=== PATIENT | male | born 1945 | race Caucasian/White ===

== ENCOUNTER → 2018-06-09 12:09 | Outpatient (REF) | payer OTHER, SELFPAY ==
[2018-06-13 11:43] LABS: Hepatitis C Ab w Rflx HCV PCR Negative (NEGAT)
== END ==
LOC: NCHCN 12:09
PROVIDERS: PCP Nurse Practitioner Family; Visit Provider Specialist/Technologist Athletic Trainer
DX: G47.00 Insomnia, unspecified (principal); F41.8 Other specified anxiety disorders; Z11.59 Encounter for screening for other viral diseases
CPT/HCPCS: 86803

== ENCOUNTER 2018-07-15 10:18 | Outpatient (REF) | payer OTHER, SELFPAY ==
[2018-07-15 13:36] LABS: TSH (W/Ref FT4) 1.08 uIU/mL (0.358-3.74)
== END 2018-07-15 10:38 ==
LOC: NCHCN 10:18
PROVIDERS: PCP Nurse Practitioner Family; Visit Provider Nurse Practitioner Family
DX: E03.9 Hypothyroidism, unspecified (principal); F41.8 Other specified anxiety disorders; R41.3 Other amnesia; R55 Syncope and collapse; F17.200 Nicotine dependence, unspecified, uncomplicated; G47.00 Insomnia, unspecified
CPT/HCPCS: 84443

== ENCOUNTER 2019-02-09 12:12 | Outpatient (REF) | payer OTHER, SELFPAY ==
[2019-02-09 21:53] LABS: ALT 28 U/L (12-78); AST 24 U/L (15-37); Albumin 3.9 g/dL (3.4-5.0); Alkaline Phosphatase 80 U/L (46-116); Anion Gap 9.2 mmol/L (3-11); BUN 13 mg/dL (7-18); Bilirubin, Total 0.6 mg/dL (0.2-1.0); CO2 27.8 mmol/L (21.0-32.0); CREATININE 1.16 mg/dL (0.70-1.30); Calcium 9.5 mg/dL (8.5-10.1); Chloride 102 mmol/L (98-107); Glucose 91 mg/dL (70-100); Potassium 4.5 mmol/L (3.5-5.1); Sodium 139 mmol/L (136-145); Vitamin B12 577 pg/mL (193-986)
== END 2019-02-09 12:32 ==
LOC: NCHCN 12:12
PROVIDERS: PCP Nurse Practitioner Family; Visit Provider Nurse Practitioner Family
DX: E78.5 Hyperlipidemia, unspecified (principal); F17.200 Nicotine dependence, unspecified, uncomplicated; F02.80 Dementia in other diseases classified elsewhere, unspecified severity, without behavioral disturbance, psychotic disturbance, mood disturbance, and anxiety; E03.9 Hypothyroidism, unspecified; F41.8 Other specified anxiety disorders; Z65.8 Other specified problems related to psychosocial circumstances; G47.00 Insomnia, unspecified; K27.9 Peptic ulcer, site unspecified, unspecified as acute or chronic, without hemorrhage or perforation
CPT/HCPCS: 80053; 82607; 83735; 84443

== ENCOUNTER → 2019-04-04 12:59 | Outpatient (BNVA) | payer OTHER, SELFPAY | PROVIDERS: PCP Nurse Practitioner Family; Visit Provider Nurse Practitioner Adult Health | DX: G30.1 Alzheimer's disease with late onset (principal); F02.80 Dementia in other diseases classified elsewhere, unspecified severity, without behavioral disturbance, psychotic disturbance, mood disturbance, and anxiety | CPT/HCPCS: 99213 ==

== ENCOUNTER → 2019-09-25 12:20 | Outpatient (BNVA) | payer OTHER, SELFPAY | PROVIDERS: PCP Nurse Practitioner Family; Referring Provider Nurse Practitioner Family; Visit Provider Nurse Practitioner Adult Health | DX: G30.9 Alzheimer's disease, unspecified (principal) | CPT/HCPCS: 99213 ==

== ENCOUNTER 2019-12-18 13:57 | Outpatient (REF) | payer OTHER, SELFPAY ==
[2019-12-18 21:21] LABS: ALT 28 U/L (16-63); AST 25 U/L (15-37); Albumin 3.6 g/dL (3.4-5.0); Alkaline Phosphatase 97 U/L (46-116); Anion Gap 9.7 mmol/L (3-11); BUN 11 mg/dL (7-18); Bilirubin, Total 0.6 mg/dL (0.2-1.0); CO2 28.3 mmol/L (21.0-32.0); CREATININE 1.13 mg/dL (0.70-1.30); Calcium 9.4 mg/dL (8.5-10.1); Chloride 102 mmol/L (98-107); Glucose 96 mg/dL (74-106); Magnesium 2.1 mg/dL (1.8-2.4); Potassium 4.6 mmol/L (3.5-5.1); Sodium 140 mmol/L (136-145); TSH (W/Ref FT4) 2.92 uIU/mL (0.36-3.74); Total Protein 6.8 g/dL (6.4-8.2); Vitamin B12 467 pg/mL (193-986)
== END 2019-12-18 14:17 ==
LOC: NCHCN 13:57
PROVIDERS: PCP Nurse Practitioner Family; Visit Provider Nurse Practitioner Family
DX: E78.5 Hyperlipidemia, unspecified (principal); E03.9 Hypothyroidism, unspecified; F41.8 Other specified anxiety disorders; R03.0 Elevated blood-pressure reading, without diagnosis of hypertension; R06.02 Shortness of breath; F17.200 Nicotine dependence, unspecified, uncomplicated; R05 Cough; K27.9 Peptic ulcer, site unspecified, unspecified as acute or chronic, without hemorrhage or perforation
CPT/HCPCS: 80053; 82607; 83735; 84443

== ENCOUNTER 2021-04-18 12:20 | Outpatient (REF) | payer OTHER, SELFPAY ==
[2021-04-18 19:26] LABS: ALT 38 U/L (16-63); AST 34 U/L (15-37); Albumin 3.5 g/dL (3.4-5.0); Alkaline Phosphatase 99 U/L (46-116); Anion Gap 12.2 mmol/L (3-11); BUN 17 mg/dL (7-18); Bilirubin, Total 0.2 mg/dL (0.2-1.0); CO2 25.8 mmol/L (21.0-32.0); CREATININE 1.1 mg/dL (0.70-1.30); Calcium 8.9 mg/dL (8.5-10.1); Chloride 104 mmol/L (98-107); Glucose 99 mg/dL (74-106); Magnesium 1.9 mg/dL (1.8-2.4); Potassium 4.5 mmol/L (3.5-5.1); Sodium 142 mmol/L (136-145); TSH (W/Ref FT4) 2.28 uIU/mL (0.36-3.74); Total Protein 6.4 g/dL (6.4-8.2); Vitamin B12 511 pg/mL (193-986)
== END 2021-04-18 12:21 | disposition home or self-care (01) ==
LOC: NCHCN 12:20
PROVIDERS: PCP Nurse Practitioner Family; Visit Provider Nurse Practitioner Family
DX: E78.5 Hyperlipidemia, unspecified (principal); E03.9 Hypothyroidism, unspecified; R06.02 Shortness of breath; G30.9 Alzheimer's disease, unspecified; F02.80 Dementia in other diseases classified elsewhere, unspecified severity, without behavioral disturbance, psychotic disturbance, mood disturbance, and anxiety; Z65.8 Other specified problems related to psychosocial circumstances
CPT/HCPCS: 80053; 82607; 83735; 84443

== ENCOUNTER 2022-03-31 11:55 | Inpatient (IN) | payer MEDICARE, SELFPAY ==
[2022-03-31] VITALS (49 sets, daily range): BP systolic 104–148; BP diastolic 71–105; PULSE 67–91; RESP 13–27; TEMP 36.2–36.8; O2SAT 79–98
--- NOTE | 2022-03-31 | DI.CT_ITS ---
Exam(s) CT ABDOMEN PELVIS CTA EXAM: CT ABDOMEN PELVIS CTA CLINICAL HISTORY: elevated liver function, ? ischemic. TECHNIQUE: Imaging Protocol: Axial CT angiography was performed with multi-slice acquisition and m ulti-planar and/or 3D reconstructions. CONTRAST MATERIAL: Intravenous: Omnipaque 350 Contrast volume:100mL Oral: No COMPARISON: CT ABD PELVIS WITH CONTRAST from 09/24/[address] CHEST/ABD/PEL WO from 03/31/2022 FINDINGS: ABDOMEN AND PELVIS: Abdomen: Celiac axis/mesenteric arteries: No evidence of occlusion or significant stenosis. Renal Arteries: No evidence of occlusion or significant stenosis. 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 Aorta: No evidence of occlusion or significant stenosis. No aneurysm or dissection. There is atheros clerosis and mural thrombus present. Pelvis: Iliac Arteries: No evidence of occlusion or significant stenosis. There is atherosclerosis present. There is moderate stenosis at the origin of the left external iliac artery. Common Femoral Arteries: No evidence of occlusion or significant stenosis. Atherosclerosis is presen t. ABDOMEN: Lung bases: Coronary artery calcifications are present. There is a 2 cm cavitary lesion in the left lower lobe. Liver: Normal density. No measurable mass. Portal, Superior Mesenteric, and Splenic Veins: Unremarkable. Gallbladder and Biliary Tract: No radiodense calculus or dilation. Pancreas: Normal density, no abnormal calcifications or inflammatory process. Spleen: Normal. Adrenals: There is a stable right adrenal nodule. This likely reflects an adenoma. Left adrenal gla nd is unremarkable. Kidneys: Normal size, contour and axis. No radiodense stones or obstructive uropathy. Stable renal cy sts. Bowel: There is no evidence of obstruction. There is mild bowel wall thickening seen in the proximal small bowel in the left abdomen. No evidence of appendicitis. There is diverticulosis in the sigmo id colon but no evidence of acute diverticulitis. Peritoneal Cavity: No ascites, collection or mesenteric inflammatory response. No free air. Lymph Nodes: Within normal limits. Bones: Within normal limits for the patient's age. There are old healed left rib fractures. Soft Tissues: Unremarkable. PELVIS: Bladder: There is 5.2 x 3.3 cm soft tissue seen in the dependent portion of the urinary bladder. Thi s may represent hemorrhage. Mass cannot be excluded. Reproductive Organs: Unremarkable as visualized. Lymph Nodes: Within normal limits. Bones: Within normal limits. IMPRESSION: 1. No evidence of mesenteric ischemia. Mesenteric vessels are grossly unremarkable. 2. 5.2 x 3.3 cm soft tissue in the dependent portion of the urinary bladder. This may represent clot versus bladder mass. Urology consult is recommended. 3. 2 cm cavitary lesion in the left lower lobe. Neoplasm cannot be excluded. Other etiologies inclu ding infection, collagen vascular disease/granulomatous disease, trauma should be considered. Correl ate clinically. 4. Question of mild thickening of the wall of the proximal small bowel. Enteritis cannot be excluded . RADIATION DOSE DELIVERED: 1,318.05mGy.cm Total DLP DATA REPOSITORY: All CT scans at this facility are submitted to the National Radiology Data Registry (NRDR) Dose Index Registry (DIR) with the [employer] ([employer]). RADIATION OPTIMIZATION: All CT scans at this facility use at least one of these dose optimization te chniques: automated exposure control; mA and/or kV adjustment per patient size (includes targeted exa ms where dose is matched to clinical indication); or iterative reconstruction.
--- NOTE | 2022-03-31 12:15 | RT.EKG_ITS ---
APPROVED REPORT Exam: Resting ECG Reason for Exam: weakness Patient Location: E HR:77 bpm ECG Measurements Heart Rate 77 AXIS UT 154 P 83 QRSd 143 QRS -62 QT 470 T 93 QTc 534 Conclusion Sinus rhythm...normal P axis, V-rate 60- 99 Ventricular premature complex...V complex w/ short R-R interval Left bundle branch block...QRSd>120, broad/notched R. Sinus. LBBB. PVCs. No STEMI. I have reviewed and interpreted ECG and agree with software generated interpretation.
--- NOTE | 2022-03-31 12:27 | ED.GENADUL_ITS ---
Discharge Plan Disposition Patient Disposition: [facility] INPATIENT Condition: Stable Discharge Details Clinical Impression: Transaminitis, Hyperbilirubinemia, Confusion, Generalized weakness, Bladder mass Primary Care Provider: Lily Soares ED Provider: Sydney De León Home Meds and New Rx's Prescriptions: No Action trazodone 50 mg tablet 100 mg PO HS melatonin 3 mg tablet 3 mg PO HS Label Comments: Per will increase to 6 mg qd next week. mirtazapine 45 mg tablet 45 mg PO QHS aspirin 81 MG tablet,chewable 81 mg PO DAILY acetaminophen [Tylenol] 325 MG tablet 650 mg PO PRN nicotine 1 EACH patch 24 hour 14 mg Transdermal DAILY simvastatin 20 MG tablet 20 mg PO DAILY levothyroxine 125 MCG tablet 100 mcg PO DAILY@0730 Label Comments: 02/08/18 PER SON 100 MCG DAILY. Centrum Silver 1 EACH tablet 1 ea PO DAILY citalopram 40 MG tablet 40 mg PO DAILY pantoprazole 40 MG tablet,delayed release (DR/EC) 40 mg PO DAILY Qty: 30 5RF atenolol 25 mg tablet 12.5 mg PO DAILY Label Comments: Take 1/2 tablet by mouth every day Medical Decision Making 1215 -- 77-year-old male with a history of dementia, anxiety, depression, hyperlipidemia, hypothyroidism, former alcohol abuse presents from home for generalized weakness, confusion, fatigue and decreased appetite for the past week. Vitals within normal limits. EKG notes a rate of 77, sinus, PVCs with left bundle branch block but no STEMI. No evidence of trauma on exam. Patient is oriented x3 but has intermittent confusion per ex- at bedside. He is able to answer most questions. She has significantly dry mucous membranes. No meningeal signs. Lungs clear bilaterally. No focal deficits. Differential diagnosis includes UTI, CVA, dehydration, electrolyte abnormality, probably medication. Will obtain screening labs, ua, CT head, cxr and provide IV fluid hydration. 1430 --labs and imaging reviewed. Normal white blood cell count and hemoglobin. Creatinine 1.8 slightly increased from his baseline. AST 1167, ALT 4777, alk phos 231, T bili 5.9. Troponin negative. Fluvid negative. Discussed with patient and ex- at bedside. She denies any known acute Tylenol overdose but states he can sometimes take days worth of his medication at once. They deny any recent alcohol use. We will add a Tylenol level, lipase, chest x-ray changed to CT chest abdomen pelvis without IV contrast and will obtain a gallbladder ultrasound. Patient is hemodynamically stable. Discussed CODE STATUS at bedside and patient and ex- endorse that he is DNR/DNI. 1600 --ultrasound of the gallbladder notes cholelithiasis but no cholecystitis. Ultrasound of the bladder notes a 5 cm lesion which could be a clot or mass. Lipase within normal limits. Conjugated bilirubin elevated at 4.7. Acetaminophen level negative. Urinalysis notes large blood but negative leukocyte esterase and nitrate. Ammonia level within normal limits. Case discussed with Dr. Dixon --consider ischemia -- no recommendations for repeat CT with IV or oral contrast at this time. Lactate obtained which was within normal limits. Results discussed at bedside with patient and ex- and they are agreeable to admission. Case d/w hospitalist who accepts pt for admission. 174 -- D/w Dr. Gallardo-- if pt has decreased urine output, then can place a moore catheter, but otherwise no acute recommendations at this time. Medical Records Medical records reviewed: Yes I reviewed the patient's medical records. Imaging Data Radiologic Study: Radiologist's impression: CT HEAD WO CLINICAL HISTORY: ? confusion, r/o acute disease. ? TECHNIQUE:? Imaging Protocol: Axial computed tomography images with coronal and sagittal reformatted images were created and reviewed COMPARISON:? CT HEAD WITHOUT STROKE PROTOCOL from 04/07/2013 MR MRI - BRAIN WO CONTRAST from 02/14/2018 FINDINGS: Ventricles and Extra axial spaces: Normal in size and morphology for the patient's age. Hemorrhage: None. Cerebral parenchyma: Mild atrophy.? Old left parietal infarct.? No acute infarct is visible.? No evidence of mass.? No evidence of acute Midline shift: None. Brainstem/Cerebellum: Normal. Calvarium: Normal. Visualized Paranasal sinuses/Mastoids: Clear. Soft Tissues: Unremarkable. IMPRESSION: Old left parietal infarct.? No acute intracranial process. CT CHEST/ABD/PEL WO CLINICAL HISTORY: ? weakness, fatigue, poor appetite. ? TECHNIQUE:? Imaging Protocol: Axial computed tomography images with coronal and sagittal reformatted images were created and reviewed CONTRAST MATERIAL:? Noncontrast COMPARISON:? CT CTA THORAX/ABDOMEN/PELVIS from 09/09/2016 CT CTA THORAX/ABDOMEN/PELVIS from 09/09/2016 CR PORTABLE CHEST ONE VIEW from 09/10/2016 CR PORTABLE CHEST ONE VIEW from 09/12/2016 CT ABD ? PELVIS WITH CONTRAST from 09/17/2016 CT ABD ? PELVIS WITH CONTRAST from 09/24/[address] HEAD WO from 03/31/2022 FINDINGS: CHEST: Heart size is normal.? Coronary artery calcifications at the seen.? There are atherosclerotic changes of the aorta but no evidence of an aneurysm.? There is no adenopathy.? There are mild emphysematous changes.? There is an area of scarring in the posterolateral left lower lobe.? There are cystic areas within the lesion? communicating with bronchi.? A mass at this location is not excluded.? There lungs are otherwise clear.? No pleural or pericardial effusions.? No suspicious bony lesions. ABDOMEN and PELVIS:? Exam is mildly limited by respiratory motion the liver, gallbladder, spleen, pancreas and adrenals are unremarkable.? Multiple cysts are seen on the left kidney.? The right kidney is unremarkable.? There are atherosclerotic changes of the abdominal aorta with mild dilatation and mild mural thrombus.? Maximum dimension 3 cm.? Iliac arteries are heavily calcified, left greater than right.? There is high-density material within the bladder which could represent clot versus mass..? Prostate is mildly enlarged.? The colon shows diverticulosis but no evidence of diverticulitis.? There is no free fluid or localized collection.? Degenerative changes and scoliosis are seen in the spine lumbar spine. IMPRESSION: 1.? Question mass versus scarring left lower lobe. 2.? High-density material in the bladder could represent clot versus mass. ? Results of this exam have been verbally communicated with the emergency department provider. US ABDOMEN LIMITED CLINICAL HISTORY: ? transaminitis, r/o cholecystitis TECHNIQUE:? Ultrasound abdomen performed using standard protocol. COMPARISON:? No exams were available for comparison FINDINGS: LIVER: Visualized portions normal echogenicity.? GALLBLADDER: Several? gallstones, largest measuring 7 millimeters.? No evidence of wall thickening. No pericholecystic fluid identified. JAMISON'S SIGN: Negative. BILIARY SYSTEM: No intrahepatic or extrahepatic biliary ductal dilation. ASCITES: None seen. IMPRESSION: Cholelithiasis.? No evidence of acute cholecystitis or biliary dilatation. US PELVIS LIMITED CLINICAL HISTORY: ? possible blood clot in bladder on ct.? TECHNIQUE:? Armas scale, color and spectral Doppler were used. COMPARISON:? CT CT CHEST/ABD/PEL WO from 03/31/2022 FINDINGS: Bladder: No wall thickening or visible trabeculation.? 3.5 x 2.3 x 5.2 cent imeter mixed echogenicity avascular lesion.? Appearance favors clot however mass not entirely excluded.? Both ureteral jets were visualized. Prevoid vol:316 cc Postvoid vol:Patient unable to void IMPRESSION: 5.2 centimeter mixed echogenicity ladder lesion could represent clot versus mass. Results of this exam have been verbally communicated with the emergency department provider. Lab Data Lab results reviewed: Yes I reviewed the patient's lab results. Labs: 03/31/22 15:58 Urine - Reflex from Ua Urine Culture - Pending Laboratory Tests Range/Units 03/31/22 03/31/22 03/31/22 12:30 12:55 12:55 WBC (4.4-10.8) 10^3/uL 8.52 RBC (4.36-5.78) 10^6/uL 6.16 H Hgb (13.5-17.5) g/dL 15.8 Hct (40.0-50.0) % 49.6 MCV (80-95) fL 81 MCH (27.0-33.0) pg 25.6 L MCHC (32.0-36.0) % 31.9 L RDW (11.8-14.1) % 18.4 H Plt Count (130-400) 10^3/uL 270 MPV (8.0-11.0) fL 10.2 Immature Gran % 0.7 Neutrophils % 74.5 Lymphocytes % 13.3 Monocytes % 9.7 Eosinophils % 1.3 Basophils % 0.5 Nucleated RBC % (0.0-0.3) % 0.0 Absolute Neutrophils (1.2-6.7) 10^3/uL 6.35 Absolute Lymphocytes (1.2-3.4) 10^3/uL 1.13 L Absolute Monocytes (0.1-0.8) 10^3/uL 0.83 H Absolute Eosinophils (0.0-0.7) 10^3/uL 0.11 Absolute Basophils (0.0-0.2) 10^3/uL 0.04 PT INR APTT Sodium (136-145) mmol/L 142 Potassium (3.5-5.1) mmol/L 4.1 Chloride (98-107) mmol/L 106 Carbon Dioxide (21.0-32.0) mmol/L 29.0 Anion Gap (3-11) mmol/L 7.0 BUN (7-18) mg/dL 66 H Creatinine (0.70-1.30) mg/dL 1.8 H Estimated GFR/1.73 m2 (mL/min/1.73m2) 36.77 Glucose (74-106) mg/dL 111 H Calcium (8.5-10.1) mg/dL 9.1 Magnesium (1.8-2.4) mg/dL 2.8 H Iron (65-175) ug/dL Ferritin (26-388) ng/mL Total Bilirubin (0.2-1.0) mg/dL 5.9 H Conjugated Bilirubin (0.0-0.2) mg/dL AST (15-37) U/L 1167 H ALT (16-63) U/L 4777 H Alkaline Phosphatase (46-116) U/L 231 H Ammonia (11-32) umol/L Troponin I (<or=60) ng/L < 50 Total Protein (6.4-8.2) g/dL 6.4 Albumin (3.4-5.0) g/dL 3.1 L Lipase (73-393) U/L Vitamin B12 (193-986) pg/mL Vit D 1,25-Dihydroxy TSH (0.36-3.74) uIU/mL 0.35 L Free T4 (0.76-1.46) ng/dL 1.37 Urine Color (Yellow) Urine Clarity (Clear) Urine pH (5-8) Ur Specific [place] (1.005-1.025) Urine Protein (Negative) mg/dL Urine Ketones (Negative) mg/dL Urine Blood (Negative) Urine Nitrite (Negative) Urine Bilirubin (Negative) Urine Urobilinogen (Up TO 0.2) EU/dL Ur Leukocyte Esterase (Negative) Urine RBC (0-2) HPF Urine WBC (0-5) HPF Ur Epithelial Cells Urine Crystals (Negative) HPF Urine Bacteria Urine Mucus Ur Culture Indicated? Urine Glucose (Negative) mg/dL Acetaminophen (10-30) ug/mL COVID-19 Source Nasopharynx SARS-CoV-2 (PCR) (Negative) Negative Influenza Type A (PCR) (Negative) Negative Influenza Type B (PCR) (Negative) Negative RSV (PCR) (Negative) Negative Range/Units 03/31/22 03/31/22 03/31/22 12:55 12:55 12:55 WBC (4.4-10.8) 10^3/uL RBC (4.36-5.78) 10^6/uL Hgb (13.5-17.5) g/dL Hct (40.0-50.0) % MCV (80-95) fL MCH (27.0-33.0) pg MCHC (32.0-36.0) % RDW (11.8-14.1) % Plt Count (130-400) 10^3/uL MPV (8.0-11.0) fL Immature Gran % Neutrophils % Lymphocytes % Monocytes % Eosinophils % Basophils % Nucleated RBC % (0.0-0.3) % Absolute Neutrophils (1.2-6.7) 10^3/uL Absolute Lymphocytes (1.2-3.4) 10^3/uL Absolute Monocytes (0.1-0.8) 10^3/uL Absolute Eosinophils (0.0-0.7) 10^3/uL Absolute Basophils (0.0-0.2) 10^3/uL PT INR APTT Sodium (136-145) mmol/L Potassium (3.5-5.1) mmol/L Chloride (98-107) mmol/L Carbon Dioxide (21.0-32.0) mmol/L Anion Gap (3-11) mmol/L BUN (7-18) mg/dL Creatinine (0.70-1.30) mg/dL Estimated GFR/1.73 m2 (mL/min/1.73m2) Glucose (74-106) mg/dL Calcium (8.5-10.1) mg/dL Magnesium (1.8-2.4) mg/dL Iron (65-175) ug/dL 55 L Ferritin (26-388) ng/mL > 2000 H Total Bilirubin (0.2-1.0) mg/dL Conjugated Bilirubin (0.0-0.2) mg/dL 4.7 H AST (15-37) U/L ALT (16-63) U/L Alkaline Phosphatase (46-116) U/L Ammonia (11-32) umol/L Troponin I (<or=60) ng/L Total Protein (6.4-8.2) g/dL Albumin (3.4-5.0) g/dL Lipase (73-393) U/L Vitamin B12 (193-986) pg/mL > 2000 H Vit D 1,25-Dihydroxy TSH (0.36-3.74) uIU/mL Free T4 (0.76-1.46) ng/dL Urine Color (Yellow) Urine Clarity (Clear) Urine pH (5-8) Ur Specific [place] (1.005-1.025) Urine Protein (Negative) mg/dL Urine Ketones (Negative) mg/dL Urine Blood (Negative) Urine Nitrite (Negative) Urine Bilirubin (Negative) Urine Urobilinogen (Up TO 0.2) EU/dL Ur Leukocyte Esterase (Negative) Urine RBC (0-2) HPF Urine WBC (0-5) HPF Ur Epithelial Cells Urine Crystals (Negative) HPF Urine Bacteria Urine Mucus Ur Culture Indicated? Urine Glucose (Negative) mg/dL Acetaminophen (10-30) ug/mL COVID-19 Source SARS-CoV-2 (PCR) (Negative) Influenza Type A (PCR) (Negative) Influenza Type B (PCR) (Negative) RSV (PCR) (Negative) Range/Units 03/31/22 03/31/22 03/31/22 12:55 12:55 13:32 WBC (4.4-10.8) 10^3/uL RBC (4.36-5.78) 10^6/uL Hgb (13.5-17.5) g/dL Hct (40.0-50.0) % MCV (80-95) fL MCH (27.0-33.0) pg MCHC (32.0-36.0) % RDW (11.8-14.1) % Plt Count (130-400) 10^3/uL MPV (8.0-11.0) fL Immature Gran % Neutrophils % Lymphocytes % Monocytes % Eosinophils % Basophils % Nucleated RBC % (0.0-0.3) % Absolute Neutrophils (1.2-6.7) 10^3/uL Absolute Lymphocytes (1.2-3.4) 10^3/uL Absolute Monocytes (0.1-0.8) 10^3/uL Absolute Eosinophils (0.0-0.7) 10^3/uL Absolute Basophils (0.0-0.2) 10^3/uL PT INR APTT Sodium (136-145) mmol/L Potassium (3.5-5.1) mmol/L Chloride (98-107) mmol/L Carbon Dioxide (21.0-32.0) mmol/L Anion Gap (3-11) mmol/L BUN (7-18) mg/dL Creatinine (0.70-1.30) mg/dL Estimated GFR/1.73 m2 (mL/min/1.73m2) Glucose (74-106) mg/dL Calcium (8.5-10.1) mg/dL Magnesium (1.8-2.4) mg/dL Iron (65-175) ug/dL Ferritin (26-388) ng/mL Total Bilirubin (0.2-1.0) mg/dL Conjugated Bilirubin (0.0-0.2) mg/dL AST (15-37) U/L ALT (16-63) U/L Alkaline Phosphatase (46-116) U/L Ammonia (11-32) umol/L Troponin I (<or=60) ng/L Total Protein (6.4-8.2) g/dL Albumin (3.4-5.0) g/dL Lipase (73-393) U/L 159 Vitamin B12 (193-986) pg/mL Vit D 1,25-Dihydroxy Cancelled TSH (0.36-3.74) uIU/mL Free T4 (0.76-1.46) ng/dL Urine Color (Yellow) Urine Clarity (Clear) Urine pH (5-8) Ur Specific [place] (1.005-1.025) Urine Protein (Negative) mg/dL Urine Ketones (Negative) mg/dL Urine Blood (Negative) Urine Nitrite (Negative) Urine Bilirubin (Negative) Urine Urobilinogen (Up TO 0.2) EU/dL Ur Leukocyte Esterase (Negative) Urine RBC (0-2) HPF Urine WBC (0-5) HPF Ur Epithelial Cells Urine Crystals (Negative) HPF Urine Bacteria Urine Mucus Ur Culture Indicated? Urine Glucose (Negative) mg/dL Acetaminophen (10-30) ug/mL < 2 COVID-19 Source SARS-CoV-2 (PCR) (Negative) Influenza Type A (PCR) (Negative) Influenza Type B (PCR) (Negative) RSV (PCR) (Negative) Range/Units 03/31/22 03/31/22 03/31/22 14:55 15:25 15:58 WBC (4.4-10.8) 10^3/uL RBC (4.36-5.78) 10^6/uL Hgb (13.5-17.5) g/dL Hct (40.0-50.0) % MCV (80-95) fL MCH (27.0-33.0) pg MCHC (32.0-36.0) % RDW (11.8-14.1) % Plt Count (130-400) 10^3/uL MPV (8.0-11.0) fL Immature Gran % Neutrophils % Lymphocytes % Monocytes % Eosinophils % Basophils % Nucleated RBC % (0.0-0.3) % Absolute Neutrophils (1.2-6.7) 10^3/uL Absolute Lymphocytes (1.2-3.4) 10^3/uL Absolute Monocytes (0.1-0.8) 10^3/uL Absolute Eosinophils (0.0-0.7) 10^3/uL Absolute Basophils (0.0-0.2) 10^3/uL PT Cancelled INR Cancelled APTT Cancelled Sodium (136-145) mmol/L Potassium (3.5-5.1) mmol/L Chloride (98-107) mmol/L Carbon Dioxide (21.0-32.0) mmol/L Anion Gap (3-11) mmol/L BUN (7-18) mg/dL Creatinine (0.70-1.30) mg/dL Estimated GFR/1.73 m2 (mL/min/1.73m2) Glucose (74-106) mg/dL Calcium (8.5-10.1) mg/dL Magnesium (1.8-2.4) mg/dL Iron (65-175) ug/dL Ferritin (26-388) ng/mL Total Bilirubin (0.2-1.0) mg/dL Conjugated Bilirubin (0.0-0.2) mg/dL AST (15-37) U/L ALT (16-63) U/L Alkaline Phosphatase (46-116) U/L Ammonia (11-32) umol/L 22 Troponin I (<or=60) ng/L Total Protein (6.4-8.2) g/dL Albumin (3.4-5.0) g/dL Lipase (73-393) U/L Vitamin B12 (193-986) pg/mL Vit D 1,25-Dihydroxy TSH (0.36-3.74) uIU/mL Free T4 (0.76-1.46) ng/dL Urine Color (Yellow) Brown Urine Clarity (Clear) Cloudy Urine pH (5-8) 6.0 Ur Specific [place] (1.005-1.025) >= 1.030 H Urine Protein (Negative) mg/dL >=300 H Urine Ketones (Negative) mg/dL 15 H Urine Blood (Negative) Large H Urine Nitrite (Negative) Negative Urine Bilirubin (Negative) Moderate H Urine Urobilinogen (Up TO 0.2) EU/dL 1.0 H Ur Leukocyte Esterase (Negative) Negative Urine RBC (0-2) HPF >50 H Urine WBC (0-5) HPF 5-10 Ur Epithelial Cells Not Applicable Urine Crystals (Negative) HPF Moderate Amorphous Urine Bacteria Not Applicable Urine Mucus Not Applicable Ur Culture Indicated? Yes Urine Glucose (Negative) mg/dL Negative Acetaminophen (10-30) ug/mL COVID-19 Source SARS-CoV-2 (PCR) (Negative) Influenza Type A (PCR) (Negative) Influenza Type B (PCR) (Negative) RSV (PCR) (Negative) ECG Data Attestation: I personally reviewed and interpreted this ECG (s) as follows: Interpretation: Rate 77, sinus, left bundle branch block, PVCs, no stemi. HPI General Mode of arrival: wheelchair . Date/Time Provider Initiated Documentation: 03/31/22 12:24 . Limitations to Documentation: altered mental status . Information obtained by: patient and family . HPI Narrative: Patient is a 77-year-old male with a history of Alzheimer's dementia, anxiety, depression, hyperlipidemia, hypothyroidism who presents from home for generalized weakness, poor appetite and confusion for the past week. Ex- who is at bedside states she checks on patient twice weekly and assisting with his regular medication and takes him to his doctor's appointments. She states she brought him to his doctor's appointment for a routine checkup today and sent him here for further evaluation of his confusion, weakness, fatigue and poor appetite. Ex- states that patient has confusion at baseline due to his dementia but has been more confused than usual for the past week and that he is delayed in his answering and would normally know the day at times but does not. She states she does not use a cane or walker at baseline but has been using assistance with ambulating by holding onto things. She states he has not drink or eat much recently. She also is concerned about his multiple sedating medications including mirtazapine and trazodone he feels they may be contr ibuting to his fatigue. She denies any recent change in his medications. She has been told previously that he has confusion due to his previous drinking history but states he has not drank alcohol for several years. Denies any recent falls. Patient denies any known fever, headache, chest pain, shortness of breath, abdominal pain, urinary symptoms, vomiting or diarrhea. Related Data Home Medications Medication Instructions Recorded Confirmed levothyroxine 125 mcg tablet 100 mcg PO DAILY@0730 04/07/13 03/31/22 [id number] acid 0.4 1 ea PO DAILY 04/07/13 03/31/22 mg-lycopene 300 mcg-lutein 250 mcg tablet (Centrum Silver) simvastatin 20 mg tablet 20 mg PO DAILY 04/07/13 03/31/22 citalopram 40 mg tablet 40 mg PO DAILY 11/10/15 03/31/22 aspirin 81 mg chewable tablet 81 mg PO DAILY 01/04/17 09/25/19 pantoprazole 40 mg tablet,delayed 40 mg PO DAILY ##30 05/03/17 03/31/22 release acetaminophen 325 mg tablet 650 mg PO PRN 02/07/18 03/31/22 (Tylenol) nicotine 14 mg/24 hr daily 14 mg transdermal DAILY 02/07/18 09/25/19 transdermal patch melatonin 3 mg tablet 3 mg PO HS 09/25/19 03/31/22 mirtazapine 45 mg tablet 45 mg PO QHS 09/25/19 03/31/22 trazodone 50 mg tablet 100 mg PO HS 09/25/19 03/31/22 atenolol 25 mg tablet 12.5 mg PO DAILY 03/31/22 03/31/22 Previous Rx's Medication Instructions Recorded pantoprazole 40 mg tablet,delayed 40 mg PO DAILY ##30 05/03/17 release Allergies Allergy/AdvReac Type Severity Reaction Status Date / Time ibuprofen Allergy Severe Unverified 03/31/22 12:04 varenicline tartrate AdvReac Severe Psychosis Unverified 03/31/22 12:04 [From Chantix] General Stated Complaint: GenMedical WINSTON: 3 Review of Systems All systems reviewed & are unremarkable except as noted in HPI and below Constitutional Constitutional: Denies chills, Reports daytime sleepiness, Denies excessive sweating, Denies fatigue, Denies fever(s), Reports poor appetite, Reports weakness and Denies weight loss Eyes Eyes: Reports system reviewed and no additional complaints, except as documented and Denies blurry vision ENT Ears, Nose, Mouth, and Throat: Denies vertigo, Denies dizziness, Denies otalgia, Denies nasal congestion, Denies sore throat and Denies throat swelling Cardiovascular Cardiovascular: Denies chest pain, Denies syncope, Denies rapid heart rate and Denies dyspnea Respiratory Respiratory: Denies chest congestion, Denies cough, Denies pain on inspiration and Denies dyspnea Gastrointestinal Gastrointestinal: Denies abdominal pain, Denies diarrhea and Denies vomiting Genitourinary Genitourinary: Denies hematuria, Denies dysuria and Denies flank pain Musculoskeletal Musculoskeletal: Denies back pain and Denies joint swelling Integumentary/Breasts Skin/Breast: Denies lesions and Denies rash Neurologic Neurologic: Denies behavioral changes, Reports confusion, Denies vertigo, Denies dizziness, Denies syncope, Denies localized weakness and Reports weakness Psychiatric Psychiatric: Denies behavioral changes, Reports confusion and Denies depression Endocrine Endocrine: Denies excessive sweating and Denies fatigue Hematologic/Lymphatic Hematologic/Lymphatic: Denies easy bruising and Denies lymphadenopathy Allergic/Immunologic Allergic/Immunologic: Denies throat swelling PFSH All Active Problems (Updated 03/31/22 @ 17:55 by Sydney De León DO) Transaminitis (Acute) Hyperbilirubinemia (Acute) Confusion (Acute) Generalized weakness (Acute) Bladder mass (Acute) Alzheimer's dementia without behavioral disturbance (Chronic) Upper gastrointestinal bleed (Acute 07/31/13) With melena and drop in hemoglobin Anxiety (Acute 07/31/13) Agitation (Acute 07/31/13) Anxiety and depression (Chronic) Hypothyroidism (Chronic) On satins. Hyperlipidemia (Chronic) Periodic limb movement disorder (Chronic) On benzodiazepines. Memory disturbance (Chronic) Pneumoperitoneum (Acute) Anemia (Acute) Hypotension (Acute) Bradycardia (Acute) Perforated duodenal ulcer (Acute) Pneumonia (Acute) Fluid volume excess (Acute) Hypokalemia (Acute) nutrition (Acute) Physical deconditioning (Acute) Short-term memory loss (Acute) Medical History (Updated 03/31/22 @ 17:55 by Sydney De León DO) Anxiety Colon polyp Depression Diverticulitis History of alcohol abuse Hyperlipidemia Hypothyroidism Neurocardiogenic syncope Osteoarthritis Perforated duodenal ulcer Tobacco abuse Surgical History Colonoscopy - MAC (05/03/17) Colonoscopy - MAC (03/11/18) EGD - MAC (05/03/17) Kidney Laparotomy (09/10/16) with duodenal ulcer repair Family History Mother Dementia Father Heart disease Social History Smoking/Tobacco Use Status: Current every day Tobacco Type: cigarettes Smoking risk assessment performed?: Yes Alcohol Intake: former Drug use: Never Do you feel safe at home: Yes Do you feel safe in your relationship?: Yes Exam Const General: cooperative and frail appearing Nutritional Appearance: cachectic Orientation: alert, awake and oriented x3 HENMT Head: normal to inspection Ears: hearing grossly normal bilaterally, external ears normal and TM's normal bilaterally General nose exam: external nose normal Face and sinus: normal facial exam Mouth: mucous membranes dry Throat: posterior oropharynx normal Eyes General: appearance normal, both eyes and all related structures Eyelids: eyelids normal Pupils: PERRL EOM: EOM intact bilaterally Neck Neck: normal visual inspection Lymphatic: no lymphadenopathy noted Chest Chest: normal inspection of the chest Resp Effort & Inspection: normal respiratory effort and able to speak in complete sentences Auscultation: clear to auscultation bilaterally Cardio Rate: regular rate Rhythm: regular rhythm GI Inspection: normal to inspection Palpation: soft, not firm, no guarding, no hepatosplenomegaly, no masses and nontender Auscultation: hypoactive bowel sounds Back/Spine/Pelvis Thoracic/Lumbar Spine: thoracic and lumbar spine normal to inspection Skin General skin exam: no rashes or lesions noted Neuro General: patient alert and patient awake Cognition: normal cognition Speech: speech normal Gait: normal gait Motor: muscle tone normal throughout Sensory Exam: no sensory deficits noted Extrem General: normal to inspection, full ROM and capillary refill normal Other: Normal range of motion of bilateral upper and lower extremities but without pain, evidence of trauma or deformity. Psych Appearance: grossly normal Mental Status: mental status grossly normal Speech and Movement: speech and movement normal Affect: normal affect Thought Process: normal Course Vital Signs Vital signs: Vital Signs Temperature 98.2 F 03/31/22 12:08 Pulse 83 03/31/22 12:08 Respiratory Rate 18 03/31/22 12:08 Blood Pressure 121/81 03/31/22 12:08 Pulse Oximetry 97 03/31/22 12:08 Temperature 98.2 F 03/31/22 12:08 Pulse 83 03/31/22 12:08 Respiratory Rate 18 03/31/22 12:08 Respiratory Effort 03/31/22 12:04 Respiratory Depth Normal 03/31/22 12:04 Respiratory Pattern Normal 03/31/22 12:04 Blood Pressure 121/81 03/31/22 12:08 Pulse Oximetry 97 03/31/22 12:08 Oxygen Delivery Method Room Air 03/31/22 12:08 Oxygen Flow Rate 0 03/31/22 12:08
[2022-03-31 13:05] LABS: Abs Immature Grans 0.06 10^3/uL (0.0-0.06); Absolute Basophil Count 0.04 10^3/uL (0.0-0.2); Absolute Eosinophil Count 0.11 10^3/uL (0.0-0.7); Absolute Lymphocyte Count 1.13 10^3/uL (1.2-3.4); Absolute Monocyte Count 0.83 10^3/uL (0.1-0.8); Absolute Neutrophil Count 6.35 10^3/uL (1.2-6.7); Basophils % 0.5; Eosinophils % 1.3; HCT 49.6 % (40.0-50.0); HGB 15.8 g/dL (13.5-17.5); Immature Grans % 0.7; Lymphocytes % 13.3; MCH 25.6 pg (27.0-33.0); MCHC 31.9 % (32.0-36.0); MCV 81 fL (80-95); MPV 10.2 fL (8.0-11.0); Monocytes % 9.7; Neutrophils % 74.5; Platelet Count 270 10^3/uL (130-400); RBC 6.16 10^6/uL (4.36-5.78); RDW 18.4 % (11.8-14.1); RDW-SD 46.4 fL; WBC 8.52 10^3/uL (4.4-10.8)
[2022-03-31 13:15] LABS: COVID-19 PCR Negative (Negative); Influenza A PCR Negative (Negative); Influenza B PCR Negative (Negative); RSV PCR Negative (Negative)
--- NOTE | 2022-03-31 13:15 | DI.CT_ITS ---
Exam(s) CT HEAD WO EXAM: CT HEAD WO CLINICAL HISTORY: confusion, r/o acute disease. TECHNIQUE: Imaging Protocol: Axial computed tomography images with coronal and sagittal reformatted images were created and reviewed COMPARISON: CT HEAD WITHOUT STROKE PROTOCOL from 04/07/2013 MR MRI - BRAIN WO CONTRAST from 02/14/2018 FINDINGS: Ventricles and Extra axial spaces: Normal in size and morphology for the patient's age. Hemorrhage: None. Cerebral parenchyma: Mild atrophy. Old left parietal infarct. No acute infarct is visible. No evid ence of mass. No evidence of acute Midline shift: None. Brainstem/Cerebellum: Normal. Calvarium: Normal. Visualized Paranasal sinuses/Mastoids: Clear. Soft Tissues: Unremarkable. IMPRESSION: Old left parietal infarct. No acute intracranial process. RADIATION DOSE DELIVERED: 745.91 mGy.cm Total DLP DATA REPOSITORY: All CT scans at this facility are submitted to the National Radiology Data Registry (NRDR) Dose Index Registry (DIR) with the [employer] (A[employer]). RADIATION OPTIMIZATION: All CT scans at this facility use at least one of these dose optimization te chniques: automated exposure control; mA and/or kV adjustment per patient size (includes targeted exa ms where dose is matched to clinical indication); or iterative reconstruction.
[2022-03-31 13:16] LABS: Source Nasopharynx
[2022-03-31 13:31] LABS: Albumin 3.1 g/dL (3.4-5.0); Alkaline Phosphatase 231 U/L (46-116); BUN 66 mg/dL (7-18); Bilirubin, Total 5.9 mg/dL (0.2-1.0); CREATININE 1.8 mg/dL (0.70-1.30); Calcium 9.1 mg/dL (8.5-10.1); Chloride 106 mmol/L (98-107); Estimated GFR 36.77 (mL/min/1.73m2); Glucose 111 mg/dL (74-106); Magnesium 2.8 mg/dL (1.8-2.4); Potassium 4.1 mmol/L (3.5-5.1); Sodium 142 mmol/L (136-145); TSH (W/Ref FT4) 0.35 uIU/mL (0.36-3.74); Total Protein 6.4 g/dL (6.4-8.2); Troponin I < 50 ng/L (<or=60)
[2022-03-31] MEDS: Normal Saline 1,000 ML 1000 ML IV (13:39)
[2022-03-31 13:49] LABS: AST 1167 U/L (15-37)
--- NOTE | 2022-03-31 14:15 | DI.CT_ITS ---
Exam(s) CT CHEST/ABD/PEL WO EXAM: CT CHEST/ABD/PEL WO CLINICAL HISTORY: weakness, fatigue, poor appetite. TECHNIQUE: Imaging Protocol: Axial computed tomography images with coronal and sagittal reformatted images were created and reviewed CONTRAST MATERIAL: Noncontrast COMPARISON: CT CTA THORAX/ABDOMEN/PELVIS from 09/09/2016 CT CTA THORAX/ABDOMEN/PELVIS from 09/09/2016 CR PORTABLE CHEST ONE VIEW from 09/10/2016 CR PORTABLE CHEST ONE VIEW from 09/12/2016 CT ABD PELVIS WITH CONTRAST from 09/17/2016 CT ABD PELVIS WITH CONTRAST from 09/24/[address] HEAD WO from 03/31/2022 FINDINGS: CHEST: Heart size is normal. Coronary artery calcifications at the seen. There are atherosclerotic changes of the aorta but no evidence of an aneurysm. There is no adenopathy. There are mild emphysematous changes. There is an area of scarring in the posterolateral left lower lobe. There are cystic areas within the lesion communicating with bronchi. A mass at this location is not excluded. There lung s are otherwise clear. No pleural or pericardial effusions. No suspicious bony lesions. ABDOMEN and PELVIS: Exam is mildly limited by respiratory motion the liver, gallbladder, spleen, pancreas and adrenals ar e unremarkable. Multiple cysts are seen on the left kidney. The right kidney is unremarkable. Ther e are atherosclerotic changes of the abdominal aorta with mild dilatation and mild mural thrombus. M aximum dimension 3 cm. Iliac arteries are heavily calcified, left greater than right. There is high -density material within the bladder which could represent clot versus mass.. Prostate is mildly enl arged. The colon shows diverticulosis but no evidence of diverticulitis. There is no free fluid or localized collection. Degenerative changes and scoliosis are seen in the spine lumbar spine. IMPRESSION: 1. Question mass versus scarring left lower lobe. 2. High-density material in the bladder could represent clot versus mass. Results of this exam hav e been verbally communicated with the emergency department provider. RADIATION DOSE DELIVERED: 1,124.05mGy.cm Total DLP DATA REPOSITORY: All CT scans at this facility are submitted to the National Radiology Data Registry (NRDR) Dose Index Registry (DIR) with the [employer] (ACR). RADIATION OPTIMIZATION: All CT scans at this facility use at least one of these dose optimization te chniques: automated exposure control; mA and/or kV adjustment per patient size (includes targeted exa ms where dose is matched to clinical indication); or iterative reconstruction.
[2022-03-31 14:16] LABS: Iron 55 ug/dL (65-175)
[2022-03-31 14:27] LABS: ALT 4777 U/L (16-63)
--- NOTE | 2022-03-31 14:30 | DI.US_ITS ---
Exam(s) US ABDOMEN LIMITED EXAM: US ABDOMEN LIMITED CLINICAL HISTORY: transaminitis, r/o cholecystitis TECHNIQUE: Ultrasound abdomen performed using standard protocol. COMPARISON: No exams were available for comparison FINDINGS: LIVER: Visualized portions normal echogenicity. GALLBLADDER: Several gallstones, largest measuring 7 millimeters. No evidence of wall thickening. N o pericholecystic fluid identified. JAMISON'S SIGN: Negative. BILIARY SYSTEM: No intrahepatic or extrahepatic biliary ductal dilation. ASCITES: None seen. IMPRESSION: Cholelithiasis. No evidence of acute cholecystitis or biliary dilatation. DATA REPOSITORY:
[2022-03-31 14:55] LABS: FREE T4 1.37 ng/dL (0.76-1.46)
--- NOTE | 2022-03-31 14:55 | DI.US_ITS ---
Exam(s) US PELVIS LIMITED EXAM: US PELVIS LIMITED CLINICAL HISTORY: possible blood clot in bladder on ct. TECHNIQUE: Armas scale, color and spectral Doppler were used. COMPARISON: CT CT CHEST/ABD/PEL WO from 03/31/2022 FINDINGS: Bladder: No wall thickening or visible trabeculation. 3.5 x 2.3 x 5.2 centimeter mixed echogenicity avascular lesion. Appearance favors clot however mass not entirely excluded. Both ureteral jets wer e visualized. Prevoid vol:316 cc Postvoid vol:Patient unable to void IMPRESSION: 5.2 centimeter mixed echogenicity ladder lesion could represent clot versus mass. Results of this exam have been verbally communicated with the emergency department provider. DATA REPOSITORY:
[2022-03-31 14:58] LABS: Ferritin > 2000 ng/mL (26-388); Vitamin B12 > 2000 pg/mL (193-986)
[2022-03-31 15:29] LABS: Lipase 159 U/L (73-393)
[2022-03-31 15:31] LABS: Bilirubin, Direct 4.7 mg/dL (0.0-0.2)
--- NOTE | 2022-03-31 15:38 | NUR.NOTE ---
attempted to have pt give us urine sample. he denied being able to give any urine, even after liter of fluids. while pt was standing trying to give urine there was dark red blood leaking from penis. OSWALD
[2022-03-31 15:47] LABS: Ammonia 22 umol/L (11-32)
[2022-03-31 15:59] LABS: Acetaminophen < 2 ug/mL (10-30)
[2022-03-31] MEDS: Normal Saline 1,000 ML 150 ML IV (16:03)
[2022-03-31 16:09] LABS: Bilirubin Moderate (Negative); Blood Large (Negative); Clarity Cloudy (Clear); Glucose Negative (Negative); Ketones 15 mg/dL (Negative); Leukocyte Esterase Negative (Negative); Nitrite Negative (Negative); Specific Gravity >= 1.030 (1.005-1.025)
[2022-03-31 16:18] LABS: Crystals Moderate Amorphous HPF (Negative); RBC >50 HPF (0-2)
[2022-03-31 16:19] LABS: C & S Indicated? Yes
[2022-03-31 16:21] LABS: Lactate 1.4 mmol/L (0.6-1.4)
--- NOTE | 2022-03-31 17:49 | W.PM.HP.N ---
Date of service: 03/31/22 Time of Service: 17:49 Assessment and Plan Assessment and plan (1) Elevated liver function tests: Status: Acute Assessment and plan: history of alcohol abuse but no recent use reported. PT/PTT panel still pending so MELD score pending. imaging shows no evidence of acute cholecystitis or biliary dilatation admit to med/surg repeat tylenol level at 4 and 8 hours. (2) Confusion: Status: Acute Assessment and plan: with history of Alzheimer anticipate increased confusion while hospitalized safety precautions (3) Hematuria: Status: Acute Assessment and plan: ultrasound shows: High-density material in the bladder could represent clot versus mass. urology consult placed. (4) Alzheimer disease: Status: Chronic Assessment and plan: see above. (5) DVT prophylaxis: Status: Acute Assessment and plan: teds and scds no pharmacologic in setting of liver failure PT/PTT panel pending (6) Discharge planning issues: Status: Acute Assessment and plan: case management will be following for discharge planning palliative consulted discussed with DR Maya History of Present Illness History of Present Illness Chief Complaint: altered mental status Narrative: This is a 77-year-old male with a history of Alzheimer's dementia, anxiety, depression, hyperlipidemia, hypothyroidism who presents from home for generalized weakness, poor appetite and confusion for the past week.?Information was obtained from his ex- who was at bedside. She stated she checks on patient twice weekly and assists with his regular medication and takes him to his doctor's appointments.? She brought him to his doctor's appointment for a routine checkup today who sent him here for further evaluation of his confusion, weakness, fatigue and poor appetite.??Work up in the emergency department shows liver failure with total bilirubin 5.9, AST 1167, ALT 4777, alk phos 231 alb 3.1 Review of Systems All systems reviewed & are unremarkable except as noted in HPI and below and Unobtainable due to mental condition (baseline dementia with increased confusion) Constitutional Constitutional: Denies fever(s), Reports lethargy and Reports weakness Neurologic Neurologic: Reports confusion and Reports weakness Psychiatric Psychiatric: Reports confusion PFSH All Active Problems (Updated 03/31/22 @ 18:39 by Tequila Flores NP) Discharge planning issues (Acute) DVT prophylaxis (Acute) Hematuria (Acute) Alzheimer disease (Chronic) Elevated liver function tests (Acute) Transaminitis (Acute) Hyperbilirubinemia (Acute) Confusion (Acute) Generalized weakness (Acute) Bladder mass (Acute) Alzheimer's dementia without behavioral disturbance (Chronic) Upper gastrointestinal bleed (Acute 07/31/13) With melena and drop in hemoglobin Anxiety (Acute 07/31/13) Agitation (Acute 07/31/13) Anxiety and depression (Chronic) Hypothyroidism (Chronic) On satins. Hyperlipidemia (Chronic) Periodic limb movement disorder (Chronic) On benzodiazepines. Memory disturbance (Chronic) Pneumoperitoneum (Acute) Anemia (Acute) Hypotension (Acute) Bradycardia (Acute) Perforated duodenal ulcer (Acute) Pneumonia (Acute) Fluid volume excess (Acute) Hypokalemia (Acute) nutrition (Acute) Physical deconditioning (Acute) Short-term memory loss (Acute) Medical History (Updated 03/31/22 @ 18:39 by Tequila Flores NP) Anxiety Colon polyp Depression Diverticulitis History of alcohol abuse Hyperlipidemia Hypothyroidism Neurocardiogenic syncope Osteoarthritis Perforated duodenal ulcer Tobacco abuse Surgical History Colonoscopy - MAC (05/03/17) Colonoscopy - MAC (03/11/18) EGD - MAC (05/03/17) Kidney Laparotomy (09/10/16) with duodenal ulcer repair Family History Mother Dementia Father Heart disease Social History Smoking/Tobacco Use Status: Current every day Tobacco Type: cigarettes Smoking risk assessment performed?: Yes Alcohol Intake: former Drug use: Never Do you feel safe at home: Yes Do you feel safe in your relationship?: Yes Meds Allergies and Home Medications Allergies Allergy/AdvReac Type Severity Reaction Status Date / Time ibuprofen Allergy Severe Unverified 03/31/22 12:04 varenicline tartrate AdvReac Severe Psychosis Unverified 03/31/22 12:04 [From Chantix] Home Medications Medication Instructions Recorded Confirmed Type levothyroxine 125 mcg tablet 100 mcg PO DAILY@0730 04/07/13 03/31/22 History ollxevki-cew-wvepq acid 0.4 1 ea PO DAILY 04/07/13 03/31/22 History mg-lycopene 300 mcg-lutein 250 mcg tablet (Centrum Silver) simvastatin 20 mg tablet 20 mg PO DAILY 04/07/13 03/31/22 History citalopram 40 mg tablet 40 mg PO DAILY 11/10/15 03/31/22 History aspirin 81 mg chewable tablet 81 mg PO DAILY 01/04/17 09/25/19 History pantoprazole 40 mg tablet,delayed 40 mg PO DAILY ##30 05/03/17 03/31/22 Rx release acetaminophen 325 mg tablet 650 mg PO PRN 02/07/18 03/31/22 History (Tylenol) nicotine 14 mg/24 hr daily 14 mg transdermal DAILY 02/07/18 09/25/19 History transdermal patch melatonin 3 mg tablet 3 mg PO HS 09/25/19 03/31/22 History mirtazapine 45 mg tablet 45 mg PO QHS 09/25/19 03/31/22 History trazodone 50 mg tablet 100 mg PO HS 09/25/19 03/31/22 History atenolol 25 mg tablet 12.5 mg PO DAILY 03/31/22 03/31/22 History Exam Const General: cooperative and frail appearing Nutritional Appearance: cachectic Orientation: alert, awake, oriented to person, not oriented to time and confused HENMT Head: normal to inspection Ears: hearing grossly normal bilaterally and external ears normal General nose exam: external nose normal Face and sinus: normal facial exam Eyes General: appearance normal, both eyes and all related structures Eyelids: eyelids normal Neck Neck: normal visual inspection Chest Chest: normal inspection of the chest Resp Effort & Inspection: normal respiratory effort Auscultation: clear to auscultation bilaterally Cardio Rate: regular rate Rhythm: regular rhythm GI Inspection: normal to inspection Palpation: soft, not firm, no guarding, no hepatosplenomegaly, no masses and nontender Auscultation: hypoactive bowel sounds Back/Spine/Pelvis Thoracic/Lumbar Spine: thoracic and lumbar spine normal to inspection Skin General skin exam: no rashes or lesions noted Neuro General: patient alert, patient awake, moves all extremities, no focal motor deficits and patient confused Cognition: abnormal cognition (poor historian, unable to provide ) Speech: speech normal Motor: muscle tone normal throughout Extrem General: normal to inspection, full ROM and capillary refill normal Other: Normal range of motion of bilateral upper and lower extremities but without pain, evidence of trauma or deformity. Psych Appearance: grossly normal Speech and Movement: speech and movement normal Affect: normal affect Results Labs Result diagrams: 03/31/22 12:55 03/31/22 12:55 Labs: Laboratory Results - last 24 hr 03/31/22 03/31/22 03/31/22 12:30 12:55 12:55 WBC 8.52 RBC 6.16 H Hgb 15.8 Hct 49.6 MCV 81 MCH 25.6 L MCHC 31.9 L RDW 18.4 H Plt Count 270 MPV 10.2 Immature Gran % 0.7 Neutrophils % 74.5 Lymphocytes % 13.3 Monocytes % 9.7 Eosinophils % 1.3 Basophils % 0.5 Nucleated RBC % 0.0 Absolute Neutrophils 6.35 Absolute Lymphocytes 1.13 L Absolute Monocytes 0.83 H Absolute Eosinophils 0.11 Absolute Basophils 0.04 PT INR APTT VBG Lactate Sodium 142 Potassium 4.1 Chloride 106 Carbon Dioxide 29.0 Anion Gap 7.0 BUN 66 H Creatinine 1.8 H Estimated GFR/1.73 m2 36.77 Glucose 111 H Calcium 9.1 Magnesium 2.8 H Iron Ferritin Total Bilirubin 5.9 H Conjugated Bilirubin AST 1167 H ALT 4777 H Alkaline Phosphatase 231 H Ammonia Troponin I < 50 Total Protein 6.4 Albumin 3.1 L Lipase Vitamin B12 Vit D 1,25-Dihydroxy TSH 0.35 L Free T4 1.37 Urine Color Urine Clarity Urine pH Ur Specific [place] Urine Protein Urine Ketones Urine Blood Urine Nitrite Urine Bilirubin Urine Urobilinogen Ur Leukocyte Esterase Urine RBC Urine WBC Ur Epithelial Cells Urine Crystals Urine Bacteria Urine Mucus Ur Culture Indicated? Urine Glucose Acetaminophen COVID-19 Source Nasopharynx SARS-CoV-2 (PCR) Negative Influenza Type A (PCR) Negative Influenza Type B (PCR) Negative RSV (PCR) Negative 03/31/22 03/31/22 03/31/22 12:55 12:55 12:55 WBC RBC Hgb Hct MCV MCH MCHC RDW Plt Count MPV Immature Gran % Neutrophils % Lymphocytes % Monocytes % Eosinophils % Basophils % Nucleated RBC % Absolute Neutrophils Absolute Lymphocytes Absolute Monocytes Absolute Eosinophils Absolute Basophils PT INR APTT VBG Lactate Sodium Potassium Chloride Carbon Dioxide Anion Gap BUN Creatinine Estimated GFR/1.73 m2 Glucose Calcium Magnesium Iron 55 L Ferritin > 2000 H Total Bilirubin Conjugated Bilirubin 4.7 H AST ALT Alkaline Phosphatase Ammonia Troponin I Total Protein Albumin Lipase Vitamin B12 > 2000 H Vit D 1,25-Dihydroxy TSH Free T4 Urine Color Urine Clarity Urine pH Ur Specific [place] Urine Protein Urine Ketones Urine Blood Urine Nitrite Urine Bilirubin Urine Urobilinogen Ur Leukocyte Esterase Urine RBC Urine WBC Ur Epithelial Cells Urine Crystals Urine Bacteria Urine Mucus Ur Culture Indicated? Urine Glucose Acetaminophen COVID-19 Source SARS-CoV-2 (PCR) Influenza Type A (PCR) Influenza Type B (PCR) RSV (PCR) 03/31/22 03/31/22 03/31/22 12:55 12:55 13:32 WBC RBC Hgb Hct MCV MCH MCHC RDW Plt Count MPV Immature Gran % Neutrophils % Lymphocytes % Monocytes % Eosinophils % Basophils % Nucleated RBC % Absolute Neutrophils Absolute Lymphocytes Absolute Monocytes Absolute Eosinophils Absolute Basophils PT INR APTT VBG Lactate Sodium Potassium Chloride Carbon Dioxide Anion Gap BUN Creatinine Estimated GFR/1.73 m2 Glucose Calcium Magnesium Iron Ferritin Total Bilirubin Conjugated Bilirubin AST ALT Alkaline Phosphatase Ammonia Troponin I Total Protein Albumin Lipase 159 Vitamin B12 Vit D 1,25-Dihydroxy Cancelled TSH Free T4 Urine Color Urine Clarity Urine pH Ur Specific [place] Urine Protein Urine Ketones Urine Blood Urine Nitrite Urine Bilirubin Urine Urobilinogen Ur Leukocyte Esterase Urine RBC Urine WBC Ur Epithelial Cells Urine Crystals Urine Bacteria Urine Mucus Ur Culture Indicated? Urine Glucose Acetaminophen < 2 COVID-19 Source SARS-CoV-2 (PCR) Influenza Type A (PCR) Influenza Type B (PCR) RSV (PCR) 03/31/22 03/31/22 03/31/22 14:55 15:25 15:58 WBC RBC Hgb Hct MCV MCH MCHC RDW Plt Count MPV Immature Gran % Neutrophils % Lymphocytes % Monocytes % Eosinophils % Basophils % Nucleated RBC % Absolute Neutrophils Absolute Lymphocytes Absolute Monocytes Absolute Eosinophils Absolute Basophils PT Cancelled INR Cancelled APTT Cancelled VBG Lactate Sodium Potassium Chloride Carbon Dioxide Anion Gap BUN Creatinine Estimated GFR/1.73 m2 Glucose Calcium Magnesium Iron Ferritin Total Bilirubin Conjugated Bilirubin AST ALT Alkaline Phosphatase Ammonia 22 Troponin I Total Protein Albumin Lipase Vitamin B12 Vit D 1,25-Dihydroxy TSH Free T4 Urine Color Brown Urine Clarity Cloudy Urine pH 6.0 Ur Specific [place] >= 1.030 H Urine Protein >=300 H Urine Ketones 15 H Urine Blood Large H Urine Nitrite Negative Urine Bilirubin Moderate H Urine Urobilinogen 1.0 H Ur Leukocyte Esterase Negative Urine RBC >50 H Urine WBC 5-10 Ur Epithelial Cells Not Applicable Urine Crystals Moderate Amorphous Urine Bacteria Not Applicable Urine Mucus Not Applicable Ur Culture Indicated? Yes Urine Glucose Negative Acetaminophen COVID-19 Source SARS-CoV-2 (PCR) Influenza Type A (PCR) Influenza Type B (PCR) RSV (PCR) 03/31/22 16:09 WBC RBC Hgb Hct MCV MCH MCHC RDW Plt Count MPV Immature Gran % Neutrophils % Lymphocytes % Monocytes % Eosinophils % Basophils % Nucleated RBC % Absolute Neutrophils Absolute Lymphocytes Absolute Monocytes Absolute Eosinophils Absolute Basophils PT INR APTT VBG Lactate 1.4 Sodium Potassium Chloride Carbon Dioxide Anion Gap BUN Creatinine Estimated GFR/1.73 m2 Glucose Calcium Magnesium Iron Ferritin Total Bilirubin Conjugated Bilirubin AST ALT Alkaline Phosphatase Ammonia Troponin I Total Protein Albumin Lipase Vitamin B12 Vit D 1,25-Dihydroxy TSH Free T4 Urine Color Urine Clarity Urine pH Ur Specific [place] Urine Protein Urine Ketones Urine Blood Urine Nitrite Urine Bilirubin Urine Urobilinogen Ur Leukocyte Esterase Urine RBC Urine WBC Ur Epithelial Cells Urine Crystals Urine Bacteria Urine Mucus Ur Culture Indicated? Urine Glucose Acetaminophen COVID-19 Source SARS-CoV-2 (PCR) Influenza Type A (PCR) Influenza Type B (PCR) RSV (PCR) Last Vital Signs Temp 36.8 C 03/31/22 12:08 Pulse 81 03/31/22 17:27 Resp 20 03/31/22 16:50 BP 105/83 03/31/22 17:27 Pulse Ox 97 03/31/22 17:27
--- NOTE | 2022-03-31 18:00 | W.SURGCON ---
Assessment and Plan Assessment and plan (1) Transaminitis: Status: Acute Assessment and plan: given his asymptomatic state- I would say this was a medication overdose. CT- pd supportive care I do not think this is related to gallstone. full consult to follow in am 2cm cavatary lesion of LLL (2) Alzheimer disease: Status: Chronic (3) Cavitary lesion of lung: Status: Acute (4) Bladder mass: Status: Acute (5) Alzheimer's dementia without behavioral disturbance: Status: Chronic History of Present Illness Narrative: pt cannot give any HX. There is a concern that he is not been taking meds appropriately. Tylenol levels were nl. ? If he has taken too much simvaststion. Pt denies pain or N/V. He is not having any pain. Pt was on his way done to CT and I did not see him. He has no pain and wants to eat. CT w/ IV contrast pd Differential of elevated LFT's: Viral/Toxin/Ischemia -viral studies sent (low prob) -tylenol is nl. ?other med 03/31 CT: CT head: Cerebral parenchyma: Mild atrophy.? Old left parietal infarct.? No acute infarct is visible.? No evidence of mass. 03/31 US: FINDINGS: LIVER: Visualized portions normal echogenicity.? GALLBLADDER: Several? gallstones, largest measuring 7 millimeters.? No evidence of wall thickening. No pericholecystic fluid identified. JAMISON'S SIGN: Negative. BILIARY SYSTEM: No intrahepatic or extrahepatic biliary ductal dilation. ASCITES: None seen. IMPRESSION: Cholelithiasis.? No evidence of acute cholecystitis or biliary dilatation. CT Chest: . 2 cm cavitary lesion in the left lower lobe. Series 4, image 8. The differential of cavitary lung lesion includes: Neoplasm -- squamous cell carcinoma, adenocarcinoma, metastasis. Collagen vascular disease -- lupus, Wegeners granulomatosis Granulomatous disease -- histiocytosis. Vascular disease -- septic emboli, pulmonary embolus with infarction. Infection -- bacterial, tuberculosis/fungal disease, echinococcus. Trauma -- traumatic lung cyst hemorrhage Bronchopulmonary disease -- infected bulla, cystic bronchiectasis PFSH All Active Problems (Updated 03/31/22 @ 22:20 by Yumiko Dixon DO) Cavitary lesion of lung (Acute) Discharge planning issues (Acute) DVT prophylaxis (Acute) Hematuria (Acute) Alzheimer disease (Chronic) Elevated liver function tests (Acute) Transaminitis (Acute) Hyperbilirubinemia (Acute) Confusion (Acute) Generalized weakness (Acute) Bladder mass (Acute) Alzheimer's dementia without behavioral disturbance (Chronic) Upper gastrointestinal bleed (Acute 07/31/13) With melena and drop in hemoglobin Anxiety (Acute 07/31/13) Agitation (Acute 07/31/13) Anxiety and depression (Chronic) Hypothyroidism (Chronic) On satins. Hyperlipidemia (Chronic) Periodic limb movement disorder (Chronic) On benzodiazepines. Memory disturbance (Chronic) Pneumoperitoneum (Acute) Anemia (Acute) Hypotension (Acute) Bradycardia (Acute) Perforated duodenal ulcer (Acute) Pneumonia (Acute) Fluid volume excess (Acute) Hypokalemia (Acute) nutrition (Acute) Physical deconditioning (Acute) Short-term memory loss (Acute) Medical History (Updated 03/31/22 @ 22:20 by Yumiko Dixon DO) Anxiety Colon polyp Depression Diverticulitis History of alcohol abuse Hyperlipidemia Hypothyroidism Neurocardiogenic syncope Osteoarthritis Perforated duodenal ulcer Tobacco abuse Surgical History Colonoscopy - MAC (05/03/17) Colonoscopy - MAC (03/11/18) EGD - MAC (05/03/17) Kidney Laparotomy (09/10/16) with duodenal ulcer repair Family History Mother Dementia Father Heart disease Social History Smoking/Tobacco Use Status: Current every day Tobacco Type: cigarettes Smoking risk assessment performed?: Yes Alcohol Intake: former Drug use: Never Do you feel safe at home: Yes Do you feel safe in your relationship?: Yes Results Last Vital Signs Temp 36.8 C 03/31/22 12:08 Pulse 81 03/31/22 17:27 Resp 20 03/31/22 16:50 BP 105/83 03/31/22 17:27 Pulse Ox 97 03/31/22 17:27 Labs Result diagrams: 03/31/22 12:55 03/31/22 12:55 Labs: Laboratory Results - last 24 hr 03/31/22 03/31/22 03/31/22 12:30 12:55 12:55 WBC 8.52 RBC 6.16 H Hgb 15.8 Hct 49.6 MCV 81 MCH 25.6 L MCHC 31.9 L RDW 18.4 H Plt Count 270 MPV 10.2 Immature Gran % 0.7 Neutrophils % 74.5 Lymphocytes % 13.3 Monocytes % 9.7 Eosinophils % 1.3 Basophils % 0.5 Nucleated RBC % 0.0 Absolute Neutrophils 6.35 Absolute Lymphocytes 1.13 L Absolute Monocytes 0.83 H Absolute Eosinophils 0.11 Absolute Basophils 0.04 PT INR APTT VBG Lactate Sodium 142 Potassium 4.1 Chloride 106 Carbon Dioxide 29.0 Anion Gap 7.0 BUN 66 H Creatinine 1.8 H Estimated GFR/1.73 m2 36.77 Glucose 111 H Calcium 9.1 Magnesium 2.8 H Iron Ferritin Total Bilirubin 5.9 H Conjugated Bilirubin AST 1167 H ALT 4777 H Alkaline Phosphatase 231 H Ammonia Troponin I < 50 Total Protein 6.4 Albumin 3.1 L Lipase Vitamin B12 Vit D 1,25-Dihydroxy TSH 0.35 L Free T4 1.37 Urine Color Urine Clarity Urine pH Ur Specific [place] Urine Protein Urine Ketones Urine Blood Urine Nitrite Urine Bilirubin Urine Urobilinogen Ur Leukocyte Esterase Urine RBC Urine WBC Ur Epithelial Cells Urine Crystals Urine Bacteria Urine Mucus Ur Culture Indicated? Urine Glucose Acetaminophen COVID-19 Source Nasopharynx SARS-CoV-2 (PCR) Negative Influenza Type A (PCR) Negative Influenza Type B (PCR) Negative RSV (PCR) Negative 03/31/22 03/31/22 03/31/22 12:55 12:55 12:55 WBC RBC Hgb Hct MCV MCH MCHC RDW Plt Count MPV Immature Gran % Neutrophils % Lymphocytes % Monocytes % Eosinophils % Basophils % Nucleated RBC % Absolute Neutrophils Absolute Lymphocytes Absolute Monocytes Absolute Eosinophils Absolute Basophils PT INR APTT VBG Lactate Sodium Potassium Chloride Carbon Dioxide Anion Gap BUN Creatinine Estimated GFR/1.73 m2 Glucose Calcium Magnesium Iron 55 L Ferritin > 2000 H Total Bilirubin Conjugated Bilirubin 4.7 H AST ALT Alkaline Phosphatase Ammonia Troponin I Total Protein Albumin Lipase Vitamin B12 > 2000 H Vit D 1,25-Dihydroxy TSH Free T4 Urine Color Urine Clarity Urine pH Ur Specific [place] Urine Protein Urine Ketones Urine Blood Urine Nitrite Urine Bilirubin Urine Urobilinogen Ur Leukocyte Esterase Urine RBC Urine WBC Ur Epithelial Cells Urine Crystals Urine Bacteria Urine Mucus Ur Culture Indicated? Urine Glucose Acetaminophen COVID-19 Source SARS-CoV-2 (PCR) Influenza Type A (PCR) Influenza Type B (PCR) RSV (PCR) 03/31/22 03/31/22 03/31/22 12:55 12:55 13:32 WBC RBC Hgb Hct MCV MCH MCHC RDW Plt Count MPV Immature Gran % Neutrophils % Lymphocytes % Monocytes % Eosinophils % Basophils % Nucleated RBC % Absolute Neutrophils Absolute Lymphocytes Absolute Monocytes Absolute Eosinophils Absolute Basophils PT INR APTT VBG Lactate Sodium Potassium Chloride Carbon Dioxide Anion Gap BUN Creatinine Estimated GFR/1.73 m2 Glucose Calcium Magnesium Iron Ferritin Total Bilirubin Conjugated Bilirubin AST ALT Alkaline Phosphatase Ammonia Troponin I Total Protein Albumin Lipase 159 Vitamin B12 Vit D 1,25-Dihydroxy Cancelled TSH Free T4 Urine Color Urine Clarity Urine pH Ur Specific [place] Urine Protein Urine Ketones Urine Blood Urine Nitrite Urine Bilirubin Urine Urobilinogen Ur Leukocyte Esterase Urine RBC Urine WBC Ur Epithelial Cells Urine Crystals Urine Bacteria Urine Mucus Ur Culture Indicated? Urine Glucose Acetaminophen < 2 COVID-19 Source SARS-CoV-2 (PCR) Influenza Type A (PCR) Influenza Type B (PCR) RSV (PCR) 03/31/22 03/31/22 03/31/22 14:55 15:25 15:58 WBC RBC Hgb Hct MCV MCH MCHC RDW Plt Count MPV Immature Gran % Neutrophils % Lymphocytes % Monocytes % Eosinophils % Basophils % Nucleated RBC % Absolute Neutrophils Absolute Lymphocytes Absolute Monocytes Absolute Eosinophils Absolute Basophils PT Cancelled INR Cancelled APTT Cancelled VBG Lactate Sodium Potassium Chloride Carbon Dioxide Anion Gap BUN Creatinine Estimated GFR/1.73 m2 Glucose Calcium Magnesium Iron Ferritin Total Bilirubin Conjugated Bilirubin AST ALT Alkaline Phosphatase Ammonia 22 Troponin I Total Protein Albumin Lipase Vitamin B12 Vit D 1,25-Dihydroxy TSH Free T4 Urine Color Brown Urine Clarity Cloudy Urine pH 6.0 Ur Specific [place] >= 1.030 H Urine Protein >=300 H Urine Ketones 15 H Urine Blood Large H Urine Nitrite Negative Urine Bilirubin Moderate H Urine Urobilinogen 1.0 H Ur Leukocyte Esterase Negative Urine RBC >50 H Urine WBC 5-10 Ur Epithelial Cells Not Applicable Urine Crystals Moderate Amorphous Urine Bacteria Not Applicable Urine Mucus Not Applicable Ur Culture Indicated? Yes Urine Glucose Negative Acetaminophen COVID-19 Source SARS-CoV-2 (PCR) Influenza Type A (PCR) Influenza Type B (PCR) RSV (PCR) 03/31/22 16:09 WBC RBC Hgb Hct MCV MCH MCHC RDW Plt Count MPV Immature Gran % Neutrophils % Lymphocytes % Monocytes % Eosinophils % Basophils % Nucleated RBC % Absolute Neutrophils Absolute Lymphocytes Absolute Monocytes Absolute Eosinophils Absolute Basophils PT INR APTT VBG Lactate 1.4 Sodium Potassium Chloride Carbon Dioxide Anion Gap BUN Creatinine Estimated GFR/1.73 m2 Glucose Calcium Magnesium Iron Ferritin Total Bilirubin Conjugated Bilirubin AST ALT Alkaline Phosphatase Ammonia Troponin I Total Protein Albumin Lipase Vitamin B12 Vit D 1,25-Dihydroxy TSH Free T4 Urine Color Urine Clarity Urine pH Ur Specific [place] Urine Protein Urine Ketones Urine Blood Urine Nitrite Urine Bilirubin Urine Urobilinogen Ur Leukocyte Esterase Urine RBC Urine WBC Ur Epithelial Cells Urine Crystals Urine Bacteria Urine Mucus Ur Culture Indicated? Urine Glucose Acetaminophen COVID-19 Source SARS-CoV-2 (PCR) Influenza Type A (PCR) Influenza Type B (PCR) RSV (PCR)
[2022-03-31 18:01] LABS: Acetaminophen < 2 ug/mL (10-30)
[2022-03-31 18:51] LABS: Lab Add On Test DONE
[2022-03-31 19:00] LABS: INR 1.4 (0.9-1.1); PTT Activated 27.8 sec (21.0-27.5); Prothrombin Time 13.6 sec (9.3-11.0)
[2022-03-31 19:07] LABS: ETHANOL BLOOD < 3.0 mg/dL (<10)
[2022-03-31] MEDS: Nicotine 21 MG/24 HR PATCH TD (19:55)
[2022-03-31] MEDS: Omnipaque 350 MG/ML 100 ML BTL IJ (20:04)
[2022-03-31] MEDS: Normal Saline Flush 10 ML SYR IVP (20:05)
[2022-03-31] MEDS: THIAMINE 500 MG in Normal Saline 100 ML 200 MG IVPB (20:18)
--- NOTE | 2022-03-31 20:24 | DI.VRAD_ITS ---
PROCEDURE INFORMATION: Exam: CTA Abdomen and Pelvis With Contrast Exam date and time: 03/31/2022 7:19 PM Age: 77 years old Clinical indication: Abnormal findings; Abnormal lab test; Elevated liver functions; Patient HX: Elevated liver function, ? ischemic TECHNIQUE: Imaging protocol: Computed tomographic angiography of the abdomen and pelvis with contrast. 3D rendering (Not supervised by radiologist): MIP and/or 3D reconstructed images were created by the technologist. Radiation optimization: All CT scans at this facility use at least one of these dose optimization techniques: automated exposure control; mA and/or kV adjustment per patient size (includes targeted exams where dose is matched to clinical indication); or iterative reconstruction. Contrast material: OMNIPAQUE 350; Contrast volume: 100 ml; Contrast route: INTRAVENOUS (IV); COMPARISON: CT CHEST/ABD/PEL WO 03/31/2022 2:27 PM FINDINGS: Lungs: 2 cm cavitary lesion in the left lower lobe. Series 4, image 8. Aorta: No aortic aneurysm. No aortic dissection. Celiac trunk and mesenteric arteries: No occlusion or significant stenosis. Renal arteries: No occlusion or significant stenosis. Right iliac arteries: No occlusion or significant stenosis. Left iliac arteries: No occlusion or significant stenosis. Liver: No mass. Gallbladder and bile ducts: Unremarkable. No calcified stones. No ductal dilation. Pancreas: Pancreatic atrophy Spleen: Unremarkable. No splenomegaly. Adrenal glands: Unremarkable. No mass. Kidneys and ureters: Multiple simple cysts in the left kidney . No follow-up imaging recommended . Stomach and bowel: Diverticulosis of the rectosigmoid. No diverticulitis. Appendix: Normal appendix Intraperitoneal space: No evidence of mesenteric ischemia.. Lymph nodes: Unremarkable. No enlarged lymph nodes. Urinary bladder: 5.2 by 3.3 cm hyperdense mass in the posterior bladder may represent clot versus bladder mass. . Reproductive: Unremarkable as visualized. Bones/joints: No acute fracture. Soft tissues: Unremarkable. Other findings: Motion artifact degrades some of the images IMPRESSION: 1. No evidence of mesenteric ischemia.. 2. 5.2 by 3.3 cm hyperdense mass in the posterior bladder may represent clot versus bladder mass. . Recommend urology consult 3. 2 cm cavitary lesion in the left lower lobe. Series 4, image 8. The differential of cavitary lung lesion includes: Neoplasm -- squamous cell carcinoma, adenocarcinoma, metastasis. Collagen vascular disease -- lupus, Wegeners granulomatosis Granulomatous disease -- histiocytosis. Vascular disease -- septic emboli, pulmonary embolus with infarction. Infection -- bacterial, tuberculosis/fungal disease, echinococcus. Trauma -- traumatic lung cyst hemorrhage Bronchopulmonary disease -- infected bulla, cystic bronchiectasis Dictated and Authenticated by: Reji Fitzgerald MD. Ordering:ALIDA Mandel MD
[2022-03-31] MEDS: traZODone 50 MG TAB 100 MG PO (21:36)
[2022-03-31] MEDS: QUEtiapine 25 MG TAB 12.5 MG PO (22:07)
[2022-03-31 22:21] LABS: Acetaminophen < 2 ug/mL (10-30)
--- NOTE | 2022-03-31 22:23 | W.PM.PROGNOT ---
Date of Service Date of service: 03/31/22 Time of Service: 22:23 Assessment and Plan Assessment and plan (1) Cavitary lesion of lung: Status: Acute Assessment and plan: consider pulm consult and bronch (2) Alzheimer disease: Status: Chronic (3) Elevated liver function tests: Status: Acute Assessment and plan: given his asymptomatic state- I would say this was a medication overdose. CT- pd supportive care I do not think this is related to gallstone. full consult to follow in am 2cm cavatary lesion of LLL (4) Transaminitis: Status: Acute (5) Bladder mass: Status: Acute (6) Alzheimer's dementia without behavioral disturbance: Status: Chronic (7) History of alcohol abuse: (8) Tobacco abuse: Subjective Subjective Interval history since last seen: Narrative: pt cannot give any HX.? There is a concern that he is not? been taking meds appropriately.? Tylenol levels were nl. ? If he has taken too much simvaststion. ? Pt denies pain or N/V.? He is not having any pain. Pt was on his way done to CT and I did not see him.? He has no pain and wants to eat. CT w/ IV contrast pd Differential of elevated LFT's: Viral/Toxin/Ischemia -viral studies sent (low prob) -tylenol is nl.? ?other med 03/31? CT: CT head:?Cerebral parenchyma: Mild atrophy.? Old left parietal infarct.? No acute infarct is visible.? No evidence of mass. 03/31? US: FINDINGS: LIVER: Visualized portions normal echogenicity.? GALLBLADDER: Several? gallstones, largest measuring 7 millimeters.? No evidence of wall thickening. No pericholecystic fluid identified. JAMISON'S SIGN: Negative. BILIARY SYSTEM: No intrahepatic or extrahepatic biliary ductal dilation. ASCITES: None seen. IMPRESSION: Cholelithiasis.? No evidence of acute cholecystitis or biliary dilatation. CT Chest: . 2 cm cavitary lesion in the left lower lobe. Series 4, image 8. The differential of cavitary lung lesion includes: Neoplasm -- squamous cell carcinoma, adenocarcinoma, metastasis. Collagen vascular disease -- lupus, Wegeners granulomatosis Granulomatous disease -- histiocytosis. Vascular disease -- septic emboli, pulmonary embolus with infarction. Infection -- bacterial, tuberculosis/fungal disease, echinococcus. Trauma -- traumatic lung cyst hemorrhage Bronchopulmonary disease -- infected bulla, cystic bronchiectasis Objective Last Vital Signs Temp 36.7 C 03/31/22 18:23 Pulse 78 03/31/22 18:23 Resp 20 03/31/22 18:23 BP 139/88 03/31/22 18:23 Pulse Ox 97 03/31/22 18:23 Laboratory Results - last 24 hr 03/31/22 03/31/22 03/31/22 12:30 12:55 12:55 WBC 8.52 RBC 6.16 H Hgb 15.8 Hct 49.6 MCV 81 MCH 25.6 L MCHC 31.9 L RDW 18.4 H Plt Count 270 MPV 10.2 Immature Gran % 0.7 Neutrophils % 74.5 Lymphocytes % 13.3 Monocytes % 9.7 Eosinophils % 1.3 Basophils % 0.5 Nucleated RBC % 0.0 Absolute Neutrophils 6.35 Absolute Lymphocytes 1.13 L Absolute Monocytes 0.83 H Absolute Eosinophils 0.11 Absolute Basophils 0.04 PT INR APTT VBG Lactate Sodium 142 Potassium 4.1 Chloride 106 Carbon Dioxide 29.0 Anion Gap 7.0 BUN 66 H Creatinine 1.8 H Estimated GFR/1.73 m2 36.77 Glucose 111 H Calcium 9.1 Magnesium 2.8 H Iron Ferritin Total Bilirubin 5.9 H Conjugated Bilirubin AST 1167 H ALT 4777 H Alkaline Phosphatase 231 H Ammonia Troponin I < 50 Total Protein 6.4 Albumin 3.1 L Lipase Vitamin B12 Vit D 1,25-Dihydroxy TSH 0.35 L Free T4 1.37 Urine Color Urine Clarity Urine pH Ur Specific [place] Urine Protein Urine Ketones Urine Blood Urine Nitrite Urine Bilirubin Urine Urobilinogen Ur Leukocyte Esterase Urine RBC Urine WBC Ur Epithelial Cells Urine Crystals Urine Bacteria Urine Mucus Ur Culture Indicated? Urine Glucose Acetaminophen Ethyl Alcohol COVID-19 Source Nasopharynx SARS-CoV-2 (PCR) Negative Influenza Type A (PCR) Negative Influenza Type B (PCR) Negative RSV (PCR) Negative Add-On Test Request 03/31/22 03/31/22 03/31/22 12:55 12:55 12:55 WBC RBC Hgb Hct MCV MCH MCHC RDW Plt Count MPV Immature Gran % Neutrophils % Lymphocytes % Monocytes % Eosinophils % Basophils % Nucleated RBC % Absolute Neutrophils Absolute Lymphocytes Absolute Monocytes Absolute Eosinophils Absolute Basophils PT INR APTT VBG Lactate Sodium Potassium Chloride Carbon Dioxide Anion Gap BUN Creatinine Estimated GFR/1.73 m2 Glucose Calcium Magnesium Iron 55 L Ferritin > 2000 H Total Bilirubin Conjugated Bilirubin 4.7 H AST ALT Alkaline Phosphatase Ammonia Troponin I Total Protein Albumin Lipase Vitamin B12 > 2000 H Vit D 1,25-Dihydroxy TSH Free T4 Urine Color Urine Clarity Urine pH Ur Specific [place] Urine Protein Urine Ketones Urine Blood Urine Nitrite Urine Bilirubin Urine Urobilinogen Ur Leukocyte Esterase Urine RBC Urine WBC Ur Epithelial Cells Urine Crystals Urine Bacteria Urine Mucus Ur Culture Indicated? Urine Glucose Acetaminophen Ethyl Alcohol COVID-19 Source SARS-CoV-2 (PCR) Influenza Type A (PCR) Influenza Type B (PCR) RSV (PCR) Add-On Test Request 03/31/22 03/31/22 03/31/22 12:55 12:55 13:32 WBC RBC Hgb Hct MCV MCH MCHC RDW Plt Count MPV Immature Gran % Neutrophils % Lymphocytes % Monocytes % Eosinophils % Basophils % Nucleated RBC % Absolute Neutrophils Absolute Lymphocytes Absolute Monocytes Absolute Eosinophils Absolute Basophils PT INR APTT VBG Lactate Sodium Potassium Chloride Carbon Dioxide Anion Gap BUN Creatinine Estimated GFR/1.73 m2 Glucose Calcium Magnesium Iron Ferritin Total Bilirubin Conjugated Bilirubin AST ALT Alkaline Phosphatase Ammonia Troponin I Total Protein Albumin Lipase 159 Vitamin B12 Vit D 1,25-Dihydroxy Cancelled TSH Free T4 Urine Color Urine Clarity Urine pH Ur Specific [place] Urine Protein Urine Ketones Urine Blood Urine Nitrite Urine Bilirubin Urine Urobilinogen Ur Leukocyte Esterase Urine RBC Urine WBC Ur Epithelial Cells Urine Crystals Urine Bacteria Urine Mucus Ur Culture Indicated? Urine Glucose Acetaminophen < 2 Ethyl Alcohol COVID-19 Source SARS-CoV-2 (PCR) Influenza Type A (PCR) Influenza Type B (PCR) RSV (PCR) Add-On Test Request 03/31/22 03/31/22 03/31/22 14:55 15:06 15:25 WBC RBC Hgb Hct MCV MCH MCHC RDW Plt Count MPV Immature Gran % Neutrophils % Lymphocytes % Monocytes % Eosinophils % Basophils % Nucleated RBC % Absolute Neutrophils Absolute Lymphocytes Absolute Monocytes Absolute Eosinophils Absolute Basophils PT Cancelled Cancelled INR Cancelled Cancelled APTT Cancelled Cancelled VBG Lactate Sodium Potassium Chloride Carbon Dioxide Anion Gap BUN Creatinine Estimated GFR/1.73 m2 Glucose Calcium Magnesium Iron Ferritin Total Bilirubin Conjugated Bilirubin AST ALT Alkaline Phosphatase Ammonia 22 Troponin I Total Protein Albumin Lipase Vitamin B12 Vit D 1,25-Dihydroxy TSH Free T4 Urine Color Urine Clarity Urine pH Ur Specific [place] Urine Protein Urine Ketones Urine Blood Urine Nitrite Urine Bilirubin Urine Urobilinogen Ur Leukocyte Esterase Urine RBC Urine WBC Ur Epithelial Cells Urine Crystals Urine Bacteria Urine Mucus Ur Culture Indicated? Urine Glucose Acetaminophen Ethyl Alcohol COVID-19 Source SARS-CoV-2 (PCR) Influenza Type A (PCR) Influenza Type B (PCR) RSV (PCR) Add-On Test Request 03/31/22 03/31/22 03/31/22 15:58 16:09 16:09 WBC RBC Hgb Hct MCV MCH MCHC RDW Plt Count MPV Immature Gran % Neutrophils % Lymphocytes % Monocytes % Eosinophils % Basophils % Nucleated RBC % Absolute Neutrophils Absolute Lymphocytes Absolute Monocytes Absolute Eosinophils Absolute Basophils PT INR APTT VBG Lactate 1.4 Sodium Potassium Chloride Carbon Dioxide Anion Gap BUN Creatinine Estimated GFR/1.73 m2 Glucose Calcium Magnesium Iron Ferritin Total Bilirubin Conjugated Bilirubin AST ALT Alkaline Phosphatase Ammonia Troponin I Total Protein Albumin Lipase Vitamin B12 Vit D 1,25-Dihydroxy TSH Free T4 Urine Color Brown Urine Clarity Cloudy Urine pH 6.0 Ur Specific [place] >= 1.030 H Urine Protein >=300 H Urine Ketones 15 H Urine Blood Large H Urine Nitrite Negative Urine Bilirubin Moderate H Urine Urobilinogen 1.0 H Ur Leukocyte Esterase Negative Urine RBC >50 H Urine WBC 5-10 Ur Epithelial Cells Not Applicable Urine Crystals Moderate Amorphous Urine Bacteria Not Applicable Urine Mucus Not Applicable Ur Culture Indicated? Yes Urine Glucose Negative Acetaminophen Ethyl Alcohol < 3.0 COVID-19 Source SARS-CoV-2 (PCR) Influenza Type A (PCR) Influenza Type B (PCR) RSV (PCR) Add-On Test Request 03/31/22 03/31/22 03/31/22 17:22 18:34 18:51 WBC RBC Hgb Hct MCV MCH MCHC RDW Plt Count MPV Immature Gran % Neutrophils % Lymphocytes % Monocytes % Eosinophils % Basophils % Nucleated RBC % Absolute Neutrophils Absolute Lymphocytes Absolute Monocytes Absolute Eosinophils Absolute Basophils PT 13.6 H INR 1.4 H APTT 27.8 H VBG Lactate Sodium Potassium Chloride Carbon Dioxide Anion Gap BUN Creatinine Estimated GFR/1.73 m2 Glucose Calcium Magnesium Iron Ferritin Total Bilirubin Conjugated Bilirubin AST ALT Alkaline Phosphatase Ammonia Troponin I Total Protein Albumin Lipase Vitamin B12 Vit D 1,25-Dihydroxy TSH Free T4 Urine Color Urine Clarity Urine pH Ur Specific [place] Urine Protein Urine Ketones Urine Blood Urine Nitrite Urine Bilirubin Urine Urobilinogen Ur Leukocyte Esterase Urine RBC Urine WBC Ur Epithelial Cells Urine Crystals Urine Bacteria Urine Mucus Ur Culture Indicated? Urine Glucose Acetaminophen < 2 Ethyl Alcohol COVID-19 Source SARS-CoV-2 (PCR) Influenza Type A (PCR) Influenza Type B (PCR) RSV (PCR) Add-On Test Request DONE 03/31/22 21:39 WBC RBC Hgb Hct MCV MCH MCHC RDW Plt Count MPV Immature Gran % Neutrophils % Lymphocytes % Monocytes % Eosinophils % Basophils % Nucleated RBC % Absolute Neutrophils Absolute Lymphocytes Absolute Monocytes Absolute Eosinophils Absolute Basophils PT INR APTT VBG Lactate Sodium Potassium Chloride Carbon Dioxide Anion Gap BUN Creatinine Estimated GFR/1.73 m2 Glucose Calcium Magnesium Iron Ferritin Total Bilirubin Conjugated Bilirubin AST ALT Alkaline Phosphatase Ammonia Troponin I Total Protein Albumin Lipase Vitamin B12 Vit D 1,25-Dihydroxy TSH Free T4 Urine Color Urine Clarity Urine pH Ur Specific [place] Urine Protein Urine Ketones Urine Blood Urine Nitrite Urine Bilirubin Urine Urobilinogen Ur Leukocyte Esterase Urine RBC Urine WBC Ur Epithelial Cells Urine Crystals Urine Bacteria Urine Mucus Ur Culture Indicated? Urine Glucose Acetaminophen < 2 Ethyl Alcohol COVID-19 Source SARS-CoV-2 (PCR) Influenza Type A (PCR) Influenza Type B (PCR) RSV (PCR) Add-On Test Request
[2022-04-01] MEDS: Melatonin 3 MG TAB PO ×2 (00:29→20:09)
[2022-04-01] MEDS: Mirtazapine 15 MG TAB 45 MG PO ×2 (00:29→20:09)
[2022-04-01] MEDS: THIAMINE 500 MG in Normal Saline 100 ML 200 MG IVPB ×3 (04:22→20:09)
[2022-04-01 06:20] LABS: Abs Immature Grans 0.07 10^3/uL (0.0-0.06); Absolute Basophil Count 0.03 10^3/uL (0.0-0.2); Absolute Lymphocyte Count 1.71 10^3/uL (1.2-3.4); Absolute Monocyte Count 1.11 10^3/uL (0.1-0.8); Absolute Neutrophil Count 5.78 10^3/uL (1.2-6.7); Basophils % 0.3; Eosinophils % 4.4; HCT 40.6 % (40.0-50.0); HGB 13.3 g/dL (13.5-17.5); Immature Grans % 0.8; Lymphocytes % 18.8; MCHC 32.8 % (32.0-36.0); MCV 79 fL (80-95); Monocytes % 12.2; Neutrophils % 63.5; Platelet Count 206 10^3/uL (130-400); RBC 5.12 10^6/uL (4.36-5.78); RDW 17.7 % (11.8-14.1); RDW-SD 44.1 fL
[2022-04-01 06:42] LABS: AST 464 U/L (15-37); Albumin 2.6 g/dL (3.4-5.0); Alkaline Phosphatase 211 U/L (46-116); Anion Gap 7.2 mmol/L (3-11); BUN 42 mg/dL (7-18); Bilirubin, Total 4.5 mg/dL (0.2-1.0); CO2 26.8 mmol/L (21.0-32.0); CREATININE 1.1 mg/dL (0.70-1.30); Calcium 8.5 mg/dL (8.5-10.1); Chloride 107 mmol/L (98-107); Glucose 104 mg/dL (74-106); Potassium 3.4 mmol/L (3.5-5.1); Sodium 141 mmol/L (136-145); Total Protein 5.3 g/dL (6.4-8.2)
[2022-04-01 08:10] LABS: ALT 2684 U/L (16-63)
[2022-04-01 08:23] VITALS: BP 128/83; PULSE 57; RESP 16; TEMP 36.2; O2SAT 98
[2022-04-01 08:28] VITALS: PULSE 63
[2022-04-01] MEDS: Pantoprazole 40 MG TABCR PO (08:28)
[2022-04-01] MEDS: Atenolol 25 MG TAB 12.5 MG PO (08:28)
[2022-04-01] MEDS: Levothyroxine 100 MCG TAB PO (08:28)
[2022-04-01] MEDS: Nicotine 21 MG/24 HR PATCH TD (08:29)
[2022-04-01] MEDS: Patch Removal 1 EACH TD (08:30)
--- NOTE | 2022-04-01 12:03 | W.PM.PROGNOT ---
Date of Service Date of service: 04/01/22 Time of Service: 12:03 Assessment and Plan Assessment and plan (1) Cavitary lesion of lung: Status: Acute Assessment and plan: seen by pulmonary - see their note (2) Alzheimer disease: Status: Chronic Assessment and plan: maintain home meds and monitor (3) Elevated liver function tests: Status: Acute Assessment and plan: Trend liver enzymes (4) Transaminitis: Status: Acute Assessment and plan: AST improved from 1167 to 464 ALT improved from 4777 to 2684 Will continue to trend (5) Bladder mass: Status: Acute Assessment and plan: Reported mass in bladder; urology consult (6) Alzheimer's dementia without behavioral disturbance: Status: Chronic Assessment and plan: Continue home meds; monitor (7) History of alcohol abuse: Assessment and plan: Chronic - denies intake of alcohol (8) Tobacco abuse: Assessment and plan: Denies current tobacco use (9) Confusion: Status: Acute Assessment and plan: with history of Alzheimer anticipate increased confusion while hospitalized safety precautions (10) Hematuria: Status: Acute Assessment and plan: ultrasound shows: High-density material in the bladder could represent clot versus mass. urology consult placed plan to see 04/02/2022 (11) DVT prophylaxis: Status: Acute Assessment and plan: teds and scds no pharmacologic in setting of liver failure (12) Discharge planning issues: Status: Acute Assessment and plan: case management will be following for discharge planning pulmonary has seen him and ordered diagnositic tests palliative consulted discussed with Dr. Maya (13) Malaise and fatigue: Status: Acute Assessment and plan: weakness and feeling exhausted; states all joints hurt and ache. Ketorelac ordered Exam Narrative Exam Narrative: Gen: NAD, normal respiratory effort, thin HENT: PERRL, poor dentition, jaundice Chest: No respiratory distress, normal appearance of chest, clear to auscultation bilaterally, no crackles or wheezes, normal inspiratory effort Heart: regular rate and rhythym, no murmurs, rubs or gallops Abdomen: Non-distended, soft, non tender Extremities: No clubbing, edema, cyanosis, rashes Neuro: non focal Psych: cooperative, appropriate mental affect Const General: cooperative and frail appearing Nutritional Appearance: cachectic Orientation: alert, awake, oriented to person, not oriented to time and confused HENMT Head: normal to inspection Ears: hearing grossly normal bilaterally and external ears normal General nose exam: external nose normal Face and sinus: normal facial exam Eyes General: appearance normal, both eyes and all related structures Eyelids: eyelids normal Conjunctivae: conjunctivae normal Sclera: scleral abnormality (jaundice) bilaterally Pupils: PERRL Neck Neck: normal visual inspection Chest Chest: normal inspection of the chest Resp Effort & Inspection: normal respiratory effort Auscultation: clear to auscultation bilaterally Cardio Rate: regular rate Rhythm: regular rhythm GI Inspection: normal to inspection Palpation: soft, not firm, no guarding, no hepatosplenomegaly, no masses and nontender Auscultation: hypoactive bowel sounds Back/Spine/Pelvis Thoracic/Lumbar Spine: thoracic and lumbar spine normal to inspection Skin General skin exam: no rashes or lesions noted Neuro General: patient alert, patient awake, moves all extremities, no focal motor deficits and patient confused Cognition: abnormal cognition (poor historian, unable to provide ) Speech: speech normal Motor: muscle tone normal throughout Extrem General: normal to inspection, full ROM and capillary refill normal Other: Normal range of motion of bilateral upper and lower extremities but without pain, evidence of trauma or deformity. Psych Appearance: grossly normal Speech and Movement: speech and movement normal Affect: normal affect Objective Last Vital Signs Temp 36.2 C L 04/01/22 08:23 Pulse 63 04/01/22 08:28 Resp 16 04/01/22 08:23 BP 128/83 04/01/22 08:23 Pulse Ox 98 04/01/22 08:23 Laboratory Results - last 24 hr 03/31/22 03/31/22 03/31/22 12:30 12:55 12:55 WBC 8.52 RBC 6.16 H Hgb 15.8 Hct 49.6 MCV 81 MCH 25.6 L MCHC 31.9 L RDW 18.4 H Plt Count 270 MPV 10.2 Immature Gran % 0.7 Neutrophils % 74.5 Lymphocytes % 13.3 Monocytes % 9.7 Eosinophils % 1.3 Basophils % 0.5 Nucleated RBC % 0.0 Absolute Neutrophils 6.35 Absolute Lymphocytes 1.13 L Absolute Monocytes 0.83 H Absolute Eosinophils 0.11 Absolute Basophils 0.04 PT INR APTT VBG Lactate Sodium 142 Potassium 4.1 Chloride 106 Carbon Dioxide 29.0 Anion Gap 7.0 BUN 66 H Creatinine 1.8 H Estimated GFR/1.73 m2 36.77 Glucose 111 H Calcium 9.1 Magnesium 2.8 H Iron Ferritin Total Bilirubin 5.9 H Conjugated Bilirubin AST 1167 H ALT 4777 H Alkaline Phosphatase 231 H Ammonia Troponin I < 50 Total Protein 6.4 Albumin 3.1 L Lipase Vitamin B12 Vit D 1,25-Dihydroxy TSH 0.35 L Free T4 1.37 Urine Color Urine Clarity Urine pH Ur Specific [place] Urine Protein Urine Ketones Urine Blood Urine Nitrite Urine Bilirubin Urine Urobilinogen Ur Leukocyte Esterase Urine RBC Urine WBC Ur Epithelial Cells Urine Crystals Urine Bacteria Urine Mucus Ur Culture Indicated? Urine Glucose Acetaminophen Ethyl Alcohol COVID-19 Source Nasopharynx SARS-CoV-2 (PCR) Negative Influenza Type A (PCR) Negative Influenza Type B (PCR) Negative RSV (PCR) Negative Add-On Test Request 03/31/22 03/31/22 03/31/22 12:55 12:55 12:55 WBC RBC Hgb Hct MCV MCH MCHC RDW Plt Count MPV Immature Gran % Neutrophils % Lymphocytes % Monocytes % Eosinophils % Basophils % Nucleated RBC % Absolute Neutrophils Absolute Lymphocytes Absolute Monocytes Absolute Eosinophils Absolute Basophils PT INR APTT VBG Lactate Sodium Potassium Chloride Carbon Dioxide Anion Gap BUN Creatinine Estimated GFR/1.73 m2 Glucose Calcium Magnesium Iron 55 L Ferritin > 2000 H Total Bilirubin Conjugated Bilirubin 4.7 H AST ALT Alkaline Phosphatase Ammonia Troponin I Total Protein Albumin Lipase Vitamin B12 > 2000 H Vit D 1,25-Dihydroxy TSH Free T4 Urine Color Urine Clarity Urine pH Ur Specific [place] Urine Protein Urine Ketones Urine Blood Urine Nitrite Urine Bilirubin Urine Urobilinogen Ur Leukocyte Esterase Urine RBC Urine WBC Ur Epithelial Cells Urine Crystals Urine Bacteria Urine Mucus Ur Culture Indicated? Urine Glucose Acetaminophen Ethyl Alcohol COVID-19 Source SARS-CoV-2 (PCR) Influenza Type A (PCR) Influenza Type B (PCR) RSV (PCR) Add-On Test Request 03/31/22 03/31/22 03/31/22 12:55 12:55 13:32 WBC RBC Hgb Hct MCV MCH MCHC RDW Plt Count MPV Immature Gran % Neutrophils % Lymphocytes % Monocytes % Eosinophils % Basophils % Nucleated RBC % Absolute Neutrophils Absolute Lymphocytes Absolute Monocytes Absolute Eosinophils Absolute Basophils PT INR APTT VBG Lactate Sodium Potassium Chloride Carbon Dioxide Anion Gap BUN Creatinine Estimated GFR/1.73 m2 Glucose Calcium Magnesium Iron Ferritin Total Bilirubin Conjugated Bilirubin AST ALT Alkaline Phosphatase Ammonia Troponin I Total Protein Albumin Lipase 159 Vitamin B12 Vit D 1,25-Dihydroxy Cancelled TSH Free T4 Urine Color Urine Clarity Urine pH Ur Specific [place] Urine Protein Urine Ketones Urine Blood Urine Nitrite Urine Bilirubin Urine Urobilinogen Ur Leukocyte Esterase Urine RBC Urine WBC Ur Epithelial Cells Urine Crystals Urine Bacteria Urine Mucus Ur Culture Indicated? Urine Glucose Acetaminophen < 2 Ethyl Alcohol COVID-19 Source SARS-CoV-2 (PCR) Influenza Type A (PCR) Influenza Type B (PCR) RSV (PCR) Add-On Test Request 03/31/22 03/31/22 03/31/22 14:55 15:06 15:25 WBC RBC Hgb Hct MCV MCH MCHC RDW Plt Count MPV Immature Gran % Neutrophils % Lymphocytes % Monocytes % Eosinophils % Basophils % Nucleated RBC % Absolute Neutrophils Absolute Lymphocytes Absolute Monocytes Absolute Eosinophils Absolute Basophils PT Cancelled Cancelled INR Cancelled Cancelled APTT Cancelled Cancelled VBG Lactate Sodium Potassium Chloride Carbon Dioxide Anion Gap BUN Creatinine Estimated GFR/1.73 m2 Glucose Calcium Magnesium Iron Ferritin Total Bilirubin Conjugated Bilirubin AST ALT Alkaline Phosphatase Ammonia 22 Troponin I Total Protein Albumin Lipase Vitamin B12 Vit D 1,25-Dihydroxy TSH Free T4 Urine Color Urine Clarity Urine pH Ur Specific [place] Urine Protein Urine Ketones Urine Blood Urine Nitrite Urine Bilirubin Urine Urobilinogen Ur Leukocyte Esterase Urine RBC Urine WBC Ur Epithelial Cells Urine Crystals Urine Bacteria Urine Mucus Ur Culture Indicated? Urine Glucose Acetaminophen Ethyl Alcohol COVID-19 Source SARS-CoV-2 (PCR) Influenza Type A (PCR) Influenza Type B (PCR) RSV (PCR) Add-On Test Request 03/31/22 03/31/22 03/31/22 15:58 16:09 16:09 WBC RBC Hgb Hct MCV MCH MCHC RDW Plt Count MPV Immature Gran % Neutrophils % Lymphocytes % Monocytes % Eosinophils % Basophils % Nucleated RBC % Absolute Neutrophils Absolute Lymphocytes Absolute Monocytes Absolute Eosinophils Absolute Basophils PT INR APTT VBG Lactate 1.4 Sodium Potassium Chloride Carbon Dioxide Anion Gap BUN Creatinine Estimated GFR/1.73 m2 Glucose Calcium Magnesium Iron Ferritin Total Bilirubin Conjugated Bilirubin AST ALT Alkaline Phosphatase Ammonia Troponin I Total Protein Albumin Lipase Vitamin B12 Vit D 1,25-Dihydroxy TSH Free T4 Urine Color Brown Urine Clarity Cloudy Urine pH 6.0 Ur Specific [place] >= 1.030 H Urine Protein >=300 H Urine Ketones 15 H Urine Blood Large H Urine Nitrite Negative Urine Bilirubin Moderate H Urine Urobilinogen 1.0 H Ur Leukocyte Esterase Negative Urine RBC >50 H Urine WBC 5-10 Ur Epithelial Cells Not Applicable Urine Crystals Moderate Amorphous Urine Bacteria Not Applicable Urine Mucus Not Applicable Ur Culture Indicated? Yes Urine Glucose Negative Acetaminophen Ethyl Alcohol < 3.0 COVID-19 Source SARS-CoV-2 (PCR) Influenza Type A (PCR) Influenza Type B (PCR) RSV (PCR) Add-On Test Request 03/31/22 03/31/22 03/31/22 17:22 18:34 18:51 WBC RBC Hgb Hct MCV MCH MCHC RDW Plt Count MPV Immature Gran % Neutrophils % Lymphocytes % Monocytes % Eosinophils % Basophils % Nucleated RBC % Absolute Neutrophils Absolute Lymphocytes Absolute Monocytes Absolute Eosinophils Absolute Basophils PT 13.6 H INR 1.4 H APTT 27.8 H VBG Lactate Sodium Potassium Chloride Carbon Dioxide Anion Gap BUN Creatinine Estimated GFR/1.73 m2 Glucose Calcium Magnesium Iron Ferritin Total Bilirubin Conjugated Bilirubin AST ALT Alkaline Phosphatase Ammonia Troponin I Total Protein Albumin Lipase Vitamin B12 Vit D 1,25-Dihydroxy TSH Free T4 Urine Color Urine Clarity Urine pH Ur Specific [place] Urine Protein Urine Ketones Urine Blood Urine Nitrite Urine Bilirubin Urine Urobilinogen Ur Leukocyte Esterase Urine RBC Urine WBC Ur Epithelial Cells Urine Crystals Urine Bacteria Urine Mucus Ur Culture Indicated? Urine Glucose Acetaminophen < 2 Ethyl Alcohol COVID-19 Source SARS-CoV-2 (PCR) Influenza Type A (PCR) Influenza Type B (PCR) RSV (PCR) Add-On Test Request DONE 03/31/22 04/01/22 04/01/22 21:39 06:00 06:00 WBC 9.10 RBC 5.12 Hgb 13.3 L D Hct 40.6 MCV 79 L MCH 26.0 L MCHC 32.8 D RDW 17.7 H Plt Count 206 MPV 10.0 Immature Gran % 0.8 Neutrophils % 63.5 Lymphocytes % 18.8 Monocytes % 12.2 Eosinophils % 4.4 Basophils % 0.3 Nucleated RBC % 0.0 Absolute Neutrophils 5.78 Absolute Lymphocytes 1.71 Absolute Monocytes 1.11 H Absolute Eosinophils 0.40 Absolute Basophils 0.03 PT INR APTT VBG Lactate Sodium 141 Potassium 3.4 L Chloride 107 Carbon Dioxide 26.8 Anion Gap 7.2 BUN 42 H Creatinine 1.1 Estimated GFR/1.73 m2 >= 60.00 Glucose 104 Calcium 8.5 Magnesium Iron Ferritin Total Bilirubin 4.5 H Conjugated Bilirubin AST 464 H ALT 2684 H Alkaline Phosphatase 211 H Ammonia Troponin I Total Protein 5.3 L Albumin 2.6 L Lipase Vitamin B12 Vit D 1,25-Dihydroxy TSH Free T4 Urine Color Urine Clarity Urine pH Ur Specific [place] Urine Protein Urine Ketones Urine Blood Urine Nitrite Urine Bilirubin Urine Urobilinogen Ur Leukocyte Esterase Urine RBC Urine WBC Ur Epithelial Cells Urine Crystals Urine Bacteria Urine Mucus Ur Culture Indicated? Urine Glucose Acetaminophen < 2 Ethyl Alcohol COVID-19 Source SARS-CoV-2 (PCR) Influenza Type A (PCR) Influenza Type B (PCR) RSV (PCR) Add-On Test Request Reviewed Pertinent PMH: Yes
[2022-04-01] MEDS: Normal Saline Flush 10 ML SYR IVP ×2 (12:07→20:10)
--- NOTE | 2022-04-01 12:43 | SCONE_ITS ---
Date of service: 04/01/22 Time of Service: 12:44 Assessment and Plan Assessment and plan (1) Cavitary lesion of lung: Status: Acute Assessment and plan: consider pulm consult and bronch (2) Alzheimer disease: Status: Chronic (3) Elevated liver function tests: Status: Acute Assessment and plan: Patient's LFTs are declining. Ammonia was normal. Patient is asymptomatic, Recommend continued supportive care. Unclear etiology of patient's elevated LFTs. This does not appear to be related to the gallstones. Ultrasound from 03/31 did show gallstones however noticed evidence of acute cholecystitis or biliary dilation. (4) Transaminitis: Status: Acute (5) Bladder mass: Status: Acute (6) Alzheimer's dementia without behavioral disturbance: Status: Chronic (7) History of alcohol abuse: (8) Tobacco abuse: History of Present Illness Narrative: 77-year-old male with a history of Alzheimer's presented to the ER yesterday 03/31 patient. Patient was found to have elevated LFTs, alk phos and total bilirubin. Patient is a challenging historian. Upon questioning he is able to identify that he is in [place] and that it is the year 2021. Patient denies any history of abdominal pain or changes in bowel habits. He denies any abdominal pain, nausea or vomiting at this time. PENDING SALE TO [facility] All Active Problems (Updated 03/31/22 @ 22:20 by Yumiko Dixon DO) Cavitary lesion of lung (Acute) Discharge planning issues (Acute) DVT prophylaxis (Acute) Hematuria (Acute) Alzheimer disease (Chronic) Elevated liver function tests (Acute) Transaminitis (Acute) Hyperbilirubinemia (Acute) Confusion (Acute) Generalized weakness (Acute) Bladder mass (Acute) Alzheimer's dementia without behavioral disturbance (Chronic) Upper gastrointestinal bleed (Acute 07/31/13) With melena and drop in hemoglobin Anxiety (Acute 07/31/13) Agitation (Acute 07/31/13) Anxiety and depression (Chronic) Hypothyroidism (Chronic) On satins. Hyperlipidemia (Chronic) Periodic limb movement disorder (Chronic) On benzodiazepines. Memory disturbance (Chronic) Pneumoperitoneum (Acute) Anemia (Acute) Hypotension (Acute) Bradycardia (Acute) Perforated duodenal ulcer (Acute) Pneumonia (Acute) Fluid volume excess (Acute) Hypokalemia (Acute) nutrition (Acute) Physical deconditioning (Acute) Short-term memory loss (Acute) Medical History (Updated 03/31/22 @ 22:20 by Yumiko Dixon DO) Anxiety Colon polyp Depression Diverticulitis History of alcohol abuse Hyperlipidemia Hypothyroidism Neurocardiogenic syncope Osteoarthritis Perforated duodenal ulcer Tobacco abuse Surgical History Colonoscopy - MAC (05/03/17) Colonoscopy - MAC (03/11/18) EGD - MAC (05/03/17) Kidney Laparotomy (09/10/16) with duodenal ulcer repair Family History Mother Dementia Father Heart disease Social History Smoking/Tobacco Use Status: Current every day Tobacco Type: cigarettes Smoking risk assessment performed?: Yes Alcohol Intake: former Drug use: Never Do you feel safe at home: Yes Do you feel safe in your relationship?: Yes Exam Const General: cooperative, healthy appearing and comfortable Orientation: alert and oriented x3 Resp Effort & Inspection: normal respiratory effort, no audible wheezes and no cough GI Inspection: normal to inspection Palpation: soft, no guarding and nontender Results Last Vital Signs Temp 36.2 C L 04/01/22 08:23 Pulse 63 04/01/22 08:28 Resp 16 04/01/22 08:23 BP 128/83 04/01/22 08:23 Pulse Ox 98 04/01/22 08:23 Labs Result diagrams: 04/01/22 06:00 04/01/22 06:00 Labs: Laboratory Results - last 24 hr 03/31/22 03/31/22 03/31/22 12:30 12:55 12:55 WBC 8.52 RBC 6.16 H Hgb 15.8 Hct 49.6 MCV 81 MCH 25.6 L MCHC 31.9 L RDW 18.4 H Plt Count 270 MPV 10.2 Immature Gran % 0.7 Neutrophils % 74.5 Lymphocytes % 13.3 Monocytes % 9.7 Eosinophils % 1.3 Basophils % 0.5 Nucleated RBC % 0.0 Absolute Neutrophils 6.35 Absolute Lymphocytes 1.13 L Absolute Monocytes 0.83 H Absolute Eosinophils 0.11 Absolute Basophils 0.04 PT INR APTT VBG Lactate Sodium 142 Potassium 4.1 Chloride 106 Carbon Dioxide 29.0 Anion Gap 7.0 BUN 66 H Creatinine 1.8 H Estimated GFR/1.73 m2 36.77 Glucose 111 H Calcium 9.1 Magnesium 2.8 H Iron Ferritin Total Bilirubin 5.9 H Conjugated Bilirubin AST 1167 H ALT 4777 H Alkaline Phosphatase 231 H Ammonia Troponin I < 50 Total Protein 6.4 Albumin 3.1 L Lipase Vitamin B12 Vit D 1,25-Dihydroxy TSH 0.35 L Free T4 1.37 Urine Color Urine Clarity Urine pH Ur Specific [place] Urine Protein Urine Ketones Urine Blood Urine Nitrite Urine Bilirubin Urine Urobilinogen Ur Leukocyte Esterase Urine RBC Urine WBC Ur Epithelial Cells Urine Crystals Urine Bacteria Urine Mucus Ur Culture Indicated? Urine Glucose Acetaminophen Ethyl Alcohol COVID-19 Source Nasopharynx SARS-CoV-2 (PCR) Negative Influenza Type A (PCR) Negative Influenza Type B (PCR) Negative RSV (PCR) Negative Add-On Test Request 03/31/22 03/31/22 03/31/22 12:55 12:55 12:55 WBC RBC Hgb Hct MCV MCH MCHC RDW Plt Count MPV Immature Gran % Neutrophils % Lymphocytes % Monocytes % Eosinophils % Basophils % Nucleated RBC % Absolute Neutrophils Absolute Lymphocytes Absolute Monocytes Absolute Eosinophils Absolute Basophils PT INR APTT VBG Lactate Sodium Potassium Chloride Carbon Dioxide Anion Gap BUN Creatinine Estimated GFR/1.73 m2 Glucose Calcium Magnesium Iron 55 L Ferritin > 2000 H Total Bilirubin Conjugated Bilirubin 4.7 H AST ALT Alkaline Phosphatase Ammonia Troponin I Total Protein Albumin Lipase Vitamin B12 > 2000 H Vit D 1,25-Dihydroxy TSH Free T4 Urine Color Urine Clarity Urine pH Ur Specific [place] Urine Protein Urine Ketones Urine Blood Urine Nitrite Urine Bilirubin Urine Urobilinogen Ur Leukocyte Esterase Urine RBC Urine WBC Ur Epithelial Cells Urine Crystals Urine Bacteria Urine Mucus Ur Culture Indicated? Urine Glucose Acetaminophen Ethyl Alcohol COVID-19 Source SARS-CoV-2 (PCR) Influenza Type A (PCR) Influenza Type B (PCR) RSV (PCR) Add-On Test Request 03/31/22 03/31/22 03/31/22 12:55 12:55 13:32 WBC RBC Hgb Hct MCV MCH MCHC RDW Plt Count MPV Immature Gran % Neutrophils % Lymphocytes % Monocytes % Eosinophils % Basophils % Nucleated RBC % Absolute Neutrophils Absolute Lymphocytes Absolute Monocytes Absolute Eosinophils Absolute Basophils PT INR APTT VBG Lactate Sodium Potassium Chloride Carbon Dioxide Anion Gap BUN Creatinine Estimated GFR/1.73 m2 Glucose Calcium Magnesium Iron Ferritin Total Bilirubin Conjugated Bilirubin AST ALT Alkaline Phosphatase Ammonia Troponin I Total Protein Albumin Lipase 159 Vitamin B12 Vit D 1,25-Dihydroxy Cancelled TSH Free T4 Urine Color Urine Clarity Urine pH Ur Specific [place] Urine Protein Urine Ketones Urine Blood Urine Nitrite Urine Bilirubin Urine Urobilinogen Ur Leukocyte Esterase Urine RBC Urine WBC Ur Epithelial Cells Urine Crystals Urine Bacteria Urine Mucus Ur Culture Indicated? Urine Glucose Acetaminophen < 2 Ethyl Alcohol COVID-19 Source SARS-CoV-2 (PCR) Influenza Type A (PCR) Influenza Type B (PCR) RSV (PCR) Add-On Test Request 03/31/22 03/31/22 03/31/22 14:55 15:06 15:25 WBC RBC Hgb Hct MCV MCH MCHC RDW Plt Count MPV Immature Gran % Neutrophils % Lymphocytes % Monocytes % Eosinophils % Basophils % Nucleated RBC % Absolute Neutrophils Absolute Lymphocytes Absolute Monocytes Absolute Eosinophils Absolute Basophils PT Cancelled Cancelled INR Cancelled Cancelled APTT Cancelled Cancelled VBG Lactate Sodium Potassium Chloride Carbon Dioxide Anion Gap BUN Creatinine Estimated GFR/1.73 m2 Glucose Calcium Magnesium Iron Ferritin Total Bilirubin Conjugated Bilirubin AST ALT Alkaline Phosphatase Ammonia 22 Troponin I Total Protein Albumin Lipase Vitamin B12 Vit D 1,25-Dihydroxy TSH Free T4 Urine Color Urine Clarity Urine pH Ur Specific [place] Urine Protein Urine Ketones Urine Blood Urine Nitrite Urine Bilirubin Urine Urobilinogen Ur Leukocyte Esterase Urine RBC Urine WBC Ur Epithelial Cells Urine Crystals Urine Bacteria Urine Mucus Ur Culture Indicated? Urine Glucose Acetaminophen Ethyl Alcohol COVID-19 Source SARS-CoV-2 (PCR) Influenza Type A (PCR) Influenza Type B (PCR) RSV (PCR) Add-On Test Request 03/31/22 03/31/22 03/31/22 15:58 16:09 16:09 WBC RBC Hgb Hct MCV MCH MCHC RDW Plt Count MPV Immature Gran % Neutrophils % Lymphocytes % Monocytes % Eosinophils % Basophils % Nucleated RBC % Absolute Neutrophils Absolute Lymphocytes Absolute Monocytes Absolute Eosinophils Absolute Basophils PT INR APTT VBG Lactate 1.4 Sodium Potassium Chloride Carbon Dioxide Anion Gap BUN Creatinine Estimated GFR/1.73 m2 Glucose Calcium Magnesium Iron Ferritin Total Bilirubin Conjugated Bilirubin AST ALT Alkaline Phosphatase Ammonia Troponin I Total Protein Albumin Lipase Vitamin B12 Vit D 1,25-Dihydroxy TSH Free T4 Urine Color Brown Urine Clarity Cloudy Urine pH 6.0 Ur Specific [place] >= 1.030 H Urine Protein >=300 H Urine Ketones 15 H Urine Blood Large H Urine Nitrite Negative Urine Bilirubin Moderate H Urine Urobilinogen 1.0 H Ur Leukocyte Esterase Negative Urine RBC >50 H Urine WBC 5-10 Ur Epithelial Cells Not Applicable Urine Crystals Moderate Amorphous Urine Bacteria Not Applicable Urine Mucus Not Applicable Ur Culture Indicated? Yes Urine Glucose Negative Acetaminophen Ethyl Alcohol < 3.0 COVID-19 Source SARS-CoV-2 (PCR) Influenza Type A (PCR) Influenza Type B (PCR) RSV (PCR) Add-On Test Request 03/31/22 03/31/22 03/31/22 17:22 18:34 18:51 WBC RBC Hgb Hct MCV MCH MCHC RDW Plt Count MPV Immature Gran % Neutrophils % Lymphocytes % Monocytes % Eosinophils % Basophils % Nucleated RBC % Absolute Neutrophils Absolute Lymphocytes Absolute Monocytes Absolute Eosinophils Absolute Basophils PT 13.6 H INR 1.4 H APTT 27.8 H VBG Lactate Sodium Potassium Chloride Carbon Dioxide Anion Gap BUN Creatinine Estimated GFR/1.73 m2 Glucose Calcium Magnesium Iron Ferritin Total Bilirubin Conjugated Bilirubin AST ALT Alkaline Phosphatase Ammonia Troponin I Total Protein Albumin Lipase Vitamin B12 Vit D 1,25-Dihydroxy TSH Free T4 Urine Color Urine Clarity Urine pH Ur Specific [place] Urine Protein Urine Ketones Urine Blood Urine Nitrite Urine Bilirubin Urine Urobilinogen Ur Leukocyte Esterase Urine RBC Urine WBC Ur Epithelial Cells Urine Crystals Urine Bacteria Urine Mucus Ur Culture Indicated? Urine Glucose Acetaminophen < 2 Ethyl Alcohol COVID-19 Source SARS-CoV-2 (PCR) Influenza Type A (PCR) Influenza Type B (PCR) RSV (PCR) Add-On Test Request DONE 03/31/22 04/01/22 04/01/22 21:39 06:00 06:00 WBC 9.10 RBC 5.12 Hgb 13.3 L D Hct 40.6 MCV 79 L MCH 26.0 L MCHC 32.8 D RDW 17.7 H Plt Count 206 MPV 10.0 Immature Gran % 0.8 Neutrophils % 63.5 Lymphocytes % 18.8 Monocytes % 12.2 Eosinophils % 4.4 Basophils % 0.3 Nucleated RBC % 0.0 Absolute Neutrophils 5.78 Absolute Lymphocytes 1.71 Absolute Monocytes 1.11 H Absolute Eosinophils 0.40 Absolute Basophils 0.03 PT INR APTT VBG Lactate Sodium 141 Potassium 3.4 L Chloride 107 Carbon Dioxide 26.8 Anion Gap 7.2 BUN 42 H Creatinine 1.1 Estimated GFR/1.73 m2 >= 60.00 Glucose 104 Calcium 8.5 Magnesium Iron Ferritin Total Bilirubin 4.5 H Conjugated Bilirubin AST 464 H ALT 2684 H Alkaline Phosphatase 211 H Ammonia Troponin I Total Protein 5.3 L Albumin 2.6 L Lipase Vitamin B12 Vit D 1,25-Dihydroxy TSH Free T4 Urine Color Urine Clarity Urine pH Ur Specific [place] Urine Protein Urine Ketones Urine Blood Urine Nitrite Urine Bilirubin Urine Urobilinogen Ur Leukocyte Esterase Urine RBC Urine WBC Ur Epithelial Cells Urine Crystals Urine Bacteria Urine Mucus Ur Culture Indicated? Urine Glucose Acetaminophen < 2 Ethyl Alcohol COVID-19 Source SARS-CoV-2 (PCR) Influenza Type A (PCR) Influenza Type B (PCR) RSV (PCR) Add-On Test Request
[2022-04-01] MEDS: POTASSIUM CHLORIDE 20 MEQ/100 ML BAG 50 MEQ IVPB (12:55)
--- NOTE | 2022-04-01 14:28 | INITIAL_ITS ---
- If Service Date Differs Date of service: 04/01/22 Time of Service: 16:10 Care Management Initial Assess REASON FOR HOSPITALIZATION:: Hepatitis PAST MEDICAL HISTORY/PAST SURGICAL HISTORY:: All Active Problems. Discharge planning issues (Acute). DVT prophylaxis (Acute). Hematuria (Acute). Alzheimer disease (Chronic). Elevated liver function tests (Acute). Transaminitis (Acute). Hyperbilirubinemia (Acute). Confusion (Acute). Generalized weakness (Acute). Bladder mass (Acute). Alzheimer's dementia without behavioral disturbance (Chronic). Upper gastrointestinal bleed (Acute 07/31/13). With melena and drop in hemoglobin. Anxiety (Acute 07/31/13). Agitation (Acute 07/31/13). Anxiety and depression (Chronic). Hypothyroidism (Chronic). On satins. Hyperlipidemia (Chronic). Periodic limb movement disorder (Chronic). On benzodiazepines. Memory disturbance (Chronic). Pneumoperitoneum (Acute). Anemia (Acute). Hypotension (Acute). Bradycardia (Acute). Perforated duodenal ulcer (Acute). Pneumonia (Acute). Fluid volume excess (Acute). Hypokalemia (Acute). nutrition (Acute). Physical deconditioning (Acute). Short-term memory loss (Acute). Medical History. Anxiety. Colon polyp. Depression. Diverticulitis. History of alcohol abuse. Hyperlipidemia. Hypothyroidism. Neurocardiogenic syncope. Osteoarthritis. Perforated duodenal ulcer. Tobacco abuse. Surgical History. Colonoscopy - MAC (05/03/17). Colonoscopy - MAC (03/11/18). EGD - MAC (05/03/17). Kidney. Laparotomy (09/10/16). with duodenal ulcer repair PREVIOUS FUNCTIONAL STATUS/SOCIAL/FAMILY SUPPORTS:: Domingo lives alone in [facility]. His of 51 years lives in [place] but checks on him daily and provides support with all of his ADLs including transporting him to appointments and buying his groceries, paying bills, cleaning, etc. 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 The couple has a daughter and a son, the son lives locally , their daughter lives in [place]. CURRENT FUNCTIONAL STATUS:: Domingo was sitting up in bed when CM met with him. He stated that he is doing well, and is waiting to hear from the MD what his plan will be going forward. Per report, his LFT's were elevated upon admission, but they are now improving, therefore surgical services is recommending supportive care at this time. Domingo will have a Urology consult as well as a Palliative Care consultation to discuss goals of care. His , Kathryn, would like to participate in the Palliative care meeting. CM will continue to follow. ADVANCE DIRECTIVES:: None on file at [facility]. Has patient been provided with info about the portal/API?: Yes Did the patient sign up for the portal?: No CODE STATUS:: DNR/DNI INSURANCE COVERAGE / FINANCIAL ISSUES:: [facility]/ [facility] CURRENT HOME/COMMUNITY SERVICES/EQUIPMENT:: Pt reports no current services or equipment. PRIMARY CARE PHYSICIAN:: Lily Soares POTENTIAL DISCHARGE NEEDS:: Evaluations for further needs, follow up appointments. PATIENT/FAMILY EDUCATION NEEDS:: Review discharge instructions and limitations, discussion of self care needs including ask me three. ANTICIPATED BARRIERS TO DISCHARGE:: None identifed. TRANSPORTATION:: Via private vehicle bay his . PLAN:: Anticipate Domingo will return home when medically cleared. His will drive him home via private vehicle. He will follow up with his PCP and discharge plan of care. CM will continue to follow.
[2022-04-01] MEDS: Normal Saline 1,000 ML 150 ML IV ×2 (14:48→20:08)
[2022-04-01 15:46] VITALS: BP 106/72; PULSE 52; RESP 16; TEMP 36.3; O2SAT 97
--- NOTE | 2022-04-01 16:13 | W.PULMCON ---
General Date Of Service Date of service: 04/01/22 Time of Service: 15:00 Reason for Consult: Abnormal chest CT Assessment and Plan Assessment and plan (1) Cavitary lesion of lung: Status: Acute (2) Transaminitis: Status: Acute (3) Bladder mass: Status: Acute (4) Alzheimer's dementia without behavioral disturbance: Status: Chronic Assessment and plan: This is a 77 yo man who is a smoker and who was found to have a cavitary lung lesion. The differential for a cavitary lung lesion includes infection (bacterial, fungal), autoimmune (RA), vasculitis or cancer. Given the bladder findings malignancy is a concern, however I do not see significant mediastinal or hilar LAD. He is also high risk due to his smoking. He has never had a cancer in the past. He has arthritic but never diagnosed with rheumatoid. The liver failure is interesting as well as there is no cirrhosis (despite prior alcoholism), although the thought is that maybe this is a medication accidental overdose. He is being tested for hepatitis, but I will add autoimmune hepatitis testing and IgG 4 testing given the lung findings. Cavitary lung lesions - DIANE, anti-ds DNA, RF, anti-CCP, SSA/SSB, Scl-70, anti-Sm, myomarker panel - ANCA panel - Fungitell and aspergillus - urine blasto and urine histo - will see as outpatient to arrange bronchoscopy, likely with Percepta once liver has had time to recover - f/u in 2 weeks made Acute Liver Failure - IgG with subgroups, smooth muscle antibody, anti-LKM and anti-SLA - consider hepatology consultation - acute hepatitis panel already ordered History of Present Illness Narrative: This is a 77 yo man admitted to [facility] for acute liver injury (possibly due to medication error?). I was consulted as a chest CT shows a LLL cavitary lesion. There is also concern for a mass vs clot in his bladder for which urology is being consulted. He is a current smoker and has around a 60 pack year history. He also has a history of heavy drinking. He is not the best historian and so much of the details are gathered from his (). He does endorse cough (no hemoptysis) that they describe as a smokers cough. He has never been formally diagnosed with COPD although I did tell them his CT chest does have some emphysema. The cavitary lesion is somewhat concerning. It does connect with an airway and is relatively large. He does get some dyspnea with exertion but denies current dyspnea. He does endorse some fatigue and weight loss. He does not have recent prior chest CT's., but a scan from 2016 is present and although the is a left pleural effusion I do think I can see this lesion present. There is no LAD in the chest that is new. Review of Systems All systems reviewed & are unremarkable except as noted in HPI and below PFSH All Active Problems (Updated 03/31/22 @ 22:20 by Yumiko Dixon DO) Cavitary lesion of lung (Acute) Discharge planning issues (Acute) DVT prophylaxis (Acute) Hematuria (Acute) Alzheimer disease (Chronic) Elevated liver function tests (Acute) Transaminitis (Acute) Hyperbilirubinemia (Acute) Confusion (Acute) Generalized weakness (Acute) Bladder mass (Acute) Alzheimer's dementia without behavioral disturbance (Chronic) Upper gastrointestinal bleed (Acute 07/31/13) With melena and drop in hemoglobin Anxiety (Acute 07/31/13) Agitation (Acute 07/31/13) Anxiety and depression (Chronic) Hypothyroidism (Chronic) On satins. Hyperlipidemia (Chronic) Periodic limb movement disorder (Chronic) On benzodiazepines. Memory disturbance (Chronic) Pneumoperitoneum (Acute) Anemia (Acute) Hypotension (Acute) Bradycardia (Acute) Perforated duodenal ulcer (Acute) Pneumonia (Acute) Fluid volume excess (Acute) Hypokalemia (Acute) nutrition (Acute) Physical deconditioning (Acute) Short-term memory loss (Acute) Medical History (Updated 03/31/22 @ 22:20 by Yumiko Dixon DO) Anxiety Colon polyp Depression Diverticulitis History of alcohol abuse Hyperlipidemia Hypothyroidism Neurocardiogenic syncope Osteoarthritis Perforated duodenal ulcer Tobacco abuse Surgical History Colonoscopy - MAC (05/03/17) Colonoscopy - MAC (03/11/18) EGD - MAC (05/03/17) Kidney Laparotomy (09/10/16) with duodenal ulcer repair Family History Mother Dementia Father Heart disease Social History Smoking/Tobacco Use Status: Current every day Tobacco Type: cigarettes Smoking risk assessment performed?: Yes Alcohol Intake: former Drug use: Never Do you feel safe at home: Yes Do you feel safe in your relationship?: Yes Visit Medication and Allergies Active Medications Generic Name Dose Route Start Last Admin Trade Name Fariba PRN Reason Stop Dose Admin Atenolol 12.5 mg 04/01/22 08:30 04/01/22 08:28 Atenolol 25 Mg Tab PO 12.5 mg DAILY NITISH Administration Dimethicone/Zinc Oxide 0 gm 03/31/22 17:10 Nissa Protect Cream 142 Gm Tube TP PRN PRN Sodium Chloride 1,000 mls @ 150 mls/hr 03/31/22 14:45 04/01/22 14:48 Saline 1000ml Bag IV 150 mls/hr INFUSION NITISH Administration Thiamine HCl 500 mg/ Sodium 105 mls @ 200 mls/hr 03/31/22 20:00 04/01/22 12:51 Chloride IVPB 04/03/22 12:32 Infused Q8H NITISH Infusion IV Miscellaneous Supplies 1 each 03/31/22 12:30 Iv Access IV DIRECTED NITISH Ketorolac Tromethamine 15 mg 04/01/22 14:31 Ketorolac 15 Mg/Ml Vial IVP 04/06/22 14:30 Q6H PRN PRN Levothyroxine Sodium 100 mcg 04/01/22 06:00 04/01/22 08:28 Levothyroxine 100 Mcg Tab PO 100 mcg DAILY@0600 NITISH Administration Melatonin 3 mg 04/01/22 00:30 04/01/22 00:29 Melatonin 3 Mg Tab PO 3 mg HS NITISH Administration Mirtazapine 45 mg 04/01/22 01:00 04/01/22 00:29 Mirtazapine 15 Mg Tab PO 45 mg HS NITISH Administration Miscellaneous 1 each 04/01/22 08:30 04/01/22 08:30 Patch Removal TD 1 each DAILY NITISH Administration Nicotine 21 mg 03/31/22 18:20 04/01/22 08:29 Nicotine 21 Mg/24 Hr Patch TD 21 mg DAILY NITISH Administration Pantoprazole Sodium 40 mg 04/01/22 08:30 04/01/22 08:28 Pantoprazole 40 Mg Tabcr PO 40 mg DAILY NITISH Administration Quetiapine Fumarate 12.5 mg 04/01/22 07:17 Quetiapine 25 Mg Tab PO BID PRN PRN Agitation Sodium Chloride 0 ml 03/31/22 12:26 04/01/22 12:07 Normal Saline Flush 10 Ml Syr IVP 20 ml PRN PRN Administration Sodium Chloride 250 ml 03/31/22 20:15 03/31/22 20:05 Normal Saline 250 Ml Bag IJ 65 ml DIRECTED NITISH Administration Trazodone HCl 100 mg 03/31/22 22:00 03/31/22 21:36 Trazodone 50 Mg Tab PO 100 mg HS NITISH Administration Allergies ibuprofen Allergy (Severe, Unverified 03/31/22 12:04) varenicline tartrate [From Chantix] Adverse Reaction (Severe, Unverified 03/31/22 12:04) Psychosis Exam Narrative Exam Narrative: Gen: NAD, normal respiratory effort, thin HENT: PERRL, poor dentition, jaundice Chest: No respiratory distress, normal appearance of chest, clear to auscultation bilaterally, no crackles or wheezes, normal inspiratory effort Heart: regular rate and rhythym, no murmurs, rubs or gallops Abdomen: Non-distended, soft, non tender Extremities: No clubbing, edema, cyanosis, rashes Neuro: non focal Psych: cooperative, appropriate mental affect Results Last Vital Signs Temp 36.3 C L 04/01/22 15:46 Pulse 52 L 04/01/22 15:46 Resp 16 04/01/22 15:46 BP 106/72 04/01/22 15:46 Pulse Ox 97 04/01/22 15:46 Labs Result diagrams: 04/01/22 06:00 04/01/22 06:00 Labs: Laboratory Results - last 24 hr 03/31/22 03/31/22 03/31/22 15:06 15:58 16:09 WBC RBC Hgb Hct MCV MCH MCHC RDW Plt Count MPV Immature Gran % Neutrophils % Lymphocytes % Monocytes % Eosinophils % Basophils % Nucleated RBC % Absolute Neutrophils Absolute Lymphocytes Absolute Monocytes Absolute Eosinophils Absolute Basophils PT Cancelled INR Cancelled APTT Cancelled VBG Lactate 1.4 Sodium Potassium Chloride Carbon Dioxide Anion Gap BUN Creatinine Estimated GFR/1.73 m2 Glucose Calcium Total Bilirubin AST ALT Alkaline Phosphatase Total Protein Albumin Urine RBC >50 H Urine WBC 5-10 Ur Epithelial Cells Not Applicable Urine Crystals Moderate Amorphous Urine Bacteria Not Applicable Urine Mucus Not Applicable Ur Culture Indicated? Yes Acetaminophen Ethyl Alcohol Add-On Test Request 03/31/22 03/31/22 03/31/22 16:09 17:22 18:34 WBC RBC Hgb Hct MCV MCH MCHC RDW Plt Count MPV Immature Gran % Neutrophils % Lymphocytes % Monocytes % Eosinophils % Basophils % Nucleated RBC % Absolute Neutrophils Absolute Lymphocytes Absolute Monocytes Absolute Eosinophils Absolute Basophils PT 13.6 H INR 1.4 H APTT 27.8 H VBG Lactate Sodium Potassium Chloride Carbon Dioxide Anion Gap BUN Creatinine Estimated GFR/1.73 m2 Glucose Calcium Total Bilirubin AST ALT Alkaline Phosphatase Total Protein Albumin Urine RBC Urine WBC Ur Epithelial Cells Urine Crystals Urine Bacteria Urine Mucus Ur Culture Indicated? Acetaminophen < 2 Ethyl Alcohol < 3.0 Add-On Test Request 03/31/22 03/31/22 04/01/22 18:51 21:39 06:00 WBC RBC Hgb Hct MCV MCH MCHC RDW Plt Count MPV Immature Gran % Neutrophils % Lymphocytes % Monocytes % Eosinophils % Basophils % Nucleated RBC % Absolute Neutrophils Absolute Lymphocytes Absolute Monocytes Absolute Eosinophils Absolute Basophils PT INR APTT VBG Lactate Sodium 141 Potassium 3.4 L Chloride 107 Carbon Dioxide 26.8 Anion Gap 7.2 BUN 42 H Creatinine 1.1 Estimated GFR/1.73 m2 >= 60.00 Glucose 104 Calcium 8.5 Total Bilirubin 4.5 H AST 464 H ALT 2684 H Alkaline Phosphatase 211 H Total Protein 5.3 L Albumin 2.6 L Urine RBC Urine WBC Ur Epithelial Cells Urine Crystals Urine Bacteria Urine Mucus Ur Culture Indicated? Acetaminophen < 2 Ethyl Alcohol Add-On Test Request DONE 04/01/22 06:00 WBC 9.10 RBC 5.12 Hgb 13.3 L D Hct 40.6 MCV 79 L MCH 26.0 L MCHC 32.8 D RDW 17.7 H Plt Count 206 MPV 10.0 Immature Gran % 0.8 Neutrophils % 63.5 Lymphocytes % 18.8 Monocytes % 12.2 Eosinophils % 4.4 Basophils % 0.3 Nucleated RBC % 0.0 Absolute Neutrophils 5.78 Absolute Lymphocytes 1.71 Absolute Monocytes 1.11 H Absolute Eosinophils 0.40 Absolute Basophils 0.03 PT INR APTT VBG Lactate Sodium Potassium Chloride Carbon Dioxide Anion Gap BUN Creatinine Estimated GFR/1.73 m2 Glucose Calcium Total Bilirubin AST ALT Alkaline Phosphatase Total Protein Albumin Urine RBC Urine WBC Ur Epithelial Cells Urine Crystals Urine Bacteria Urine Mucus Ur Culture Indicated? Acetaminophen Ethyl Alcohol Add-On Test Request
[2022-04-01] MEDS: QUEtiapine 25 MG TAB 12.5 MG PO (20:09)
[2022-04-01] MEDS: traZODone 50 MG TAB 100 MG PO (20:09)
[2022-04-02] MEDS: THIAMINE 500 MG in Normal Saline 100 ML 200 MG IVPB ×3 (03:00→19:39)
[2022-04-02 05:08] LABS: Vitamin D 25 Total 90.2 ng/mL (30-100)
[2022-04-02] MEDS: Levothyroxine 100 MCG TAB PO (05:43)
[2022-04-02 07:35] VITALS: BP 123/74; PULSE 51; RESP 14; TEMP 36.5; O2SAT 96
[2022-04-02 07:39] LABS: Absolute Basophil Count 0.04 10^3/uL (0.0-0.2); Absolute Eosinophil Count 0.61 10^3/uL (0.0-0.7); Absolute Lymphocyte Count 2.06 10^3/uL (1.2-3.4); Absolute Monocyte Count 0.89 10^3/uL (0.1-0.8); Basophils % 0.4; Eosinophils % 6.9; HCT 40.1 % (40.0-50.0); Immature Grans % 1.1; Lymphocytes % 23.1; MCH 25.8 pg (27.0-33.0); MCHC 32.4 % (32.0-36.0); MCV 80 fL (80-95); MPV 10.6 fL (8.0-11.0); Neutrophils % 58.5; Platelet Count 187 10^3/uL (130-400); RBC 5.04 10^6/uL (4.36-5.78); RDW 18.1 % (11.8-14.1); RDW-SD 45.8 fL
--- NOTE | 2022-04-02 07:44 | CHAPLAIN ---
I had a brief visit with Domingo. I explained my role and introduced myself. He was not interested in further conversation.
[2022-04-02 07:56] LABS: INR 1.2 (0.9-1.1); Prothrombin Time 12.3 sec (9.3-11.0)
[2022-04-02 08:01] LABS: AST 229 U/L (15-37); Albumin 2.4 g/dL (3.4-5.0); Alkaline Phosphatase 175 U/L (46-116); Anion Gap 6.3 mmol/L (3-11); BUN 19 mg/dL (7-18); Bilirubin, Total 3.9 mg/dL (0.2-1.0); CO2 25.7 mmol/L (21.0-32.0); Calcium 8.3 mg/dL (8.5-10.1); Chloride 109 mmol/L (98-107); Glucose 79 mg/dL (74-106); Magnesium 1.7 mg/dL (1.8-2.4); Potassium 3.6 mmol/L (3.5-5.1); Sodium 141 mmol/L (136-145)
[2022-04-02 08:47] LABS: ALT 1848 U/L (16-63)
[2022-04-02 09:07] LABS: Lab Add On Test DONE
[2022-04-02] MEDS: Pantoprazole 40 MG TABCR PO (09:16)
--- NOTE | 2022-04-02 09:29 | PGE_ITS ---
Date of Service Date of service: 04/02/22 Time of Service: 09:29 Assessment and Plan Assessment and plan (1) Cavitary lesion of lung: Status: Acute Assessment and plan: Procalcitonin 0.8 yesterday - initiated ceftriaxone 1 gm IV daily and doxycycline 100 mg IV BID 04/02 will recheck procalcitonin in 48 h from first result He does not have any difficulty breathing, vital signs are stable. Evaluated by Dr Lanza, who plans on outpatinet bronchoscopy once LFTs have stabilized. Studies pending. Discussed with Dr Rios (2) Alzheimer disease: Status: Chronic Assessment and plan: Continue home regime CAOx3 - requesting to go home; reviewed reason for antibiotics, states he understood - he was able to repeat that back to me on my next visit with him. (3) Elevated liver function tests: Status: Acute Assessment and plan: Patient's LFTs are declining. Ammonia was normal. Patient is asymptomatic, Recommend continued supportive care. Unclear etiology of patient's elevated LFTs. Surgery does not think it is related to the gallstones. Ultrasound from 03/31 did show gallstones but no cholecystitis or biliary dilation. Recheck 04/04/2022 (4) Transaminitis: Status: Acute Assessment and plan: [place] to be due to unintentional incorrect taking of medications, likely statin. AST 129 ALT 1129 Alk phos 164 Will repeat 04/04/22 will do daily medication drop offs, as discussed with palliative care. (5) Hypomagnesemia: Status: Acute Assessment and plan: Magnesium 1.3 - repleated with 4 gm magnesium IV - will recheck 04/04/2022 (6) Bladder mass: Status: Acute Assessment and plan: Seen by Dr Gallardo; recommends procedure - see note; patient currently declines all procedures. His was here today and she would like to discuss options early next week. (7) History of alcohol abuse: Assessment and plan: Received high dose thiamine. Will continue daily thiamine supplementation and MVI. No evidence of EtOH w/d at this time. (8) Tobacco abuse: Assessment and plan: Provide nicotine replacement. (9) DVT prophylaxis: Status: Acute Assessment and plan: SCDs Chemical DVT ppx is contraindicated due to hepatic dysfunction and coagulopathy associated with it. (10) Discharge planning issues: Status: Acute Assessment and plan: DNR/DNI Palliative care consulted. Patient is planning on going home; will be doing daily medication drop offs. Consider APS. Subjective Subjective Patient reports: no new complaints Exam Narrative Exam Narrative: Pulmonology, urology and surgery saw him 04/02/22, waiting for liver enzymes to improve prior to any procedures Palliative care saw him today - they will follow him out patient. See their note. Const General: cooperative and frail appearing Nutritional Appearance: cachectic Orientation: alert, awake, oriented to person, not oriented to time and confused HENMT Head: normal to inspection Ears: hearing grossly normal bilaterally and external ears normal General nose exam: external nose normal Face and sinus: normal facial exam Eyes General: appearance normal, both eyes and all related structures Eyelids: eyelids normal Conjunctivae: conjunctivae normal Sclera: scleral abnormality (jaundice) bilaterally Pupils: PERRL Neck Neck: normal visual inspection Chest Chest: normal inspection of the chest Resp Effort & Inspection: normal respiratory effort Auscultation: clear to auscultation bilaterally Cardio Rate: regular rate Rhythm: regular rhythm GI Inspection: normal to inspection Palpation: soft, not firm, no guarding, no hepatosplenomegaly, no masses and nontender Auscultation: hypoactive bowel sounds Back/Spine/Pelvis Thoracic/Lumbar Spine: thoracic and lumbar spine normal to inspection Skin General skin exam: no rashes or lesions noted Neuro General: patient alert, patient awake, moves all extremities, no focal motor deficits and patient confused Cognition: abnormal cognition (poor historian, unable to provide ) Speech: speech normal Motor: muscle tone normal throughout Extrem General: normal to inspection, full ROM and capillary refill normal Other: Normal range of motion of bilateral upper and lower extremities but without pain, evidence of trauma or deformity. Psych Appearance: grossly normal Speech and Movement: speech and movement normal Affect: normal affect Objective Last Vital Signs Temp 36.5 C 04/02/22 07:35 Pulse 51 L 04/02/22 07:35 Resp 14 04/02/22 07:35 BP 123/74 04/02/22 07:35 Pulse Ox 96 04/02/22 07:35 Laboratory Results - last 24 hr 03/31/22 04/01/22 04/02/22 12:55 07:10 07:10 WBC RBC Hgb Hct MCV MCH MCHC RDW Plt Count MPV Immature Gran % Neutrophils % Lymphocytes % Monocytes % Eosinophils % Basophils % Nucleated RBC % Absolute Neutrophils Absolute Lymphocytes Absolute Monocytes Absolute Eosinophils Absolute Basophils PT INR Sodium 141 Potassium 3.6 Chloride 109 H Carbon Dioxide 25.7 Anion Gap 6.3 BUN 19 H Creatinine 1.0 Estimated GFR/1.73 m2 >= 60.00 Glucose 79 Calcium 8.3 L Magnesium 1.7 L Total Bilirubin 3.9 H AST 229 H ALT 1848 H Alkaline Phosphatase 175 H Total Protein 5.0 L Albumin 2.4 L 25-OH Vitamin D Total 90.2 Add-On Test Request DONE 04/02/22 04/02/22 07:10 07:10 WBC 8.90 RBC 5.04 Hgb 13.0 L Hct 40.1 MCV 80 MCH 25.8 L MCHC 32.4 RDW 18.1 H Plt Count 187 MPV 10.6 Immature Gran % 1.1 Neutrophils % 58.5 Lymphocytes % 23.1 Monocytes % 10.0 Eosinophils % 6.9 Basophils % 0.4 Nucleated RBC % 0.0 Absolute Neutrophils 5.20 Absolute Lymphocytes 2.06 Absolute Monocytes 0.89 H Absolute Eosinophils 0.61 Absolute Basophils 0.04 PT 12.3 H INR 1.2 H Sodium Potassium Chloride Carbon Dioxide Anion Gap BUN Creatinine Estimated GFR/1.73 m2 Glucose Calcium Magnesium Total Bilirubin AST ALT Alkaline Phosphatase Total Protein Albumin 25-OH Vitamin D Total Add-On Test Request Reviewed Pertinent PMH: Yes
[2022-04-02] MEDS: Normal Saline 1,000 ML 150 ML IV ×3 (09:39→18:03)
[2022-04-02 09:41] LABS: Lab Add On Test DONE
[2022-04-02 09:58] VITALS: O2SAT 95
[2022-04-02 10:34] LABS: Hepatitis A Antibody IgM Negative (Negative); Hepatitis B Core Antibody Negative (Negative); Hepatitis B surface Ag Negative (Negative); Hepatitis C Ab w Rflx HCV PCR Negative (Negative)
--- NOTE | 2022-04-02 10:37 | W.UROLOGYCON ---
Date of service: 04/02/22 Time of Service: 10:38 Assessment and Plan Assessment and plan (1) Hematuria: Status: Acute Assessment and plan: I am not certain as to what type of surgery he may have had on his kidneys previously, but based on his imaging studies so far, there is no evidence that he has an upper urinary tract bleed. In order to evaluate the lower urinary tract, we would generally recommend a cystoscopy. Given the likelihood of there being significant clot material within the bladder, I would doubt that we would be able to visualize too much with a flexible cystoscope. We would likely need a rigid cystoscope so that we could evacuate blood clots and see if there is a tumor associated with the clots. This type of procedure would need to be done in the operating room with some anesthesia on board. The patient has a DNR/DNI status and a history of dementia. After discussing the situation with the patient himself, it is not clear to me exactly how aggressive he might want to be in evaluating his bladder. For now, would offer an emergency cystoscopy and clot evacuation only if the patient into clot retention and becomes uncomfortable. Doing the cystoscopy and clot evacuation would fit well within our goal of providing comfort measures. If we wanted to pursue a cystoscopy and possible transurethral resection of any underlying tumor, we would first need to make sure his coagulation studies have normalized. We would need to make sure we could get informed consent for the procedure. Plus, we would need to make sure our anesthesia team is comfortable providing anesthesia services to this gentleman here at our facility. I will plan on speaking both with our anesthesia colleagues and the patient's family to help guide our recommendations. History of Present Illness History of Present Illness Chief Complaint: Gross hematuria Narrative: This is a 77-year-old gentleman who is currently hospitalized with weakness and worsening mental status. As part of his initial evaluation, he was found to have elevated liver function tests and an elevated PT and PTT. The etiology of these abnormalities has not been identified, but the liver functions and coag studies are trending back toward normal. He was evaluated with a CT of the chest, abdomen and pelvis. A mass was identified in the bladder. Radiographically, it is unclear whether the mass is a clot or tumor. I have been asked to see him for this issue. Patient has Alzheimer's as a baseline, so obtaining a history is quite challenging. He has not gone into urinary retention. Even though his caregivers document gross hematuria when he voids, the patient tells me he has never seen blood in the urine. He does recall having 2 previous surgeries on his left kidney. He tells me the procedures were done when he was living in [place] many years ago. The surgeries were done through open incisions, but he is unsure of the exact type of surgery that might have been done. He is a smoker. He does not recall any type of bladder or prostate surgery in the past. Review of Systems Narrative: No fevers or chills No vision change or dysphasia No diabetes or thyroid dysfunction No hemoptysis No chest pain or palpitations No nausea, vomiting No seizures, strokes No gout PFSH All Active Problems (Updated 04/01/22 @ 16:51 by Elizabeth Fermin NP) Malaise and fatigue (Acute) Cavitary lesion of lung (Acute) Discharge planning issues (Acute) DVT prophylaxis (Acute) Hematuria (Acute) Alzheimer disease (Chronic) Elevated liver function tests (Acute) Transaminitis (Acute) Hyperbilirubinemia (Acute) Confusion (Acute) Generalized weakness (Acute) Bladder mass (Acute) Alzheimer's dementia without behavioral disturbance (Chronic) Upper gastrointestinal bleed (Acute 07/31/13) With melena and drop in hemoglobin Anxiety (Acute 07/31/13) Agitation (Acute 07/31/13) Anxiety and depression (Chronic) Hypothyroidism (Chronic) On satins. Hyperlipidemia (Chronic) Periodic limb movement disorder (Chronic) On benzodiazepines. Memory disturbance (Chronic) Pneumoperitoneum (Acute) Anemia (Acute) Hypotension (Acute) Bradycardia (Acute) Perforated duodenal ulcer (Acute) Pneumonia (Acute) Fluid volume excess (Acute) Hypokalemia (Acute) nutrition (Acute) Physical deconditioning (Acute) Short-term memory loss (Acute) Medical History (Updated 04/01/22 @ 16:51 by Elizabeth Fermin NP) Anxiety Colon polyp Depression Diverticulitis History of alcohol abuse Hyperlipidemia Hypothyroidism Neurocardiogenic syncope Osteoarthritis Perforated duodenal ulcer Tobacco abuse Surgical History Colonoscopy - MAC (05/03/17) Colonoscopy - MAC (03/11/18) EGD - MAC (05/03/17) Kidney Laparotomy (09/10/16) with duodenal ulcer repair Family History Mother Dementia Father Heart disease Social History Smoking/Tobacco Use Status: Current every day Tobacco Type: cigarettes Smoking risk assessment performed?: Yes Alcohol Intake: former Drug use: Never Do you feel safe at home: Yes Do you feel safe in your relationship?: Yes Exam Narrative Exam Narrative: Appears comfortable. He does not appear septic or toxic His vital signs are documented elsewhere His abdomen is soft. His bladder is not distended. He is awake and alert I reviewed the CT scan on the PACS system. There certainly is a mass within the dependant portion of the bladder but it is impossible to tell whether the mass is mural based, floating within the lumen of the bladder, or combination of both I reviewed his lab work. His coagulation studies are still a bit high but are trending downward as are his liver studies Results Last Vital Signs Temp 36.5 C 04/02/22 07:35 Pulse 51 L 04/02/22 07:35 Resp 14 04/02/22 07:35 BP 123/74 04/02/22 07:35 Pulse Ox 95 04/02/22 09:58 Labs Result diagrams: 04/02/22 07:10 04/02/22 07:10 Labs: Laboratory Results - last 24 hr 03/31/22 04/01/22 04/02/22 12:55 07:10 07:10 WBC RBC Hgb Hct MCV MCH MCHC RDW Plt Count MPV Immature Gran % Neutrophils % Lymphocytes % Monocytes % Eosinophils % Basophils % Nucleated RBC % Absolute Neutrophils Absolute Lymphocytes Absolute Monocytes Absolute Eosinophils Absolute Basophils PT INR Sodium 141 Potassium 3.6 Chloride 109 H Carbon Dioxide 25.7 Anion Gap 6.3 BUN 19 H Creatinine 1.0 Estimated GFR/1.73 m2 >= 60.00 Glucose 79 Calcium 8.3 L Magnesium 1.7 L Total Bilirubin 3.9 H AST 229 H ALT 1848 H Alkaline Phosphatase 175 H Total Protein 5.0 L Albumin 2.4 L 25-OH Vitamin D Total 90.2 Add-On Test Request DONE 04/02/22 04/02/22 04/02/22 07:10 07:10 07:10 WBC 8.90 RBC 5.04 Hgb 13.0 L Hct 40.1 MCV 80 MCH 25.8 L MCHC 32.4 RDW 18.1 H Plt Count 187 MPV 10.6 Immature Gran % 1.1 Neutrophils % 58.5 Lymphocytes % 23.1 Monocytes % 10.0 Eosinophils % 6.9 Basophils % 0.4 Nucleated RBC % 0.0 Absolute Neutrophils 5.20 Absolute Lymphocytes 2.06 Absolute Monocytes 0.89 H Absolute Eosinophils 0.61 Absolute Basophils 0.04 PT 12.3 H INR 1.2 H Sodium Potassium Chloride Carbon Dioxide Anion Gap BUN Creatinine Estimated GFR/1.73 m2 Glucose Calcium Magnesium Total Bilirubin AST ALT Alkaline Phosphatase Total Protein Albumin 25-OH Vitamin D Total Add-On Test Request DONE
--- NOTE | 2022-04-02 12:18 | PDOC.CMPRO ---
- If Service Date Differs Date of service: 04/02/22 Time of Service: 12:18 Care Management Progress Note S/O: Domingo was sitting up in bed when CM met with him. His , Kathryn was in the room visiting. Domingo stated that he is feeling well. He stated that he met with Urology today, and is expecting to meet with Pulmonology tomorrow. Palliative Care is also consulted, and his visit is scheduled for tomorrow. Domingo stated that he has explained that he does not want aggressive measures, and is not agreeable to going to SNF, even if it is recommended. He stated that he would consider HH services, if necessary. He had a PT evaluation today, who did not recommend any services upon discharge. Kathryn stated that she does not live with him, and is not able to be with him all of the time, so she would support additional resources in the home. She would like to be present for the palliative care meeting, if possible. CM will continue to follow. A: Domingo is a 77 year old male admitted to [facility] on 03/31/22 for hepatitis. P: Anticipate Domingo will return home when medically cleared. His will drive him home via private vehicle. He will follow up with his PCP and discharge plan of care. CM will continue to follow.
--- NOTE | 2022-04-02 13:47 | NUR.NOTE ---
Nursing Note: Bladder scan at 1325. 330 mL noted in bladder.
[2022-04-02 14:00] VITALS: O2SAT 96
--- NOTE | 2022-04-02 14:21 | PT.INTREAT ---
Date of service: 04/02/22 Time of Service: 14:08 PT Notes Visit Reasons: Hepatitis Inpatient Physical Therapy Treatment Note [facility] Date: 04/02/2022 PRECAUTIONS: Fall, dementia, activity as tolerated SUBJECTIVE: Reji states I am up for whatever. I hope to go home soon, all I do is just sit around here. I am very active when I am home. During session patient states I just want to go back to my room. No I don't want to try the stairs. No I don't want to do exercises, I just want to take it easy. OBJECTIVE: PAIN: No c/o pain BED MOBILITY/TRANSFERS Sit-supine: I Sit-stand: I Stand-sit: I GAIT Assistive Device: No AD Weight bearing: Full Assist: CGA-SBA Distance: 250' + 50' Deviation: Cueing for posture due to slight anteroflexed posture t/o, LOB x1 with CGA for recovery, SOB, seated rest x1 THEREX: Refused STAIRS: Refused ASSESSMENT: Patient was able to tolerate a progression in gait training with CGA-SBA without assistive device support. He demonstrates instability with gait demonstrating LOB x1. PLAN: Continue with gait training and global strengthening for improved mobility, as tolerated. TREATMENT CODE/TIME: 12 minutes; 59616 (14:08)
--- NOTE | 2022-04-02 14:36 | PT.INIE ---
PT Notes Visit Reasons: Hepatitis Inpatient Physical Therapy Evaluation Date: 04/02/2022 Referring: Bertha Rios MD PT Orders: PT CONSULT: Limited ability Precautions: Fall precaution Patient Profile/Admitting Diagnosis: 77-year-old male recently admitted with hepatitis and confusion PMHX: All Active Problems?(Updated 03/31/22 @ 18:39 by Tequila Flores NP) Discharge planning issues (Acute) DVT prophylaxis (Acute) Hematuria (Acute) Alzheimer disease (Chronic) Elevated liver function tests (Acute) Transaminitis (Acute) Hyperbilirubinemia (Acute) Confusion (Acute) Generalized weakness (Acute) Bladder mass (Acute) Alzheimer's dementia without behavioral disturbance (Chronic) Upper gastrointestinal bleed (Acute 07/31/13) With melena and drop in hemoglobinAnxiety (Acute 07/31/13) Agitation (Acute 07/31/13) Anxiety and depression (Chronic) Hypothyroidism (Chronic) On satins.Hyperlipidemia (Chronic) Periodic limb movement disorder (Chronic) On benzodiazepines.Memory disturbance (Chronic) Pneumoperitoneum (Acute) Anemia (Acute) Hypotension (Acute) Bradycardia (Acute) Perforated duodenal ulcer (Acute) Pneumonia (Acute) Fluid volume excess (Acute) Hypokalemia (Acute) nutrition (Acute) Physical deconditioning (Acute) Short-term memory loss (Acute) Medical History?(Updated 03/31/22 @ 18:39 by Tequila Flores NP) Anxiety Colon polyp Depression Diverticulitis History of alcohol abuse Hyperlipidemia Hypothyroidism Neurocardiogenic syncope Osteoarthritis Perforated duodenal ulcer Tobacco abuse Surgical History? Colonoscopy - MAC (05/03/17) Colonoscopy - MAC (03/11/18) EGD - MAC (05/03/17) Kidney Laparotomy (09/10/16) with duodenal ulcer repair Social History/Home Situation: for 55 years and periodically lives alone, but is checked regularly by his and daughter. He has a few steps leading into the house, and 12 steps to the second floor where his bathroom and bedroom are located. He notes he has a walk-in shower with grab bars etc. Current Functional Limitations: He notes that he is independent with all ADLs, and walks outdoors around his yard periodically. He has not driven recently but owns vehicles. His does the shopping, but notes that he prepares meals Equipment Owned/DME: None noted Subjective: Cooperative and follows simple commands appropriately. No complaints of pain offered Objective: General Observation: He is resting in bed when I entered the room. He appears comfortable Mental Status: Alert and oriented x3 Pain: No complaints of pain offered Vital Signs: His resting pulse is 76 bpm and regular and O2 sat is 94%. Following activity his O2 sat is 91% after dropping to 85%. 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 His left EHL, EDC and anterior tib are 2/5 Neuro: It is AJ's are +2 and symmetrical, sensations intact light touch as well as proprioception Bed Mobility/Transfers: He requires standby supervision with assuming the supine to sitting to standing positions. Gait: He initially ambulated with an FW W, but once stability was established, he was able walk with minimal contact guarding for greater than 100 feet. He was able walk on his toes, but unable to walk on the left heel. He did clear his left foot though during swing phase and does not notice any problem in the past with catching his toes or tripping. He states he has not fallen recently. Balance: Bowen balance test was performed and he scored 47/56. Score 45 or less indicates fall risk and requires assistive device Static Sitting: Stable Dynamic Sitting: Stable Static Standing: Stable Dynamic Standing: Contact guarding with unilateral standing Special Tests: Mobility Limitations Standardized Measure [facility] AM-PAC 6 clicks Basic Mobility Inpatient Short Form: Raw Score: 18 standardized Score: 3.20 CMS Score: 46.58% Informed Consent/Education: Patient instructed in purpose of PT consult and plan of care. Assessment: Patient is a 77year old male referred to physical therapy services with the diagnosis of hepatitis and dementia. Patient presents with clinical signs and symptoms consistent with the symptoms, as demonstrated by the following impairment level findings: Generalized weakness with mild left foot drop.. Impairments are contributing to the following functional limitations: Supervision with his bed mobility activities and ambulation Patient is assessed as a Low 55821 complexity based on the following: History: See comorbidities and social history Examination: See above for functional imitations and impairments Presentation: Stable Decision Making: Low complexity based on clinical findings Goals: Goals X1 week 1. Supine-Sit independent without supervision 2. Sit-Supine independent without supervision 3. Sit-Stand independent without supervision 4. Stand-Sit independent without supervision 5. Bed-Chair independent without supervision 6. Chair-Bed independent without supervision 7. Gait ambulating greater than 150 feet without assistive device and stable gait 8. Stairs a send and descend 3 steps Plan of Care/Treatment Plan: 1-2x/day, 7 days/week x 1 week. Plan of care has been reviewed with the [employer] [facility] [employer] providing the service under Physical Therapy direction. Initiate Physical Therapy intervention for strengthening, bed mobility, transfers, gait, stairs, balance training, use of assistive device. DISCHARGE RECOMMENDATIONS: Home with no services TREATMENT CODE/TIME: 9716 2/35 minutes Disclaimer: This note was created using [employer] voice recognition software. It was reviewed for major content. However, there may be multiple small discrepancies and errors due to the voice recognition aspects of the software.
[2022-04-02 15:16] VITALS: BP 114/72; PULSE 65; RESP 16; TEMP 36.9; O2SAT 97
[2022-04-02 15:53] LABS: Lab Add On Test DONE
[2022-04-02 17:06] LABS: Procalcitonin 0.8 ng/mL
[2022-04-02 17:35] LABS: Creatine Kinase 108 U/L (39-308)
[2022-04-02 20:00] VITALS: BP 119/74; PULSE 90; RESP 16; TEMP 36.6; O2SAT 95
[2022-04-02] MEDS: Mirtazapine 15 MG TAB 45 MG PO (20:15)
[2022-04-02] MEDS: Melatonin 3 MG TAB PO (20:15)
[2022-04-02] MEDS: traZODone 50 MG TAB 100 MG PO (20:15)
[2022-04-02] MEDS: QUEtiapine 25 MG TAB 12.5 MG PO (20:16)
[2022-04-02] MEDS: DOXYCYCLINE 100 MG in Normal Saline 100 ML IVPB (21:03)
[2022-04-02] MEDS: Normal Saline 100 ML (22:00)
[2022-04-02] MEDS: QUEtiapine 25 MG TAB PO (23:25)
[2022-04-03] MEDS: Normal Saline 1,000 ML 150 ML IV ×2 (00:42→08:09)
[2022-04-03] MEDS: THIAMINE 500 MG in Normal Saline 100 ML 200 MG IVPB (03:07)
[2022-04-03] MEDS: Levothyroxine 100 MCG TAB PO (06:24)
[2022-04-03 06:49] LABS: Abs Immature Grans 0.09 10^3/uL (0.0-0.06); Absolute Basophil Count 0.02 10^3/uL (0.0-0.2); Absolute Eosinophil Count 0.54 10^3/uL (0.0-0.7); Absolute Monocyte Count 0.87 10^3/uL (0.1-0.8); Basophils % 0.2; Eosinophils % 5.6; HCT 35.2 % (40.0-50.0); HGB 11.8 g/dL (13.5-17.5); Immature Grans % 0.9; Lymphocytes % 18.7; MCH 26.6 pg (27.0-33.0); MCHC 33.5 % (32.0-36.0); MCV 79 fL (80-95); Neutrophils % 65.6; Platelet Count 161 10^3/uL (130-400); RBC 4.44 10^6/uL (4.36-5.78); RDW 17.6 % (11.8-14.1); RDW-SD 44.6 fL; WBC 9.62 10^3/uL (4.4-10.8)
[2022-04-03 07:02] LABS: AST 129 U/L (15-37); Alkaline Phosphatase 164 U/L (46-116); Anion Gap 5.6 mmol/L (3-11); BUN 12 mg/dL (7-18); Bilirubin, Direct 2.1 mg/dL (0.0-0.2); Bilirubin, Total 2.9 mg/dL (0.2-1.0); CO2 24.4 mmol/L (21.0-32.0); CREATININE 0.9 mg/dL (0.70-1.30); Chloride 111 mmol/L (98-107); Glucose 74 mg/dL (74-106); Magnesium 1.3 mg/dL (1.8-2.4); Potassium 3.4 mmol/L (3.5-5.1); Sodium 141 mmol/L (136-145); Total Protein 4.5 g/dL (6.4-8.2)
[2022-04-03 07:31] LABS: ALT 1129 U/L (16-63)
--- NOTE | 2022-04-03 07:48 | W.PULMPROG ---
Assessment and Plan Assessment and plan (1) Cavitary lesion of lung: Status: Acute (2) Transaminitis: Status: Acute (3) Bladder mass: Status: Acute (4) Alzheimer's dementia without behavioral disturbance: Status: Chronic Assessment and plan: This is a 77 yo man who is a smoker and who was found to have a cavitary lung lesion. The differential for a cavitary lung lesion includes infection (bacterial, fungal), autoimmune (RA), vasculitis or cancer. Given the bladder findings malignancy is a concern, however I do not see significant mediastinal or hilar LAD. He is also high risk due to his smoking. He has never had a cancer in the past. He has arthritic but never diagnosed with rheumatoid. The liver failure is interesting as well as there is no cirrhosis (despite prior alcoholism), although the thought is that maybe this is a medication accidental overdose. Hi hepatitis testing returned negative but his procalcitonin resturned positive and so was started on ceftriaxone and doxycycline. Cavitary lung lesions - f/u DIANE, anti-ds DNA, RF, anti-CCP, SSA/SSB, Scl-70, anti-Sm, myomarker panel - f/u ANCA panel - f/u Fungitell and aspergillus - f/u urine blasto and urine histo - will see as outpatient to arrange bronchoscopy, likely with Percepta once liver has had time to recover - f/u in 2 weeks made Acute Liver Failure - f/u IgG with subgroups, smooth muscle antibody, anti-LKM and anti-SLA - consider hepatology consultation - acute hepatitis panel negative General Date Of Service Date of service: 04/03/22 Time of Service: 07:49 Reason for Consult: Abnormal chest CT Subjective Note Note: He is feeling today and tells me he wants to go home. He does not remember me from 2 days ago and is generally confused. Exam Narrative Exam Narrative: Gen:?NAD, normal respiratory effort, thin HENT:?PERRL, poor dentition, jaundice Chest:?No respiratory distress, normal appearance of chest, clear to auscultation bilaterally, no crackles or wheezes, normal inspiratory effort Heart:?regular rate and rhythym, no murmurs, rubs or gallops Abdomen:?Non-distended, soft, non tender Extremities:?No clubbing, edema, cyanosis, rashes Neuro:?non focal Psych:?cooperative, appropriate mental affect Objective Last Vital Signs Temp 36.6 C 04/02/22 20:00 Pulse 90 04/02/22 20:00 Resp 16 04/02/22 20:00 BP 119/74 04/02/22 20:00 Pulse Ox 95 04/02/22 20:00 Laboratory Results - last 24 hr 03/31/22 04/01/22 04/02/22 17:22 07:10 07:10 WBC RBC Hgb Hct MCV MCH MCHC RDW Plt Count MPV Immature Gran % Neutrophils % Lymphocytes % Monocytes % Eosinophils % Basophils % Nucleated RBC % Absolute Neutrophils Absolute Lymphocytes Absolute Monocytes Absolute Eosinophils Absolute Basophils PT INR Sodium Potassium Chloride Carbon Dioxide Anion Gap BUN Creatinine Estimated GFR/1.73 m2 Glucose Calcium Magnesium Total Bilirubin Conjugated Bilirubin AST ALT Alkaline Phosphatase Creatine Kinase Total Protein Albumin Procalcitonin Blastomyces Ag Result Cancelled Blastomyces Ag Comment Cancelled Hepatitis A IgM Ab Negative Hep Bs Antigen Negative Hep B Core Total Ab Negative Hepatitis C Antibody Negative Add-On Test Request DONE 04/02/22 04/02/22 04/02/22 07:10 07:10 07:10 WBC RBC Hgb Hct MCV MCH MCHC RDW Plt Count MPV Immature Gran % Neutrophils % Lymphocytes % Monocytes % Eosinophils % Basophils % Nucleated RBC % Absolute Neutrophils Absolute Lymphocytes Absolute Monocytes Absolute Eosinophils Absolute Basophils PT 12.3 H INR 1.2 H Sodium 141 Potassium 3.6 Chloride 109 H Carbon Dioxide 25.7 Anion Gap 6.3 BUN 19 H Creatinine 1.0 Estimated GFR/1.73 m2 >= 60.00 Glucose 79 Calcium 8.3 L Magnesium 1.7 L Total Bilirubin 3.9 H Conjugated Bilirubin AST 229 H ALT 1848 H Alkaline Phosphatase 175 H Creatine Kinase Total Protein 5.0 L Albumin 2.4 L Procalcitonin Blastomyces Ag Result Blastomyces Ag Comment Hepatitis A IgM Ab Hep Bs Antigen Hep B Core Total Ab Hepatitis C Antibody Add-On Test Request DONE 04/02/22 04/02/22 04/02/22 07:10 07:10 Unknown WBC RBC Hgb Hct MCV MCH MCHC RDW Plt Count MPV Immature Gran % Neutrophils % Lymphocytes % Monocytes % Eosinophils % Basophils % Nucleated RBC % Absolute Neutrophils Absolute Lymphocytes Absolute Monocytes Absolute Eosinophils Absolute Basophils PT INR Sodium Potassium Chloride Carbon Dioxide Anion Gap BUN Creatinine Estimated GFR/1.73 m2 Glucose Calcium Magnesium Total Bilirubin Conjugated Bilirubin AST ALT Alkaline Phosphatase Creatine Kinase 108 Total Protein Albumin Procalcitonin 0.8 Blastomyces Ag Result Blastomyces Ag Comment Hepatitis A IgM Ab Hep Bs Antigen Hep B Core Total Ab Hepatitis C Antibody Add-On Test Request Cancelled 04/02/22 04/03/22 04/03/22 Unknown 06:22 06:22 WBC 9.62 RBC 4.44 Hgb 11.8 L Hct 35.2 L MCV 79 L MCH 26.6 L MCHC 33.5 D RDW 17.6 H Plt Count 161 MPV 11.0 Immature Gran % 0.9 Neutrophils % 65.6 Lymphocytes % 18.7 Monocytes % 9.0 Eosinophils % 5.6 Basophils % 0.2 Nucleated RBC % 0.0 Absolute Neutrophils 6.30 Absolute Lymphocytes 1.80 Absolute Monocytes 0.87 H Absolute Eosinophils 0.54 Absolute Basophils 0.02 PT INR Sodium 141 Potassium 3.4 L Chloride 111 H Carbon Dioxide 24.4 Anion Gap 5.6 BUN 12 Creatinine 0.9 Estimated GFR/1.73 m2 >= 60.00 Glucose 74 Calcium 8.0 L Magnesium 1.3 L Total Bilirubin 2.9 H Conjugated Bilirubin 2.1 H AST 129 H ALT 1129 H Alkaline Phosphatase 164 H Creatine Kinase Total Protein 4.5 L Albumin 2.0 L Procalcitonin Blastomyces Ag Result Blastomyces Ag Comment Hepatitis A IgM Ab Hep Bs Antigen Hep B Core Total Ab Hepatitis C Antibody Add-On Test Request DONE Results Medications Medications: Active Medications Generic Name Dose Route Start Last Admin Trade Name Freq PRN Reason Stop Dose Admin Atenolol 12.5 mg 04/01/22 08:30 04/02/22 09:31 Atenolol 25 Mg Tab PO Not Given DAILY NITISH Dimethicone/Zinc Oxide 0 gm 03/31/22 17:10 Nissa Protect Cream 142 Gm Tube TP PRN PRN Sodium Chloride 1,000 mls @ 150 mls/hr 03/31/22 14:45 04/03/22 00:42 Saline 1000ml Bag IV 150 mls/hr INFUSION NITISH Administration Thiamine HCl 500 mg/ Sodium 105 mls @ 200 mls/hr 03/31/22 20:00 04/03/22 03:50 Chloride IVPB 04/03/22 12:32 Infused Q8H NITISH Infusion Doxycycline Hyclate 100 mg/ 100 mls @ 100 mls/hr 04/02/22 20:00 04/02/22 22:10 Sodium Chloride IVPB Infused Q12H NITISH Infusion Ceftriaxone Sodium/Dextrose 1 gm in 50 mls @ 100 mls/hr 04/03/22 20:00 Rocephin IV Q24H NITISH IV Miscellaneous Supplies 1 each 03/31/22 12:30 Iv Access IV DIRECTED NITISH Ketorolac Tromethamine 15 mg 04/01/22 14:31 Ketorolac 15 Mg/Ml Vial IVP 04/06/22 14:30 Q6H PRN PRN Levothyroxine Sodium 100 mcg 04/01/22 06:00 04/03/22 06:24 Levothyroxine 100 Mcg Tab PO 100 mcg DAILY@0600 NITISH Administration Melatonin 3 mg 04/01/22 00:30 04/02/22 20:15 Melatonin 3 Mg Tab PO 3 mg HS NITISH Administration Mirtazapine 45 mg 04/01/22 01:00 04/02/22 20:15 Mirtazapine 15 Mg Tab PO 45 mg HS NITISH Administration Miscellaneous 1 each 04/01/22 08:30 04/02/22 08:18 Patch Removal TD Not Given DAILY NITISH Nicotine 21 mg 03/31/22 18:20 04/02/22 09:19 Nicotine 21 Mg/24 Hr Patch TD Not Given DAILY NITISH Pantoprazole Sodium 40 mg 04/01/22 08:30 04/02/22 09:16 Pantoprazole 40 Mg Tabcr PO 40 mg DAILY NITISH Administration Quetiapine Fumarate 25 mg 04/02/22 23:16 Quetiapine 25 Mg Tab PO BID PRN PRN Sodium Chloride 0 ml 03/31/22 12:26 04/01/22 20:10 Normal Saline Flush 10 Ml Syr IVP 10 ml PRN PRN Administration Sodium Chloride 250 ml 03/31/22 20:15 03/31/22 20:05 Normal Saline 250 Ml Bag IJ 65 ml DIRECTED NITISH Administration Trazodone HCl 100 mg 03/31/22 22:00 04/02/22 20:15 Trazodone 50 Mg Tab PO 100 mg HS NITISH Administration Allergies ibuprofen Allergy (Severe, Unverified 03/31/22 12:04) varenicline tartrate [From Chantix] Adverse Reaction (Severe, Unverified 03/31/22 12:04) Psychosis Labs Result Diagrams: 04/03/22 06:22 04/03/22 06:22 Labs: 03/31/22 15:58 Urine - Reflex from Ua Urine Culture - Final Laboratory Tests Range/Units 03/31/22 03/31/22 03/31/22 12:30 12:55 12:55 WBC (4.4-10.8) 10^3/uL 8.52 RBC (4.36-5.78) 10^6/uL 6.16 H Hgb (13.5-17.5) g/dL 15.8 Hct (40.0-50.0) % 49.6 MCV (80-95) fL 81 MCH (27.0-33.0) pg 25.6 L MCHC (32.0-36.0) % 31.9 L RDW (11.8-14.1) % 18.4 H Plt Count (130-400) 10^3/uL 270 MPV (8.0-11.0) fL 10.2 Immature Gran % 0.7 Neutrophils % 74.5 Lymphocytes % 13.3 Monocytes % 9.7 Eosinophils % 1.3 Basophils % 0.5 Nucleated RBC % (0.0-0.3) % 0.0 Absolute Neutrophils (1.2-6.7) 10^3/uL 6.35 Absolute Lymphocytes (1.2-3.4) 10^3/uL 1.13 L Absolute Monocytes (0.1-0.8) 10^3/uL 0.83 H Absolute Eosinophils (0.0-0.7) 10^3/uL 0.11 Absolute Basophils (0.0-0.2) 10^3/uL 0.04 PT INR APTT VBG Lactate (0.6-1.4) mmol/L Sodium (136-145) mmol/L 142 Potassium (3.5-5.1) mmol/L 4.1 Chloride (98-107) mmol/L 106 Carbon Dioxide (21.0-32.0) mmol/L 29.0 Anion Gap (3-11) mmol/L 7.0 BUN (7-18) mg/dL 66 H Creatinine (0.70-1.30) mg/dL 1.8 H Estimated GFR/1.73 m2 (mL/min/1.73m2) 36.77 Glucose (74-106) mg/dL 111 H Calcium (8.5-10.1) mg/dL 9.1 Magnesium (1.8-2.4) mg/dL 2.8 H Iron (65-175) ug/dL Ferritin (26-388) ng/mL Total Bilirubin (0.2-1.0) mg/dL 5.9 H Conjugated Bilirubin (0.0-0.2) mg/dL AST (15-37) U/L 1167 H ALT (16-63) U/L 4777 H Alkaline Phosphatase (46-116) U/L 231 H Ammonia (11-32) umol/L Creatine Kinase (39-308) U/L Troponin I (<or=60) ng/L < 50 Total Protein (6.4-8.2) g/dL 6.4 Albumin (3.4-5.0) g/dL 3.1 L Lipase (73-393) U/L Vitamin B12 (193-986) pg/mL 25-OH Vitamin D Total (30-100) ng/mL Vit D 1,25-Dihydroxy Procalcitonin ng/mL TSH (0.36-3.74) uIU/mL 0.35 L Free T4 (0.76-1.46) ng/dL 1.37 Urine Color (Yellow) Urine Clarity (Clear) Urine pH (5-8) Ur Specific [place] (1.005-1.025) Urine Protein (Negative) mg/dL Urine Ketones (Negative) mg/dL Urine Blood (Negative) Urine Nitrite (Negative) Urine Bilirubin (Negative) Urine Urobilinogen (Up TO 0.2) EU/dL Ur Leukocyte Esterase (Negative) Urine RBC (0-2) HPF Urine WBC (0-5) HPF Ur Epithelial Cells Urine Crystals (Negative) HPF Urine Bacteria Urine Mucus Ur Culture Indicated? Urine Glucose (Negative) mg/dL Acetaminophen (10-30) ug/mL Ethyl Alcohol (<10) mg/dL Blastomyces Ag Result Blastomyces Ag Comment COVID-19 Source Nasopharynx SARS-CoV-2 (PCR) (Negative) Negative Hepatitis A IgM Ab (Negative) Hep Bs Antigen (Negative) Hep B Core Total Ab (Negative) Hepatitis C Antibody (Negative) Influenza Type A (PCR) (Negative) Negative Influenza Type B (PCR) (Negative) Negative RSV (PCR) (Negative) Negative Add-On Test Request Range/Units 03/31/22 03/31/22 03/31/22 12:55 12:55 12:55 WBC (4.4-10.8) 10^3/uL RBC (4.36-5.78) 10^6/uL Hgb (13.5-17.5) g/dL Hct (40.0-50.0) % MCV (80-95) fL MCH (27.0-33.0) pg MCHC (32.0-36.0) % RDW (11.8-14.1) % Plt Count (130-400) 10^3/uL MPV (8.0-11.0) fL Immature Gran % Neutrophils % Lymphocytes % Monocytes % Eosinophils % Basophils % Nucleated RBC % (0.0-0.3) % Absolute Neutrophils (1.2-6.7) 10^3/uL Absolute Lymphocytes (1.2-3.4) 10^3/uL Absolute Monocytes (0.1-0.8) 10^3/uL Absolute Eosinophils (0.0-0.7) 10^3/uL Absolute Basophils (0.0-0.2) 10^3/uL PT INR APTT VBG Lactate (0.6-1.4) mmol/L Sodium (136-145) mmol/L Potassium (3.5-5.1) mmol/L Chloride (98-107) mmol/L Carbon Dioxide (21.0-32.0) mmol/L Anion Gap (3-11) mmol/L BUN (7-18) mg/dL Creatinine (0.70-1.30) mg/dL Estimated GFR/1.73 m2 (mL/min/1.73m2) Glucose (74-106) mg/dL Calcium (8.5-10.1) mg/dL Magnesium (1.8-2.4) mg/dL Iron (65-175) ug/dL 55 L Ferritin (26-388) ng/mL > 2000 H Total Bilirubin (0.2-1.0) mg/dL Conjugated Bilirubin (0.0-0.2) mg/dL AST (15-37) U/L ALT (16-63) U/L Alkaline Phosphatase (46-116) U/L Ammonia (11-32) umol/L Creatine Kinase (39-308) U/L Troponin I (<or=60) ng/L Total Protein (6.4-8.2) g/dL Albumin (3.4-5.0) g/dL Lipase (73-393) U/L Vitamin B12 (193-986) pg/mL > 2000 H 25-OH Vitamin D Total (30-100) ng/mL 90.2 Vit D 1,25-Dihydroxy Procalcitonin ng/mL TSH (0.36-3.74) uIU/mL Free T4 (0.76-1.46) ng/dL Urine Color (Yellow) Urine Clarity (Clear) Urine pH (5-8) Ur Specific [place] (1.005-1.025) Urine Protein (Negative) mg/dL Urine Ketones (Negative) mg/dL Urine Blood (Negative) Urine Nitrite (Negative) Urine Bilirubin (Negative) Urine Urobilinogen (Up TO 0.2) EU/dL Ur Leukocyte Esterase (Negative) Urine RBC (0-2) HPF Urine WBC (0-5) HPF Ur Epithelial Cells Urine Crystals (Negative) HPF Urine Bacteria Urine Mucus Ur Culture Indicated? Urine Glucose (Negative) mg/dL Acetaminophen (10-30) ug/mL Ethyl Alcohol (<10) mg/dL Blastomyces Ag Result Blastomyces Ag Comment COVID-19 Source SARS-CoV-2 (PCR) (Negative) Hepatitis A IgM Ab (Negative) Hep Bs Antigen (Negative) Hep B Core Total Ab (Negative) Hepatitis C Antibody (Negative) Influenza Type A (PCR) (Negative) Influenza Type B (PCR) (Negative) RSV (PCR) (Negative) Add-On Test Request Range/Units 03/31/22 03/31/22 03/31/22 12:55 12:55 12:55 WBC (4.4-10.8) 10^3/uL RBC (4.36-5.78) 10^6/uL Hgb (13.5-17.5) g/dL Hct (40.0-50.0) % MCV (80-95) fL MCH (27.0-33.0) pg MCHC (32.0-36.0) % RDW (11.8-14.1) % Plt Count (130-400) 10^3/uL MPV (8.0-11.0) fL Immature Gran % Neutrophils % Lymphocytes % Monocytes % Eosinophils % Basophils % Nucleated RBC % (0.0-0.3) % Absolute Neutrophils (1.2-6.7) 10^3/uL Absolute Lymphocytes (1.2-3.4) 10^3/uL Absolute Monocytes (0.1-0.8) 10^3/uL Absolute Eosinophils (0.0-0.7) 10^3/uL Absolute Basophils (0.0-0.2) 10^3/uL PT INR APTT VBG Lactate (0.6-1.4) mmol/L Sodium (136-145) mmol/L Potassium (3.5-5.1) mmol/L Chloride (98-107) mmol/L Carbon Dioxide (21.0-32.0) mmol/L Anion Gap (3-11) mmol/L BUN (7-18) mg/dL Creatinine (0.70-1.30) mg/dL Estimated GFR/1.73 m2 (mL/min/1.73m2) Glucose (74-106) mg/dL Calcium (8.5-10.1) mg/dL Magnesium (1.8-2.4) mg/dL Iron (65-175) ug/dL Ferritin (26-388) ng/mL Total Bilirubin (0.2-1.0) mg/dL Conjugated Bilirubin (0.0-0.2) mg/dL 4.7 H AST (15-37) U/L ALT (16-63) U/L Alkaline Phosphatase (46-116) U/L Ammonia (11-32) umol/L Creatine Kinase (39-308) U/L Troponin I (<or=60) ng/L Total Protein (6.4-8.2) g/dL Albumin (3.4-5.0) g/dL Lipase (73-393) U/L 159 Vitamin B12 (193-986) pg/mL 25-OH Vitamin D Total (30-100) ng/mL Vit D 1,25-Dihydroxy Procalcitonin ng/mL TSH (0.36-3.74) uIU/mL Free T4 (0.76-1.46) ng/dL Urine Color (Yellow) Urine Clarity (Clear) Urine pH (5-8) Ur Specific [place] (1.005-1.025) Urine Protein (Negative) mg/dL Urine Ketones (Negative) mg/dL Urine Blood (Negative) Urine Nitrite (Negative) Urine Bilirubin (Negative) Urine Urobilinogen (Up TO 0.2) EU/dL Ur Leukocyte Esterase (Negative) Urine RBC (0-2) HPF Urine WBC (0-5) HPF Ur Epithelial Cells Urine Crystals (Negative) HPF Urine Bacteria Urine Mucus Ur Culture Indicated? Urine Glucose (Negative) mg/dL Acetaminophen (10-30) ug/mL < 2 Ethyl Alcohol (<10) mg/dL Blastomyces Ag Result Blastomyces Ag Comment COVID-19 Source SARS-CoV-2 (PCR) (Negative) Hepatitis A IgM Ab (Negative) Hep Bs Antigen (Negative) Hep B Core Total Ab (Negative) Hepatitis C Antibody (Negative) Influenza Type A (PCR) (Negative) Influenza Type B (PCR) (Negative) RSV (PCR) (Negative) Add-On Test Request Range/Units 03/31/22 03/31/22 03/31/22 13:32 14:55 15:06 WBC (4.4-10.8) 10^3/uL RBC (4.36-5.78) 10^6/uL Hgb (13.5-17.5) g/dL Hct (40.0-50.0) % MCV (80-95) fL MCH (27.0-33.0) pg MCHC (32.0-36.0) % RDW (11.8-14.1) % Plt Count (130-400) 10^3/uL MPV (8.0-11.0) fL Immature Gran % Neutrophils % Lymphocytes % Monocytes % Eosinophils % Basophils % Nucleated RBC % (0.0-0.3) % Absolute Neutrophils (1.2-6.7) 10^3/uL Absolute Lymphocytes (1.2-3.4) 10^3/uL Absolute Monocytes (0.1-0.8) 10^3/uL Absolute Eosinophils (0.0-0.7) 10^3/uL Absolute Basophils (0.0-0.2) 10^3/uL PT Cancelled Cancelled INR Cancelled Cancelled APTT Cancelled Cancelled VBG Lactate (0.6-1.4) mmol/L Sodium (136-145) mmol/L Potassium (3.5-5.1) mmol/L Chloride (98-107) mmol/L Carbon Dioxide (21.0-32.0) mmol/L Anion Gap (3-11) mmol/L BUN (7-18) mg/dL Creatinine (0.70-1.30) mg/dL Estimated GFR/1.73 m2 (mL/min/1.73m2) Glucose (74-106) mg/dL Calcium (8.5-10.1) mg/dL Magnesium (1.8-2.4) mg/dL Iron (65-175) ug/dL Ferritin (26-388) ng/mL Total Bilirubin (0.2-1.0) mg/dL Conjugated Bilirubin (0.0-0.2) mg/dL AST (15-37) U/L ALT (16-63) U/L Alkaline Phosphatase (46-116) U/L Ammonia (11-32) umol/L Creatine Kinase (39-308) U/L Troponin I (<or=60) ng/L Total Protein (6.4-8.2) g/dL Albumin (3.4-5.0) g/dL Lipase (73-393) U/L Vitamin B12 (193-986) pg/mL 25-OH Vitamin D Total (30-100) ng/mL Vit D 1,25-Dihydroxy Cancelled Procalcitonin ng/mL TSH (0.36-3.74) uIU/mL Free T4 (0.76-1.46) ng/dL Urine Color (Yellow) Urine Clarity (Clear) Urine pH (5-8) Ur Specific [place] (1.005-1.025) Urine Protein (Negative) mg/dL Urine Ketones (Negative) mg/dL Urine Blood (Negative) Urine Nitrite (Negative) Urine Bilirubin (Negative) Urine Urobilinogen (Up TO 0.2) EU/dL Ur Leukocyte Esterase (Negative) Urine RBC (0-2) HPF Urine WBC (0-5) HPF Ur Epithelial Cells Urine Crystals (Negative) HPF Urine Bacteria Urine Mucus Ur Culture Indicated? Urine Glucose (Negative) mg/dL Acetaminophen (10-30) ug/mL Ethyl Alcohol (<10) mg/dL Blastomyces Ag Result Blastomyces Ag Comment COVID-19 Source SARS-CoV-2 (PCR) (Negative) Hepatitis A IgM Ab (Negative) Hep Bs Antigen (Negative) Hep B Core Total Ab (Negative) Hepatitis C Antibody (Negative) Influenza Type A (PCR) (Negative) Influenza Type B (PCR) (Negative) RSV (PCR) (Negative) Add-On Test Request Range/Units 03/31/22 03/31/22 03/31/22 15:25 15:58 16:09 WBC (4.4-10.8) 10^3/uL RBC (4.36-5.78) 10^6/uL Hgb (13.5-17.5) g/dL Hct (40.0-50.0) % MCV (80-95) fL MCH (27.0-33.0) pg MCHC (32.0-36.0) % RDW (11.8-14.1) % Plt Count (130-400) 10^3/uL MPV (8.0-11.0) fL Immature Gran % Neutrophils % Lymphocytes % Monocytes % Eosinophils % Basophils % Nucleated RBC % (0.0-0.3) % Absolute Neutrophils (1.2-6.7) 10^3/uL Absolute Lymphocytes (1.2-3.4) 10^3/uL Absolute Monocytes (0.1-0.8) 10^3/uL Absolute Eosinophils (0.0-0.7) 10^3/uL Absolute Basophils (0.0-0.2) 10^3/uL PT INR APTT VBG Lactate (0.6-1.4) mmol/L 1.4 Sodium (136-145) mmol/L Potassium (3.5-5.1) mmol/L Chloride (98-107) mmol/L Carbon Dioxide (21.0-32.0) mmol/L Anion Gap (3-11) mmol/L BUN (7-18) mg/dL Creatinine (0.70-1.30) mg/dL Estimated GFR/1.73 m2 (mL/min/1.73m2) Glucose (74-106) mg/dL Calcium (8.5-10.1) mg/dL Magnesium (1.8-2.4) mg/dL Iron (65-175) ug/dL Ferritin (26-388) ng/mL Total Bilirubin (0.2-1.0) mg/dL Conjugated Bilirubin (0.0-0.2) mg/dL AST (15-37) U/L ALT (16-63) U/L Alkaline Phosphatase (46-116) U/L Ammonia (11-32) umol/L 22 Creatine Kinase (39-308) U/L Troponin I (<or=60) ng/L Total Protein (6.4-8.2) g/dL Albumin (3.4-5.0) g/dL Lipase (73-393) U/L Vitamin B12 (193-986) pg/mL 25-OH Vitamin D Total (30-100) ng/mL Vit D 1,25-Dihydroxy Procalcitonin ng/mL TSH (0.36-3.74) uIU/mL Free T4 (0.76-1.46) ng/dL Urine Color (Yellow) Brown Urine Clarity (Clear) Cloudy Urine pH (5-8) 6.0 Ur Specific [place] (1.005-1.025) >= 1.030 H Urine Protein (Negative) mg/dL >=300 H Urine Ketones (Negative) mg/dL 15 H Urine Blood (Negative) Large H Urine Nitrite (Negative) Negative Urine Bilirubin (Negative) Moderate H Urine Urobilinogen (Up TO 0.2) EU/dL 1.0 H Ur Leukocyte Esterase (Negative) Negative Urine RBC (0-2) HPF >50 H Urine WBC (0-5) HPF 5-10 Ur Epithelial Cells Not Applicable Urine Crystals (Negative) HPF Moderate Amorphous Urine Bacteria Not Applicable Urine Mucus Not Applicable Ur Culture Indicated? Yes Urine Glucose (Negative) mg/dL Negative Acetaminophen (10-30) ug/mL Ethyl Alcohol (<10) mg/dL Blastomyces Ag Result Blastomyces Ag Comment COVID-19 Source SARS-CoV-2 (PCR) (Negative) Hepatitis A IgM Ab (Negative) Hep Bs Antigen (Negative) Hep B Core Total Ab (Negative) Hepatitis C Antibody (Negative) Influenza Type A (PCR) (Negative) Influenza Type B (PCR) (Negative) RSV (PCR) (Negative) Add-On Test Request Range/Units 03/31/22 03/31/22 03/31/22 16:09 17:22 17:22 WBC (4.4-10.8) 10^3/uL RBC (4.36-5.78) 10^6/uL Hgb (13.5-17.5) g/dL Hct (40.0-50.0) % MCV (80-95) fL MCH (27.0-33.0) pg MCHC (32.0-36.0) % RDW (11.8-14.1) % Plt Count (130-400) 10^3/uL MPV (8.0-11.0) fL Immature Gran % Neutrophils % Lymphocytes % Monocytes % Eosinophils % Basophils % Nucleated RBC % (0.0-0.3) % Absolute Neutrophils (1.2-6.7) 10^3/uL Absolute Lymphocytes (1.2-3.4) 10^3/uL Absolute Monocytes (0.1-0.8) 10^3/uL Absolute Eosinophils (0.0-0.7) 10^3/uL Absolute Basophils (0.0-0.2) 10^3/uL PT INR APTT VBG Lactate (0.6-1.4) mmol/L Sodium (136-145) mmol/L Potassium (3.5-5.1) mmol/L Chloride (98-107) mmol/L Carbon Dioxide (21.0-32.0) mmol/L Anion Gap (3-11) mmol/L BUN (7-18) mg/dL Creatinine (0.70-1.30) mg/dL Estimated GFR/1.73 m2 (mL/min/1.73m2) Glucose (74-106) mg/dL Calcium (8.5-10.1) mg/dL Magnesium (1.8-2.4) mg/dL Iron (65-175) ug/dL Ferritin (26-388) ng/mL Total Bilirubin (0.2-1.0) mg/dL Conjugated Bilirubin (0.0-0.2) mg/dL AST (15-37) U/L ALT (16-63) U/L Alkaline Phosphatase (46-116) U/L Ammonia (11-32) umol/L Creatine Kinase (39-308) U/L Troponin I (<or=60) ng/L Total Protein (6.4-8.2) g/dL Albumin (3.4-5.0) g/dL Lipase (73-393) U/L Vitamin B12 (193-986) pg/mL 25-OH Vitamin D Total (30-100) ng/mL Vit D 1,25-Dihydroxy Procalcitonin ng/mL TSH (0.36-3.74) uIU/mL Free T4 (0.76-1.46) ng/dL Urine Color (Yellow) Urine Clarity (Clear) Urine pH (5-8) Ur Specific [place] (1.005-1.025) Urine Protein (Negative) mg/dL Urine Ketones (Negative) mg/dL Urine Blood (Negative) Urine Nitrite (Negative) Urine Bilirubin (Negative) Urine Urobilinogen (Up TO 0.2) EU/dL Ur Leukocyte Esterase (Negative) Urine RBC (0-2) HPF Urine WBC (0-5) HPF Ur Epithelial Cells Urine Crystals (Negative) HPF Urine Bacteria Urine Mucus Ur Culture Indicated? Urine Glucose (Negative) mg/dL Acetaminophen (10-30) ug/mL < 2 Ethyl Alcohol (<10) mg/dL < 3.0 Blastomyces Ag Result Blastomyces Ag Comment COVID-19 Source SARS-CoV-2 (PCR) (Negative) Hepatitis A IgM Ab (Negative) Negative Hep Bs Antigen (Negative) Negative Hep B Core Total Ab (Negative) Negative Hepatitis C Antibody (Negative) Negative Influenza Type A (PCR) (Negative) Influenza Type B (PCR) (Negative) RSV (PCR) (Negative) Add-On Test Request Range/Units 03/31/22 03/31/22 03/31/22 18:34 18:51 21:39 WBC (4.4-10.8) 10^3/uL RBC (4.36-5.78) 10^6/uL Hgb (13.5-17.5) g/dL Hct (40.0-50.0) % MCV (80-95) fL MCH (27.0-33.0) pg MCHC (32.0-36.0) % RDW (11.8-14.1) % Plt Count (130-400) 10^3/uL MPV (8.0-11.0) fL Immature Gran % Neutrophils % Lymphocytes % Monocytes % Eosinophils % Basophils % Nucleated RBC % (0.0-0.3) % Absolute Neutrophils (1.2-6.7) 10^3/uL Absolute Lymphocytes (1.2-3.4) 10^3/uL Absolute Monocytes (0.1-0.8) 10^3/uL Absolute Eosinophils (0.0-0.7) 10^3/uL Absolute Basophils (0.0-0.2) 10^3/uL PT 13.6 H INR 1.4 H APTT 27.8 H VBG Lactate (0.6-1.4) mmol/L Sodium (136-145) mmol/L Potassium (3.5-5.1) mmol/L Chloride (98-107) mmol/L Carbon Dioxide (21.0-32.0) mmol/L Anion Gap (3-11) mmol/L BUN (7-18) mg/dL Creatinine (0.70-1.30) mg/dL Estimated GFR/1.73 m2 (mL/min/1.73m2) Glucose (74-106) mg/dL Calcium (8.5-10.1) mg/dL Magnesium (1.8-2.4) mg/dL Iron (65-175) ug/dL Ferritin (26-388) ng/mL Total Bilirubin (0.2-1.0) mg/dL Conjugated Bilirubin (0.0-0.2) mg/dL AST (15-37) U/L ALT (16-63) U/L Alkaline Phosphatase (46-116) U/L Ammonia (11-32) umol/L Creatine Kinase (39-308) U/L Troponin I (<or=60) ng/L Total Protein (6.4-8.2) g/dL Albumin (3.4-5.0) g/dL Lipase (73-393) U/L Vitamin B12 (193-986) pg/mL 25-OH Vitamin D Total (30-100) ng/mL Vit D 1,25-Dihydroxy Procalcitonin ng/mL TSH (0.36-3.74) uIU/mL Free T4 (0.76-1.46) ng/dL Urine Color (Yellow) Urine Clarity (Clear) Urine pH (5-8) Ur Specific [place] (1.005-1.025) Urine Protein (Negative) mg/dL Urine Ketones (Negative) mg/dL Urine Blood (Negative) Urine Nitrite (Negative) Urine Bilirubin (Negative) Urine Urobilinogen (Up TO 0.2) EU/dL Ur Leukocyte Esterase (Negative) Urine RBC (0-2) HPF Urine WBC (0-5) HPF Ur Epithelial Cells Urine Crystals (Negative) HPF Urine Bacteria Urine Mucus Ur Culture Indicated? Urine Glucose (Negative) mg/dL Acetaminophen (10-30) ug/mL < 2 Ethyl Alcohol (<10) mg/dL Blastomyces Ag Result Blastomyces Ag Comment COVID-19 Source SARS-CoV-2 (PCR) (Negative) Hepatitis A IgM Ab (Negative) Hep Bs Antigen (Negative) Hep B Core Total Ab (Negative) Hepatitis C Antibody (Negative) Influenza Type A (PCR) (Negative) Influenza Type B (PCR) (Negative) RSV (PCR) (Negative) Add-On Test Request DONE Range/Units 04/01/22 04/01/22 04/01/22 06:00 06:00 07:10 WBC (4.4-10.8) 10^3/uL 9.10 RBC (4.36-5.78) 10^6/uL 5.12 Hgb (13.5-17.5) g/dL 13.3 L D Hct (40.0-50.0) % 40.6 MCV (80-95) fL 79 L MCH (27.0-33.0) pg 26.0 L MCHC (32.0-36.0) % 32.8 D RDW (11.8-14.1) % 17.7 H Plt Count (130-400) 10^3/uL 206 MPV (8.0-11.0) fL 10.0 Immature Gran % 0.8 Neutrophils % 63.5 Lymphocytes % 18.8 Monocytes % 12.2 Eosinophils % 4.4 Basophils % 0.3 Nucleated RBC % (0.0-0.3) % 0.0 Absolute Neutrophils (1.2-6.7) 10^3/uL 5.78 Absolute Lymphocytes (1.2-3.4) 10^3/uL 1.71 Absolute Monocytes (0.1-0.8) 10^3/uL 1.11 H Absolute Eosinophils (0.0-0.7) 10^3/uL 0.40 Absolute Basophils (0.0-0.2) 10^3/uL 0.03 PT INR APTT VBG Lactate (0.6-1.4) mmol/L Sodium (136-145) mmol/L 141 Potassium (3.5-5.1) mmol/L 3.4 L Chloride (98-107) mmol/L 107 Carbon Dioxide (21.0-32.0) mmol/L 26.8 Anion Gap (3-11) mmol/L 7.2 BUN (7-18) mg/dL 42 H Creatinine (0.70-1.30) mg/dL 1.1 Estimated GFR/1.73 m2 (mL/min/1.73m2) >= 60.00 Glucose (74-106) mg/dL 104 Calcium (8.5-10.1) mg/dL 8.5 Magnesium (1.8-2.4) mg/dL Iron (65-175) ug/dL Ferritin (26-388) ng/mL Total Bilirubin (0.2-1.0) mg/dL 4.5 H Conjugated Bilirubin (0.0-0.2) mg/dL AST (15-37) U/L 464 H ALT (16-63) U/L 2684 H Alkaline Phosphatase (46-116) U/L 211 H Ammonia (11-32) umol/L Creatine Kinase (39-308) U/L Troponin I (<or=60) ng/L Total Protein (6.4-8.2) g/dL 5.3 L Albumin (3.4-5.0) g/dL 2.6 L Lipase (73-393) U/L Vitamin B12 (193-986) pg/mL 25-OH Vitamin D Total (30-100) ng/mL Vit D 1,25-Dihydroxy Procalcitonin ng/mL TSH (0.36-3.74) uIU/mL Free T4 (0.76-1.46) ng/dL Urine Color (Yellow) Urine Clarity (Clear) Urine pH (5-8) Ur Specific [place] (1.005-1.025) Urine Protein (Negative) mg/dL Urine Ketones (Negative) mg/dL Urine Blood (Negative) Urine Nitrite (Negative) Urine Bilirubin (Negative) Urine Urobilinogen (Up TO 0.2) EU/dL Ur Leukocyte Esterase (Negative) Urine RBC (0-2) HPF Urine WBC (0-5) HPF Ur Epithelial Cells Urine Crystals (Negative) HPF Urine Bacteria Urine Mucus Ur Culture Indicated? Urine Glucose (Negative) mg/dL Acetaminophen (10-30) ug/mL Ethyl Alcohol (<10) mg/dL Blastomyces Ag Result Blastomyces Ag Comment COVID-19 Source SARS-CoV-2 (PCR) (Negative) Hepatitis A IgM Ab (Negative) Hep Bs Antigen (Negative) Hep B Core Total Ab (Negative) Hepatitis C Antibody (Negative) Influenza Type A (PCR) (Negative) Influenza Type B (PCR) (Negative) RSV (PCR) (Negative) Add-On Test Request DONE Range/Units 04/02/22 04/02/22 04/02/22 07:10 07:10 07:10 WBC (4.4-10.8) 10^3/uL 8.90 RBC (4.36-5.78) 10^6/uL 5.04 Hgb (13.5-17.5) g/dL 13.0 L Hct (40.0-50.0) % 40.1 MCV (80-95) fL 80 MCH (27.0-33.0) pg 25.8 L MCHC (32.0-36.0) % 32.4 RDW (11.8-14.1) % 18.1 H Plt Count (130-400) 10^3/uL 187 MPV (8.0-11.0) fL 10.6 Immature Gran % 1.1 Neutrophils % 58.5 Lymphocytes % 23.1 Monocytes % 10.0 Eosinophils % 6.9 Basophils % 0.4 Nucleated RBC % (0.0-0.3) % 0.0 Absolute Neutrophils (1.2-6.7) 10^3/uL 5.20 Absolute Lymphocytes (1.2-3.4) 10^3/uL 2.06 Absolute Monocytes (0.1-0.8) 10^3/uL 0.89 H Absolute Eosinophils (0.0-0.7) 10^3/uL 0.61 Absolute Basophils (0.0-0.2) 10^3/uL 0.04 PT INR APTT VBG Lactate (0.6-1.4) mmol/L Sodium (136-145) mmol/L 141 Potassium (3.5-5.1) mmol/L 3.6 Chloride (98-107) mmol/L 109 H Carbon Dioxide (21.0-32.0) mmol/L 25.7 Anion Gap (3-11) mmol/L 6.3 BUN (7-18) mg/dL 19 H Creatinine (0.70-1.30) mg/dL 1.0 Estimated GFR/1.73 m2 (mL/min/1.73m2) >= 60.00 Glucose (74-106) mg/dL 79 Calcium (8.5-10.1) mg/dL 8.3 L Magnesium (1.8-2.4) mg/dL 1.7 L Iron (65-175) ug/dL Ferritin (26-388) ng/mL Total Bilirubin (0.2-1.0) mg/dL 3.9 H Conjugated Bilirubin (0.0-0.2) mg/dL AST (15-37) U/L 229 H ALT (16-63) U/L 1848 H Alkaline Phosphatase (46-116) U/L 175 H Ammonia (11-32) umol/L Creatine Kinase (39-308) U/L Troponin I (<or=60) ng/L Total Protein (6.4-8.2) g/dL 5.0 L Albumin (3.4-5.0) g/dL 2.4 L Lipase (73-393) U/L Vitamin B12 (193-986) pg/mL 25-OH Vitamin D Total (30-100) ng/mL Vit D 1,25-Dihydroxy Procalcitonin ng/mL TSH (0.36-3.74) uIU/mL Free T4 (0.76-1.46) ng/dL Urine Color (Yellow) Urine Clarity (Clear) Urine pH (5-8) Ur Specific [place] (1.005-1.025) Urine Protein (Negative) mg/dL Urine Ketones (Negative) mg/dL Urine Blood (Negative) Urine Nitrite (Negative) Urine Bilirubin (Negative) Urine Urobilinogen (Up TO 0.2) EU/dL Ur Leukocyte Esterase (Negative) Urine RBC (0-2) HPF Urine WBC (0-5) HPF Ur Epithelial Cells Urine Crystals (Negative) HPF Urine Bacteria Urine Mucus Ur Culture Indicated? Urine Glucose (Negative) mg/dL Acetaminophen (10-30) ug/mL Ethyl Alcohol (<10) mg/dL Blastomyces Ag Result Cancelled Blastomyces Ag Comment Cancelled COVID-19 Source SARS-CoV-2 (PCR) (Negative) Hepatitis A IgM Ab (Negative) Hep Bs Antigen (Negative) Hep B Core Total Ab (Negative) Hepatitis C Antibody (Negative) Influenza Type A (PCR) (Negative) Influenza Type B (PCR) (Negative) RSV (PCR) (Negative) Add-On Test Request Range/Units 04/02/22 04/02/22 04/02/22 07:10 07:10 07:10 WBC (4.4-10.8) 10^3/uL RBC (4.36-5.78) 10^6/uL Hgb (13.5-17.5) g/dL Hct (40.0-50.0) % MCV (80-95) fL MCH (27.0-33.0) pg MCHC (32.0-36.0) % RDW (11.8-14.1) % Plt Count (130-400) 10^3/uL MPV (8.0-11.0) fL Immature Gran % Neutrophils % Lymphocytes % Monocytes % Eosinophils % Basophils % Nucleated RBC % (0.0-0.3) % Absolute Neutrophils (1.2-6.7) 10^3/uL Absolute Lymphocytes (1.2-3.4) 10^3/uL Absolute Monocytes (0.1-0.8) 10^3/uL Absolute Eosinophils (0.0-0.7) 10^3/uL Absolute Basophils (0.0-0.2) 10^3/uL PT 12.3 H INR 1.2 H APTT VBG Lactate (0.6-1.4) mmol/L Sodium (136-145) mmol/L Potassium (3.5-5.1) mmol/L Chloride (98-107) mmol/L Carbon Dioxide (21.0-32.0) mmol/L Anion Gap (3-11) mmol/L BUN (7-18) mg/dL Creatinine (0.70-1.30) mg/dL Estimated GFR/1.73 m2 (mL/min/1.73m2) Glucose (74-106) mg/dL Calcium (8.5-10.1) mg/dL Magnesium (1.8-2.4) mg/dL Iron (65-175) ug/dL Ferritin (26-388) ng/mL Total Bilirubin (0.2-1.0) mg/dL Conjugated Bilirubin (0.0-0.2) mg/dL AST (15-37) U/L ALT (16-63) U/L Alkaline Phosphatase (46-116) U/L Ammonia (11-32) umol/L Creatine Kinase (39-308) U/L Troponin I (<or=60) ng/L Total Protein (6.4-8.2) g/dL Albumin (3.4-5.0) g/dL Lipase (73-393) U/L Vitamin B12 (193-986) pg/mL 25-OH Vitamin D Total (30-100) ng/mL Vit D 1,25-Dihydroxy Procalcitonin ng/mL 0.8 TSH (0.36-3.74) uIU/mL Free T4 (0.76-1.46) ng/dL Urine Color (Yellow) Urine Clarity (Clear) Urine pH (5-8) Ur Specific [place] (1.005-1.025) Urine Protein (Negative) mg/dL Urine Ketones (Negative) mg/dL Urine Blood (Negative) Urine Nitrite (Negative) Urine Bilirubin (Negative) Urine Urobilinogen (Up TO 0.2) EU/dL Ur Leukocyte Esterase (Negative) Urine RBC (0-2) HPF Urine WBC (0-5) HPF Ur Epithelial Cells Urine Crystals (Negative) HPF Urine Bacteria Urine Mucus Ur Culture Indicated? Urine Glucose (Negative) mg/dL Acetaminophen (10-30) ug/mL Ethyl Alcohol (<10) mg/dL Blastomyces Ag Result Blastomyces Ag Comment COVID-19 Source SARS-CoV-2 (PCR) (Negative) Hepatitis A IgM Ab (Negative) Hep Bs Antigen (Negative) Hep B Core Total Ab (Negative) Hepatitis C Antibody (Negative) Influenza Type A (PCR) (Negative) Influenza Type B (PCR) (Negative) RSV (PCR) (Negative) Add-On Test Request DONE Range/Units 04/02/22 04/02/22 04/02/22 07:10 Unknown Unknown WBC (4.4-10.8) 10^3/uL RBC (4.36-5.78) 10^6/uL Hgb (13.5-17.5) g/dL Hct (40.0-50.0) % MCV (80-95) fL MCH (27.0-33.0) pg MCHC (32.0-36.0) % RDW (11.8-14.1) % Plt Count (130-400) 10^3/uL MPV (8.0-11.0) fL Immature Gran % Neutrophils % Lymphocytes % Monocytes % Eosinophils % Basophils % Nucleated RBC % (0.0-0.3) % Absolute Neutrophils (1.2-6.7) 10^3/uL Absolute Lymphocytes (1.2-3.4) 10^3/uL Absolute Monocytes (0.1-0.8) 10^3/uL Absolute Eosinophils (0.0-0.7) 10^3/uL Absolute Basophils (0.0-0.2) 10^3/uL PT INR APTT VBG Lactate (0.6-1.4) mmol/L Sodium (136-145) mmol/L Potassium (3.5-5.1) mmol/L Chloride (98-107) mmol/L Carbon Dioxide (21.0-32.0) mmol/L Anion Gap (3-11) mmol/L BUN (7-18) mg/dL Creatinine (0.70-1.30) mg/dL Estimated GFR/1.73 m2 (mL/min/1.73m2) Glucose (74-106) mg/dL Calcium (8.5-10.1) mg/dL Magnesium (1.8-2.4) mg/dL Iron (65-175) ug/dL Ferritin (26-388) ng/mL Total Bilirubin (0.2-1.0) mg/dL Conjugated Bilirubin (0.0-0.2) mg/dL AST (15-37) U/L ALT (16-63) U/L Alkaline Phosphatase (46-116) U/L Ammonia (11-32) umol/L Creatine Kinase (39-308) U/L 108 Troponin I (<or=60) ng/L Total Protein (6.4-8.2) g/dL Albumin (3.4-5.0) g/dL Lipase (73-393) U/L Vitamin B12 (193-986) pg/mL 25-OH Vitamin D Total (30-100) ng/mL Vit D 1,25-Dihydroxy Procalcitonin ng/mL TSH (0.36-3.74) uIU/mL Free T4 (0.76-1.46) ng/dL Urine Color (Yellow) Urine Clarity (Clear) Urine pH (5-8) Ur Specific [place] (1.005-1.025) Urine Protein (Negative) mg/dL Urine Ketones (Negative) mg/dL Urine Blood (Negative) Urine Nitrite (Negative) Urine Bilirubin (Negative) Urine Urobilinogen (Up TO 0.2) EU/dL Ur Leukocyte Esterase (Negative) Urine RBC (0-2) HPF Urine WBC (0-5) HPF Ur Epithelial Cells Urine Crystals (Negative) HPF Urine Bacteria Urine Mucus Ur Culture Indicated? Urine Glucose (Negative) mg/dL Acetaminophen (10-30) ug/mL Ethyl Alcohol (<10) mg/dL Blastomyces Ag Result Blastomyces Ag Comment COVID-19 Source SARS-CoV-2 (PCR) (Negative) Hepatitis A IgM Ab (Negative) Hep Bs Antigen (Negative) Hep B Core Total Ab (Negative) Hepatitis C Antibody (Negative) Influenza Type A (PCR) (Negative) Influenza Type B (PCR) (Negative) RSV (PCR) (Negative) Add-On Test Request Cancelled DONE Range/Units 04/03/22 04/03/22 06:22 06:22 WBC (4.4-10.8) 10^3/uL 9.62 RBC (4.36-5.78) 10^6/uL 4.44 Hgb (13.5-17.5) g/dL 11.8 L Hct (40.0-50.0) % 35.2 L MCV (80-95) fL 79 L MCH (27.0-33.0) pg 26.6 L MCHC (32.0-36.0) % 33.5 D RDW (11.8-14.1) % 17.6 H Plt Count (130-400) 10^3/uL 161 MPV (8.0-11.0) fL 11.0 Immature Gran % 0.9 Neutrophils % 65.6 Lymphocytes % 18.7 Monocytes % 9.0 Eosinophils % 5.6 Basophils % 0.2 Nucleated RBC % (0.0-0.3) % 0.0 Absolute Neutrophils (1.2-6.7) 10^3/uL 6.30 Absolute Lymphocytes (1.2-3.4) 10^3/uL 1.80 Absolute Monocytes (0.1-0.8) 10^3/uL 0.87 H Absolute Eosinophils (0.0-0.7) 10^3/uL 0.54 Absolute Basophils (0.0-0.2) 10^3/uL 0.02 PT INR APTT VBG Lactate (0.6-1.4) mmol/L Sodium (136-145) mmol/L 141 Potassium (3.5-5.1) mmol/L 3.4 L Chloride (98-107) mmol/L 111 H Carbon Dioxide (21.0-32.0) mmol/L 24.4 Anion Gap (3-11) mmol/L 5.6 BUN (7-18) mg/dL 12 Creatinine (0.70-1.30) mg/dL 0.9 Estimated GFR/1.73 m2 (mL/min/1.73m2) >= 60.00 Glucose (74-106) mg/dL 74 Calcium (8.5-10.1) mg/dL 8.0 L Magnesium (1.8-2.4) mg/dL 1.3 L Iron (65-175) ug/dL Ferritin (26-388) ng/mL Total Bilirubin (0.2-1.0) mg/dL 2.9 H Conjugated Bilirubin (0.0-0.2) mg/dL 2.1 H AST (15-37) U/L 129 H ALT (16-63) U/L 1129 H Alkaline Phosphatase (46-116) U/L 164 H Ammonia (11-32) umol/L Creatine Kinase (39-308) U/L Troponin I (<or=60) ng/L Total Protein (6.4-8.2) g/dL 4.5 L Albumin (3.4-5.0) g/dL 2.0 L Lipase (73-393) U/L Vitamin B12 (193-986) pg/mL 25-OH Vitamin D Total (30-100) ng/mL Vit D 1,25-Dihydroxy Procalcitonin ng/mL TSH (0.36-3.74) uIU/mL Free T4 (0.76-1.46) ng/dL Urine Color (Yellow) Urine Clarity (Clear) Urine pH (5-8) Ur Specific [place] (1.005-1.025) Urine Protein (Negative) mg/dL Urine Ketones (Negative) mg/dL Urine Blood (Negative) Urine Nitrite (Negative) Urine Bilirubin (Negative) Urine Urobilinogen (Up TO 0.2) EU/dL Ur Leukocyte Esterase (Negative) Urine RBC (0-2) HPF Urine WBC (0-5) HPF Ur Epithelial Cells Urine Crystals (Negative) HPF Urine Bacteria Urine Mucus Ur Culture Indicated? Urine Glucose (Negative) mg/dL Acetaminophen (10-30) ug/mL Ethyl Alcohol (<10) mg/dL Blastomyces Ag Result Blastomyces Ag Comment COVID-19 Source SARS-CoV-2 (PCR) (Negative) Hepatitis A IgM Ab (Negative) Hep Bs Antigen (Negative) Hep B Core Total Ab (Negative) Hepatitis C Antibody (Negative) Influenza Type A (PCR) (Negative) Influenza Type B (PCR) (Negative) RSV (PCR) (Negative) Add-On Test Request
[2022-04-03 07:53] VITALS: BP 107/65; PULSE 60; RESP 18; TEMP 36.8; O2SAT 94
[2022-04-03] MEDS: Pantoprazole 40 MG TABCR PO (08:22)
[2022-04-03] MEDS: Atenolol 25 MG TAB 12.5 MG PO (08:23)
[2022-04-03] MEDS: DOXYCYCLINE 100 MG in Normal Saline 100 ML IVPB ×2 (08:25→20:57)
--- NOTE | 2022-04-03 08:46 | OTIE_ITS ---
Occupational Therapy Notes Inpatient Occupational Therapy Evaluation Date: 04/03/22 Referring Doctor:Dr. Rios OT Orders: Non urgent Precautions: Fall, standard, DNR/DNI PATIENT PROFILE/ADMITTING DIAGNOSIS: Pt is a 77 lesvia old male who was admitted via med surg with a dx of with hepatitis and confusion, hematuria, alzheimers disease, elevated liver function, transaminitis, hyperbilirubinemia, generalized weakness, bladder mass. Past Medical History: All Active Problems?(Updated 03/31/22 @ 18:39 by Tequila Flores NP) Discharge planning issues (Acute) DVT prophylaxis (Acute) Hematuria (Acute) Alzheimer disease (Chronic) Elevated liver function tests (Acute) Transaminitis (Acute) Hyperbilirubinemia (Acute) Confusion (Acute) Generalized weakness (Acute) Bladder mass (Acute) Alzheimer's dementia without behavioral disturbance (Chronic) Upper gastrointestinal bleed (Acute 07/31/13) With melena and drop in hemoglobinAnxiety (Acute 07/31/13) Agitation (Acute 07/31/13) Anxiety and depression (Chronic) Hypothyroidism (Chronic) On satins.Hyperlipidemia (Chronic) Periodic limb movement disorder (Chronic) On benzodiazepines.Memory disturbance (Chronic) Pneumoperitoneum (Acute) Anemia (Acute) Hypotension (Acute) Bradycardia (Acute) Perforated duodenal ulcer (Acute) Pneumonia (Acute) Fluid volume excess (Acute) Hypokalemia (Acute) nutrition (Acute) Physical deconditioning (Acute) Short-term memory loss (Acute) Medical History?(Updated 03/31/22 @ 18:39 by Tequila Flores NP) Anxiety Colon polyp Depression Diverticulitis History of alcohol abuse Hyperlipidemia Hypothyroidism Neurocardiogenic syncope Osteoarthritis Perforated duodenal ulcer Tobacco abuse Surgical History? Colonoscopy - MAC (05/03/17) Colonoscopy - MAC (03/11/18) EGD - MAC (05/03/17) Kidney Laparotomy (09/10/16) with duodenal ulcer repair Social History/Home Situation: Unable to assess from pt. Pt reports that he has been 55 year and lives with his . CM reports indicate Domingo lives alone in [facility]. His of 51 years lives in [place] but checks on him daily and provides support with all of his ADLs including transporting him to appointments and buying his groceries, paying bills, cleaning, etc. Equipment owned/DME: Unable to assess SUBJECTIVE: Pt was lying in bed when OT arrived. He had just come out of the bathroom with nursing. OBJECTIVE: General Observation: Pt was pleasant, he did have a slight change of behavior duringhis bathing routine where he became angry about his deodorant, IV in (L) UE Mental Status: alert to name. Pain: no c/o pain during OT evaluation. ROM: RUE AROM WFL L UE AROM WFL FUNCTIONAL MOBILITY/ADLS: Transfers Supine-sit (I) Sit-supine (I) BATHING max (A) set up/clean up Bathing UE (I) face, (B) UE and abdomen with step by step vc throughout, max (A) hair and back Bathing LE NT DRESSING sitting in bed Dressing UE mod (A) [facility] gown GROOMING max (A) with putting on deodorant and brushing his hair. TOILETING NT EATING NT BALANCE: Static sitting Good Dynamic Sitting Good SPECIAL TESTS: Daily Activity Limitations Standardized Measure [facility] AM -PAC ?6 clicks? Daily Activity Inpatient Short Form: Raw score: 18 Standardized score: 38.66 CMS score: 46.65% INFORMED CONSENT/EDUCATION: Pt instructed in purpose of OT Consult and plan of care. ASSESSMENT: Patient is a 77-year-old male referred to occupational therapy services with diagnosis of hepatitis and confusion, hematuria, alzheimers disease, elevated liver function, transaminitis, hyperbilirubinemia, generalized weakness, bladder mass. Patient presents with clinical signs and symptoms consistent with dx, as demonstrated by the following impairment level findings/functional limitations: Impairments in ADL/IADL and leisure impairments, decreased functional activity tolerance, decrease strength, decreased (I) in dressing and bathing without vc, decreased cognitive status, decreased safety awareness. AMPAC score 18 Patient is assessed as a high [id number] complexity based on the following: History: see above Examination: see functional limitations as noted above Presentation: evolving Decision Making: AMPAC score 18 GOALS 1. Grooming- (I) with brushing hair 2. Bathing- standing at sink (I) UE with step by step vc 3. Dressing- sitting in chair (I) with UE/LE with min vc 4. Toileting- on toilet (I) 5. Eating- (I) PLAN OF CARE/TREATMENT PLAN: 1x/day, 5 days/ week x 1week Initiate Occupational Therapy Services for bathing, dressing, grooming, toileting, eating, transfer training. DISCHARGE RECOMMENDATIONS SNF vs. Home with services TREATMENT TIME/MINUTES/CODES [id number], [id number] Leona Zamora OTR/L [facility] [place]
[2022-04-03 09:23] LABS: IgG 696 mg/dL (610-1,616)
[2022-04-03 09:28] VITALS: O2SAT 94
[2022-04-03] MEDS: MAGNESIUM SULFATE 4 GM/100 ML BAG IVPB (09:58)
[2022-04-03] MEDS: Potassium Chloride 20 MEQ TABCR 40 MEQ PO (09:59)
[2022-04-03 11:23] LABS: Lyme Ab w Rflx to Lyme Confirm Negative (Negative)
--- NOTE | 2022-04-03 12:28 | PDOC.CMPRO ---
- If Service Date Differs Date of service: 04/03/22 Time of Service: 12:28 Care Management Progress Note S/O: Domingo continues to be closely monitored, and was seen by Pulmonology and Palliative care today. He was evaluated by Occupational therapy, who recommended SNF vs Home with HH services. He reported that he is not agreeable to SNF, and would consider HH services. His encouraged him to accept the support from HH, as she is the only person checking on him at home. Domingo has stated to several providers that he does not want heroic measures, and that he prefers quality of life vs quantity. He has stated several times that he is planning on returning home, and is looking forward to being discharged soon. CM will continue to follow. A: Domingo is a 77 year old male admitted to [facility] on 03/31/22 for hepatitis. P: Anticipate Domingo will return home when medically cleared. His will drive him home via private vehicle. He will follow up with his PCP and discharge plan of care. CM will continue to follow.
[2022-04-03] MEDS: THIAMINE 500 MG in Normal Saline 100 ML 100 MG IVPB (14:04)
--- NOTE | 2022-04-03 14:05 | W.PALLCONSUL ---
Date of service: 04/03/22 Time of Service: 14:50 History of Present Illness Narrative: Reji was seen in his hospital room with his , Kathryn present. He lives alone, checks on him 2x/week, she has been out of the house for 8 years, finding that he is not taking his medications appropriately she will have to go his home and give him his medications daily, which she has agreed to do. She reports that they do not have anyone else to help at home. She reports that he gets agitated and irritable frequently. He is a poor historian. He used to be a very busy man, he reports that he is still very active but his states he is not. GOAL: He is clear that he wants to go home and live his life. He prefers to focus on quality over quantity. States he feels normal/good, which means he is doing fine. Discussed liver failure, his liver enzymes are improving. He has a cavitary lesion of lung. Per pulmonology: The differential for a cavitary lung lesion includes infection (bacterial, fungal), autoimmune (RA), vasculitis or cancer.?An outpatient broncoscopy is recommended. He is not sure he wants to have the broncoscopy. His reports that his son is pushing for him to have the work-up. Note is also made of a bladder mass, it is unclear if it is a blood clot vs tumor. He refused cystoscopy- I don't think i need to do it. Open to going to SNF if needed in the future but does not see that ever happening. Office to call Kathryn to set up f/u visit. Assessment and Plan Assessment and plan (1) Cavitary lesion of lung: Status: Acute (2) Hematuria: Status: Acute (3) Alzheimer disease: Status: Chronic (4) Elevated liver function tests: Status: Acute (5) Transaminitis: Status: Acute (6) Hyperbilirubinemia: Status: Acute (7) Confusion: Status: Acute (8) Generalized weakness: Status: Acute (9) Bladder mass: Status: Acute (10) Palliative care patient: Status: Acute (11) Goals of care, counseling/discussion: Status: Acute Assessment and plan: is a 77-year-old male with a history of Alzheimer's dementia, anxiety, depression, hyperlipidemia, hypothyroidism who presents from home for generalized weakness, poor appetite and confusion?for a week prior to his presentation. He was found to be in liver failure, likely r/t taking his medications inappropriately to to dementia. He has been found to have a cavitary lung lesion and a bladder mass. Further work up is recommended for both. At this point, he is declining further evaluation for the bladder mass and questioning if he needs f/u for the lung lesion. He prefers quality of life over quantity. He is a poor historian. His agrees with a more comfort focused approach to his care. His son wants him to pursue work-up. He was agitated and clear that he wants to go home today. He wants to, continue living life as he has been. He has previously established that he is a DNR/DNI. He is agreeable to follow up with Palliative as an outpatient. His needs to be called to set up the appointment. Review of Systems Narrative: Unable to provide accurate history. Feels he is doing fine. PFSH All Active Problems (Updated 04/03/22 @ 16:10 by Socorro Vance NP) Goals of care, counseling/discussion (Acute) Palliative care patient (Acute) Malaise and fatigue (Acute) Cavitary lesion of lung (Acute) Discharge planning issues (Acute) DVT prophylaxis (Acute) Hematuria (Acute) Alzheimer disease (Chronic) Elevated liver function tests (Acute) Transaminitis (Acute) Hyperbilirubinemia (Acute) Confusion (Acute) Generalized weakness (Acute) Bladder mass (Acute) Alzheimer's dementia without behavioral disturbance (Chronic) Upper gastrointestinal bleed (Acute 07/31/13) With melena and drop in hemoglobin Anxiety (Acute 07/31/13) Agitation (Acute 07/31/13) Anxiety and depression (Chronic) Hypothyroidism (Chronic) On satins. Hyperlipidemia (Chronic) Periodic limb movement disorder (Chronic) On benzodiazepines. Memory disturbance (Chronic) Pneumoperitoneum (Acute) Anemia (Acute) Hypotension (Acute) Bradycardia (Acute) Perforated duodenal ulcer (Acute) Pneumonia (Acute) Fluid volume excess (Acute) Hypokalemia (Acute) nutrition (Acute) Physical deconditioning (Acute) Short-term memory loss (Acute) Medical History (Updated 04/03/22 @ 16:10 by Socorro Vance NP) Anxiety Colon polyp Depression Diverticulitis History of alcohol abuse Hyperlipidemia Hypothyroidism Neurocardiogenic syncope Osteoarthritis Perforated duodenal ulcer Tobacco abuse Surgical History Colonoscopy - MAC (05/03/17) Colonoscopy - MAC (03/11/18) EGD - MAC (05/03/17) Kidney Laparotomy (09/10/16) with duodenal ulcer repair Family History Mother Dementia Father Heart disease Social History Smoking/Tobacco Use Status: Current every day Tobacco Type: cigarettes Smoking risk assessment performed?: Yes Alcohol Intake: former Drug use: Never Do you feel safe at home: Yes Do you feel safe in your relationship?: Yes Exam Narrative Exam Narrative: General: elderly man, laying in the hospital bed, appears agitated. Poor historian. HEENT: normocephalic, atraumatic, EOMI, mucous membranes moist. Neck: supple. Respiratory: respiration appear even and unlabored. Extremities: moves all 4 extremities freely. Results Last Vital Signs Temp 36.8 C 04/03/22 07:53 Pulse 60 04/03/22 07:53 Resp 18 04/03/22 07:53 BP 107/65 04/03/22 07:53 Pulse Ox 94 04/03/22 09:28 Labs Result diagrams: 04/03/22 06:22 04/03/22 06:22 Labs: Laboratory Results - last 24 hr 04/02/22 04/02/22 04/02/22 07:10 07:10 07:10 WBC RBC Hgb Hct MCV MCH MCHC RDW Plt Count MPV Immature Gran % Neutrophils % Lymphocytes % Monocytes % Eosinophils % Basophils % Nucleated RBC % Absolute Neutrophils Absolute Lymphocytes Absolute Monocytes Absolute Eosinophils Absolute Basophils Sodium Potassium Chloride Carbon Dioxide Anion Gap BUN Creatinine Estimated GFR/1.73 m2 Glucose Calcium Magnesium Total Bilirubin Conjugated Bilirubin AST ALT Alkaline Phosphatase Creatine Kinase Total Protein Albumin Procalcitonin 0.8 IgG 696 Lyme Disease Antibody Negative Add-On Test Request 04/02/22 04/02/22 04/02/22 07:10 Unknown Unknown WBC RBC Hgb Hct MCV MCH MCHC RDW Plt Count MPV Immature Gran % Neutrophils % Lymphocytes % Monocytes % Eosinophils % Basophils % Nucleated RBC % Absolute Neutrophils Absolute Lymphocytes Absolute Monocytes Absolute Eosinophils Absolute Basophils Sodium Potassium Chloride Carbon Dioxide Anion Gap BUN Creatinine Estimated GFR/1.73 m2 Glucose Calcium Magnesium Total Bilirubin Conjugated Bilirubin AST ALT Alkaline Phosphatase Creatine Kinase 108 Total Protein Albumin Procalcitonin IgG Lyme Disease Antibody Add-On Test Request Cancelled DONE 04/03/22 04/03/22 06:22 06:22 WBC 9.62 RBC 4.44 Hgb 11.8 L Hct 35.2 L MCV 79 L MCH 26.6 L MCHC 33.5 D RDW 17.6 H Plt Count 161 MPV 11.0 Immature Gran % 0.9 Neutrophils % 65.6 Lymphocytes % 18.7 Monocytes % 9.0 Eosinophils % 5.6 Basophils % 0.2 Nucleated RBC % 0.0 Absolute Neutrophils 6.30 Absolute Lymphocytes 1.80 Absolute Monocytes 0.87 H Absolute Eosinophils 0.54 Absolute Basophils 0.02 Sodium 141 Potassium 3.4 L Chloride 111 H Carbon Dioxide 24.4 Anion Gap 5.6 BUN 12 Creatinine 0.9 Estimated GFR/1.73 m2 >= 60.00 Glucose 74 Calcium 8.0 L Magnesium 1.3 L Total Bilirubin 2.9 H Conjugated Bilirubin 2.1 H AST 129 H ALT 1129 H Alkaline Phosphatase 164 H Creatine Kinase Total Protein 4.5 L Albumin 2.0 L Procalcitonin IgG Lyme Disease Antibody Add-On Test Request
[2022-04-03 15:07] LABS: ANCA Interpretation Negative (Negative)
--- NOTE | 2022-04-03 15:11 | PT.INNT ---
Date of service: 04/03/22 Time of Service: 15:11 PT Notes Visit Reasons: Hepatitis 04/03/2022 Patient refused PT services x4 throughout the day. He reports that he would like to conserve his energy for when he goes home later today. Will attempt to resume PT services tomorrow morning if patient does not discharge to home today.
[2022-04-03 15:12] LABS: ANA Interpretation Negative (Negative)
[2022-04-03 17:02] LABS: Scl 70 Antibodies, IgG <0.2 U
[2022-04-03 19:41] VITALS: BP 122/74; PULSE 66; RESP 20; TEMP 36.5; O2SAT 97
[2022-04-03] MEDS: cefTRIAXone 1 GM/50 ML BAG IV (20:16)
[2022-04-03] MEDS: Normal Saline Flush 10 ML SYR IVP (20:16)
[2022-04-03 20:48] VITALS: O2SAT 97
[2022-04-03] MEDS: traZODone 50 MG TAB 100 MG PO (21:03)
[2022-04-03] MEDS: Melatonin 3 MG TAB PO (21:04)
[2022-04-03] MEDS: Mirtazapine 15 MG TAB 45 MG PO (21:04)
[2022-04-03 22:35] VITALS: BP 106/67; PULSE 62; RESP 16; TEMP 37; O2SAT 93
[2022-04-04] MEDS: QUEtiapine 25 MG TAB PO (00:11)
[2022-04-04 00:42] LABS: Fungitell Qualitative Negative (Negative); Fungitell Quantitative Value <31 pg/mL (<60 pg/mL)
[2022-04-04] MEDS: Levothyroxine 100 MCG TAB PO (06:37)
[2022-04-04 06:52] LABS: Abs Immature Grans 0.09 10^3/uL (0.0-0.06); Absolute Basophil Count 0.03 10^3/uL (0.0-0.2); Absolute Eosinophil Count 0.59 10^3/uL (0.0-0.7); Absolute Lymphocyte Count 2.18 10^3/uL (1.2-3.4); Basophils % 0.3; HCT 37.8 % (40.0-50.0); HGB 12.1 g/dL (13.5-17.5); Immature Grans % 0.9; MCH 25.7 pg (27.0-33.0); MCV 80 fL (80-95); MPV 11.2 fL (8.0-11.0); Monocytes % 11.1; Neutrophils % 59.7; Platelet Count 176 10^3/uL (130-400); RDW 18.3 % (11.8-14.1); RDW-SD 46.3 fL; WBC 9.89 10^3/uL (4.4-10.8)
[2022-04-04 07:12] LABS: C-Reactive Protein 2.36 mg/dL (0.0-0.3); Magnesium 1.6 mg/dL (1.8-2.4)
[2022-04-04 07:18] LABS: Anion Gap 5.7 mmol/L (3-11); BUN 16 mg/dL (7-18); CO2 26.3 mmol/L (21.0-32.0); CREATININE 1.2 mg/dL (0.70-1.30); Calcium 8.4 mg/dL (8.5-10.1); Chloride 109 mmol/L (98-107); Estimated GFR 58.71 (mL/min/1.73m2); Glucose 122 mg/dL (74-106); Sodium 141 mmol/L (136-145)
[2022-04-04 07:19] LABS: Potassium 4.6 mmol/L (3.5-5.1)
[2022-04-04 08:00] VITALS: BP 122/74; PULSE 68; RESP 18; TEMP 37; O2SAT 93
[2022-04-04] MEDS: Nicotine 21 MG/24 HR PATCH TD (08:13)
[2022-04-04] MEDS: Atenolol 25 MG TAB 12.5 MG PO (08:14)
[2022-04-04] MEDS: Pantoprazole 40 MG TABCR PO (08:14)
[2022-04-04] MEDS: DOXYCYCLINE 100 MG in Normal Saline 100 ML IVPB (08:15)
[2022-04-04 08:21] LABS: Anaplasma phagocytophilum Negative (Negative); B. miyamotoi PCR Negative (Negative); Babesia divergens/MO-1 Negative (Negative); Babesia duncani Negative (Negative); Babesia microti Negative (Negative); Ehrlichia chaffeensis Negative (Negative); Ehrlichia ewingii/canis Negative (Negative); Ehrlichia muris eauclairensis Negative (Negative)
[2022-04-04] MEDS: Normal Saline Flush 10 ML SYR IVP (08:29)
[2022-04-04] MEDS: MAGNESIUM SULFATE 2 GM/50 ML BAG IVPB (10:01)
[2022-04-04 11:08] LABS: Lab Add On Test DONE
--- NOTE | 2022-04-04 11:27 | PT.INNT ---
PT Notes Visit Reasons: Hepatitis Refused PT x 2.
[2022-04-04 11:51] LABS: Procalcitonin 0.3 ng/mL
[2022-04-04 11:53] LABS: Smooth Muscle Ab Screen Negative (Negative)
[2022-04-04] MEDS: Thiamine 100 MG TAB PO (12:30)
--- NOTE | 2022-04-04 12:55 | W.PM.DS.N ---
Date of service: 04/04/22 Time of Service: 12:55 DS: Diagnosis Discharge Diagnosis (1) Cavitary lesion of lung: Status: Acute (2) Alzheimer disease: Status: Chronic (3) Elevated liver function tests: Status: Acute (4) Transaminitis: Status: Acute (5) Hypomagnesemia: Status: Resolved (6) Bladder mass: Status: Acute (7) History of alcohol abuse: (8) Tobacco abuse: Discharge Plan Disposition Patient Disposition: HOME Condition: Stable Discharge Details Reason For Visit: Hepatitis Admit Date/Time: 03/31/22 17:10 Admit Provider: Montrell Maya Attending Provider: Montrell Maya Primary Care Provider[facility] Course Hospital Course: 77 year old male with a past medical history of dementia, anxiety, depression, hyperlipidemia, hypothyroidism, former alcohol abuse presented to the ED @ [facility]? 03/31/2022 with complaint of generalized weakness, confusion, fatigue and decreased appetite for one week.?? He had no evidence of trauma. Tylenol level was negative.? Consideration of taking too much of his home medication. ??He was hemodynamically stable.? His labs showed a significant increase in AST, ALT and alk phos.? He had a gallbladder ultrasound showing cholelithiasis. Ultrasound of the bladder notes a 5 cm lesion, unknown if it is a mass or a clot.? CT reveals a cavitary lung lesion. ??He was admitted to the medical surgical unit to follow his liver functions, new bladder lesion and cavitary lung lesion.? His procalcitonin was increased and he was started on ceftriaxone and doxycycline IV. ?Home meds were continued.? He did have a drop in his magnesium and it was repleated. His liver function tests improved significantly. On discharge LFT?s are decreased but still high; an order to check labs 04/09/2022 was done. A repeat procalcitonin was decreased and antibiotics were discontinued. His vital signs are stable, no fevers. ?He has no difficulty breathing and denies chest or abdominal pain, no jaundice.? He will go home with his ex-.? She will bring him his medication by dose.? She states she will check on him frequently and make sure he eats and is safe at home. He will follow up with urology for possible cystoscopy, pulmonology for outpatient bronchoscopy once his LFT?s have stabilized and palliative care. Simvastatin was discontinued.? He was started on thiamine 100 mg daily. He and his ex- endorse he has not had alcohol in a very long time. Discussed smoking cessation. Discussed POC going forward out patient with referrals to his ex- Kathryn and she states she understands, also his son and daughter are available to assist with his home care. Declines home health services. Care for patient as well as completion of his discharge summary took 90 minutes. ? Discussed with Dr Rios Home Meds and New Rx's Prescriptions: New thiamine mononitrate (vit B1) [Vitamin B-1 (mononitrate)] 100 mg Tablet 100 mg PO DAILY Qty: 14 0RF quetiapine 25 mg Tablet 25 mg PO BID PRN PRNQty: 28 0RF Continued trazodone 50 mg tablet 100 mg PO HS melatonin 3 mg tablet 3 mg PO HS Label Comments: Per will increase to 6 mg qd next week. mirtazapine 45 mg tablet 45 mg PO QHS aspirin 81 MG tablet,chewable 81 mg PO DAILY nicotine 1 EACH patch 24 hour 14 mg Transdermal DAILY levothyroxine 125 MCG tablet 100 mcg PO DAILY@0730 Label Comments: 02/08/18 PER SON 100 MCG DAILY. Centrum Silver 1 EACH tablet 1 ea PO DAILY citalopram 40 MG tablet 40 mg PO DAILY pantoprazole 40 MG tablet,delayed release (DR/EC) 40 mg PO DAILY Qty: 30 5RF atenolol 25 mg tablet 12.5 mg PO DAILY Label Comments: Take 1/2 tablet by mouth every day Discontinued acetaminophen [Tylenol] 325 MG tablet 650 mg PO PRN simvastatin 20 MG tablet 20 mg PO DAILY Discharge Instructions Instructions: Palliative Care (GEN), Medication Safety for Older Adults (GEN) Stand Alone Forms: Nursing Discharge Form Referrals: [facility] [Provider Group] (Follow up from in - patient visit ) Lily Soares [Primary Care Provider] - (Call Wednesday to follow up post in-patient hospitalization) Fidel Gallardo MD [ [facility] STAFF PHYSICIAN] - (Please call Wednesday to make a follow up appointment from in-patient consultation- bladder mass) Blaire Lanza MD [ [facility] STAFF PHYSICIAN] - (Please call Wednesday to make a Follow - up from in-patient stay; cavitary lesion of lung) Activity:: Activity as Tolerated Equipment/Supplies:: No Equipment Needed Diet:: Low Sodium Discharge Orders Discharge Orders: Discharge Order (Routine); Ordered 04/04/22 Ordered By: Elizabeth Fermin Other Ambulatory Orders: Liver Panel (Routine) Timeframe: [id number] Facility: [facility] - Location: Laboratory Outpatient - [facility] Ordered By: Elizabeth Fermin Discharge Data Discharge Date/Time-TO BE ENTERED AT DEPARTURE: 04/04/22 18:17 DS: Summary Time Spent with Patient providing and/or coordinating discharge services: Greater than 30 minutes Status at Discharge Functional status at discharge: uses cane/walker Overall status at discharge: patient is progressing back to baseline Mental Status: mental status grossly normal Speech and Movement: speech and movement normal and speech clear Mood: congruent mood Affect: normal affect Exam Narrative Exam Narrative: Pulmonology, urology, surgery and palliative care saw him here while in-patient; urology and pulmonology are waiting for liver enzymes to improve prior to any procedures, will order LFT's 04/09/2022. Palliative will follow out patient. Const General: cooperative and frail appearing Nutritional Appearance: cachectic Orientation: alert, awake, oriented to person, not oriented to time and confused HENMT Head: normal to inspection Ears: hearing grossly normal bilaterally and external ears normal General nose exam: external nose normal Face and sinus: normal facial exam Eyes General: appearance normal, both eyes and all related structures Eyelids: eyelids normal Conjunctivae: conjunctivae normal Sclera: scleral abnormality (jaundice) bilaterally Pupils: PERRL Neck Neck: normal visual inspection Chest Chest: normal inspection of the chest Resp Effort & Inspection: normal respiratory effort Auscultation: clear to auscultation bilaterally Cardio Rate: regular rate Rhythm: regular rhythm GI Inspection: normal to inspection Palpation: soft, not firm, no guarding, no hepatosplenomegaly, no masses and nontender Auscultation: hypoactive bowel sounds Other: no complaints of dysuria Back/Spine/Pelvis Thoracic/Lumbar Spine: thoracic and lumbar spine normal to inspection Skin General skin exam: no rashes or lesions noted Neuro General: patient alert, patient awake, moves all extremities, no focal motor deficits and patient confused Cognition: abnormal cognition (poor historian, unable to provide ) Speech: speech normal Motor: muscle tone normal throughout Extrem General: normal to inspection, full ROM and capillary refill normal Other: Normal range of motion of bilateral upper and lower extremities but without pain, evidence of trauma or deformity. Psych Appearance: grossly normal Mental Status: mental status grossly normal Speech and Movement: speech and movement normal and speech clear Mood: congruent mood Affect: normal affect DS: Data Vitals/I&O Vitals and I&O: Vital Signs Temperature 37 C 04/04/22 08:00 Temperature Source Tympanic 04/04/22 08:00 Pulse 68 04/04/22 08:00 Pulse Rhythm Regular 04/04/22 08:00 Pulse 76 03/31/22 16:50 Respiratory Rate 18 04/04/22 08:00 Respiratory Effort Non-Labored 04/04/22 08:00 Respiratory Depth Normal 04/04/22 08:00 Respiratory Pattern Normal 04/04/22 08:00 Blood Pressure 122/74 04/04/22 08:00 Blood Pressure Mean 88 03/31/22 17:27 Pulse Oximetry 93 04/04/22 08:00 Oxygen Delivery Method Room Air 04/04/22 08:00 Oxygen Flow Rate 0 04/04/22 08:00 Pain Level 0 04/04/22 08:00 Intake & Output 04/03/22 04/04/22 04/04/22 23:59 11:59 23:59 Intake Total 1105 / 4040.0 607.5 / 607.5 Output Total 400 / 1700 1400 / 1800 400 / 1800 Balance 705 / 2340.0 -792.5 / -1192.5 -400 / -1192.5 Intake: IV 375 / 3070.0 607.5 / 607.5 Oral 730 / 970 Output: Urine 400 / 1700 1400 / 1800 400 / 1800 Other: Urine Color Light Reba Light Reba Dark Reba Urine Appearance Clear Clear Clear Urine Odor Normal Normal Normal Comment pt voided in toilet amount is unknown Voiding Methods Toilet Toilet Toilet Data Completed and Pending Labs on day of discharge: Labs from last 24 hours 04/04/22 04/04/22 04/04/22 06:34 06:34 06:34 WBC 9.89 RBC 4.70 Hgb 12.1 L Hct 37.8 L MCV 80 MCH 25.7 L MCHC 32.0 D RDW 18.3 H Plt Count 176 MPV 11.2 H Immature Gran % 0.9 Neutrophils % 59.7 Lymphocytes % 22.0 Monocytes % 11.1 Eosinophils % 6.0 Basophils % 0.3 Nucleated RBC % 0.0 Absolute Neutrophils 5.90 Absolute Lymphocytes 2.18 Absolute Monocytes 1.10 H Absolute Eosinophils 0.59 Absolute Basophils 0.03 Sodium Potassium Chloride Carbon Dioxide Anion Gap BUN Creatinine Estimated GFR/1.73 m2 Glucose Calcium Magnesium C-Reactive Protein Procalcitonin 0.3 IgG Total IgG1 IgG2 IgG3 IgG4 DIANE Titer DIANE Titer 2 DIANE Titer 3 DIANE Interpretation ANCA Immunofluorescen ANCA Titer ANCA Pattern Scl-70 IgG Ab Aspergillus Ag (EIA) B-(1,3)-D-Glucan Quant B-(1,3)-D-Glucan Qual Add-On Test Request DONE 04/04/22 04/04/22 04/02/22 06:34 06:34 07:10 WBC RBC Hgb Hct MCV MCH MCHC RDW Plt Count MPV Immature Gran % Neutrophils % Lymphocytes % Monocytes % Eosinophils % Basophils % Nucleated RBC % Absolute Neutrophils Absolute Lymphocytes Absolute Monocytes Absolute Eosinophils Absolute Basophils Sodium 141 Potassium 4.6 D Chloride 109 H Carbon Dioxide 26.3 Anion Gap 5.7 BUN 16 Creatinine 1.2 Estimated GFR/1.73 m2 58.71 Glucose 122 H Calcium 8.4 L Magnesium 1.6 L C-Reactive Protein 2.36 H Procalcitonin IgG Total IgG1 IgG2 IgG3 IgG4 DIANE Titer DIANE Titer 2 DIANE Titer 3 DIANE Interpretation ANCA Immunofluorescen ANCA Titer ANCA Pattern Scl-70 IgG Ab Aspergillus Ag (EIA) <0.500 B-(1,3)-D-Glucan Quant B-(1,3)-D-Glucan Qual Add-On Test Request 04/02/22 04/02/22 04/02/22 07:10 07:10 07:10 WBC RBC Hgb Hct MCV MCH MCHC RDW Plt Count MPV Immature Gran % Neutrophils % Lymphocytes % Monocytes % Eosinophils % Basophils % Nucleated RBC % Absolute Neutrophils Absolute Lymphocytes Absolute Monocytes Absolute Eosinophils Absolute Basophils Sodium Potassium Chloride Carbon Dioxide Anion Gap BUN Creatinine Estimated GFR/1.73 m2 Glucose Calcium Magnesium C-Reactive Protein Procalcitonin IgG Total 783 IgG1 398 IgG2 149 L IgG3 55.0 IgG4 59.1 DIANE Titer Not Applicable DIANE Titer 2 Not Applicable DIANE Titer 3 Not Applicable DIANE Interpretation Negative ANCA Immunofluorescen Negative ANCA Titer Not Applicable ANCA Pattern Not Applicable Scl-70 IgG Ab Aspergillus Ag (EIA) B-(1,3)-D-Glucan Quant <31 B-(1,3)-D-Glucan Qual Negative Add-On Test Request 04/02/22 07:10 WBC RBC Hgb Hct MCV MCH MCHC RDW Plt Count MPV Immature Gran % Neutrophils % Lymphocytes % Monocytes % Eosinophils % Basophils % Nucleated RBC % Absolute Neutrophils Absolute Lymphocytes Absolute Monocytes Absolute Eosinophils Absolute Basophils Sodium Potassium Chloride Carbon Dioxide Anion Gap BUN Creatinine Estimated GFR/1.73 m2 Glucose Calcium Magnesium C-Reactive Protein Procalcitonin IgG Total IgG1 IgG2 IgG3 IgG4 DIANE Titer DIANE Titer 2 DIANE Titer 3 DIANE Interpretation ANCA Immunofluorescen ANCA Titer ANCA Pattern Scl-70 IgG Ab <0.2 Aspergillus Ag (EIA) B-(1,3)-D-Glucan Quant B-(1,3)-D-Glucan Qual Add-On Test Request PFSH All Active Problems (Updated 04/05/22 @ 00:03 by [facility] ARM[facility]) Malaise and fatigue (Acute) Cavitary lesion of lung (Acute) Hematuria (Acute) Alzheimer disease (Chronic) Elevated liver function tests (Acute) Transaminitis (Acute) Hyperbilirubinemia (Acute) Confusion (Acute) Generalized weakness (Acute) Bladder mass (Acute) Upper gastrointestinal bleed (Acute 07/31/13) With melena and drop in hemoglobin Anxiety (Acute 07/31/13) Agitation (Acute 07/31/13) Anxiety and depression (Chronic) Hypothyroidism (Chronic) On satins. Hyperlipidemia (Chronic) Periodic limb movement disorder (Chronic) On benzodiazepines. Memory disturbance (Chronic) Pneumoperitoneum (Acute) Anemia (Acute) Hypotension (Acute) Bradycardia (Acute) Perforated duodenal ulcer (Acute) Pneumonia (Acute) Fluid volume excess (Acute) Hypokalemia (Acute) nutrition (Acute) Physical deconditioning (Acute) Short-term memory loss (Acute) Medical History (Updated 04/05/22 @ 00:03 by [facility]) Anxiety Colon polyp Depression Diverticulitis History of alcohol abuse Hyperlipidemia Hypothyroidism Neurocardiogenic syncope Osteoarthritis Perforated duodenal ulcer Tobacco abuse Surgical History Colonoscopy - MAC (05/03/17) Colonoscopy - MAC (03/11/18) EGD - MAC (05/03/17) Kidney Laparotomy (09/10/16) with duodenal ulcer repair Family History Mother Dementia Father Heart disease Social History Smoking/Tobacco Use Status: Current every day Tobacco Type: cigarettes Smoking risk assessment performed?: Yes Alcohol Intake: former Drug use: Never Do you feel safe at home: Yes Do you feel safe in your relationship?: Yes
--- NOTE | 2022-04-04 14:09 | PDOC.CMDIS ---
- If Service Date Differs Date of service: 04/04/22 Time of Service: 14:09 LACE Index Scoring Tool - Questions: Length of Stay (in days): 4 - 6 Acuity (Admit via E.D.?): Yes Comorbidities: Any Tumor, Dementia E.D. Visits: 1 - Answers: Total Score: 13 Risk of Readmission: High Risk Care Management Discharge Reason for Hospitalization: Hepatitis Discharge Plan: Domingo is discharged home with no new services. He will follow up with his PCP, urology, pulmonology, palliative care, and plan of care as directed. His ex- has agreed to bring him his medication by dose to ensure he is taking the correct meds. He is being transported home via private vehicle by his ex-. Patient/Family Education Needs: Review discharge instructions and discuss Ask Me Three.
--- NOTE | 2022-04-06 11:46 | INDS_ITS ---
PT Notes Visit Reasons: Hepatitis Treatment Date: 04/02/2022 Referring: Bertha Rios MD PT Orders: PT CONSULT: Limited ability Precautions: Fall precaution This document serves as a summary of care. No PT services were provided on this date. Patient Profile/Admitting Diagnosis: 77-year-old male admitted for medical management of hepatitis and confusion. He participated in 2 PT sessions on 04/02/22, then refused further PT intervention during his acute care stay. He was able to demonstrate improvements in mobility to allow for return to community living. Social History/Home Situation: for 55 years and periodically lives alone, but is checked regularly by his and daughter. He has a few steps leading into the house, and 12 steps to the second floor where his bathroom and bedroom are located. He notes he has a walk-in shower with grab bars etc. Current Functional Limitations: He notes that he is independent with all ADLs, and walks outdoors around his yard periodically. He has not driven recently but owns vehicles. His does the shopping, but notes that he prepares meals Equipment Owned/DME: None noted Subjective: none obtained Objective: ROM: full functional pain-free motion throughout Strength: Strength is generally rated -5/5, although he has a weaker healthcare representative on left greater than right. His left EHL, EDC and anterior tib are 2/5 Neuro: It is AJ's are +2 and symmetrical, sensations intact light touch as well as proprioception BED MOBILITY/TRANSFERS? Sit-supine: I? Sit-stand: I? Stand-sit: I ? GAIT? Assistive Device: No AD ? Weight bearing: Full Assist: CGA-SBA? Distance:? 250' + 50' ? Deviation: Cueing for posture due to slight anteroflexed posture t/o, LOB x1 with CGA for recovery, SOB, seated rest x1 ? ? ? Balance: Bowen balance test was performed and he scored 47/56. Score 45 or less indicates fall risk and requires assistive device Static Sitting: Stable Dynamic Sitting: Stable Static Standing: Stable Dynamic Standing: Contact guarding with unilateral standing Special Tests: Mobility Limitations Standardized Measure [facility] 6 clicks Basic Mobility Inpatient Short Form: Raw Score: [address] [facility] Score: 11% Assessment: Patient is a 77year old male referred to physical therapy services with the diagnosis of hepatitis and dementia. Patient presented with mobility impairments, and demonstrated improvements in mobility sufficient to allow for safe return home in the community, as supported by AM-PAC scores. Goals: Goals X1 week 1. Supine-Sit independent without supervision (MET) 2. Sit-Supine independent without supervision(MET) 3. Sit-Stand independent without supervision(MET) 4. Stand-Sit independent without supervision(MET) 5. Bed-Chair independent without supervision(MET) 6. Chair-Bed independent without supervision(MET) 7. Gait ambulating greater than 150 feet without assistive device and stable gait (progressing toward, with episodic imbalance) 8. Stairs a send and descend 3 steps (not assessed) Plan of Care/Treatment Plan: D/C HOME 04/04/22. DISCHARGE RECOMMENDATIONS: Home with no services TREATMENT CODE/TIME: none Chely Jeffrey, PT, DPT [facility]
[2022-04-06 12:08] LABS: Liver/Kidney Microsome Type 1 <5.0 U
[2022-04-06 13:15] LABS: Aspergillus Fumigatus IgE <0.35 kU/L
[2022-04-06 19:49] LABS: Blastomyces Ag Result Not Detected; Blastomyces Ag Value Not Detected
[2022-04-07 10:18] LABS: SS-B (La) Ab, IgG 1.4 Units (<20.0)
[2022-04-07 10:37] LABS: SS-A Antibody 1.7 Units (<20.0)
[2022-04-07 10:56] LABS: dsDNA Ab, IgG <12.3 IU/mL (<30.0)
[2022-04-07 12:47] LABS: Sm (Smith) Ab, IgG 8.8 Units (<20.0)
[2022-04-08 17:29] LABS: SLA Autoantibody <20.1 U
[2022-04-20 11:37] LABS: Anti-EJ Ab Negative (Negative); Anti-Jo-1 Ab <20 Units (<20); Anti-Mi-2-Ab Negative (Negative); Anti-OJ Ab Negative (Negative); Anti-PL-12 Ab Negative (Negative); Anti-PL-7 Ab Negative (Negative); Anti-SRP Ab Negative (Negative); Anti-TIF-1gamma Ab <20 Units (<20)
[2022-04-20 11:38] LABS: Anti-Ku Ab Negative (Negative); Anti-MDA-5 Ab (CADM-140) <20 Units (<20); Anti-NXP-2 (P140) Ab <20 Units (<20); Anti-PM/Scl-100 Ab <20 Units (<20); Anti-SS-A 52kD Ab, IgG <20 Units (<20); Anti-U1 RNP Ab <20 Units (<20); Anti-U2 RNP Ab Negative (Negative)
[2022-04-20 11:42] LABS: Anti-SAE1 Ab, IgG <20 Units (<20)
[2022-04-20 11:48] LABS: Anti-U3 RNP (Fibrillarin) Negative (Negative)
== END 2022-04-04 18:17 | disposition home or self-care (01) | DRG 442 ==
LOC: ER 17:50 → MS 18:04
PROVIDERS: Internal Medicine; Nurse Practitioner Acute Care; Nurse Practitioner Family; Student in an Organized Health Care Education/Training Program; Admitting Provider Internal Medicine; Emergency Provider Physician Assistant; PCP Nurse Practitioner Family; Visit Provider Internal Medicine
DX: K72.00 Acute and subacute hepatic failure without coma (principal); Z68.1 Body mass index [BMI] 19.9 or less, adult; R64 Cachexia; R74.01 Elevation of levels of liver transaminase levels; R53.1 Weakness; E80.6 Other disorders of bilirubin metabolism; F41.9 Anxiety disorder, unspecified; F32.A Depression, unspecified; E78.5 Hyperlipidemia, unspecified; E03.9 Hypothyroidism, unspecified; F10.11 Alcohol abuse, in remission; Z66 Do not resuscitate; K80.20 Calculus of gallbladder without cholecystitis without obstruction; G30.9 Alzheimer's disease, unspecified; F02.80 Dementia in other diseases classified elsewhere, unspecified severity, without behavioral disturbance, psychotic disturbance, mood disturbance, and anxiety; G47.61 Periodic limb movement disorder; D64.9 Anemia, unspecified; E87.6 Hypokalemia; R53.81 Other malaise; Z87.11 Personal history of peptic ulcer disease; Z87.891 Personal history of nicotine dependence; R31.0 Gross hematuria; N32.89 Other specified disorders of bladder; E83.42 Hypomagnesemia
CPT/HCPCS: 36415; 71250; 76857; 80048; 80053; 80076; 82306; 82550; 82784; 83516; 83520; 83690; 84145; 86235; 86255; 86704; 86709; 86803; 87305; 87340; 87449; 87637; 87798; 93005; 96360; 96361; 97162; 97167; 97530; 97535; 99222; 99223; 99285; 70450; 74174; 74176; 76705; 80320; 80329; 81003; 81015; 82140; 82248; 82607; 82652; 82728; 82787; 83540; 83605; 83735; 84439; 84443; 84484; 85025; 85610; 85730; 86003; 86038; 86140; 86225; 86618; 87086; 87385; 93010; 99232; 99239; J0696; J3475; J3480; J3490

== ENCOUNTER 2022-04-23 08:41 | Outpatient (REF) | payer MEDICARE, SELFPAY ==
[2022-04-23 16:58] LABS: ALT 50 U/L (16-63); AST 40 U/L (15-37); Albumin 3.1 g/dL (3.4-5.0); Alkaline Phosphatase 126 U/L (46-116); Anion Gap 9.2 mmol/L (3-11); BUN 22 mg/dL (7-18); Bilirubin, Total 0.8 mg/dL (0.2-1.0); CO2 26.8 mmol/L (21.0-32.0); Calcium 8.9 mg/dL (8.5-10.1); Chloride 107 mmol/L (98-107); Glucose 101 mg/dL (74-106); Sodium 143 mmol/L (136-145); Total Protein 6.7 g/dL (6.4-8.2)
== END 2022-04-23 08:42 | disposition home or self-care (01) ==
LOC: NCHCN 08:41
PROVIDERS: PCP Nurse Practitioner Family; Visit Provider Nurse Practitioner Family
DX: E83.42 Hypomagnesemia (principal); R79.89 Other specified abnormal findings of blood chemistry; R53.83 Other fatigue; J98.4 Other disorders of lung; N32.89 Other specified disorders of bladder
CPT/HCPCS: 80053; 83735

== ENCOUNTER 2022-10-22 13:05 | Outpatient (REF) | payer MEDICARE, SELFPAY ==
[2022-10-22 15:13] LABS: Abs Immature Grans 0.02 10^3/uL (0.0-0.06); Absolute Basophil Count 0.04 10^3/uL (0.0-0.2); Absolute Eosinophil Count 0.47 10^3/uL (0.0-0.7); Absolute Lymphocyte Count 2.19 10^3/uL (1.2-3.4); Absolute Neutrophil Count 4.99 10^3/uL (1.2-6.7); Basophils % 0.5; Eosinophils % 5.4; HCT 46.4 % (40.0-50.0); HGB 14.8 g/dL (13.5-17.5); Immature Grans % 0.2; Lymphocytes % 25.1; MCH 26.8 pg (27.0-33.0); MCHC 31.9 % (32.0-36.0); MCV 84 fL (80-95); MPV 10.8 fL (8.0-11.0); Monocytes % 11.5; Neutrophils % 57.3; Platelet Count 299 10^3/uL (130-400); RBC 5.52 10^6/uL (4.36-5.78); RDW 15.3 % (11.8-14.1); RDW-SD 46.4 fL; WBC 8.71 10^3/uL (4.4-10.8)
[2022-10-22 15:33] LABS: ALT 20 U/L (16-63); AST 25 U/L (15-37); Albumin 3.4 g/dL (3.4-5.0); Alkaline Phosphatase 104 U/L (46-116); Anion Gap 6.5 mmol/L (3-11); BUN 19 mg/dL (7-18); Bilirubin, Total 0.4 mg/dL (0.2-1.0); CO2 30.5 mmol/L (21.0-32.0); CREATININE 1.1 mg/dL (0.70-1.30); Calcium 9.2 mg/dL (8.5-10.1); Chloride 105 mmol/L (98-107); Estimated GFR 69.14 (mL/min/1.73m2); Glucose 95 mg/dL (74-106); Potassium 4.1 mmol/L (3.5-5.1); Sodium 142 mmol/L (136-145); TSH 0.21 uIU/mL (0.36-3.74); Total Protein 6.8 g/dL (6.4-8.2)
== END 2022-10-22 13:06 | disposition home or self-care (01) ==
LOC: NCHCN 13:05
PROVIDERS: PCP Nurse Practitioner Family; Visit Provider Family Medicine
DX: E03.9 Hypothyroidism, unspecified (principal); R26.89 Other abnormalities of gait and mobility; D64.9 Anemia, unspecified
CPT/HCPCS: 80053; 84443; 85025

== ENCOUNTER 2022-12-14 20:04 | Outpatient (REF) | payer MEDICARE, SELFPAY ==
[2022-12-14 15:18] LABS: TSH (W/Ref FT4) 1.18 uIU/mL (0.36-3.74)
== END 2022-12-14 20:05 | disposition home or self-care (01) ==
LOC: NCHCN 20:04
PROVIDERS: PCP Nurse Practitioner Family; Visit Provider Nurse Practitioner Family
DX: E03.9 Hypothyroidism, unspecified (principal)
CPT/HCPCS: 84443

== ENCOUNTER 2023-02-04 11:52 | Emergency (ER) | payer MEDICARE, SELFPAY ==
--- NOTE | 2023-02-04 | DI.CT_ITS ---
Exam(s) CT CHEST/ABD/PEL W CT THORACIC LUMBAR SPINE REC EXAM: CT CHEST/ABD/PEL W and CT thoracic and lumbar spine recons CLINICAL HISTORY: Right-sided back pain? Fall TECHNIQUE: Imaging Protocol: Axial computed tomography images with coronal and sagittal reformatted images were created and reviewed CONTRAST MATERIAL: Intravenous: Omnipaque 350 contrast volume:100 mL Oral: No COMPARISON: CT CT ABDOMEN PELVIS CTA from 03/31/[address] CHEST/ABD/PEL WO from 03/31/[address] THORACIC LUMBAR SPINE REC from 02/04/2023 FINDINGS: CHEST: Tracheobronchial tree: Patent where visualized. Pulmonary parenchyma: There are emphysematous changes in the lungs. Calcified granuloma are present. There is again seen scarring in the lateral aspect of the left lower lobe which has significantly i mproved. No focal consolidating infiltrates are seen. Visualized thyroid gland: Unremarkable. Mediastinum and Olga: No dominant adenopathy or fluid collection. The esophagus is unremarkable. Pleura: No effusion or pneumothorax. Heart: The heart is not dilated. Moderate coronary artery calcification is present. No pericardial e ffusion. Pulmonary arteries: The segmental and subsegmental pulmonary arteries are not well opacified. No lar ge central pulmonary embolus is seen. Aorta: Thoracic aorta non-dilated. Atherosclerosis is present. There is no evidence of dissection. Lymph nodes: Within normal limits. Soft tissues: Mild gynecomastia. There is a small fat containing midline anterior abdominal wall her namita in the epigastric region. Bones:Within normal limits for the patient's age. There are mildly displaced fractures involving the posterior aspects of the 10th, 11th and 12th right ribs. There also fractures of the lateral aspect of the 9th and 10th right ribs. There are old healed left rib fractures. CT thoracic spine recons: Degenerative changes are seen in the thoracic spine. No acute fractures or subluxations are present. ABDOMEN: Liver: Normal density. No measurable mass. Portal, Superior Mesenteric, and Splenic Veins: Unremarkable. Gallbladder and Biliary Tract: No radiodense calculus or dilation. Pancreas: Normal density, no abnormal calcifications or inflammatory process. Spleen: Normal. Adrenals: There are stable bilateral adrenal nodules. No follow-up is recommended. Kidneys: Normal size, contour and axis. No radiodense stones or obstructive uropathy. Stable simple l eft renal cysts. No follow-up is recommended. Abdominal Aorta: There is a stable 3.2 cm infrarenal abdominal aortic aneurysm. Atherosclerosis. Bowel: There is diverticulosis of the colon, but no evidence of acute diverticulitis. There is diffus e thickening of the wall of the stomach. This has a similar appearance compared to the prior examinat ion. There is a lack of distention of the stomach noted. There is a normal appendix. No evidence of b owel obstruction. Peritoneal Cavity: No ascites, collection or mesenteric inflammatory response. No free air. Lymph Nodes: Within normal limits. Bones: Within normal limits for the patient's age. Soft Tissues: Unremarkable. CT lumbar spine recons: Degenerative changes are seen in the lumbar spine. No acute fractures or subl uxations are present. PELVIS: Bladder: There is asymmetric thickening of the wall of the urinary bladder on the left. Reproductive Organs: Unremarkable as visualized. Lymph Nodes: Within normal limits. Bones: Within normal limits. IMPRESSION: 1. Fractures involving the right 9th through 12th ribs as described. No pneumothorax. 2. No acute fracture or subluxation in the thoracic or lumbar spine. 3. No acute pulmonary process. 4. No acute abdominal or pelvic organ injury. 5. Findings were discussed with Dr. Arredondo at 2:43 p.m. on 02/04/2023. RADIATION DOSE DELIVERED: 998.84 mGy.cm Total DLP DATA REPOSITORY: All CT scans at this facility are submitted to the National Radiology Data Registry (NRDR) Dose Index Registry (DIR) with the [employer] (ACR). RADIATION OPTIMIZATION: All CT scans at this facility use at least one of these dose optimization te chniques: automated exposure control; mA and/or kV adjustment per patient size (includes targeted exa ms where dose is matched to clinical indication); or iterative reconstruction.
[2023-02-04 11:59] VITALS: BP 143/77; PULSE 75; RESP 30; TEMP 36.5; O2SAT 100
--- NOTE | 2023-02-04 12:19 | W.ED.GENAD ---
Discharge Plan Disposition Patient Disposition: Home Discharge Details Clinical Impression: Multiple closed fractures of ribs of right side Primary Care Provider: Lily Soares ED Provider: Chris Arredondo Home Meds and New Rx's Prescriptions: New lidocaine [Lidoderm] 5 % adhesive patch,medicated 1 patch topical DAILY Qty: 15 0RF Rx Instructions: leave on most painful area for up to 12 hrs Continued trazodone 50 mg tablet 100 mg PO HS melatonin 3 mg tablet 3 mg PO HS Patient Comments: Per will increase to 6 mg qd next week. mirtazapine 45 mg tablet 45 mg PO QHS aspirin 81 MG tablet,chewable 81 mg PO DAILY nicotine 1 EACH patch 24 hour 14 mg Transdermal DAILY Slow-Mag 71.5 mg tablet,delayed release (DR/EC) 71.5 mg PO QHS acetaminophen [Tylenol 8 Hour] 650 mg tablet extended release 650 mg PO Q12H levothyroxine 125 MCG tablet 100 mcg PO DAILY@0730 Patient Comments: 02/08/18 PER SON 100 MCG DAILY. Centrum Silver 1 EACH tablet 1 ea PO DAILY citalopram 40 MG tablet 40 mg PO DAILY pantoprazole 40 MG tablet,delayed release (DR/EC) 40 mg PO DAILY Qty: 30 5RF atenolol 25 mg tablet 12.5 mg PO DAILY Patient Comments: Take 1/2 tablet by mouth every day thiamine mononitrate (vit B1) [Vitamin B-1 (mononitrate)] 100 mg Tablet 100 mg PO DAILY Qty: 14 0RF quetiapine 25 mg Tablet 25 mg PO BID PRN PRNQty: 28 0RF cefpodoxime 200 mg tablet 200 mg PO BID Qty: 10 0RF Rx Instructions: must administer with a meal/food doxycycline hyclate 100 mg tablet 100 mg PO BID Qty: 10 0RF Discharge Instructions Instructions: Rib Fracture (ED) Additional Instructions: please read all of the information that accompanies these instructions. You were seen in the emergency department for your pain. You are found to have 4 rib fractures. It was recommended that you be hospitalized. You declined hospitalization. Please schedule an appointment with your primary care provider later this week. Please return to the emergency department if develop worsening shortness of breath fevers chills worsening pain. For your pain please take medications as follows: 1. Take acetaminophen (Tylenol), 1,000 mg (two 500 mg tabs) every 6 hours. You are also receiving a prescription for patches of numbing medication which you should take as directed. Discharge Data Discharge Date/Time-TO BE ENTERED AT DEPARTURE: 02/04/23 15:21 Medical Decision Making This is an uncomfortable appearing normothermic and not tachycardic 77-year-old male with right-sided low back pain following a fall and history of bladder mass concerning for pathological fracture versus rib fractures. His primary survey is intact. He has a reassuring shock index. Patient is not hypoxic on room air. Given age and history of fall will proceed with CT chest abdomen pelvis and complete thoracic and lumbar spinal reconstruction. No reported head strike nor neck pain. No indication for CT head and CT cervical spine respectively. No chest pain to suggest ACS. No pain out of proportion to suggest necrotizing soft tissue infection. No rash to suggest zoster. No abdominal pain to suggest ruptured AAA. Per Nexus criteria, cervical CT not obtained. The patient had no c-spine midline tenderness, no evidence of intoxication, was AAOx3, had no focal neurological deficits, and no painful distracting injuries. 2:10 PM No ANGELO. Normal renal function. No acute electrolyte abnormalities. Mildly elevated glucose but no anion gap. CBC with no anemia but leukocytosis. No thrombocytopenia. 2:22 PM Patient still with significant pain despite IV acetaminophen. We will redose with morphine and provide Lidoderm patch. Patient had difficulty performing incentive spirometry and was only able to pull 750 cc. On my preliminary read it does appear the patient has at least 1 right-sided rib fracture. No pneumothorax. Patient has an allergy to ibuprofen. I talked the patient about this allergy and he reports that he has had an ulcer in the past. He now takes pantoprazole. We will defer ketorolac at this point time. 3 PM I asked health community health navigator Janene to have the patient seen by his PCP within the next week. I also advised that the patient be hospitalized given his multiple rib fractures. Radiology noted that the patient had 4 closed right-sided rib fractures. He declined hospitalization. He was able to pull 1000 cc on I-S. I offered to prescribe opiates but he declined as he reported that he felt dizzy with opiates. I advised outpatient Lidoderm patches and I prescribed these for him. 1. I explained the current situation and condition to the patient. 2. I explained the recommended treatment for this condition -hospitalization for pain control and respiratory monitoring with incentive spirometry 3. I explained the risk of not having the recommended treatment -uncontrolled pain with resultant shallow expirations and increased risk for pneumonia. 4. The patient understands this information has no questions, and repeated back this information. 5. The patient states that they need to leave and will return if his symptoms do not improve. 6. Mental status is lucid and the patient has decision-making capacity. 7. Patient is withdrawing his consent for care HPI General Date/Time Provider Initiated Documentation: 02/04/23 12:19. HPI Narrative: This is a 77-year-old male with a history of bladder mass arriving via EMS in the setting of right-sided back pain. Patient reports that he fell several days ago in the kitchen at home where he lives alone. He has had pain with movement ever since. He is a smoker but not a drinker. He has been in bed primarily since his injury. He denies any preceding syncope chest pain dysuria and frequency. His checked on him he reported this pain. His lives separately from him. He cannot recall exactly what led to him falling. He has not been nauseous vomiting or had any fevers or chills. He denies chest pain and shortness of breath. Related Data Home Medications Medication Instructions Recorded Confirmed levothyroxine 125 mcg tablet 100 mcg PO DAILY@0730 04/07/13 03/31/22 [id number]-[id number] acid 0.4 1 ea PO DAILY 04/07/13 03/31/22 mg-lycopene 300 mcg-lutein 250 mcg tablet (Centrum Silver) citalopram 40 mg tablet 40 mg PO DAILY 11/10/15 03/31/22 aspirin 81 mg chewable tablet 81 mg PO DAILY 01/04/17 09/25/19 pantoprazole 40 mg tablet,delayed 40 mg PO DAILY ##30 05/03/17 03/31/22 release nicotine 14 mg/24 hr daily 14 mg transdermal DAILY 02/07/18 09/25/19 transdermal patch melatonin 3 mg tablet 3 mg PO HS 09/25/19 03/31/22 mirtazapine 45 mg tablet 45 mg PO QHS 09/25/19 03/31/22 trazodone 50 mg tablet 100 mg PO HS 09/25/19 03/31/22 atenolol 25 mg tablet 12.5 mg PO DAILY 03/31/22 03/31/22 quetiapine 25 mg tablet 25 mg PO BID PRN PRN #28 tabs 04/04/22 thiamine mononitrate (vit B1) 100 100 mg PO DAILY #14 tabs 04/04/22 mg tablet (Vitamin B-1 (mononitrate)) cefpodoxime 200 mg tablet 200 mg PO BID #10 tabs 04/08/22 doxycycline hyclate 100 mg tablet 100 mg PO BID #10 tabs 04/08/22 acetaminophen 650 mg 650 mg PO Q12H 10/29/22 tablet,extended release (Tylenol 8 Hour) magnesium chloride 71.5 mg 71.5 mg PO QHS 10/29/22 (magnesium chloride) tablet,delayed release (Slow-Mag) lidocaine 5 % topical patch 1 patch topical DAILY #15 ea 02/04/23 (Lidoderm) Previous Rx's Medication Instructions Recorded pantoprazole 40 mg tablet,delayed 40 mg PO DAILY ##30 05/03/17 release quetiapine 25 mg tablet 25 mg PO BID PRN PRN #28 tabs 04/04/22 thiamine mononitrate (vit B1) 100 100 mg PO DAILY #14 tabs 04/04/22 mg tablet (Vitamin B-1 (mononitrate)) cefpodoxime 200 mg tablet 200 mg PO BID #10 tabs 04/08/22 doxycycline hyclate 100 mg tablet 100 mg PO BID #10 tabs 04/08/22 lidocaine 5 % topical patch 1 patch topical DAILY #15 ea 02/04/23 (Lidoderm) Allergies Allergy/AdvReac Type Severity Reaction Status Date / Time ibuprofen Allergy Severe Unverified 03/31/22 12:04 varenicline tartrate AdvReac Severe Psychosis Unverified 03/31/22 12:04 [From Chantix] General Stated Complaint: Nk/Back Pain WINSTON: 3 PFSH All Active Problems (Updated 02/04/23 @ 14:58 by Chris Arredondo MD) Multiple closed fractures of ribs of right side (Acute) Malaise and fatigue (Acute) Cavitary lesion of lung (Acute) Hematuria (Acute) Alzheimer disease (Chronic) Elevated liver function tests (Acute) Transaminitis (Acute) Hyperbilirubinemia (Acute) Confusion (Acute) Generalized weakness (Acute) Bladder mass (Acute) Upper gastrointestinal bleed (Acute 07/31/13) With melena and drop in hemoglobin Anxiety (Acute 07/31/13) Agitation (Acute 07/31/13) Anxiety and depression (Chronic) Hypothyroidism (Chronic) On satins. Hyperlipidemia (Chronic) Periodic limb movement disorder (Chronic) On benzodiazepines. 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 Colon polyp Cough Depression Diverticulitis Duodenal perforation History of alcohol abuse Hyperlipidemia Hypothyroidism Insomnia Neurocardiogenic syncope Osteoarthritis Palliative care patient Peptic ulcer Perforated duodenal ulcer Right shoulder pain Shortness of breath Tobacco abuse Surgical History Colonoscopy - MAC (05/03/17) Colonoscopy - MAC (03/11/18) EGD - MAC (05/03/17) Kidney Laparotomy (09/10/16) with duodenal ulcer repair Family History Mother Dementia Father Heart disease Social History Smoking/Tobacco Use Status: Current every day Tobacco Type: cigarettes Smoking risk assessment performed?: Yes Alcohol Intake: former Drug use: Never Do you feel safe at home: Yes Do you feel safe in your relationship?: Yes Exam Narrative Exam Narrative: General: Uncomfortable-appearing in no acute distress speaking in complete sentences. Head: Normocephalic, atraumatic. Eye: Pupils equal, round reactive to light. Extraocular eye movements intact. No conjunctival injection. No scleral icterus. Ear, nose, mouth, throat: Grossly normal inspection. Normal voice, handling secretions normally. Neck: Trachea midline. No neck tenderness. Cardiovascular: Well-perfused distal extremities. regular rate and rhythm Respiratory: Nonlabored respiration. Clear lungs bilaterally. Gastrointestinal: Nondistended abdomen. Soft nontender abdomen. Back: Right-sided CVA tenderness and right-sided posterior rib tenderness. Right paraspinal and midline lumbar spinal tenderness. Musculoskeletal: No edema. Moving all 4 extremities spontaneously. Pelvis stable to anterior posterior compression and lateral compression. Skin: Normal for age and race, grossly normal temperature and turgor. No acute rash. Neurologic: Alert and appropriate, no apparent acute deficits. Psychiatric: Mood and manner are appropriate. Grooming and personal hygiene are appropriate. Course Vital Signs Vital signs: Vital Signs Temperature 36.5 C 02/04/23 11:59 Pulse 75 02/04/23 11:59 Respiratory Rate 30 H 02/04/23 11:59 Blood Pressure 143/77 H 02/04/23 11:59 Pulse Oximetry 100 02/04/23 11:59 Temperature 36.5 C 02/04/23 11:59 Temperature Source Oral 02/04/23 11:59 Pulse 75 02/04/23 11:59 Respiratory Rate 30 H 02/04/23 11:59 Blood Pressure 143/77 H 02/04/23 11:59 Blood Pressure Position Sitting 02/04/23 11:59 Pulse Oximetry 100 02/04/23 11:59 Oxygen Delivery Method Room Air 02/04/23 11:59 Oxygen Flow Rate 0 02/04/23 11:59 Pain Level 4 02/04/23 12:06
[2023-02-04] MEDS: fentaNYL 100 MCG/2 ML VIAL 50 MCG IVP (12:57)
[2023-02-04 13:15] LABS: Abs Immature Grans 0.07 10^3/uL (0.0-0.06); Absolute Eosinophil Count 0.07 10^3/uL (0.0-0.7); Basophils % 0.2; Eosinophils % 0.6; HCT 45.1 % (40.0-50.0); HGB 14.3 g/dL (13.5-17.5); Immature Grans % 0.6; Lymphocytes % 13.1; MCH 25.8 pg (27.0-33.0); MCHC 31.7 % (32.0-36.0); MCV 81 fL (80-95); MPV 9.6 fL (8.0-11.0); Monocytes % 10.6; Neutrophils % 74.9; Platelet Count 311 10^3/uL (130-400); RBC 5.54 10^6/uL (4.36-5.78); RDW 15.5 % (11.8-14.1); WBC 12.25 10^3/uL (4.4-10.8)
[2023-02-04 13:16] LABS: Absolute Basophil Count 0.02 10^3/uL (0.0-0.2); Absolute Neutrophil Count 9.18 10^3/uL (1.2-6.7)
[2023-02-04 13:22] LABS: Anion Gap 0.7 mmol/L (3-11); BUN 13 mg/dL (7-18); CO2 34.3 mmol/L (21.0-32.0); Calcium 9.1 mg/dL (8.5-10.1); Chloride 103 mmol/L (98-107); Estimated GFR 77.52 (mL/min/1.73m2); Glucose 110 mg/dL (74-106); Potassium 4.5 mmol/L (3.5-5.1); Sodium 138 mmol/L (136-145)
[2023-02-04] MEDS: ACETAMINOPHEN 1,000 MG/100 ML BTL 400 MG IVPB (13:29)
[2023-02-04] MEDS: Omnipaque 350 MG/ML 500 ML BTL-Imaging package 100 ML IJ (13:46)
[2023-02-04] MEDS: Normal Saline - Diluent 50 ML VIAL IJ (13:47)
[2023-02-04] MEDS: MORPHine 4 MG/ML SYR IVP (14:33)
[2023-02-04] MEDS: Lidocaine 5% Patch 2 PATCH TP (14:33)
[2023-02-04 15:14] VITALS: BP 151/90; PULSE 75; TEMP 36.7; O2SAT 96
--- NOTE | 2023-02-04 15:25 | NUR.NOTE ---
Nursing Note: Referral faxed to PCP for mulitple fractures, within 1 week
== END 2023-02-04 15:21 | disposition home or self-care (01) ==
PROVIDERS: Emergency Provider Emergency Medicine; PCP Nurse Practitioner Family
DX: S22.41XA Multiple fractures of ribs, right side, initial encounter for closed fracture (principal); W19.XXXA Unspecified fall, initial encounter; R73.9 Hyperglycemia, unspecified; D72.829 Elevated white blood cell count, unspecified; E03.9 Hypothyroidism, unspecified; Z79.82 Long term (current) use of aspirin
CPT/HCPCS: 74177; 80048; 96374; 96375; 99285; 71260; 85025; 99284; J0131; J2270; J3010

== ENCOUNTER 2023-04-07 15:29 | Emergency (ER) | payer MEDICARE, SELFPAY ==
[2023-04-07 15:33] VITALS: BP 161/83; PULSE 74; RESP 18; TEMP 36.1; O2SAT 96
--- NOTE | 2023-04-07 15:45 | W.ED.GENAD ---
Discharge Plan Disposition Patient Disposition: Home Condition: Stable Discharge Details Clinical Impression: Acute bacterial conjunctivitis of left eye Primary Care Provider: Lily Soares ED Provider: Chrissy Webster Home Meds and New Rx's Prescriptions: Continued trazodone 50 mg tablet 100 mg PO HS melatonin 3 mg tablet 3 mg PO HS Patient Comments: Per will increase to 6 mg qd next week. mirtazapine 45 mg tablet 45 mg PO QHS aspirin 81 MG tablet,chewable 81 mg PO DAILY nicotine 1 EACH patch 24 hour 14 mg Transdermal DAILY Slow-Mag 71.5 mg tablet,delayed release (DR/EC) 71.5 mg PO QHS acetaminophen [Tylenol 8 Hour] 650 mg tablet extended release 650 mg PO Q12H levothyroxine 125 MCG tablet 100 mcg PO DAILY@0730 Patient Comments: 02/08/18 PER SON 100 MCG DAILY. Centrum Silver 1 EACH tablet 1 ea PO DAILY citalopram 40 MG tablet 40 mg PO DAILY pantoprazole 40 MG tablet,delayed release (DR/EC) 40 mg PO DAILY Qty: 30 5RF lidocaine [Lidoderm] 5 % adhesive patch,medicated 1 patch topical DAILY Qty: 15 0RF Rx Instructions: leave on most painful area for up to 12 hrs atenolol 25 mg tablet 12.5 mg PO DAILY Patient Comments: Take 1/2 tablet by mouth every day thiamine mononitrate (vit B1) [Vitamin B-1 (mononitrate)] 100 mg Tablet 100 mg PO DAILY Qty: 14 0RF quetiapine 25 mg Tablet 25 mg PO BID PRN PRNQty: 28 0RF cefpodoxime 200 mg tablet 200 mg PO BID Qty: 10 0RF Rx Instructions: must administer with a meal/food doxycycline hyclate 100 mg tablet 100 mg PO BID Qty: 10 0RF Discharge Instructions Instructions: Erythromycin (Into the eye), Conjunctivitis (ED) Additional Instructions: Apply the eye ointment 3 times a day for the next 5 to 7 days as directed. Follow-up with ophthalmology should be family eye care in 1 to 2 weeks. Return to the ER for any headache, weakness or any concerns. Follow up with primary care provider in 3-5 days. Return to ED sooner if any worsening or concerns. Increase oral fluids. Referrals: [facility] [Outside] - 1 week Lily Soares [Primary Care Provider] - 3 days Discharge Data Discharge Date/Time-TO BE ENTERED AT DEPARTURE: 04/07/23 16:53 Medical Decision Making 78-year-old male presents to the ER accompanied by his family with chief complaint of left eye drainage and blurry vision for the last few days. He does have injected conjunctive a, slight purulent drainage. Denies any headache falls or weakness. Does have a history of Alzheimer's disease, hyper bili Ronaldo anemia generalized weakness, anxiety depression hypothyroidism hyperlipidemia. Will perform Ruby lamp exam, I am concerned due to loss of red reflex and blurry vision. We will check intraocular pressure. Differential diagnosis includes but not limited to conjunctivitis, acute angle glaucoma, retinopathy, macular degeneration visual acuity per staff counselor is 2100 he does normally wear eyeglasses which he is not wearing. Ruby lamp exam performed no uptake in dye, intraocular pressure tested 14.0. Suspect conjunctivitis there is purulent drainage. This text was generated using [employer] dictation system, please disregard any oddities of phrase or misspellings. HPI General Mode of arrival: ambulatory. Date/Time Provider Initiated Documentation: 04/07/23 15:38. Limitations to Documentation: no limitations. Information obtained by: patient, family, RN notes reviewed and old records reviewed. HPI Narrative: 78-year-old male presents to the ER accompanied by his family with chief complaint of left eye drainage and blurry vision for the last few days. He does have injected conjunctive a, slight purulent drainage. Denies any headache falls or weakness. Does have a history of Alzheimer's disease, hyper bili Ronaldo anemia generalized weakness, anxiety depression hypothyroidism hyperlipidemia. Related Data Home Medications Medication Instructions Recorded Confirmed levothyroxine 125 mcg tablet 100 mcg PO DAILY@0730 04/07/13 04/07/23 [id number] acid 0.4 1 ea PO DAILY 04/07/13 04/07/23 mg-lycopene 300 mcg-lutein 250 mcg tablet (Centrum Silver) citalopram 40 mg tablet 40 mg PO DAILY 11/10/15 04/07/23 aspirin 81 mg chewable tablet 81 mg PO DAILY 01/04/17 04/07/23 pantoprazole 40 mg tablet,delayed 40 mg PO DAILY ##30 05/03/17 03/31/22 release nicotine 14 mg/24 hr daily 14 mg transdermal DAILY 02/07/18 04/07/23 transdermal patch melatonin 3 mg tablet 3 mg PO HS 09/25/19 04/07/23 mirtazapine 45 mg tablet 45 mg PO QHS 09/25/19 04/07/23 trazodone 50 mg tablet 100 mg PO HS 09/25/19 04/07/23 atenolol 25 mg tablet 12.5 mg PO DAILY 03/31/22 04/07/23 quetiapine 25 mg tablet 25 mg PO BID PRN PRN #28 tabs 04/04/22 04/07/23 thiamine mononitrate (vit B1) 100 100 mg PO DAILY #14 tabs 04/04/22 04/07/23 mg tablet (Vitamin B-1 (mononitrate)) cefpodoxime 200 mg tablet 200 mg PO BID #10 tabs 04/08/22 doxycycline hyclate 100 mg tablet 100 mg PO BID #10 tabs 04/08/22 04/07/23 acetaminophen 650 mg 650 mg PO Q12H 10/29/22 04/07/23 tablet,extended release (Tylenol 8 Hour) magnesium chloride 71.5 mg 71.5 mg PO QHS 10/29/22 04/07/23 (magnesium chloride) tablet,delayed release (Slow-Mag) lidocaine 5 % topical patch 1 patch topical DAILY #15 ea 02/04/23 04/07/23 (Lidoderm) Previous Rx's Medication Instructions Recorded pantoprazole 40 mg tablet,delayed 40 mg PO DAILY ##30 05/03/17 release quetiapine 25 mg tablet 25 mg PO BID PRN PRN #28 tabs 04/04/22 thiamine mononitrate (vit B1) 100 100 mg PO DAILY #14 tabs 04/04/22 mg tablet (Vitamin B-1 (mononitrate)) cefpodoxime 200 mg tablet 200 mg PO BID #10 tabs 04/08/22 doxycycline hyclate 100 mg tablet 100 mg PO BID #10 tabs 04/08/22 lidocaine 5 % topical patch 1 patch topical DAILY #15 ea 02/04/23 (Lidoderm) Allergies Allergy/AdvReac Type Severity Reaction Status Date / Time ibuprofen Allergy Severe Other (See Unverified 04/07/23 15:38 Comment) varenicline tartrate AdvReac Severe Psychosis Unverified 06/28/23 15:38 [From Chantix] General Stated Complaint: EyeProblem [place]: 3 Review of Systems All systems reviewed & are unremarkable except as noted in HPI and below Eyes Eyes: Reports blurry vision, Reports eye discharge and Reports loss of vision Neurologic Neurologic: Reports loss of vision PFSH All Active Problems (Updated 04/07/23 @ 16:41 by Chrissy Webster NP) Multiple closed fractures of ribs of right side (Acute) Acute bacterial conjunctivitis of left eye (Acute) Malaise and fatigue (Acute) Cavitary lesion of lung (Acute) Hematuria (Acute) Alzheimer disease (Chronic) Elevated liver function tests (Acute) Transaminitis (Acute) Hyperbilirubinemia (Acute) Confusion (Acute) Generalized weakness (Acute) Bladder mass (Acute) Upper gastrointestinal bleed (Acute 07/31/13) With melena and drop in hemoglobin Anxiety (Acute 07/31/13) Agitation (Acute 07/31/13) Anxiety and depression (Chronic) Hypothyroidism (Chronic) On satins. Hyperlipidemia (Chronic) Periodic limb movement disorder (Chronic) On benzodiazepines. 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 Colon polyp Cough Depression Diverticulitis Duodenal perforation History of alcohol abuse Hyperlipidemia Hypothyroidism Insomnia Neurocardiogenic syncope Osteoarthritis Palliative care patient Peptic ulcer Perforated duodenal ulcer Right shoulder pain Shortness of breath Tobacco abuse Surgical History Colonoscopy - MAC (05/03/17) Colonoscopy - MAC (03/11/18) EGD - MAC (05/03/17) Kidney Laparotomy (09/10/16) with duodenal ulcer repair Family History Mother Dementia Father Heart disease Social History Smoking/Tobacco Use Status: Current every day Tobacco Type: cigarettes Smoking risk assessment performed?: Yes Alcohol Intake: former Drug use: Never Substance use type: does not use Do you feel safe at home: Yes Do you feel safe in your relationship?: Yes Exam Eyes Alignment and Position: alignment normal Periorbital: periorbital findings normal Eyelids: eyelids normal Conjunctivae: conjunctival abnormality left conjunctival injection diffuse Cornea: corneas normal and fluorescein used EOM: EOM intact bilaterally Course Vital Signs Vital signs: Vital Signs Temperature 36.1 C L 04/07/23 15:33 Pulse 74 04/07/23 15:33 Respiratory Rate 18 04/07/23 15:33 Blood Pressure 161/83 H 04/07/23 15:33 Pulse Oximetry 96 04/07/23 15:33 Temperature 36.1 C L 04/07/23 15:33 Temperature Source Skin 04/07/23 15:33 Pulse 74 04/07/23 15:33 Respiratory Rate 18 04/07/23 15:33 Respiratory Effort Normal 04/07/23 15:41 Blood Pressure 161/83 H 04/07/23 15:33 Blood Pressure Position Supine 04/07/23 15:33 Pulse Oximetry 96 04/07/23 15:33 Oxygen Delivery Method Room Air 04/07/23 15:33 Oxygen Flow Rate 0 04/07/23 15:33 Pain Level 0 04/07/23 15:33
[2023-04-07] MEDS: Erythromycin Ophth Oint 3.5 GM TUBE OP (16:50)
[2023-04-07] MEDS: Tetracaine 0.5% 4 ML BTL OP (16:50)
[2023-04-07] MEDS: Balanced Salt Solution 15 ML BTL OP (16:50)
[2023-04-07] MEDS: Fluorescein STRIPS 100/BOX 1 MG OP (16:51)
[2023-04-07 16:52] VITALS: BP 138/64; PULSE 86; RESP 18; O2SAT 95
== END 2023-04-07 16:53 | disposition home or self-care (01) ==
PROVIDERS: Emergency Provider Registered Nurse Emergency; PCP Nurse Practitioner Family
DX: H10.32 Unspecified acute conjunctivitis, left eye (principal)
CPT/HCPCS: 99283

== ENCOUNTER 2023-05-27 19:15 | Outpatient (REF) | payer MEDICARE, SELFPAY ==
[2023-05-27 21:28] LABS: ALT 24 U/L (16-63); AST 23 U/L (15-37); Albumin 3.4 g/dL (3.4-5.0); Alkaline Phosphatase 120 U/L (46-116); Anion Gap 6.2 mmol/L (3-11); BUN 12 mg/dL (7-18); Bilirubin, Total 0.3 mg/dL (0.2-1.0); CO2 32.8 mmol/L (21.0-32.0); Chloride 106 mmol/L (98-107); Estimated GFR 77.04 (mL/min/1.73m2); Glucose 94 mg/dL (74-106); Potassium 5.1 mmol/L (3.5-5.1); Sodium 145 mmol/L (136-145); TSH (W/Ref FT4) 2.34 uIU/mL (0.36-3.74); Total Protein 6.6 g/dL (6.4-8.2); Vitamin B12 598 pg/mL (193-986)
== END 2023-05-27 19:16 | disposition home or self-care (01) ==
LOC: NCHCN 19:15
PROVIDERS: PCP Nurse Practitioner Family; Visit Provider Nurse Practitioner Family
DX: F02.80 Dementia in other diseases classified elsewhere, unspecified severity, without behavioral disturbance, psychotic disturbance, mood disturbance, and anxiety (principal); R55 Syncope and collapse; F41.8 Other specified anxiety disorders; R79.89 Other specified abnormal findings of blood chemistry; E83.42 Hypomagnesemia; R05.8 Other specified cough; R74.8 Abnormal levels of other serum enzymes; E03.9 Hypothyroidism, unspecified; R26.89 Other abnormalities of gait and mobility
CPT/HCPCS: 80053; 82607; 83735; 84443

== ENCOUNTER 2024-03-09 16:30 | Outpatient (REF) | payer MEDICARE, SELFPAY ==
[2024-03-09 21:27] LABS: TSH (W/Ref FT4) 2.89 uIU/mL (0.36-3.74)
== END 2024-03-09 16:31 | disposition home or self-care (01) ==
LOC: NCHCN 16:30
PROVIDERS: PCP Nurse Practitioner Family; Visit Provider Nurse Practitioner Family
DX: E03.9 Hypothyroidism, unspecified (principal)
CPT/HCPCS: 84443

== ENCOUNTER 2024-08-21 17:30 | Inpatient (IN) | payer MEDICARE, SELFPAY ==
[2024-08-21] VITALS (50 sets, daily range): BP systolic 117–154; BP diastolic 56–107; PULSE 49–107; RESP 12–35; TEMP 36.6; O2SAT 81–99
--- NOTE | 2024-08-21 17:30 | RT.EKG_ITS ---
APPROVED REPORT Exam: Resting ECG Reason for Exam: dizzy Patient Location: E HR:78 bpm ECG Measurements Heart Rate 78 AXIS MI 161 P 71 QRSd 144 QRS 1 QT 468 T 59 QTc 523 Conclusion Sinus rhythm...normal P axis, V-rate 60- 99 Atrial premature complexes...SV complexes w/ short R-R intvls Left bundle branch block...QRSd>120, broad/notched R ST elevation secondary to IVCD...Multiple VCG criteria limited interp 2/t baseline artificant, repeat requested
--- NOTE | 2024-08-21 17:30 | RT.EKG_ITS ---
APPROVED REPORT Exam: Resting ECG Reason for Exam: Syncope Patient Location: E HR:76 bpm ECG Measurements Heart Rate 76 AXIS WA 169 P 77 QRSd 144 QRS 45 QT 462 T 100 QTc 513 Conclusion Sinus rhythm...normal P axis, V-rate 60- 99 Left bundle branch block...QRSd>120, broad/notched R ST elevation secondary to IVCD...Multiple VCG criteria limited interp 2/t baseline artificant, repeat requested
--- NOTE | 2024-08-21 17:45 | DI.RAD_ITS ---
Exam(s) XR PORTABLE CHEST AP EXAM: XR PORTABLE CHEST AP CLINICAL HISTORY: hypoxia TECHNIQUE: 2D digital imaging was performed of the chest. One image was obtained. An AP view was ob tained. COMPARISON: CR PORTABLE CHEST ONE VIEW from 09/12/2016 CR ABD FLAT UPRIGHT PA CHEST from 09/28/[address] THORACIC LUMBAR SPINE REC from 02/04/2023 FINDINGS: MEDIASTINUM: Normal. HEART: Normal. PULMONARY VASCULATURE: Normal. LUNGS: No focal consolidating infiltrates are present. PLEURAL SPACE: No pleural effusion or pneumothorax. BONE:Within normal limits for the patient's age. Old healed left rib fractures. OTHER FINDINGS:Normal. IMPRESSION: No acute pulmonary findings. DATA REPOSITORY: RADIATION DOSE DELIVERED:
--- NOTE | 2024-08-21 17:45 | RT.EKG_ITS ---
APPROVED REPORT Exam: Resting ECG Reason for Exam: dizzy Patient Location: E HR:77 bpm ECG Measurements Heart Rate 77 AXIS CA 150 P 65 QRSd 146 QRS 23 QT 507 T 83 QTc 568 Conclusion Sinus rhythm...normal P axis, V-rate 60- 99 Left bundle branch block...QRSd>120, broad/notched R ST elevation secondary to IVCD...Multiple VCG criteria Prolonged QT interval...QTc >500mS no ST segment or T wave abnormalities to suggest occlusive NM
--- NOTE | 2024-08-21 18:21 | ED.GENADUL_ITS ---
Discharge Plan Disposition Patient Disposition: Admit to [facility] Condition: Serious Discharge Details Chief Complaint: GenMedical Clinical Impression: Hypoxic respiratory failure, Hematuria, Dementia Primary Care Provider: Lily Soares ED Provider: Megan Franklin Home Meds and New Rx's Prescriptions: No Action trazodone 50 mg tablet 100 mg PO HS melatonin 3 mg tablet 3 mg PO HS Patient Comments: Per will increase to 6 mg qd next week. mirtazapine 45 mg tablet 45 mg PO QHS aspirin 81 MG tablet,chewable 81 mg PO DAILY nicotine 1 EACH patch 24 hour 14 mg Transdermal DAILY Slow-Mag 71.5 mg tablet,delayed release (DR/EC) 71.5 mg PO QHS acetaminophen [Tylenol 8 Hour] 650 mg tablet extended release 650 mg PO Q12H levothyroxine 125 MCG tablet 100 mcg PO DAILY@0730 Patient Comments: 02/08/18 PER SON 100 MCG DAILY. Centrum Silver 1 EACH tablet 1 ea PO DAILY citalopram 40 MG tablet 40 mg PO DAILY pantoprazole 40 MG tablet,delayed release (DR/EC) 40 mg PO DAILY Qty: 30 5RF lidocaine [Lidoderm] 5 % adhesive patch,medicated 1 patch topical DAILY Qty: 15 0RF Rx Instructions: leave on most painful area for up to 12 hrs atenolol 25 mg tablet 12.5 mg PO DAILY Patient Comments: Take 1/2 tablet by mouth every day thiamine mononitrate (vit B1) [Vitamin B-1 (mononitrate)] 100 mg Tablet 100 mg PO DAILY Qty: 14 0RF quetiapine 25 mg Tablet 25 mg PO BID PRN PRNQty: 28 0RF HPI General Mode of arrival: ambulatory . Date/Time Provider Initiated Documentation: 08/21/24 17:31 . Limitations to Documentation: no limitations . Information obtained by: patient and family . HPI Narrative: 79yo M with hx Alzheimers, hypothyroid, lung mass, presenting for hematuria. History primarily from ex- at bedside; she does not live with him but checks on him frequently. She reports that she noted blood in his urine today in the toilet. He has also been complaining of lightheadedness when he stands up; this is not new and has been going on for months. He is not on oxygen at home; ex- reports that they have been told he cannot be on oxygen because he smokes, but that when he goes to the doctor his O2 is usually so low that they can't detect it. Patient reports that he feels short of breath currently. Denies chest pain or lightheadedness. Denies fevers, chills, rash, abdominal pain, dysuria, nausea, vomiting, diarrhea, cough, rhinnorhea, or other concerns. Related Data Home Medications ?Medication ?Instructions ?Recorded ?Confirmed levothyroxine 125 mcg tablet 100 mcg PO DAILY@0730 04/07/13 08/21/24 xtrqwbxf-jfz-bujnu acid 0.4 1 ea PO DAILY 04/07/13 08/21/24 mg-lycopene 300 mcg-lutein 250 mcg tablet (Centrum Silver) citalopram 40 mg tablet 40 mg PO DAILY 11/10/15 08/21/24 aspirin 81 mg chewable tablet 81 mg PO DAILY 01/04/17 08/21/24 pantoprazole 40 mg tablet,delayed 40 mg PO DAILY ##30 05/03/17 08/21/24 release nicotine 14 mg/24 hr daily 14 mg transdermal DAILY 02/07/18 08/21/24 transdermal patch melatonin 3 mg tablet 3 mg PO HS 09/25/19 08/21/24 mirtazapine 45 mg tablet 45 mg PO QHS 09/25/19 08/21/24 trazodone 50 mg tablet 100 mg PO HS 09/25/19 08/21/24 atenolol 25 mg tablet 12.5 mg PO DAILY 03/31/22 08/21/24 quetiapine 25 mg tablet 25 mg PO BID PRN PRN #28 tabs 04/04/22 08/21/24 thiamine mononitrate (vit B1) 100 100 mg PO DAILY #14 tabs 04/04/22 08/21/24 mg tablet (Vitamin B-1 (mononitrate)) acetaminophen 650 mg 650 mg PO Q12H 10/29/22 08/21/24 tablet,extended release (Tylenol 8 Hour) magnesium chloride 71.5 mg 71.5 mg PO QHS 10/29/22 08/21/24 (magnesium chloride) tablet,delayed release (Slow-Mag) lidocaine 5 % topical patch 1 patch topical DAILY #15 ea 02/04/23 08/21/24 (Lidoderm) Previous Rx's ?Medication ?Instructions ?Recorded pantoprazole 40 mg tablet,delayed 40 mg PO DAILY ##30 05/03/17 release quetiapine 25 mg tablet 25 mg PO BID PRN PRN #28 tabs 04/04/22 thiamine mononitrate (vit B1) 100 100 mg PO DAILY #14 tabs 04/04/22 mg tablet (Vitamin B-1 (mononitrate)) lidocaine 5 % topical patch 1 patch topical DAILY #15 ea 02/04/23 (Lidoderm) Allergies Allergy/AdvReac Type Severity Reaction Status Date / Time ibuprofen Allergy Severe Other (See Unverified 08/21/24 17:45 Comment) varenicline tartrate (From AdvReac Severe Psychosis Unverified 08/21/24 17:45 Chantix) General Stated Complaint: GenMedical WINSTON: 2 Review of Systems Narrative: see HPI Exam Narrative Exam Narrative: General: Alert, chronically ill appearing, in no acute distress. Head: Normocephalic, atraumatic Neck: Trachea midline, ?Neck supple. ENT: ?MMM.? Cardiac: ?RRR, no murmurs appreciated Resp: Tachypneic. CTAB. Abd: ?Soft, non-distended, nontender : ?No suprapubic tenderness. Extremities: ?No deformities.? No peripheral edema. Neurologic: GCS 14. ? Moves all extremities freely against gravity Course Vital Signs Vital signs: Vital Signs Temperature 36.6 C 08/21/24 17:34 Pulse 80 08/21/24 17:34 Respiratory Rate 35 H 08/21/24 17:34 Blood Pressure 138/84 08/21/24 17:34 Pulse Oximetry 82 L 08/21/24 17:34 Temperature 36.6 C 08/21/24 17:34 Temperature Source Oral 08/21/24 17:34 Pulse 80 08/21/24 17:34 Respiratory Rate 35 H 08/21/24 17:34 Respiratory Effort Short of Breath, Labored, Accessory Muscle Use 08/21/24 17:46 Blood Pressure 138/84 08/21/24 17:34 Pulse Oximetry 82 L 08/21/24 17:34 Oxygen Delivery Method Room Air 08/21/24 17:34 Oxygen Flow Rate 0 08/21/24 17:34 Pain Level 6 08/21/24 17:34 Comment 2 liters applied 08/21/24 17:34 Medical Decision Making 79yo M with hx Alzheimers, hypothyroid, lung mass, presenting for hematuria. History primarily from ex- at bedside; she does not live with him but checks on him frequently, states she brought him here for worsening confusion, hematuria (unsue how long, first noted today), and dizziness upon standing (present for several months). Patient tachypneic and hypoxic to 82% on room air on arrival, vital signs otherwise reassuring; placed on 5L NC with improvement to 94%. He does report shortness of breath but otherwise denies complaints. Not on oxygen at home; ex- reports this is because he smokes but states that his O2 is usually so low that they can't detect it when he goes to the doctor. No known COPD or CHF. Lungs CTAB with no increased work of breathing. -EKG on arrival SR, LBBB, no ST segment or T wave abnormalities to suggest occlusive MN. -Labs reviewed as below, CBC with leukocytosis to 15, mild anemia Hg 12.4. CMP with no actionable abnormalities. Troponin normal x 2. BNP elevated at ~5300, no prior available and pt with no hx CHF. TSH elevated with normal T4. VBG with mild hypercapnea at 60. Lactate reassuring. Ammonia normal. Urine equivicoal for UTI; 10-20 WBC with marked hematuria, negative nitrate and leuk esterace. -CXR independently reviewed; no focal pneumonia or pneumothorax on my view, agree with radiology read below. Unclear etiology of hypoxia; not overtly volume overloaded on exam and not wheezing. Smoking hx suggestive of COPD, BNP elevations concerning for CHF. Will treat with stacked duonebs, solumedrol, ceftriaxone (would cover possible UTI as well) while awaiting CT to evaluate for pulmonary embolism. -CTA for PE independently reviewed; no large saddle embolus on my view, radiology read below, found to have centrilobular emphysema, with chronic obstructive pulmonary physiologic changes. On reassessment his respiratory status remains unchanged, requiring 4-5L NC to maintain sat >94%, desats to 84% on room air. This is likely chronic based on his history and CT findings however he has no oxygen at home and currently bears no formal diagnosis of COPD/emphysema, and his BNP is also concerning for possible CHF. Findings discussed with patient; he is hesitant to remain in the hospital but after discussion with his ex- he does agree to stay for further treatment. Discussed with [facility] hospitalist Dr. Alamo and patient accepted to medicine service for further workup and management. Awaiting admission orders and transfer to the floor. Imaging Data Radiologic Study: Imaging: CT Scan Radiologist's impression: IMPRESSION: 1. No acute pulmonary emboli. 2. Bilateral upper and lower lobe bronchial wall thickening, compatible with reactive airway disease or bronchitis. 3. Small bilateral pleural effusions. 4. Irregular, patchy ground- glass opacities within the anterior left upper lobe, lingula, right middle lobe, and left lower lobe, likely areas of atelectasis and/or pneumonitis. Recommend follow-up. 5. Partially visualized left hydronephrosis or left parapelvic cysts. Lab Data Lab results reviewed: Yes I reviewed the patient's lab results. Labs: 08/21/24 18:20 Urine - Reflex from Ua Urine Culture - Pending Laboratory Tests Range/Units 08/21/24 08/21/24 08/21/24 18:00 18:05 18:20 WBC (4.4-10.8) 10^3/uL 15.74 H RBC (4.36-5.78) 10^6/uL 4.95 Hgb (13.5-17.5) g/dL 12.4 L Hct (40.0-50.0) % 39.8 L MCV (80-95) fL 80 MCH (27.0-33.0) pg 25.1 L MCHC (32.0-36.0) % 31.2 L RDW (11.8-14.1) % 16.2 H Plt Count (130-400) 10^3/uL 426 H MPV (8.0-11.0) fL 10.0 Immature Gran % % 0.8 Neutrophils % % 87.4 Lymphocytes % % 6.7 Monocytes % % 4.4 Eosinophils % % 0.4 Basophils % % 0.3 Nucleated RBC % (0.0-0.3) % 0.0 Absolute Neutrophils (1.2-6.7) 10^3/uL 13.76 H Absolute Lymphocytes (1.2-3.4) 10^3/uL 1.05 L Absolute Monocytes (0.1-0.8) 10^3/uL 0.69 Absolute Eosinophils (0.0-0.7) 10^3/uL 0.06 Absolute Basophils (0.0-0.2) 10^3/uL 0.05 VBG pH (7.31-7.41) 7.36 VBG pCO2 (41-51) mmHg 60 H VBG pO2 mmHg 39 VBG HCO3 (23-28) mmol/L 34 H VBG Total CO2 (24-29) mmol/L 31 H VBG O2 Saturation % 70 VBG Base Excess (-2-3) mmol/L 9 H VBG Lactate (0.6-1.4) mmol/L 1.5 H Sodium (136-145) mmol/L 148 H Potassium (3.5-5.1) mmol/L 3.8 Chloride (98-107) mmol/L 108 H Carbon Dioxide (21.0-32.0) mmol/L 33.3 H Anion Gap (3-11) mmol/L 6.7 BUN (7-18) mg/dL 25 H Creatinine (0.70-1.30) mg/dL 1.5 H Est GFR (CKD-EPI 2020) (mL/min/1.73m2) 47.06 Glucose (74-106) mg/dL 95 Calcium (8.5-10.1) mg/dL 9.5 Magnesium (1.8-2.4) mg/dL 2.0 Total Bilirubin (0.2-1.0) mg/dL 0.39 AST (15-37) U/L 61 H ALT (16-63) U/L 55 Alkaline Phosphatase (46-116) U/L 133 H Ammonia (11-32) umol/L < 10 L Troponin I (<or=76) ng/L 43 NT-Pro-B Natriuret Pep (<300) pg/mL 5391 H Total Protein (6.4-8.2) g/dL 6.8 Albumin (3.4-5.0) g/dL 2.4 L Lipase (16-77) U/L 48 TSH (0.36-3.74) uIU/mL 18.54 H Free T4 (0.76-1.46) ng/dL 0.95 Urine Color (Yellow) Yellow Urine Clarity (Clear) Cloudy Urine pH (5-8) 5.5 Ur Specific Dumont (1.005-1.025) >= 1.030 H Urine Protein (Neg-Trace) mg/dL >=300 H Urine Ketones (Negative) mg/dL 15 H Urine Blood (Negative) Large H Urine Nitrite (Negative) Negative Urine Bilirubin (Negative) Small H Urine Urobilinogen (Up to 0.2) mg/dL 0.2 Ur Leukocyte Esterase (Negative) Negative Urine RBC (0-2) HPF >50 H Urine WBC (0-5) HPF 10-20 H Ur Epithelial Cells (Negative) HPF Few Urine Crystals Not Applicable Urine Bacteria (Negative) HPF Moderate Urine Mucus Not Applicable Urine Other (Negative) Few Transitional Ur Culture Indicated? Yes Urine Glucose (Negative) mg/dL Negative COVID-19 Source Nasopharynx SARS-CoV-2 (PCR) (Negative) Negative Influenza Type A (PCR) (Negative) Negative Influenza Type B (PCR) (Negative) Negative RSV (PCR) (Negative) Negative Range/Units 08/21/24 08/21/24 19:25 20:57 WBC (4.4-10.8) 10^3/uL RBC (4.36-5.78) 10^6/uL Hgb (13.5-17.5) g/dL Hct (40.0-50.0) % MCV (80-95) fL MCH (27.0-33.0) pg MCHC (32.0-36.0) % RDW (11.8-14.1) % Plt Count (130-400) 10^3/uL MPV (8.0-11.0) fL Immature Gran % % Neutrophils % % Lymphocytes % % Monocytes % % Eosinophils % % Basophils % % Nucleated RBC % (0.0-0.3) % Absolute Neutrophils (1.2-6.7) 10^3/uL Absolute Lymphocytes (1.2-3.4) 10^3/uL Absolute Monocytes (0.1-0.8) 10^3/uL Absolute Eosinophils (0.0-0.7) 10^3/uL Absolute Basophils (0.0-0.2) 10^3/uL VBG pH (7.31-7.41) VBG pCO2 (41-51) mmHg VBG pO2 mmHg VBG HCO3 (23-28) mmol/L VBG Total CO2 (24-29) mmol/L VBG O2 Saturation % VBG Base Excess (-2-3) mmol/L VBG Lactate (0.6-1.4) mmol/L Sodium (136-145) mmol/L Potassium (3.5-5.1) mmol/L Chloride (98-107) mmol/L Carbon Dioxide (21.0-32.0) mmol/L Anion Gap (3-11) mmol/L BUN (7-18) mg/dL Creatinine (0.70-1.30) mg/dL Est GFR (CKD-EPI 2020) (mL/min/1.73m2) Glucose (74-106) mg/dL Calcium (8.5-10.1) mg/dL Magnesium (1.8-2.4) mg/dL Total Bilirubin (0.2-1.0) mg/dL AST (15-37) U/L ALT (16-63) U/L Alkaline Phosphatase (46-116) U/L Ammonia (11-32) umol/L Troponin I (<or=76) ng/L 36 30 NT-Pro-B Natriuret Pep (<300) pg/mL Total Protein (6.4-8.2) g/dL Albumin (3.4-5.0) g/dL Lipase (16-77) U/L TSH (0.36-3.74) uIU/mL Free T4 (0.76-1.46) ng/dL Urine Color (Yellow) Urine Clarity (Clear) Urine pH (5-8) Ur Specific Dumont (1.005-1.025) Urine Protein (Neg-Trace) mg/dL Urine Ketones (Negative) mg/dL Urine Blood (Negative) Urine Nitrite (Negative) Urine Bilirubin (Negative) Urine Urobilinogen (Up to 0.2) mg/dL Ur Leukocyte Esterase (Negative) Urine RBC (0-2) HPF Urine WBC (0-5) HPF Ur Epithelial Cells (Negative) HPF Urine Crystals Urine Bacteria (Negative) HPF Urine Mucus Urine Other (Negative) Ur Culture Indicated? Urine Glucose (Negative) mg/dL COVID-19 Source SARS-CoV-2 (PCR) (Negative) Influenza Type A (PCR) (Negative) Influenza Type B (PCR) (Negative) RSV (PCR) (Negative) Quality:SDOH Health Related Social Needs: No Data to Display PFSH All Active Problems (Updated 08/21/24 @ 23:16 by Megan Franklin MD) Dementia (Chronic) Hematuria (Acute) Hypoxic respiratory failure (Acute) Multiple closed fractures of ribs of right side (Acute) Malaise and fatigue (Acute) Cavitary lesion of lung (Acute) Hematuria (Acute) Alzheimer disease (Chronic) Elevated liver function tests (Acute) Transaminitis (Acute) Hyperbilirubinemia (Acute) Confusion (Acute) Generalized weakness (Acute) Bladder mass (Acute) Upper gastrointestinal bleed (Acute 07/31/13) With melena and drop in hemoglobin Anxiety (Acute 07/31/13) Agitation (Acute 07/31/13) Anxiety and depression (Chronic) Hypothyroidism (Chronic) On satins. Hyperlipidemia (Chronic) Periodic limb movement disorder (Chronic) On benzodiazepines. 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 Colon polyp Cough Depression Diverticulitis Duodenal perforation History of alcohol abuse Hyperlipidemia Hypothyroidism Insomnia Neurocardiogenic syncope Osteoarthritis Palliative care patient Peptic ulcer Perforated duodenal ulcer Right shoulder pain Shortness of breath Tobacco abuse Surgical History Colonoscopy - MAC (05/03/17) Colonoscopy - MAC (03/11/18) EGD - MAC (05/03/17) Kidney Laparotomy (09/10/16) with duodenal ulcer repair Family History Mother Dementia Father Heart disease Social History Smoking/Tobacco Use Status: Current every day Tobacco Type: cigarettes Smoking risk assessment performed?: Yes Alcohol Intake: former Drug use: Never Substance use type: does not use Do you feel safe at home: Yes Do you feel safe in your relationship?: Yes
[2024-08-21 18:34] LABS: Abs Immature Grans 0.12 10^3/uL (0.0-0.06); Absolute Eosinophil Count 0.06 10^3/uL (0.0-0.7); Absolute Lymphocyte Count 1.05 10^3/uL (1.2-3.4); Basophils % 0.3 %; Eosinophils % 0.4 %; HCT 39.8 % (40.0-50.0); HGB 12.4 g/dL (13.5-17.5); Immature Grans % 0.8 %; Lymphocytes % 6.7 %; MCH 25.1 pg (27.0-33.0); MCHC 31.2 % (32.0-36.0); MCV 80 fL (80-95); Monocytes % 4.4 %; Neutrophils % 87.4 %; Platelet Count 426 10^3/uL (130-400); RBC 4.95 10^6/uL (4.36-5.78); RDW 16.2 % (11.8-14.1); RDW-SD 46.8 fL; WBC 15.74 10^3/uL (4.4-10.8)
[2024-08-21 18:36] LABS: BE (Venous) 9 mmol/L (-2-3); HCO3 (Venous) 34 mmol/L (23-28); Lactate 1.5 mmol/L (0.6-1.4); O2 Sat (Venous) 70 %; TCO2 (Venous) 31 mmol/L (24-29); pCO2 (Venous) 60 mmHg (41-51); pH (Venous) 7.36 (7.31-7.41); pO2 (Venous) 39 mmHg
[2024-08-21 18:37] LABS: Absolute Basophil Count 0.05 10^3/uL (0.0-0.2); Absolute Monocyte Count 0.69 10^3/uL (0.1-0.8); Absolute Neutrophil Count 13.76 10^3/uL (1.2-6.7)
--- OUTSIDE RECORDS SUMMARY | 2024-08-21 18:51 | XMS_ITS | Clinical Summary ---
Author Organization [facility] Address [address] [place] [address] Care Team Providers Care Drawing In Machine Tender Helper Name Role Phone Lily Soares APRN Primary Care Provider [phone] Social History Tobacco Use Types Packs/Day Years Used Date Smoking Tobacco: Never Assessed Sex and Gender Information Value Date Recorded Sex Assigned at Not on file Legal Sex Male 18:18 EST Gender Identity Not on file Sexual Orientation Not on file Plan of Treatment Health Maintenance Due Date Last Done Comments Hepatitis C Screen 1945 RSV Immunization ( o r 60+ Years) (1 - 1-dose 60+ series) 2005 Fall Risk Screening 2010 COVID-19 Vaccine (2022- season) 2023 Care Teams Drawing In Machine Tender Helper Relationship Specialty Start Date End Date Lily Soares APRN [address] [place] [address] PCP - General 05/07/17
--- OUTSIDE RECORDS SUMMARY | 2024-08-21 18:51 | XMS_ITS | Encounter Summary ---
Author Organization [facility] Address [address] [place] [address] Care Team Providers Care Lease Administrator Name Role Phone Cathie Verdin NP Primary Care Provider Encounter Details Date Type Department Care Team (Latest Contact Info) Description 11/03/2013 10:26 EST - 11/03/2013 23:59 EST Hospital Encounter [address] [address] Unknown, Provider, MD Discharge Disposition: Home or Self Care Social History Tobacco Use Types Packs/Day Years Used Date Smoking Tobacco: Never Assessed Sex and Gender Information Value Date Recorded Sex Assigned at Not on file Legal Sex Male 18:18 EST Gender Identity Not on file Sexual Orientation Not on file documented as of this encounter Discharge Disposition Disposition Code Departure Means Destination Home or Self Group Home documented in this encounter Plan of Treatment Not on file documented as of this encounter Visit Diagnoses Not on filedocumented in this encounter Care Teams Lease Administrator Relationship Specialty Start Date End Date Cathie Verdin NP [address] [place] [address] [address] [place] [address] PCP - General 06/26/09 05/06/17 documented as of this encounter
--- OUTSIDE RECORDS SUMMARY | 2024-08-21 18:51 | XMS_ITS | Encounter Summary ---
Author Organization [facility] Address [address] [place] [address] Care Team Providers Care Electro Mechanical Solar Technician Name Role Phone Cathie Verdin NP Primary Care Provider [phone] Encounter Details Date Type Department Care Team (Late st Contact Info) Description 05/18/2007 Results Only [facility] [address] [place] [address] Kamilah España MD [address] [place] [phone] Social History Tobacco Use Types Packs/Day Years Used Date Smoking Tobacco: Never Assessed Sex and Gender Information Value Date Recorded Sex Assigned at Not on file Legal Sex Male 18:18 EST Gender Identity Not on file Sexual Orientation Not on file documented as of this encounter Plan of Treatment Not on file documented as of this encounter Procedures Procedure Name Priority Date/Time Associated Diagnosis Comments SURGICAL PATHOLOGY Routine 05/18/2007 0:00 EDT documented in this encounter Results * SURGICAL PATHOLOGY (05/18/2007 0:00 EDT) Pathology Report: SURGICAL PATHOLOGY REPORT Reports generated via electronic interface contain original data; however they are lacking the format of the original report. Caution should be taken when reading/interpreti ng unformatted reports. Name: ? MACIEL WILSON ? Accession #: ? [id number] ? : ? 1945 (Age: 62) ??M ? Collect Date: ? 05/18/2007 ? Location: ? [facility] ? Receive Date: ? 05/18/2007 ? Provider: HOLDEN ESPAÑA MD Copy to: KAMILAH RIVERO MD ? Final Pathologic Diagnosis: ? Colon, 12 cm, polyps, biopsies: - ??Cauterized hyperplastic polyps. Document reviewed and electronically signed by: ANDRY SIMMS MD Report ??Date: 05/19/2007 15:18 By the signature above, the attending physician certifies that he/she has personally conducted a gross and/or microscopic examination of the described specimens and rendered or confirmed the above diagnosis. Specimen(s) Received: ? Polyps @ 12 cm Clinical History: ? Screening Gross Description: ? Received in Hollande' s fixative labelled Torres and polyps at 12 cm are three velazquez-pink tissues ranging from 0.4 x 0.3 x 0.3 cm to 1.3 x 0.3 x 0.3 cm. ??The specimen is entirely submitted in one cassette. ??(Yair Good/[facility] End of Report [facility] 05/18/2007 05/18/2007 15: 40 EDT us Kamilah España MD PATHOLOGY ORDERABLES Final Res ult [facility] [address] [place] [address] documented in this encounter Visit Diagnoses Not on filedocumented in this encounter Care Teams Electro Mechanical Solar Technician Relationship Specialty Start Date End Date Cathie Verdin NP [address] [place] [id number] PCP - General 06/26/09 05/06/17 documented as of this encounter
--- OUTSIDE RECORDS SUMMARY | 2024-08-21 18:51 | XMS_ITS | Encounter Summary ---
Author Organization [facility] Address [address] [place] [address] Care Team Providers Care E Commerce Marketing Analyst Name Role Phone RodgerIselaLily Jay MEJIA Primary Care Provider [phone] Encounter Details Date Type Department Care Team (Late st Contact Info) Description 04/02/2022 Lab Requisition [facility] Pathology & Laboratory Medicine - [address] [address] Outr Resulting Lab, Provider Social History Tobacco Use Types Packs/Day Years [...] Procedure Name Priority Date/Time Associated Diagnosis Comments IGG Routine 04/02/2022 7:10 EDT documented in this encounter Results * IGG (04/02/2022 7:10 EDT) IgG 696 610-1,616 mg/dL 04/03/2022 9:19 EDT [facility] Blood VENOUS BLOOD / Unknown 04/02/2022 7:10 EDT 04/02/2022 18:00 EDT us Provider Outr Resulting Lab CHEMISTRY & BLOOD GA S ORDERABLES Final Result [facility] [address] [place] [address] documented in this encounter Visit Diagnoses Not on filedocumented in this encounter Care Teams E Commerce Marketing Analyst Relationship Specialty Start Date End Date Lily Soares APRN [address] [place] [address] PCP - General 05/07/17 documented as of this encounter
--- OUTSIDE RECORDS SUMMARY | 2024-08-21 18:51 | XMS_ITS | Encounter Summary ---
Author Organization [facility] Address [address] [place] [address] Care Team Providers Care Residential Living Assistant Name Role Phone RodgerIselaLily Jay MEJIA Primary Care Provider [phone] Encounter Details Date Type Department Care Team (Late st Contact Info) Description 03/31/2022 Lab Requisition [facility] Pathology & Laboratory Medicine - [address] [address] Outr Resulting Lab, Provider Social History Tobacco [...] Procedure Name Priority Date/Time Associated Diagnosis Comments ACUTE HEPATITIS PROFILE Routine 03/31/2022 17:22 EDT documented in this encounter Results * ACUTE HEPATITIS PROFILE (03/31/2022 17:22 EDT) Hep B Surface Ag Negative Negative 04/02/2022 10:30 EDT [facility] Hep C Antibody Negative Negative 04/02/2022 10:30 EDT [facility] Hepatitis A Antibody, IgM Negative Negative 04/02/2022 10:30 EDT [facility] Comment:The results of this assay can be falsely lowered due to the consumption of Biotin. Hepatitis B Core Ab, Total Negative Negative 04/02/2022 10:30 EDT [facility] Blood VENOUS BLOOD / Unknown 03/31/2022 17:22 EDT 04/01/2022 16:54 EDT us Provider Outr Resulting Lab CHEMISTRY & BLOOD GA S ORDERABLES Final Result [facility] [address] [place] [address] documented in this encounter Visit Diagnoses Not on filedocumented in this encounter Care Teams Residential Living Assistant Relationship Specialty Start Date End Date Lily Soares APRN [address] [place] [address] PCP - General 05/07/17 documented as of this encounter
--- OUTSIDE RECORDS SUMMARY | 2024-08-21 18:51 | XMS_ITS | Encounter Summary ---
Author Organization [facility] Address [address] [place] [address] Care Team Providers Care Stable Hand Name Role Phone Alana Soaresyn Jay MEJIA Primary Care Provider [phone] Encounter Details Date Type Department Care Team (Late st Contact Info) Description 04/02/2022 Lab Requisition [facility] Pathology & Laboratory Medicine - [address] [address] Outr Resulting Lab, Provider Social History Tobacco [...] Procedure Name Priority Date/Time Associated Diagnosis Comments ANCA, IFA Routine 04/02/2022 7:10 EDT ANTI NUCLEAR AB (DIANE), IFA Routine 04/02/2022 7:10 EDT documented in this encounter Results * ANCA, IFA (04/02/2022 7:10 EDT) Lab ANCA Interpretation Negative Negative 04/03/2022 15:03 EDT [facility] Comment: No titer performed, ANCA Screen is negative. Results were obtained with the INOVA NOVA Lite ANCA kit by indirect immunofluorescence. Blood VENOUS BLOOD / Unknown 04/02/2022 7:10 EDT 04/02/2022 18:00 EDT us Provider Outr Resulting Lab IMMUNOLOGY AND SEROL OGY ORDERABLES Final Result Performing Organization Address [facility] Co de Phone Number [facility] [address] [place] [address] * ANTI NUCLEAR AB (DIANE), IFA (04/02/2022 7:10 EDT) DIANE Interpretation Negative Negative 2021 15:08 EDT [facility] Comment:No titer performed, DIANE Screen is negative. Blood VENOUS BLOOD / Unknown 04/02/2022 7:10 EDT 04/02/2022 18:00 EDT Narrative [facility] - 04/03/2022 15:08 EDT Results were obtained with the INOVA NOVA Lite HEp-2 DIANE Kit by indirect immunofluorescence. us Provider Outr Resulting Lab IMMUNOLOGY AND SEROL OGY ORDERABLES Final Result Performing Organization Address [facility] Co de Phone Number [facility] [address] [place] [address] documented in this encounter Visit Diagnoses Not on filedocumented in this encounter Care Teams Stable Hand Relationship Specialty Start Date End Date Lily Soares APRN [address] [place] [address] PCP - General 05/07/17 documented as of this encounter
--- OUTSIDE RECORDS SUMMARY | 2024-08-21 18:51 | XMS_ITS | Encounter Summary ---
Author Organization [facility] Address [address] [place] [address] Care Team Providers Care Centrifugal Spinner Name Role Phone RodgerLily JACKIE Primary Care Provider [phone] Encounter Details Date Type Department Care Team (Late st Contact Info) Description 04/02/2022 Lab Requisition [facility] Pathology & Laboratory Medicine - [address] [address] Outr Resulting Lab, Provider Social History Tobacco [...] Procedure Name Priority Date/Time Associated Diagnosis Comments LYME AB Routine 04/02/2022 7:10 EDT documented in this encounter Results * LYME AB (04/02/2022 7:10 EDT) Lyme Ab Negative Negative 04/03/2022 11:18 EDT [facility] Blood VENOUS BLOOD / Unknown 04/02/2022 7:10 EDT 04/02/2022 18:00 EDT us Provider Outr Resulting Lab IMMUNOLOGY AND SEROL OGY ORDERABLES Final Result [facility] [address] [place] [address] documented in this encounter Visit Diagnoses Not on filedocumented in this encounter Care Teams Centrifugal Spinner Relationship Specialty Start Date End Date Lily Soares APRN [address] [place] [address] PCP - General 05/07/17 documented as of this encounter
--- OUTSIDE RECORDS SUMMARY | 2024-08-21 18:51 | XMS_ITS | Referral Summary ---
Author Organization [facility] Address [address] [place] [address] Care Team Providers Care Air Control/Anti Air Warfare Officer Name Role Phone Lily Soares APRN Primary Care Provider [phone] Social History Tobacco Use Types Packs/Day Years Used Date Smoking Tobacco: Never Assessed Sex and Gender Information Value Date Recorded Sex Assigned at Not on file Legal Sex Male 18:18 EST Gender Identity Not on file Sexual Orientation Not on file Plan of Treatment Not on file Care Teams Air Control/Anti Air Warfare Officer Relationship Specialty Start Date End Date Lily Soares APRN [address] [place] [address] PCP - General 05/07/17
--- OUTSIDE RECORDS SUMMARY | 2024-08-21 18:51 | XMS_ITS | Encounter Summary ---
Author Organization [facility] Address [address] [place] [address] Care Team Providers Care Electronic Page Makeup System Operator Name Role Phone Cathie Verdin NP Primary Care Provider Encounter Details Date Type Department Care Team (Late st Contact Info) Description 05/03/2017 Results Only [facility]- [facility] [phone] Rachel Allison MD [address] [place] [address] [place] [address] Social History Tobacco Use Types Packs/Day Years [...] Date/Time Associated Diagnosis Comments SURGICAL PATHOLOGY Routine 05/03/2017 9:19 EDT documented in this encounter Results * SURGICAL PATHOLOGY (05/03/2017 9:19 EDT) Pathology Report: SURGICAL PATHOLOGY REPORT Reports generated via electronic interface contain original data; however they are lacking the format of the original report. Caution should be taken when reading/interpretin g unformatted reports. Name: ? MACIEL WILSON ? Accession #: ? [id number] ? : ? 1945 (Age: 72) ??M ? Collect Date: ? 05/03/2017 ? Location: ? [facility] ? Receive Date: ? 05/04/2017 ? Provider: RACHEL ALLISON MD Copy to: STARR JENSEN DYE ROOM HELPER ? Final Pathologic Diagnosis: A. STOMACH, ANTRUM, BIOPSY: - ??Oxyntic mucosa with mild proton pump inhibitor effect. B. GASTROESOPHAGEAL JUNCTION, BIOPSY: - ??Squamocolumnar junctional mucosa with features consistent with reflux esophagitis. - ??Negative for intestinal metaplasia or dysplasia. C. COLON, DESCENDING, POLYP, BIOPSY: - ??Sessile serrated adenoma. Document reviewed and electronically signed by: TREMAINE PARRA MD Report ??Date: 05/06/2017 11:16 By the signature above, the attending physician certifies that he/she has personally conducted a gross and/or microscopic examination of the described specimens and rendered or confirmed the above diagnosis. Specimen(s) Received: A. ?Gastric antrum biopsy B. ? Bx GE junction C. ? Descending colon polyp Clinical History: H/O perforated duodenal ulcer Gross Description: A. ?Received in formalin labelled with proper patient identification (initials R, J) and bx gastric antrum is a single pink-velazquez tissue fragment (0.5 x 0.2 x 0.2 cm). Submitted intact in A1. B. ?Received in formalin labelled with proper patient identification (initials R, J) and bx GE junction are three pink-velazquez tissues (0.2 x 0.2 x 0.2 cm, 0.3 x 0.3 x 0.2 cm and 0.5 x 0.2 x 0.2 cm). Entirely submitted in B1. C. ?Received in formalin labelled with proper patient identification (initials R, J) and descending colon polyp is a single pink-velazquez polypoid tissue (0.6 x 0.5 x 0.4 cm). The margin is inked blue, the specimen is bisected and entirely submitted in C1. SHANE Velasquez (ASCP) 05/04/2017 10:54 AM End of Report [facility] 05/03/2017 9:19 EDT 05/04/2017 9:19 EDT us Rachel Allison MD PATHOLOGY ORDERABLES Fin al Result [facility] [address] [place] [address] documented in this encounter Visit Diagnoses Not on filedocumented in this encounter Care Teams Electronic Page Makeup System Operator Relationship Specialty Start Date End Date Cathie Verdin NP [address] [place] [address] [address] [place] [address] PCP - General 06/26/09 05/06/17 documented as of this encounter
--- OUTSIDE RECORDS SUMMARY | 2024-08-21 18:51 | XMS_ITS | Encounter Summary ---
Author Organization [facility] Address [address] [place] [address] Care Team Providers Care Hogshead Liner Name Role Phone Cathie Verdin NP Primary Care Provider Encounter Details Date Type Department Care Team (Late st Contact Info) Description 11/03/2013 Results Only [facility] - [facility] ([facility] [address] [place], [place] [id number] Maninder Amos, DO [address] [facility] ,[place] [address] [place] [id number] Social History Tobacco Use Types Packs/Day Years [...] Date/Time Associated Diagnosis Comments SURGICAL PATHOLOGY Routine 11/03/2013 21 :45 EST documented in this encounter Results * SURGICAL PATHOLOGY (11/03/2013 21:45 EST) Pathology Report: SURGICAL PATHOLOGY REPORT Reports generated via electronic interface contain original data; however they are lacking the format of the original report. Caution should be taken when reading/interpreti ng unformatted reports. Name: ? MACIEL WILSON ? Accession #: ? [id number] ? : ? 1945 (Age: 68) ??M ? Collect Date: ? 11/03/2013 ? Location: ? [facility] ? Receive Date: ? 11/03/2013 ? Provider: MANINDER AMOS DO Copy to: KAMILAH RIVERO MD ? Final Pathologic Diagnosis: A. STOMACH, ANTRUM, BIOPSY: - ??Gastric antral mucosa with no specific pathologic features. B. STOMACH, DISTAL, BIOPSY: - ??Squamous mucosa with mild reactive features. Document reviewed and electronically signed by: ALMA AYERS MD Report ??Date: 11/07/2013 11:02 By the signature above, the attending physician certifies that he/she has personally conducted a gross and/or microscopic examination of the described specimens and rendered or confirmed the above diagnosis. Specimen(s) Received: A. ?Bx antrum B. ? Bx distal esophagus Clinical History: H/O duodenal ulcers in July; on PPI; grossly nl on scope Gross Description: A. ?Received in formalin labelled with proper patient identification (initials R, J) and 1. bx antrum are two pink-velazquez tissues (0.4 x 0.3 x 0.2 cm and 0.1 x less than 0.1 x less than 0.1 cm). Entirely submitted in A1. B. ?Received in formalin labelled with proper patient identification (initials R,J) and 2. bx distal esophagus are two pink-velazquez tissues (0.4 x 0.3 x 0.2 cm and 0.1 x 0.1 x 0.1 cm). Entirely submitted in B1. Dr. Santana 11/04/2013 10:20 AM End of Report [facility] 11/03/2013 21:4 5 EST 11/03/2013 21:45 EST us Maninder Amos DO PATHOLOGY ORDERABLES Fi nal Result [facility] [address] [place] [address] documented in this encounter Visit Diagnoses Not on filedocumented in this encounter Care Teams Hogshead Liner Relationship Specialty Start Date End Date Cathie Verdin NP [address] [place] [address] [address] [place] [id number] PCP - General 06/26/09 05/06/17 documented as of this encounter
--- OUTSIDE RECORDS SUMMARY | 2024-08-21 18:51 | XMS_ITS | Encounter Summary ---
Author Organization [facility] Address [address] [place] [address] Care Team Providers Care Auditing Coder Name Role Phone Cathie Verdin EXPANDING MACHINE OPERATOR Primary Care Provider Encounter Details Date Type Department Care Team (Latest Contact Info) Description 05/03/2017 10:30 EDT - 05/03/2017 23:59 EDT Hospital Encounter [address] [address] Unknown, Provider, MD Discharge Disposition: Home or [...] Code Departure Means Destination Home or Self Retirement documented in this encounter Plan of Treatment Not on file documented as of this encounter Visit Diagnoses Not on filedocumented in this encounter Care Teams Auditing Coder Relationship Specialty Start Date End Date Cathie Verdin NP [address] [place] [address] [address] [place] [address] PCP - General 06/26/09 05/06/17 documented as of this encounter
--- OUTSIDE RECORDS SUMMARY | 2024-08-21 18:51 | XMS_ITS | Encounter Summary ---
Author Organization [facility] Address [address] [place] [address] Care Team Providers Care Senior Market Research Analyst Name Role Phone Lily Soares APRN Primary Care Provider [phone] [phone] Encounter Details Date Type Department Care Team (Late st Contact Info) Description 04/02/2022 Lab Requisition [facility] Pathology & Laboratory Medicine - [facility] [address] [place] [address] Outr Resulting Lab, Provider Social History Tobacco [...] Procedure Name Priority Date/Time Associated Diagnosis Comments SS-B (LA) ANTIBODY, IGG Routine 04/02/2022 7:10 EDT [facility] SSA ANTIBODIES BY FELICIA Routine 04/02/2022 7:10 EDT SM (LIN) ANTIBODY, IGG Routine 04/02/2022 7:10 EDT DOUBLE STRANDED DNA ANTIBODY, IGG Routine 04/02/2022 7:10 EDT documented in this encounter Results * ANTI DNA (DOUBLE STRANDED) (04/02/2022 7:10 EDT) Anti-DNA (Double Stranded) <12.3 <30.0 IU/mL 04/07/2022 10:52 EDT [facility] Comment: ? Negative: ??<30.0 IU/mL ? Borderline Positive: ??30.0 - 75.0 IU/mL ? Positive: ??>75.0 IU/mL Results were obtained with the [employer] QUANTA Lite dsDNA SC FELICIA assay on the [employer] DSX. Blood VENOUS BLOOD / Unknown 04/02/2022 7:10 EDT 04/02/2022 18:00 EDT Provider Outr Resulting Lab IMMUNOLOGY AND SEROL OGY ORDERABLES Final Result Performing Organization Address [facility] de Phone Number [facility] [address] [place] [address] * SM (LIN) ANTIBODY (04/02/2022 7:10 EDT) [facility] SM (Iln) Antibody 8.8 <20.0 Units 04/07/2022 12:42 EDT [facility] Comment: ? Negative: <20.0 Units ? Weak Positive: 20.0 - 39.9 Units ? Moderate Positive: 40.0 - 80.0 Units ? Strong Positive: >80.0 Units Results were obtained with the [employer] QUANTA Lite Sm FELICIA. ??Sm values obtained with different manufacturers' assay methods may not be used interchangeably. ??The magnitude of the reported IgG levels cannot be correlated to an endpoint titer. Blood VENOUS BLOOD / Unknown 04/02/2022 7:10 EDT 04/02/2022 18:00 EDT us Provider Outr Resulting Lab IMMUNOLOGY AND SEROL OGY ORDERABLES Final Result Performing Organization Address [facility] de Phone Number [facility] [address] [place] [address] * SSB ANTIBODIES BY FELICIA (04/02/2022 7:10 EDT) SSB Antibody 1.4 <20.0 Units 04/07/2022 10:12 EDT [facility] Comment: ? Negative: <20.0 Units ? Weak Positive: 20.0 - 39.9 Units ? Moderate Positive: 40.0 - 80.0 Units ? Strong Positive: >80.0 Units Results were obtained with the [employer] QUANTA Lite SS-B FELICIA. ??SS-B values obtained with different manufacturers' assay methods may not be used interchangeably. ??The magnitude of the reported IgG levels cannot be correlated to an endpoint titer. Blood VENOUS BLOOD / Unknown 04/02/2022 7:10 EDT 04/02/2022 18:00 EDT us Provider Outr Resulting Lab IMMUNOLOGY AND SEROL OGY ORDERABLES Final Result Performing Organization Address City/State/[facility] Co de Phone Number [facility] [address] [place] [address] * SSA ANTIBODIES BY FELICIA (04/02/2022 7:10 EDT) SSA Antibody 1.7 <20.0 Units 04/07/2022 10:31 EDT [facility] Comment: ? Negative: <20.0 Units ? Weak Positive: 20.0 - 39.9 Units ? Moderate Positive: 40.0 - 80.0 Units ? Strong Positive: >80.0 Units Results were obtained with the [employer] QUANTA Lite SS-A FELICIA. ??SS-A values obtained with different manufacturers' assay methods may not be used interchangeably. ??The magnitude of the reported IgG levels cannot be correlated to an endpoint titer. Blood VENOUS BLOOD / Unknown 04/02/2022 7:10 EDT 04/02/2022 18:00 EDT us Provider Outr Resulting Lab IMMUNOLOGY AND SEROL OGY ORDERABLES Final Result Performing Organization Address City/State/[facility] Co de Phone Number [facility] [address] [place] [address] documented in this encounter Visit Diagnoses Not on filedocumented in this encounter Care Teams Senior Market Research Analyst Relationship Specialty Start Date End Date Lily Soares APRN [address] [place] [address] PCP - General 05/07/17 documented as of this encounter
[2024-08-21 19:01] LABS: Ammonia < 10 umol/L (11-32)
[2024-08-21 19:11] LABS: ALT 55 U/L (16-63); AST 61 U/L (15-37); Albumin 2.4 g/dL (3.4-5.0); Alkaline Phosphatase 133 U/L (46-116); Anion Gap 6.7 mmol/L (3-11); BUN 25 mg/dL (7-18); Bilirubin, Total 0.39 mg/dL (0.2-1.0); CO2 33.3 mmol/L (21.0-32.0); CREATININE 1.5 mg/dL (0.70-1.30); Chloride 108 mmol/L (98-107); Estimated GFR 47.06 (mL/min/1.73m2); Glucose 95 mg/dL (74-106); Lipase 48 U/L (16-77); NT-proBNP 5391 pg/mL (<300); Potassium 3.8 mmol/L (3.5-5.1); Sodium 148 mmol/L (136-145); TSH (W/Ref FT4) 18.54 uIU/mL (0.36-3.74); Total Protein 6.8 g/dL (6.4-8.2); Troponin I 43 ng/L (<or=76)
[2024-08-21 19:17] LABS: Bilirubin Small (Negative); Blood Large (Negative); Clarity Cloudy (Clear); Glucose Negative (Negative); Ketones 15 mg/dL (Negative); Leukocyte Esterase Negative (Negative); Nitrite Negative (Negative); Specific Gravity >= 1.030 (1.005-1.025); Urobilinogen 0.2 mg/dL (Up to 0.2); pH 5.5 (5-8)
[2024-08-21 19:19] LABS: Calcium 9.5 mg/dL (8.5-10.1)
[2024-08-21 19:36] LABS: Epithelial Cells Few HPF (Negative); RBC >50 HPF (0-2)
[2024-08-21 19:37] LABS: Bacteria Moderate HPF (Negative); Other Cells Few Transitional (Negative)
[2024-08-21 19:37] LABS: FREE T4 0.95 ng/dL (0.76-1.46)
[2024-08-21 19:38] LABS: C & S Indicated? Yes
[2024-08-21 19:49] LABS: Troponin I 36 ng/L (<or=76)
[2024-08-21 19:49] LABS: COVID-19 PCR Negative (Negative); Influenza A PCR Negative (Negative); Influenza B PCR Negative (Negative); RSV PCR Negative (Negative)
[2024-08-21 19:50] LABS: Source Nasopharynx
[2024-08-21] MEDS: cefTRIAXone 1 GM/50 ML BAG IVPB (20:26)
[2024-08-21] MEDS: methylPREDNISolone SUCC 125 MG VIAL IVP (20:27)
[2024-08-21] MEDS: Albuterol/Ipratropium 3 ML UPD VIAL UPD ×3 (20:28)
[2024-08-21] MEDS: Omnipaque 350 MG/ML 100 ML BTL 60 ML IJ (20:46)
[2024-08-21] MEDS: Normal Saline - Diluent 50 ML VIAL IJ (20:50)
--- NOTE | 2024-08-21 20:52 | DI.CT_ITS ---
Exam(s) CT CHEST PE CTA EXAM: CT CHEST PE CTA CLINICAL HISTORY: hypoxia. TECHNIQUE: Imaging Protocol: Axial CT angiography was performed with multi-slice acquisition and mu lti-planar reconstructions as well as axial, coronal and sagittal MIP reconstructions. Computer aided detection (CAD) was utilized. CONTRAST MATERIAL: Intravenous: Omnipaque 350 Contrast volume:60 ml COMPARISON: CT CT CHEST/ABD/PEL W from 02/04/2023 CR XR PORTABLE CHEST AP from 08/21/2024 FINDINGS: Pulmonary Arteries: No evidence of filling defect to suggest pulmonary emboli. Mediastinum and Olga: No dominant adenopathy or fluid collection. Pulmonary parenchyma: No consolidation or dominant measurable mass. Patchy infiltrates in the infer ior lingula and both lung bases. Mild ground-glass opacities in the upper lobes. Mild diffuse bronc hial wall thickening. Mild lower lobe bronchiectasis. Pleura: No effusion or pneumothorax. Heart: The heart is moderately, mainly the left ventricle. Dilated. Severe coronary artery calcifica tions are seen. Aorta: Ascending aorta measures 3.5 cm in diameter.. No dissection. Atherosclerotic changes. Upper abdomen: Question left hydronephrosis versus large parapelvic cyst. Appears more prominent co mpared with the previous exam. Bones: Unremarkable for age. Tubes, Catheters, and Lines: None Soft tissues: Unremarkable. IMPRESSION: No evidence of pulmonary embolism. Bilateral patchy basilar densities could suspicious for multifocal pneumonia. Mild ground-glass opac ities and bronchial wall thickening also present consistent with bronchitis. Question of left hydronephrosis. Ultrasound could be performed for further evaluation. RADIATION DOSE DELIVERED: 141.96mGy.cm Total DLP DATA REPOSITORY: All CT scans at this facility are submitted to the National Radiology Data Registry (NRDR) Dose Index Registry (DIR) with the [employer] (ACR). RADIATION OPTIMIZATION: All CT scans at this facility use at least one of these dose optimization te chniques: automated exposure control; mA and/or kV adjustment per patient size (includes targeted exa ms where dose is matched to clinical indication); or iterative reconstruction.
[2024-08-21 21:18] LABS: Troponin I 30 ng/L (<or=76)
--- NOTE | 2024-08-21 21:48 | DI.VRAD_ITS ---
PROCEDURE INFORMATION: Exam: CTA Chest With Contrast Exam date and time: 08/21/2024 8:26 PM Age: 79 years old Clinical indication: Other: Hypoxia TECHNIQUE: Imaging protocol: Computed tomographic angiography of the chest with contrast. Exam focused on the arteries. 3D rendering (Not supervised by radiologist): MIP and/or 3D reconstructed images were created by the technologist. Radiation optimization: All CT scans at this facility use at least one of these dose optimization techniques: automated exposure control; mA and/or kV adjustment per patient size (includes targeted exams where dose is matched to clinical indication); or iterative reconstruction. Contrast material: [id number]; Contrast volume: 60 ml; Contrast route: INTRAVENOUS (IV); COMPARISON: CT CHEST/ABD/PEL W 02/04/2023 1:56 PM FINDINGS: Pulmonary arteries: No acute pulmonary emboli. Aorta: Atherosclerotic disease of the thoracic aorta, without aneurysm. Lungs: Moderate bilateral upper and lower lobes centrilobular emphysema, with chronic obstructive pulmonary physiologic changes. Bilateral upper and lower lobe bronchial wall thickening, compatible with reactive airway disease or bronchitis. Irregular, patchy ground-glass opacities within the anterior left upper lobe, lingula, right middle lobe, and left lower lobe, likely areas of atelectasis and/or pneumonitis. Pleural spaces: Small bilateral pleural effusions. Heart: Unremarkable. No cardiomegaly. No pericardial effusion. Coronary arteries: Extensive three-vessel coronary artery atherosclerotic disease. Lymph nodes: Unremarkable. No enlarged lymph nodes. Kidneys: Simple left renal cysts, for which no further evaluation necessary. Partially visualized left hydronephrosis or left parapelvic cysts. Bones/joints: Multilevel thoracic spine degenerative disc space narrowing and osteophyte formation. Soft tissues: Unremarkable. IMPRESSION: 1. No acute pulmonary emboli. 2. Bilateral upper and lower lobe bronchial wall thickening, compatible with reactive airway disease or bronchitis. 3. Small bilateral pleural effusions. 4. Irregular, patchy ground-glass opacities within the anterior left upper lobe, lingula, right middle lobe, and left lower lobe, likely areas of atelectasis and/or pneumonitis. Recommend follow-up. 5. Partially visualized left hydronephrosis or left parapelvic cysts. Dictated and Authenticated by: Elder Morillo MD. Ordering:CRISTI Guzman MD
[2024-08-21] MEDS: Acetaminophen 500 MG TAB 1000 MG PO (22:58)
[2024-08-21] MEDS: QUEtiapine 25 MG TAB PO (22:58)
--- NOTE | 2024-08-21 23:05 | HPE_ITS ---
Date of service: 08/21/24 Time of Service: 23:39 Assessment and Plan Assessment and plan (1) Acute on chronic respiratory failure with hypoxia and hypercapnia: Start date: 08/21/24 Status: Acute Assessment and plan: This is a 79-year-old gentleman presenting with gross hematuria per but having more respiratory complaints and hypoxemia with acute on chronic respiratory failure with hypoxemia and hypercapnia upon presentation. Is responded to aggressive nebulizer treatments and will be treated with IV Rocephin and doxycycline. Follow-up imaging as appropriate. Patient is a DNR/DNI. (2) Pneumonia: Start date: 08/21/24 Status: Acute Assessment and plan: Irregular, patchy groundglass opacities over left upper and lower lobe as well as lingula and right middle lobe suspicious for pneumonia. Patient will be treated for community-acquired pneumonia. Patient was advised to stop smoking though he denies daily smoking. He defers nicotine patch. Qualifiers: Laterality: bilateral Lung location: unspecified part of lung P neumonia type: due to unspecified organism Qualified Code(s): J18.9 - Pneumonia, unspecified organism (3) Hematuria: Start date: 08/21/24 Status: Acute Assessment and plan: Patient does have history of gross hematuria in the past and left renal cyst with question of hydronephrosis on CT scan which was partially visualized in the renal system. Ultrasound of the renal cyst in the morning with monitoring for continued hematuria. Consider urology consultation. Qualifiers: Hematuria type: gross Qualified Code(s): R31.0 - Gross hematuria (4) Renal cyst, left: Status: Chronic Assessment and plan: Ultrasound of the renal system and urology consultation if indicated. (5) Dementia: Status: Chronic Assessment and plan: Patient has chronic short-term memory loss and may need his home living situation and supervision of his medical therapy reevaluated during his hospital stay with care management. Patient's ex- does seem to check on him frequently and is obligated to take care of him but does not seem comfortable this as a long-term solution. Qualifiers: Alzheimer's disease onset: other onset Dementia behavioral or psychological symptom: with anxiety Dementia severity: moderate Dementia type: Alzheimer's Qualified Code(s): G30.8 - Other Alzheimer's disease; F02.B4 - Dementia in other diseases classified elsewhere, moderate, with anxiety (6) Tobacco abuse: Assessment and plan: Advised cessation with patient deferring nicotine patch. (7) HTN (hypertension): Status: Chronic Assessment and plan: Continue outpatient medical therapy adjusting as needed. Qualifiers: Hypertension type: primary hypertension Qualified Code(s): I10 - Essential (primary) hypertension (8) Peptic ulcer: Assessment and plan: Continue PPI. (9) Hypothyroidism: Status: Chronic Assessment and plan: TSH is elevated with free T4 within normal range possibly indicating noncompliance long-term. Qualifiers: Hypothyroidism type: acquired Qualified Code(s): E03.9 - Hypothyroidism, unspecified (10) Anxiety and depression: Status: Chronic Assessment and plan: Continue outpatient medical therapy. (11) Tongue lesion: Start date: 08/22/24 Status: Acute Assessment and plan: Patient has a 1.5 lesion over his left lateral tongue with circular appearance and raised borders and indented white almost purulent appearance of lesion centrally. This could be condyloma dio though the patient does seem to have some discomfort but is not exquisitely tender. The differential diagnoses includes oral cancer with the patient being a smoker. RPR will be sent and patient will be treated with topical lidocaine gel for discomfort. He does have poor dentition and could be biting his tongue with a traumatic chancre. He has no history of syphilis infection. He is confused chronically with dementia and has diagnosis of Alzheimer's but is positive for syphilis infection, doxycycline will treat this and he should have further evaluation for central nervous system involvement.. (12) Acute hypernatremia: Start date: 08/21/24 Status: Acute Assessment and plan: Patient may be dehydrated with decreased intake not being supervised. His creatinine was also elevated as well as his BUN. Gentle IV hydration and consider updating echocardiogram with elevated BNP most likely secondary to right-sided heart strain with his COPD. (13) Microcytic anemia: Start date: 08/21/24 Status: Acute Assessment and plan: Check for deficiency patient having gross hematuria most likely this being acute with chronic blood loss. Renal ultrasound as planned with urology consultation if indicated. Supplement as needed. Patient is hemodynamically stable. History of Present Illness History of Present Illness Chief Complaint: Ex- reports blood in the toilet with patient urinating gross blood. Narrative: This is a 79-year-old male patient who lives alone but has advanced dementia and is checked on by his ex- almost daily with his ex- bring him to the ED for evaluation having seen appropriate blood in the patient's toilet and patient having gross hematuria. He does have a history of left renal cyst with 2 previous renal surgeries with patient unclear as to what the surgery performed was or accomplished. He stated that the first surgery did not complete the job and they went back a second time. He personally does not admit to close hematuria, he also does admit to alcohol use. Cellulitis following this with some elevation of his liver function tests and does admit to smoking occasionally though he tends to smoke daily and is not on home oxygen because of his noncompliance with cessation of smoking while on oxygen reapplied. He does have supervision of his medications though this appears to be unclear and his lab upon admission does reveal probable noncompliance with his thyroid supplement and the patient does not know his medical problems or medications well. In the ED he was found to have hypoxemia with acute decompensation of his respiratory status with COPD. He was admitted for aggressive respiratory care and also was found to have probable bilateral pneumonia which we treated as an outpatient when he acquired pneumonia. Urinalysis did show blood and urine cultures blood cultures were performed prior to initiation of antibiotics. He is not requiring pressure support with his hypercapnia. He appears to be very talkative though not a good historian. Severe short-term memory loss. 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 He is very flirtatious with the nurses and verbalized an appropriate comments with the nurses deflecting and redirecting well. The patient offers no other complaints and was admitted for the above treatment with ultrasound of the renal system to be performed in the morning with urology consultation if necessary. Case management is reviewed the patient's home care and compliance with medical therapy. He is a DNR/DNI. Review of Systems Narrative: 13 point review of systems positive for a canker sore over his left tongue which is painful, otherwise unrevealing or stable with patient unable to give accurate review but agrees the ED provider. PFSH All Active Problems (Updated 08/22/24 @ 17:59 by Luis Manuel Kelly) Microcytic anemia (Acute) Acute hypernatremia (Acute) DNR (do not resuscitate) (Acute) 2023 COLST: Completed with PCP Manuela Soares, [employer]: /DNI, +Comfort Focused treatment, No IV fluids, No hydration, no artificial nutrition. Advanced care planning/counseling discussion (Acute) Palliative care encounter (Acute) Community acquired pneumonia (Acute) Acute kidney injury (Acute) Tongue lesion (Acute) Acute on chronic respiratory failure with hypoxia and hypercapnia (Acute) Renal cyst, left (Chronic) HTN (hypertension) (Chronic) Dementia (Chronic) Hematuria (Acute) Hypoxic respiratory failure (Acute) Multiple closed fractures of ribs of right side (Acute) Malaise and fatigue (Acute) Cavitary lesion of lung (Acute) Hematuria (Acute) Alzheimer disease (Chronic) Elevated liver function tests (Acute) Transaminitis (Acute) Hyperbilirubinemia (Acute) Confusion (Acute) Generalized weakness (Acute) Bladder mass (Acute) Upper gastrointestinal bleed (Acute 07/31/13) With melena and drop in hemoglobin Anxiety (Acute 07/31/13) Agitation (Acute 07/31/13) Anxiety and depression (Chronic) Hypothyroidism (Chronic) On satins. Hyperlipidemia (Chronic) Periodic limb movement disorder (Chronic) On benzodiazepines. 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 Right shoulder pain Palliative care patient Colon polyp Perforated duodenal ulcer History of alcohol abuse Tobacco abuse Osteoarthritis Hypothyroidism Hyperlipidemia Diverticulitis Depression Anxiety Neurocardiogenic syncope Surgical History Laparotomy (09/10/16) with duodenal ulcer repair Kidney EGD - MAC (05/03/17) Colonoscopy - MAC (03/11/18) Colonoscopy - MAC (05/03/17) Family History Mother Dementia Father Heart disease Social History Smoking/Tobacco Use Status: Current every day Tobacco Type: cigarettes Smoking risk assessment performed?: Yes Alcohol Intake: former Drug use: Never Substance use type: does not use Housing: house Do you feel safe at home: Yes Do you feel safe in your relationship?: Yes Meds Allergies and Home Medications Allergies Allergy/AdvReac Type Severity Reaction Status Date / Time ibuprofen Allergy Severe Other (See Unverified 08/21/24 17:45 Comment) varenicline tartrate (From AdvReac Severe Psychosis Unverified 08/21/24 17:45 Chantix) Home Medications ?Medication ?Instructions ?Recorded ?Confirmed ?Type levothyroxine 125 mcg tablet 100 mcg PO DAILY@0730 04/07/13 08/21/24 History [id number] acid 0.4 1 ea PO DAILY 04/07/13 08/21/24 History mg-lycopene 300 mcg-lutein 250 mcg tablet (Centrum Silver) citalopram 40 mg tablet 40 mg PO DAILY 11/10/15 08/21/24 History aspirin 81 mg chewable tablet 81 mg PO DAILY 01/04/17 08/21/24 History pantoprazole 40 mg tablet,delayed 40 mg PO DAILY ##30 05/03/17 08/21/24 Rx release nicotine 14 mg/24 hr daily 14 mg transdermal DAILY 02/07/18 08/21/24 History transdermal patch melatonin 3 mg tablet 3 mg PO HS 09/25/19 08/21/24 History mirtazapine 45 mg tablet 45 mg PO QHS 09/25/19 08/21/24 History trazodone 50 mg tablet 100 mg PO HS 09/25/19 08/21/24 History atenolol 25 mg tablet 12.5 mg PO DAILY 03/31/22 08/21/24 History quetiapine 25 mg tablet 25 mg PO BID PRN PRN #28 tabs 04/04/22 08/21/24 Rx thiamine mononitrate (vit B1) 100 100 mg PO DAILY #14 tabs 04/04/22 08/21/24 Rx mg tablet (Vitamin B-1 (mononitrate)) acetaminophen 650 mg 650 mg PO Q12H 10/29/22 08/21/24 History tablet,extended release (Tylenol 8 Hour) magnesium chloride 71.5 mg 71.5 mg PO QHS 10/29/22 08/21/24 History (magnesium chloride) tablet,delayed release (Slow-Mag) lidocaine 5 % topical patch 1 patch topical DAILY #15 ea 02/04/23 08/21/24 Rx (Lidoderm) Exam Narrative Exam Narrative: General: Patient is very talkative, appears alert and oriented at least to person and place and in no acute distress. HEENT: Normocephalic, long unkempt morin hair with course and facial features. Eyes with pupils equal and reactive to light symmetrically, extraocular movement intact and sclera anicteric. Oropharynx with moist oral mucosa and fair dentition. 1.5 cm circular lesion left lateral tongue with raised borders and recessed center with white coating but no gross ulceration or bleeding. No surrounding erythema. Neck: Supple without JVD. Back: Stooped posture without CVA tenderness. Lungs: Vesicular sounds diffusely with coarse crackles nonfocal no focalizing rales. No rhonchi. No expiratory wheeze with fair aeration. Slight increased expiratory phase. Heart: Regular rate and rhythm with no murmurs gallops appreciated. Abdomen: Scaphoid contour, soft nontender to palpation with no palpable hepatosplenomegaly. No guarding or rebound. Bowel sounds positive in all quadrants. Genitalia/rectal: Exam deferred. Skin: Pale, warm and dry. No bruising. Extremities: Without clubbing, cyanosis or grossly pitting edema. Patient does have nonpitting edema over the ankles and feet. This appears chronic. Good cap refill. Neuro: Cranial 2-12 grossly intact, no focalizing motor deficits for tremor. Psych: Normal affect almost euphoric, normal mood. No abnormal thought processes the patient has severe short-term memory loss. He confabulates during conversation. He also has slight hypersexuality with rotation with the nurses. Remote memory intact. Results Imaging Imaging Studies: Exam: CTA Chest With Contrast Exam date and time: 08/21/2024 8:26 PM Age: 79 years old Clinical indication: Other: Hypoxia ; COMPARISON: CT CHEST/ABD/PEL W 02/04/2023 1:56 PM FINDINGS: Pulmonary arteries: No acute pulmonary emboli. Aorta: Atherosclerotic disease of the thoracic aorta, without aneurysm. Lungs: Moderate bilateral upper and lower lobes centrilobular emphysema, with chronic obstructive pulmonary physiologic changes. Bilateral upper and lower lobe bronchial wall thickening, compatible with reactive airway disease or bronchitis. Irregular, patchy ground-glass opacities within the anterior left upper lobe, lingula, right middle lobe, and left lower lobe, likely areas of atelectasis and/or pneumonitis. Pleural spaces: Small bilateral pleural effusions. Heart: Unremarkable. No cardiomegaly. No pericardial effusion. Coronary arteries: Extensive three-vessel coronary artery atherosclerotic disease. Lymph nodes: Unremarkable. No enlarged lymph nodes. Kidneys: Simple left renal cysts, for which no further evaluation necessary. Partially visualized left hydronephrosis or left parapelvic cysts. Bones/joints: Multilevel thoracic spine degenerative disc space narrowing and osteophyte formation. Soft tissues: Unremarkable. IMPRESSION: 1. No acute pulmonary emboli. 2. Bilateral upper and lower lobe bronchial wall thickening, compatible with reactive airway disease or bronchitis. 3. Small bilateral pleural effusions. 4. Irregular, patchy ground-glass opacities within the anterior left upper lobe, lingula, right middle lobe, and left lower lobe, likely areas of atelectasis and/or pneumonitis. Recommend follow-up. 5. Partially visualized left hydronephrosis or left parapelvic cysts. Labs 08/22/24 13:35 08/22/24 06:40 Labs: Laboratory Results - last 24 hr 08/21/24 08/21/24 08/21/24 18:00 18:05 18:20 WBC 15.74 H RBC 4.95 Hgb 12.4 L Hct 39.8 L MCV 80 MCH 25.1 L MCHC 31.2 L RDW 16.2 H Plt Count 426 H MPV 10.0 Immature Gran % 0.8 Neutrophils % 87.4 Lymphocytes % 6.7 Monocytes % 4.4 Eosinophils % 0.4 Basophils % 0.3 Nucleated RBC % 0.0 Absolute Neutrophils 13.76 H Absolute Lymphocytes 1.05 L Absolute Monocytes 0.69 Absolute Eosinophils 0.06 Absolute Basophils 0.05 VBG pH 7.36 VBG pCO2 60 H VBG pO2 39 VBG HCO3 34 H VBG Total CO2 31 H VBG O2 Saturation 70 VBG Base Excess 9 H VBG Lactate 1.5 H Sodium 148 H Potassium 3.8 Chloride 108 H Carbon Dioxide 33.3 H Anion Gap 6.7 BUN 25 H Creatinine 1.5 H Est GFR (CKD-EPI 2020) 47.06 Glucose 95 Calcium 9.5 Magnesium 2.0 Total Bilirubin 0.39 AST 61 H ALT 55 Alkaline Phosphatase 133 H Ammonia < 10 L Troponin I 43 NT-Pro-B Natriuret Pep 5391 H Total Protein 6.8 Albumin 2.4 L Lipase 48 TSH 18.54 H Free T4 0.95 Urine Color Yellow Urine Clarity Cloudy Urine pH 5.5 Ur Specific [place] >= 1.030 H Urine Protein >=300 H Urine Ketones 15 H Urine Blood Large H Urine Nitrite Negative Urine Bilirubin Small H Urine Urobilinogen 0.2 Ur Leukocyte Esterase Negative Urine RBC >50 H Urine WBC 10-20 H Ur Epithelial Cells Few Urine Crystals Not Applicable Urine Bacteria Moderate Urine Mucus Not Applicable Urine Other Few Transitional Ur Culture Indicated? Yes Urine Glucose Negative COVID-19 Source Nasopharynx SARS-CoV-2 (PCR) Negative Influenza Type A (PCR) Negative Influenza Type B (PCR) Negative RSV (PCR) Negative 08/21/24 08/21/24 19:25 20:57 WBC RBC Hgb Hct MCV MCH MCHC RDW Plt Count MPV Immature Gran % Neutrophils % Lymphocytes % Monocytes % Eosinophils % Basophils % Nucleated RBC % Absolute Neutrophils Absolute Lymphocytes Absolute Monocytes Absolute Eosinophils Absolute Basophils VBG pH VBG pCO2 VBG pO2 VBG HCO3 VBG Total CO2 VBG O2 Saturation VBG Base Excess VBG Lactate Sodium Potassium Chloride Carbon Dioxide Anion Gap BUN Creatinine Est GFR (CKD-EPI 2020) Glucose Calcium Magnesium Total Bilirubin AST ALT Alkaline Phosphatase Ammonia Troponin I 36 30 NT-Pro-B Natriuret Pep Total Protein Albumin Lipase TSH Free T4 Urine Color Urine Clarity Urine pH Ur Specific [place] Urine Protein Urine Ketones Urine Blood Urine Nitrite Urine Bilirubin Urine Urobilinogen Ur Leukocyte Esterase Urine RBC Urine WBC Ur Epithelial Cells Urine Crystals Urine Bacteria Urine Mucus Urine Other Ur Culture Indicated? Urine Glucose COVID-19 Source SARS-CoV-2 (PCR) Influenza Type A (PCR) Influenza Type B (PCR) RSV (PCR) Last Vital Signs Temp 36.6 C 08/21/24 19:11 Pulse 71 08/21/24 19:11 Resp 20 08/21/24 19:11 BP 128/82 08/21/24 19:11 Pulse Ox 97 08/21/24 19:11 Time Spent Time spent with Patient: >75 minutes Time was spent: preparing to see the patient(eg.review tests), obtaining and/or reviewing separately otained hiistory, ordering medications,tests, procedures, indepentently interpreting results, counseling the patient and care coordination
[2024-08-21] MEDS: traZODone 50 MG TAB ×2 (23:29→23:31)
[2024-08-22] VITALS (12 sets, daily range): BP systolic 104–127; BP diastolic 62–74; PULSE 50–66; RESP 3–22; TEMP 36.2–37.4; O2SAT 79–99
[2024-08-22 00:19] LABS: ETHANOL BLOOD < 3.0 mg/dL (<10)
[2024-08-22 00:30] LABS: *AMPHETAMINES SCREEN URINE Negative (Negative); *BARBITURATES SCREEN URINE Negative (Negative); *BENZODIAZEPINES SCREEN URINE Negative (Negative); Cannabinoids THC Negative (Negative); Cocaine Screen,Urine Negative (Negative); METHADONE URINE SCREEN Negative (Negative); OPIATES URINE SCREEN Negative (Negative)
[2024-08-22 00:31] LABS: Tricyclic Antidepressants Negative (Negative)
--- NOTE | 2024-08-22 00:58 | W.PC.ACHO ---
Registration Status: Primary Language: Preferred Language: ED Information & Data Chief Complaint GenMedical 08/21/24 18:22 Other Complaint RespSymp 08/21/24 17:34 Triage Note AMS dizziness, SOB and sores 08/21/24 17:34 in mouth. hematuria today as well. 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 Right shoulder pain Palliative care patient Colon polyp Perforated duodenal ulcer History of alcohol abuse Tobacco abuse Osteoarthritis Hypothyroidism Hyperlipidemia Diverticulitis Depression Anxiety Neurocardiogenic syncope (Last Reviewed 08/21/24 @ 23:39 by Luis Manuel Kelly) Laparotomy (09/10/16) Kidney EGD - MAC (05/03/17) Colonoscopy - MAC (03/11/18) Colonoscopy - MAC (05/03/17) Most Recent Vital Signs Temperature 36.6 C 08/21/24 19:11 Temperature Source Oral 08/21/24 19:11 Pulse 71 08/21/24 19:11 Pulse 73 08/21/24 19:01 Respiratory Rate 20 08/21/24 19:11 Respiratory Effort Normal, Non-Labored 08/21/24 19:11 Respiratory Depth Normal 08/21/24 19:11 Respiratory Pattern Normal 08/21/24 19:11 Blood Pressure 128/82 08/21/24 19:11 Blood Pressure Mean 93 08/21/24 19:01 Blood Pressure Position Supine 08/21/24 19:11 Pulse Oximetry 97 08/21/24 19:11 Oxygen Delivery Method Nasal Cannula 08/21/24 19:11 Oxygen Flow Rate 2 08/21/24 19:11 Pain Level 6 08/21/24 19:11 Comment 2 liters applied 08/21/24 17:34 Allergies ibuprofen Allergy (Severe, Unverified 08/21/24 17:45) Other (See Comment) bleeding varenicline tartrate (From Chantix) Adverse Reaction (Severe, Unverified 08/21/24 17:45) Psychosis Precautions Isolation Standard precaution 08/21/24 17:46 Active Medications Generic Name Dose Route Start Last Admin Trade Name Freq PRN Reason Stop Dose Admin Iohexol 60 ml 08/21/24 20:45 11/11/24 20:46 Omnipaque 350 Mg/Ml 100 Ml Btl IJ 09/20/24 23:59 60 ml DIRECTED NITISH Administration Sodium Chloride 50 ml 08/21/24 21:00 08/21/24 20:50 Normal Saline - Diluent 50 Ml Vial IJ 50 ml .FOR DI USE NITISH Administration IV IV Catheter Type [Right Wrist] Saline Lock IV Catheter Gauge [Right Wrist 20 ] Diagnostics 08/22/24 08/21/24 08/21/24 Range/Units 00:10 20:57 19:25 WBC (4.4-10.8) 10^3/uL RBC (4.36-5.78) 10^6/uL Hgb (13.5-17.5) g/dL Hct (40.0-50.0) % MCV (80-95) fL MCH (27.0-33.0) pg MCHC (32.0-36.0) % RDW (11.8-14.1) % Plt Count (130-400) 10^3/uL MPV (8.0-11.0) fL Immature Gran % % Neutrophils % % Lymphocytes % % Monocytes % % Eosinophils % % Basophils % % Nucleated RBC % (0.0-0.3) % Absolute Neutrophils (1.2-6.7) 10^3/uL Absolute Lymphocytes (1.2-3.4) 10^3/uL Absolute Monocytes (0.1-0.8) 10^3/uL Absolute Eosinophils (0.0-0.7) 10^3/uL Absolute Basophils (0.0-0.2) 10^3/uL VBG pH (7.31-7.41) VBG pCO2 (41-51) mmHg VBG pO2 mmHg VBG HCO3 (23-28) mmol/L VBG Total CO2 (24-29) mmol/L VBG O2 Saturation % VBG Base Excess (-2-3) mmol/L VBG Lactate (0.6-1.4) mmol/L Sodium (136-145) mmol/L Potassium (3.5-5.1) mmol/L Chloride (98-107) mmol/L Carbon Dioxide (21.0-32.0) mmol/L Anion Gap (3-11) mmol/L BUN (7-18) mg/dL Creatinine (0.70-1.30) mg/dL Est GFR (CKD-EPI 2020) (mL/min/1.73m2) Glucose (74-106) mg/dL Calcium (8.5-10.1) mg/dL Magnesium (1.8-2.4) mg/dL Total Bilirubin (0.2-1.0) mg/dL AST (15-37) U/L ALT (16-63) U/L Alkaline Phosphatase (46-116) U/L Ammonia (11-32) umol/L Troponin I 30 36 (<or=76) ng/L NT-Pro-B Natriuret Pep (<300) pg/mL Total Protein (6.4-8.2) g/dL Albumin (3.4-5.0) g/dL Lipase (16-77) U/L TSH (0.36-3.74) uIU/mL Free T4 (0.76-1.46) ng/dL Urine Color (Yellow) Urine Clarity (Clear) Urine pH (5-8) Ur Specific [place] (1.005-1.025) Urine Protein (Neg-Trace) mg/dL Urine Ketones (Negative) mg/dL Urine Blood (Negative) Urine Nitrite (Negative) Urine Bilirubin (Negative) Urine Urobilinogen (Up to 0.2) mg/dL Ur Leukocyte Esterase (Negative) Urine RBC (0-2) HPF Urine WBC (0-5) HPF Ur Epithelial Cells (Negative) HPF Urine Crystals Urine Bacteria (Negative) HPF Urine Mucus Urine Other (Negative) Ur Culture Indicated? Urine Glucose (Negative) mg/dL Urine Opiates Screen Negative (Negative) Urine Methadone Screen Negative (Negative) Ur Barbiturates Screen Negative (Negative) Ur Tricyclics Screen Negative (Negative) Ur Amphetamines Screen Negative (Negative) U Benzodiazepines Scrn Negative (Negative) Urine Cocaine Screen Negative (Negative) Ur THC Screen Negative (Negative) Ethyl Alcohol (<10) mg/dL COVID-19 Source SARS-CoV-2 (PCR) (Negative) Influenza Type A (PCR) (Negative) Influenza Type B (PCR) (Negative) RSV (PCR) (Negative) 08/21/24 08/21/24 08/21/24 Range/Units 18:20 18:05 18:00 WBC 15.74 H (4.4-10.8) 10^3/uL RBC 4.95 (4.36-5.78) 10^6/uL Hgb 12.4 L (13.5-17.5) g/dL Hct 39.8 L (40.0-50.0) % MCV 80 (80-95) fL MCH 25.1 L (27.0-33.0) pg MCHC 31.2 L (32.0-36.0) % RDW 16.2 H (11.8-14.1) % Plt Count 426 H (130-400) 10^3/uL MPV 10.0 (8.0-11.0) fL Immature Gran % 0.8 % Neutrophils % 87.4 % Lymphocytes % 6.7 % Monocytes % 4.4 % Eosinophils % 0.4 % Basophils % 0.3 % Nucleated RBC % 0.0 (0.0-0.3) % Absolute Neutrophils 13.76 H (1.2-6.7) 10^3/uL Absolute Lymphocytes 1.05 L (1.2-3.4) 10^3/uL Absolute Monocytes 0.69 (0.1-0.8) 10^3/uL Absolute Eosinophils 0.06 (0.0-0.7) 10^3/uL Absolute Basophils 0.05 (0.0-0.2) 10^3/uL VBG pH 7.36 (7.31-7.41) VBG pCO2 60 H (41-51) mmHg VBG pO2 39 mmHg VBG HCO3 34 H (23-28) mmol/L VBG Total CO2 31 H (24-29) mmol/L VBG O2 Saturation 70 % VBG Base Excess 9 H (-2-3) mmol/L VBG Lactate 1.5 H (0.6-1.4) mmol/L Sodium 148 H (136-145) mmol/L Potassium 3.8 (3.5-5.1) mmol/L Chloride 108 H (98-107) mmol/L Carbon Dioxide 33.3 H (21.0-32.0) mmol/L Anion Gap 6.7 (3-11) mmol/L BUN 25 H (7-18) mg/dL Creatinine 1.5 H (0.70-1.30) mg/dL Est GFR (CKD-EPI 2020) 47.06 (mL/min/1.73m2) Glucose 95 (74-106) mg/dL Calcium 9.5 (8.5-10.1) mg/dL Magnesium 2.0 (1.8-2.4) mg/dL Total Bilirubin 0.39 (0.2-1.0) mg/dL AST 61 H (15-37) U/L ALT 55 (16-63) U/L Alkaline Phosphatase 133 H (46-116) U/L Ammonia < 10 L (11-32) umol/L Troponin I 43 (<or=76) ng/L NT-Pro-B Natriuret Pep 5391 H (<300) pg/mL Total Protein 6.8 (6.4-8.2) g/dL Albumin 2.4 L (3.4-5.0) g/dL Lipase 48 (16-77) U/L TSH 18.54 H (0.36-3.74) uIU/mL Free T4 0.95 (0.76-1.46) ng/dL Urine Color Yellow (Yellow) Urine Clarity Cloudy (Clear) Urine pH 5.5 (5-8) Ur Specific [place] >= 1.030 H (1.005-1.025) Urine Protein >=300 H (Neg-Trace) mg/dL Urine Ketones 15 H (Negative) mg/dL Urine Blood Large H (Negative) Urine Nitrite Negative (Negative) Urine Bilirubin Small H (Negative) Urine Urobilinogen 0.2 (Up to 0.2) mg/dL Ur Leukocyte Esterase Negative (Negative) Urine RBC >50 H (0-2) HPF Urine WBC 10-20 H (0-5) HPF Ur Epithelial Cells Few (Negative) HPF Urine Crystals Not Applicable Urine Bacteria Moderate (Negative) HPF Urine Mucus Not Applicable Urine Other Few Transitional (Negative) Ur Culture Indicated? Yes Urine Glucose Negative (Negative) mg/dL Urine Opiates Screen (Negative) Urine Methadone Screen (Negative) Ur Barbiturates Screen (Negative) Ur Tricyclics Screen (Negative) Ur Amphetamines Screen (Negative) U Benzodiazepines Scrn (Negative) Urine Cocaine Screen (Negative) Ur THC Screen (Negative) Ethyl Alcohol < 3.0 (<10) mg/dL COVID-19 Source Nasopharynx SARS-CoV-2 (PCR) Negative (Negative) Influenza Type A (PCR) Negative (Negative) Influenza Type B (PCR) Negative (Negative) RSV (PCR) Negative (Negative) 08/21/24 18:20 Urine Culture - Pending Urine - Reflex from [id number] Documentation Fingerstick Glucose Start: 08/21/24 17:46 Freq: Status: Active Protocol: Activity Type Activity Date Activity User E-sign Co-sign Detail Recorded Client Recorded Date Recorded By Document 08/21/24 17:45 BKG DAEMON(3) [id number] 08/21/24 17:46 BKG DAEMON(4) Intake and Output - 24 Hour Total 08/21/24 17:30 thru 08/21/24 21:06 Intake Total 80 Balance 80 Weight 60.7 kg Intake: IV 80 Falls Risk Assessment History of Falls No History 08/21/24 19:11 Contributing Factors No Factors 08/21/24 19:11 Ambulatory Aids Independent 08/21/24 19:11 Tubes/Lines None 08/21/24 19:11 Gait Evaluation No gait disturbance 08/21/24 19:11 Cognition No cognitive impairment 08/21/24 19:11 Fall Total Score 0 08/21/24 19:11 Level of Risk Standard/Low Risk 08/21/24 19:11 Problems (Last Reviewed 08/21/24 @ 23:39 by Luis Manuel Kelly) Acute on chronic respiratory failure with hypoxia and hypercapnia (Acute) Renal cyst, left (Chronic) HTN (hypertension) (Chronic) Dementia (Chronic) Hematuria (Acute) Anxiety and depression (Chronic) Hypothyroidism (Chronic) Pneumonia (Acute) v v v v v v v v v Sending and/or Receiving Nurses: Please use comment section below to note any information pertinent to the patient hand-off not included above. Information / Comments: Report received from: Liliya CARABALLO at [id number]
[2024-08-22] MEDS: DOXYCYCLINE 100 MG in Normal Saline 100 ML IVPB ×2 (01:42→15:11)
[2024-08-22] MEDS: Normal Saline Flush 10 ML SYR IVP ×4 (01:42→22:40)
[2024-08-22] MEDS: Lidocaine 2% Viscous 1 ML Solution 10 ML PO (01:43)
[2024-08-22] MEDS: methylPREDNISolone SUCC 125 MG VIAL 60 MG IVP ×3 (06:18→22:39)
[2024-08-22] MEDS: Albuterol/Ipratropium 3 ML UPD VIAL UPD ×3 (06:33→23:50)
[2024-08-22 07:03] LABS: HCT 31.2 % (40.0-50.0); HGB 9.8 g/dL (13.5-17.5); MCH 24.9 pg (27.0-33.0); MCHC 31.4 % (32.0-36.0); MCV 79 fL (80-95); MPV 10.5 fL (8.0-11.0); Platelet Count 371 10^3/uL (130-400); RBC 3.93 10^6/uL (4.36-5.78); RDW 16.2 % (11.8-14.1); RDW-SD 46.3 fL; WBC 9.51 10^3/uL (4.4-10.8)
[2024-08-22 07:10] LABS: Prothrombin Time 10.5 sec (9.1-11.1)
[2024-08-22 07:17] LABS: ALT 42 U/L (16-63); AST 40 U/L (15-37); Albumin 1.9 g/dL (3.4-5.0); Alkaline Phosphatase 113 U/L (46-116); Anion Gap 7.3 mmol/L (3-11); BUN 20 mg/dL (7-18); Bilirubin, Total 0.29 mg/dL (0.2-1.0); CO2 30.7 mmol/L (21.0-32.0); CREATININE 1.4 mg/dL (0.70-1.30); Calcium 8.6 mg/dL (8.5-10.1); Chloride 107 mmol/L (98-107); Estimated GFR 51.13 (mL/min/1.73m2); Glucose 155 mg/dL (74-106); Potassium 4.1 mmol/L (3.5-5.1); Sodium 145 mmol/L (136-145); Total Protein 5.9 g/dL (6.4-8.2)
--- NOTE | 2024-08-22 09:26 | PDOC.CMIN ---
Date of service: 08/22/24 Time of Service: 09:26 Care Management Initial Assmt Initial Assessment Reason for Hospitalization: Acute respiratory Failure Advance Directives Advance Directives: Do you have an Advance Directive: N 03/20/13 09:55 AD On File at [facility]: N 08/05/15 12:24 Date Asked 08/21/24 08/21/24 18:21 AD Date Reviewed COLST On File at [facility] COLST Date Scanned Code Status Resuscitation Status DNR/DNI Care Team Visit Care Team Role Provider Type Lily Soares Primary Care Provider ADV PRACTICE REGISTERED NURSE Megan Franklin MD Emergency Provider [facility] STAFF PHYSICIAN Luis Manuel Kelly Admit Provider NON-[facility] STAFF PHYSICIAN Attending Provider [facility] All Active Problems (Updated 08/22/24 @ 03:14 by Luis Manuel Kelly) Tongue lesion (Acute) Acute on chronic respiratory failure with hypoxia and hypercapnia (Acute) Renal cyst, left (Chronic) HTN (hypertension) (Chronic) Dementia (Chronic) Hematuria (Acute) Hypoxic respiratory failure (Acute) Multiple closed fractures of ribs of right side (Acute) Malaise and fatigue (Acute) Cavitary lesion of lung (Acute) Hematuria (Acute) Alzheimer disease (Chronic) Elevated liver function tests (Acute) Transaminitis (Acute) Hyperbilirubinemia (Acute) Confusion (Acute) Generalized weakness (Acute) Bladder mass (Acute) Upper gastrointestinal bleed (Acute 07/31/13) With melena and drop in hemoglobin Anxiety (Acute 07/31/13) Agitation (Acute 07/31/13) Anxiety and depression (Chronic) Hypothyroidism (Chronic) On satins. Hyperlipidemia (Chronic) Periodic limb movement disorder (Chronic) On benzodiazepines. 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 Right shoulder pain Palliative care patient Colon polyp Perforated duodenal ulcer History of alcohol abuse Tobacco abuse Osteoarthritis Hypothyroidism Hyperlipidemia Diverticulitis Depression Anxiety Neurocardiogenic syncope Surgical History Laparotomy (09/10/16) with duodenal ulcer repair Kidney EGD - MAC (05/03/17) Colonoscopy - MAC (03/11/18) Colonoscopy - MAC (05/03/17) Family History Mother Dementia Father Heart disease Social History Smoking/Tobacco Use Status: Current every day Tobacco Type: cigarettes Smoking risk assessment performed?: Yes Alcohol Intake: former Drug use: Never Substance use type: does not use Housing: house Do you feel safe at home: Yes Do you feel safe in your relationship?: Yes SDOH(Care Management) Screening Will the Patient Participate in the Screening?: Unable to obtain Social Determinants of Health Comments(SDOH Details): It does not appear pt is very safe living at home independently Health Related Social Needs Health related social needs: problem related to primary support group(Z63.9)
[2024-08-22] MEDS: Multivitamin TAB 1 TAB PO (09:43)
[2024-08-22] MEDS: Levothyroxine 100 MCG TAB PO (09:43)
[2024-08-22] MEDS: Citalopram 20 MG TAB 40 MG PO (09:43)
[2024-08-22] MEDS: Pantoprazole 40 MG TABCR PO (09:43)
[2024-08-22] MEDS: Thiamine 100 MG TAB PO (09:43)
[2024-08-22] MEDS: Atenolol 25 MG TAB 12.5 MG PO (09:44)
[2024-08-22] MEDS: Nicotine 14 MG/24 HR PATCH TD (09:44)
--- NOTE | 2024-08-22 10:45 | DI.US_ITS ---
Exam(s) US RENAL EXAM: US RENAL CLINICAL HISTORY: Gross hematuria, left renal cyst. TECHNIQUE: Armas scale, color and spectral Doppler were used. COMPARISON: CT CT CHEST/ABD/PEL W from 02/04/[address] THORACIC LUMBAR SPINE REC from 02/04/[address] CHEST PE CTA from 08/21/2024 FINDINGS: Exam limited due to limited patient cooperation. Right kidney: 11.7cm Echogenicity: Normal Hydronephrosis: No Cyst or mass: No Nephrolithiasis: No Left kidney: 11.1cm. Somewhat limited visualization. Echogenicity: Normal Hydronephrosis: No Cyst or mass: 2 parapelvic cysts measuring up to 3 cm Nephrolithiasis: No Bladder: Difficult to evaluate. Large mass measuring roughly 6.3 x 5.6 x 6.5 cm. Prostate not well seen. IMPRESSION: No evidence of hydronephrosis. Left parapelvic cysts. Large irregular bladder mass, suspicious for TCC.. DATA REPOSITORY:
--- NOTE | 2024-08-22 12:37 | W.PM.PROGNOT ---
Date of Service Date of service: 08/22/24 Time of Service: 13:45 Assessment and Plan Assessment and plan (1) Pneumonia: Start date: 08/21/24 Status: Acute Assessment and plan: Patient is being treated for community-acquired pneumonia with ceftriaxone and doxycycline, as well as steroids given concern for an element of COPD. Improving clinically, continue. Qualifiers: Laterality: bilateral Lung location: unspecified part of lung Pneumonia type: due to unspecified organism Qualified Code(s): J18.9 - Pneumonia, unspecified organism (2) Acute on chronic respiratory failure with hypoxia and hypercapnia: Start date: 08/21/24 Status: Acute Assessment and plan: Now comfortable on room air. (3) Anemia: Status: Acute Assessment and plan: Big drop in hemoglobin/hct overnight. However vital signs stable, no symtpoms. Only clear blood loss is in urine, which shouldn't explain such a big drop. Checking again at 1pm with iron/b12/folate as he is at risk for poor nutrition. (4) Hematuria: Start date: 08/21/24 Status: Acute Assessment and plan: In setting of known bladder mass, seen again on u/s today, concerning for transitional cell carcinoma. He has declined evaluation for this in the past. Given dementia, I'm not sure he has capacity currently, we need to talk to DPOA. Qualifiers: Hematuria type: gross Qualified Code(s): R31.0 - Gross hematuria (5) Bladder mass: Status: Acute Assessment and plan: as above (6) Peptic ulcer: Assessment and plan: h/o PUD. Denies symptoms, but with dementia and anemia check occult blood. If positive he may need EGD. For now continue pantoprazole. (7) Hypothyroidism: Status: Chronic Assessment and plan: TSH high on admission, suspect poor adherence with dementia. Continue levothyroxine. says he takes some of the time, could increase dose on discharge so that net dose is closer to goal. Qualifiers: Hypothyroidism type: acquired Qualified Code(s): E03.9 - Hypothyroidism, unspecified (8) Anxiety and depression: Status: Chronic Assessment and plan: Continue outpatient therapy. Pleasant so far since admission. (9) Tobacco abuse: Assessment and plan: NRT prn, but not asking for this now. (10) Dementia: Status: Chronic Assessment and plan: I am concerned about his assisted safety living along and his capacity to make decisions. Default DPOA is who is but checks on him daily, but he lives alone. Palliative consult would be helpful. Qualifiers: Alzheimer's disease onset: other onset Dementia behavioral or psychological symptom: with anxiety Dementia severity: moderate Dementia type: Alzheimer's Qualified Code(s): G30.8 - Other Alzheimer's disease; F02.B4 - Dementia in other diseases classified elsewhere, moderate, with anxiety (11) Tongue lesion: Start date: 08/22/24 Status: Acute Assessment and plan: Patient has a ~1cm lesion over his left lateral tongue with circular appearance and raised borders and indented white lesion centrally. Given acuity and tenderness I think this is an aphthous ulcer rather than a mass. RPR was sent, though would expect chancer to be non-tender. Treat with lidocaine (we don't have oral steroid paste available). (12) Acute kidney injury: Status: Acute Assessment and plan: I am concerned this is obstructive due to bladder mass, which is quite large now. he hasn't wanted this evaluated in the past, but need to d/w DPOA about effects on renal function. I talked to , who is default DPOA. He didn't want invasive procedures, but we decided to at least ask urology for options. Objective Last Vital Signs Temp 36.6 C 08/22/24 11:18 Pulse 55 L 08/22/24 11:18 Resp 20 08/22/24 11:18 BP 120/62 08/22/24 11:18 Pulse Ox 93 08/22/24 11:18 Laboratory Results - last 24 hr 08/21/24 08/21/24 08/21/24 18:00 18:05 18:20 WBC 15.74 H RBC 4.95 Hgb 12.4 L Hct 39.8 L MCV 80 MCH 25.1 L MCHC 31.2 L RDW 16.2 H Plt Count 426 H MPV 10.0 Immature Gran % 0.8 Neutrophils % 87.4 Lymphocytes % 6.7 Monocytes % 4.4 Eosinophils % 0.4 Basophils % 0.3 Nucleated RBC % 0.0 Absolute Neutrophils 13.76 H Absolute Lymphocytes 1.05 L Absolute Monocytes 0.69 Absolute Eosinophils 0.06 Absolute Basophils 0.05 PT INR VBG pH 7.36 VBG pCO2 60 H VBG pO2 39 VBG HCO3 34 H VBG Total CO2 31 H VBG O2 Saturation 70 VBG Base Excess 9 H VBG Lactate 1.5 H Sodium 148 H Potassium 3.8 Chloride 108 H Carbon Dioxide 33.3 H Anion Gap 6.7 BUN 25 H Creatinine 1.5 H Est GFR (CKD-EPI 2020) 47.06 Glucose 95 Calcium 9.5 Magnesium 2.0 Total Bilirubin 0.39 AST 61 H ALT 55 Alkaline Phosphatase 133 H Ammonia < 10 L Troponin I 43 NT-Pro-B Natriuret Pep 5391 H Total Protein 6.8 Albumin 2.4 L Lipase 48 TSH 18.54 H Free T4 0.95 Urine Color Yellow Urine Clarity Cloudy Urine pH 5.5 Ur Specific [place] >= 1.030 H Urine Protein >=300 H Urine Ketones 15 H Urine Blood Large H Urine Nitrite Negative Urine Bilirubin Small H Urine Urobilinogen 0.2 Ur Leukocyte Esterase Negative Urine RBC >50 H Urine WBC 10-20 H Ur Epithelial Cells Few Urine Crystals Not Applicable Urine Bacteria Moderate Urine Mucus Not Applicable Urine Other Few Transitional Ur Culture Indicated? Yes Urine Glucose Negative Urine Opiates Screen Urine Methadone Screen Ur Barbiturates Screen Ur Tricyclics Screen Ur Amphetamines Screen U Benzodiazepines Scrn Urine Cocaine Screen Ur THC Screen Ethyl Alcohol < 3.0 COVID-19 Source Nasopharynx SARS-CoV-2 (PCR) Negative Influenza Type A (PCR) Negative Influenza Type B (PCR) Negative RSV (PCR) Negative 08/21/24 08/21/24 08/22/24 19:25 20:57 00:10 WBC RBC Hgb Hct MCV MCH MCHC RDW Plt Count MPV Immature Gran % Neutrophils % Lymphocytes % Monocytes % Eosinophils % Basophils % Nucleated RBC % Absolute Neutrophils Absolute Lymphocytes Absolute Monocytes Absolute Eosinophils Absolute Basophils PT INR VBG pH VBG pCO2 VBG pO2 VBG HCO3 VBG Total CO2 VBG O2 Saturation VBG Base Excess VBG Lactate Sodium Potassium Chloride Carbon Dioxide Anion Gap BUN Creatinine Est GFR (CKD-EPI 2020) Glucose Calcium Magnesium Total Bilirubin AST ALT Alkaline Phosphatase Ammonia Troponin I 36 30 NT-Pro-B Natriuret Pep Total Protein Albumin Lipase TSH Free T4 Urine Color Urine Clarity Urine pH Ur Specific [place] Urine Protein Urine Ketones Urine Blood Urine Nitrite Urine Bilirubin Urine Urobilinogen Ur Leukocyte Esterase Urine RBC Urine WBC Ur Epithelial Cells Urine Crystals Urine Bacteria Urine Mucus Urine Other Ur Culture Indicated? Urine Glucose Urine Opiates Screen Negative Urine Methadone Screen Negative Ur Barbiturates Screen Negative Ur Tricyclics Screen Negative Ur Amphetamines Screen Negative U Benzodiazepines Scrn Negative Urine Cocaine Screen Negative Ur THC Screen Negative Ethyl Alcohol COVID-19 Source SARS-CoV-2 (PCR) Influenza Type A (PCR) Influenza Type B (PCR) RSV (PCR) 08/22/24 06:40 WBC 9.51 RBC 3.93 L Hgb 9.8 L D Hct 31.2 L MCV 79 L MCH 24.9 L MCHC 31.4 L RDW 16.2 H Plt Count 371 MPV 10.5 Immature Gran % Neutrophils % Lymphocytes % Monocytes % Eosinophils % Basophils % Nucleated RBC % Absolute Neutrophils Absolute Lymphocytes Absolute Monocytes Absolute Eosinophils Absolute Basophils PT 10.5 INR 1.0 VBG pH VBG pCO2 VBG pO2 VBG HCO3 VBG Total CO2 VBG O2 Saturation VBG Base Excess VBG Lactate Sodium 145 Potassium 4.1 Chloride 107 Carbon Dioxide 30.7 Anion Gap 7.3 BUN 20 H Creatinine 1.4 H Est GFR (CKD-EPI 2020) 51.13 Glucose 155 H Calcium 8.6 Magnesium 2.0 Total Bilirubin 0.29 AST 40 H ALT 42 Alkaline Phosphatase 113 Ammonia Troponin I NT-Pro-B Natriuret Pep Total Protein 5.9 L Albumin 1.9 L Lipase TSH Free T4 Urine Color Urine Clarity Urine pH Ur Specific [place] Urine Protein Urine Ketones Urine Blood Urine Nitrite Urine Bilirubin Urine Urobilinogen Ur Leukocyte Esterase Urine RBC Urine WBC Ur Epithelial Cells Urine Crystals Urine Bacteria Urine Mucus Urine Other Ur Culture Indicated? Urine Glucose Urine Opiates Screen Urine Methadone Screen Ur Barbiturates Screen Ur Tricyclics Screen Ur Amphetamines Screen U Benzodiazepines Scrn Urine Cocaine Screen Ur THC Screen Ethyl Alcohol COVID-19 Source SARS-CoV-2 (PCR) Influenza Type A (PCR) Influenza Type B (PCR) RSV (PCR) Time Spent with Patient Time Spent with Patient: >50 minutes Time was spent: preparing to see the patient(eg.review tests), obtaining and/or reviewing separately otained hiistory, ordering medications,tests, procedures, referring, communicating with other health skin care instructor, indepentently interpreting results, counseling the patient and care coordination
[2024-08-22] MEDS: Lidocaine 2% Viscous 15 ML CUP 5 ML PO ×2 (13:14→21:18)
[2024-08-22 13:51] LABS: HCT 32.5 % (40.0-50.0); HGB 10.1 g/dL (13.5-17.5)
--- NOTE | 2024-08-22 14:39 | W.PALLCONSUL ---
Date of service: 08/22/24 Time of Service: 14:39 History of Present Illness Narrative: Domingo Macdonald is a 79 yo man with a history of Alzheimer's dementia, anxiety, depression, hyperlipidemia, hypothyroidism. hx EtOH (sober x a few years), smoker, COPD was admitted to [facility] inpatient yesterday with Diagnosis of community aquired multilobular PNA. Hospitalist asked us to consult with him and his family to help with goals of care discussion and assist family with future decision making. had been seeing blood in urine for several days along with urinary frequency. He finally agreed to let her bring him to the ED. He lives alone in his home with his and adult children checking in on him daily. He was previously seen by Socorro Vance NP of Palliative Care in 2021 during an inpatient admission. At that time he was noted to have a bladder mass as well as a cavitating pulmonary lesion. HE declined further workup at the time and his (and presumed surrogate) felt this aligned with his wishes. Care Team: Primary Care physician: Lily Soares NP, [facility] Social HX: Marital Status: from , Kathryn Macdonald ([phone]), Cell [phone]. 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 Although he reports doing many other things, he actually does not do other things (confabulates) Additional Services: Estranged goes to house daily, cleans, shops and cooks for him. Drives him to any appointments. Impression of currents health status: I have had a kidney problem for 30 years. What bothers you the most: The fact that I am not well. That I am not able to take care of myself. Harder to do things. What worries you the most: My condition, cannot explain Goals: To be with your family, and family, having dinner and being together. (there is no plans to do this as per ). Hoping to return home soon. LIkes to repair things, reports that he is very handy. Has repaired things himself. ( says he cannot do anything, this is CONFABULATION) Function: Ambulation: No aids (refuses to use) ADLs: Dresses himself, takes a long time iADLs: Estranged handles all finances, does shopping, driving and chores. does not know if and how he bathes, but does not seem to smell. Hearing: Reduced hearing, no hearing aids. Vision: Glasses. Cognition: Falls: Occasional falls due to dizzyness Driving:None Palliative Performance Scale % Ambulation Activity and Evidence of Disease Self Care Intake Level of Consciousness 100 Full Normal activity, no evidence of disease Full Normal Full 90 Full Normal activity, some evidence of disease Full Normal Full 80 Full Normal activity with effort, some evidence of disease Full Normal or reduced Full 70 Reduced Unable to do normal work, some evidence of disease Full Normal or reduced Full 60 Reduced Unable to do hobby or some housework, significant disease Occasional assist necessary Normal or reduced Full or confusion 50 Mainly sit/lie Unable to do any work, extensive disease Considerable assistance required Normal or reduced Full or confusion 40 Mainly in bed Unable to do any work, extensive disease Mainly assistance Normal or reduced Full, drowsy, or confusion 30 Totally bed bound Unable to do any work, extensive disease Total care Reduced Full, drowsy, or confusion 20 Totally bed bound Unable to do any work, extensive disease Total care Minimal sips Full, drowsy, or confusion 10 Totally bed bound Unable to do any work, extensive disease Total care Mouth care only Drowsy or coma 0 - - - - Patient Score: 50-60 Spiritual history: Used to go to [employer] as a teen. Palliative review of systems: Pain: Dyspnea: GI symptoms: Appetite: Weight: Weight stable over the past year. (10+ kg weight loss in years prior to that). Depression: Anxiety: None Emotional Distress: Spiritual/Existential Distress: Labs: Cr: 1.4-1`.5 (previously 1.5) Liver panel: NL Albumin:1.9 CBC: hgb 10.1 INR 1.0 Advanced Care Planning: Advanced Directive:NOne on file Health Care Agent:NOne on file COLST: 2023 COLST: Completed with PCP Manuela Soares, [employer]: /DNI, +Comfort Focused treatment, No IV fluids, No hydration, no artificial nutrition. Limitations: Assessment and Plan Assessment and plan (1) Dementia: Status: Chronic Assessment and plan: Mr. Macdonald is a 79-year-old gentleman with dementia, emphysema, and enlarging bladder lesion admitted yesterday with multilobular pneumonia. No evidence of UTI found but he does have significant hematuria. He has had decrease in his creatinine, although no hydronephrosis seen on ultrasound this morning. 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 Unfortunately, on my evaluation today it appears that he has no capacity to make decisions related to his medical care or disposition. PC with PCP Manuela Soares: Pt has had steady decline over the past year. See below as well. #Goals of care: Kathryn reports that he has always wanted to remain in his own home until the end of his life. She has been providing wraparound care for him. He is receiving no other services. Children are unable to help out with in person support or care. No friends or family nearby. She reports they never discussed what to do if he was no longer able to remain safely at home. I asked her what she thinks should happen to him once he can no longer remain at home safely. She says she really does not know. She will not be able to move in with him and he is unable to move in with her (I cannot live with him ). She reports that they have no money to pay for him to move to a longterm and he would not want to do that anyhow. She is pretty sure they would not qualify financially for long-term Medicaid. to her and making decisions. She feels it would be safe for him to go home once he is discharged from the hospital. He has only had minor falls in the last few months, does not wander and she cannot recall any dangerous behaviors. Important additional information from PCP: Manuela Soares NP has known patient and for many years. He has consistently refused to have any treatment, workup, biopsy over the years. HE also refuses home health services, as he will not let any strangers in his house. She also reports that had a bad experience when a family member was on hospice and will never agree to having hospice care for anyone in her family. RODRIGO Lizama had been trying to talk them into hospice over the last year and has repeatedly refused. Manuela predicts that will continue to care for patient until end of life in current situation with home health or hospice support. Manuela also reports that children are NOT involved in his care and do not visit. Son is not allowed in house. Assessment: Challenging situation with patient who is lost capacity to make decisions. I am not sure it is safe for him to return home. And certainly sometime in the future as his bladder mass increases, it will absolutely become unsafe for him to be alone, even with being in the home daily for multiple hours. Plan: Case management and will discuss further. #Bladder Mass with hematuria: 2 years ago patient refused to have any biopsy or further evaluation done on this bladder mass. He is now having symptomatic hematuria and the mass has doubled in size. I do not believe he has capacity to make any medical decisions at this time. Await urological consultation and see what options are for patient. very concerned about possible effects of anesthesia and that due to his lung disease he will live through the procedure . However, debulking and cauterization of the mass may result in significant improvement in and bothersome symptoms of polyuria, dysuria resulting from hematuria, thus improving quality of life and improving function. As per PCP, he has refused any and all precedures in ronaldo past. Plan: Await recommendations and discussion of options from Dr. Gallardo. Palliative care team is happy to meet with patient and family again to discuss and consider various options once presented. # Advance care planning: Patient has no advance directive and no healthcare agent form. There is a COLST. Medical decision making: His estranged Kathryn Macdonald has made decisions both with and for him, even over the last 10 years that they have not lived together. She is his basically full-time caregiver and continues to go to his house daily to perform his iADLs, handle his finances and drive him to appointments. She is willing to make medical decisions for him if he is unable to make them for himself. However she feels he is still able to make decisions for himself. I Demonstrated how his answers today show that he actually does not have capacity to understand and think through choices when it comes to making medical decisions. Certainly we should can consider his opinions on matters. But in the end she is agreeable to being his healthcare surrogate. Life sustaining treatment: Pt completed COLST with his PCP Lily Soares October 2023 (10 months ago) stating DNR/DNI,checked off : Comfort focused treatment, DO not administer artificial nutrition or artificial hydration or use antibiotics. Patient's was unable to give me more clarification on this. She felt he would want to be in the hospital. See discussion with PCP above. If patient and truly would like comfort measures only, And are not interested in considering a cystoscopy, then we have a different set of's considerations to discuss. #Disposition: reports that he has good days and bad days, more confused on the bad days. No self-injurious or dangerous behavior. Has an occasional fall. Had a severe fall when he got dizzy 2 years ago and fractured multiple ribs. However she reports occasional fall only with no serious injuries ongoing, last fall about a week ago. Never wanders, not using the stove, not using stairs. feels very strongly that he will return home with her supporting him on a daily basis after this admission. I told her I thought this would be a good time to begin to explore options for living situations with 24/7 support. Even if not needed at this time, given the bladder tumor, I think his functional status will likely continue to decline. Qualifiers: Dementia type: Alzheimer's Alzheimer's disease onset: other onset Dementia severity: moderate Dementia behavioral or psychological symptom: with anxiety Qualified Code(s): G30.8 - Other Alzheimer's disease; F02.B4 - Dementia in other diseases classified elsewhere, moderate, with anxiety (2) Bladder mass: Status: Acute (3) Community acquired pneumonia: Status: Acute (4) Acute kidney injury: Status: Acute (5) Palliative care encounter: Status: Acute (6) Advanced care planning/counseling discussion: Status: Acute (7) DNR (do not resuscitate): Status: Acute Assessment and plan: 16 to 30 minutes spent today on Advance Care Planning. Patient and family participated voluntarily. Advance care planning may include (not limited to) explanation and discussion of advance directives, choosing and appointing healthcare agents, alternatives to various ACP tools, discussion of (and if indicated, completion of) COLST form, discussion of patient's values and overall goals for treatment, palliative and disease directive care options, ways to avoid hospital readmission including hospice discussions, care preferences should the patient's several other adverse health events.See today's palliative care note for additional information. This note was dictated using speech recognition software. Attempt was made at proofreading, but errors may be present. Please call with questions. Follow-up: Palliative Care Team will follow-up with and patient later this week. Please call us if you would like us to be present at family meeting. PFSH All Active Problems (Updated 08/22/24 @ 15:58 by Lizet Morris MD) DNR (do not resuscitate) (Acute) 2023 COLST: Completed with PCP Manuela Soares, [employer]: /DNI, +Comfort Focused treatment, No IV fluids, No hydration, no artificial nutrition. Advanced care planning/counseling discussion (Acute) Palliative care encounter (Acute) Community acquired pneumonia (Acute) Acute kidney injury (Acute) Tongue lesion (Acute) Acute on chronic respiratory failure with hypoxia and hypercapnia (Acute) Renal cyst, left (Chronic) HTN (hypertension) (Chronic) Dementia (Chronic) Hematuria (Acute) Hypoxic respiratory failure (Acute) Multiple closed fractures of ribs of right side (Acute) Malaise and fatigue (Acute) Cavitary lesion of lung (Acute) Hematuria (Acute) Alzheimer disease (Chronic) Elevated liver function tests (Acute) Transaminitis (Acute) Hyperbilirubinemia (Acute) Confusion (Acute) Generalized weakness (Acute) Bladder mass (Acute) Upper gastrointestinal bleed (Acute 07/31/13) With melena and drop in hemoglobin Anxiety (Acute 07/31/13) Agitation (Acute 07/31/13) Anxiety and depression (Chronic) Hypothyroidism (Chronic) On satins. Hyperlipidemia (Chronic) Periodic limb movement disorder (Chronic) On benzodiazepines. 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 Right shoulder pain Palliative care patient Colon polyp Perforated duodenal ulcer History of alcohol abuse Tobacco abuse Osteoarthritis Hypothyroidism Hyperlipidemia Diverticulitis Depression Anxiety Neurocardiogenic syncope Surgical History Laparotomy (09/10/16) with duodenal ulcer repair Kidney EGD - MAC (05/03/17) Colonoscopy - MAC (03/11/18) Colonoscopy - MAC (05/03/17) Family History Mother Dementia Father Heart disease Social History Smoking/Tobacco Use Status: Current every day Tobacco Type: cigarettes Smoking risk assessment performed?: Yes Alcohol Intake: former Drug use: Never Substance use type: does not use Housing: house Do you feel safe at home: Yes Do you feel safe in your relationship?: Yes Exam Narrative Exam Narrative: Elderly man with long hair and long white hodgson laying in bed. Awake and very talkative. Not oriented to month or year.(October and is comign holiday). Thinks he is in the hospital and [facility]. Unable to tell me where his house is ([place]). When I tell him the month is August and that the upcoming holiday is , I ask him a minute later and he repeats that it is October and he thinks that is coming. Unable to provide any significant history. Can tell me his 's name and identify her. Cannot tell me what company he worked for or what kind of work he used to do. Results Last Vital Signs Temp 36.6 C 08/22/24 11:18 Pulse 55 L 08/22/24 11:18 Resp 20 08/22/24 11:18 BP 120/62 08/22/24 11:18 Pulse Ox 93 08/22/24 11:18 Labs 08/22/24 13:35 08/22/24 06:40 Labs: Laboratory Results - last 24 hr 08/21/24 08/21/24 08/21/24 18:00 18:05 18:20 WBC 15.74 H RBC 4.95 Hgb 12.4 L Hct 39.8 L MCV 80 MCH 25.1 L MCHC 31.2 L RDW 16.2 H Plt Count 426 H MPV 10.0 Immature Gran % 0.8 Neutrophils % 87.4 Lymphocytes % 6.7 Monocytes % 4.4 Eosinophils % 0.4 Basophils % 0.3 Nucleated RBC % 0.0 Absolute Neutrophils 13.76 H Absolute Lymphocytes 1.05 L Absolute Monocytes 0.69 Absolute Eosinophils 0.06 Absolute Basophils 0.05 PT INR VBG pH 7.36 VBG pCO2 60 H VBG pO2 39 VBG HCO3 34 H VBG Total CO2 31 H VBG O2 Saturation 70 VBG Base Excess 9 H VBG Lactate 1.5 H Sodium 148 H Potassium 3.8 Chloride 108 H Carbon Dioxide 33.3 H Anion Gap 6.7 BUN 25 H Creatinine 1.5 H Est GFR (CKD-EPI 2020) 47.06 Glucose 95 Calcium 9.5 Magnesium 2.0 Total Bilirubin 0.39 AST 61 H ALT 55 Alkaline Phosphatase 133 H Ammonia < 10 L Troponin I 43 NT-Pro-B Natriuret Pep 5391 H Total Protein 6.8 Albumin 2.4 L Lipase 48 TSH 18.54 H Free T4 0.95 Urine Color Yellow Urine Clarity Cloudy Urine pH 5.5 Ur Specific [place] >= 1.030 H Urine Protein >=300 H Urine Ketones 15 H Urine Blood Large H Urine Nitrite Negative Urine Bilirubin Small H Urine Urobilinogen 0.2 Ur Leukocyte Esterase Negative Urine RBC >50 H Urine WBC 10-20 H Ur Epithelial Cells Few Urine Crystals Not Applicable Urine Bacteria Moderate Urine Mucus Not Applicable Urine Other Few Transitional Ur Culture Indicated? Yes Urine Glucose Negative Urine Opiates Screen Urine Methadone Screen Ur Barbiturates Screen Ur Tricyclics Screen Ur Amphetamines Screen U Benzodiazepines Scrn Urine Cocaine Screen Ur THC Screen Ethyl Alcohol < 3.0 COVID-19 Source Nasopharynx SARS-CoV-2 (PCR) Negative Influenza Type A (PCR) Negative Influenza Type B (PCR) Negative RSV (PCR) Negative 08/21/24 08/21/24 08/22/24 19:25 20:57 00:10 WBC RBC Hgb Hct MCV MCH MCHC RDW Plt Count MPV Immature Gran % Neutrophils % Lymphocytes % Monocytes % Eosinophils % Basophils % Nucleated RBC % Absolute Neutrophils Absolute Lymphocytes Absolute Monocytes Absolute Eosinophils Absolute Basophils PT INR VBG pH VBG pCO2 VBG pO2 VBG HCO3 VBG Total CO2 VBG O2 Saturation VBG Base Excess VBG Lactate Sodium Potassium Chloride Carbon Dioxide Anion Gap BUN Creatinine Est GFR (CKD-EPI 2020) Glucose Calcium Magnesium Total Bilirubin AST ALT Alkaline Phosphatase Ammonia Troponin I 36 30 NT-Pro-B Natriuret Pep Total Protein Albumin Lipase TSH Free T4 Urine Color Urine Clarity Urine pH Ur Specific [place] Urine Protein Urine Ketones Urine Blood Urine Nitrite Urine Bilirubin Urine Urobilinogen Ur Leukocyte Esterase Urine RBC Urine WBC Ur Epithelial Cells Urine Crystals Urine Bacteria Urine Mucus Urine Other Ur Culture Indicated? Urine Glucose Urine Opiates Screen Negative Urine Methadone Screen Negative Ur Barbiturates Screen Negative Ur Tricyclics Screen Negative Ur Amphetamines Screen Negative U Benzodiazepines Scrn Negative Urine Cocaine Screen Negative Ur THC Screen Negative Ethyl Alcohol COVID-19 Source SARS-CoV-2 (PCR) Influenza Type A (PCR) Influenza Type B (PCR) RSV (PCR) 08/22/24 08/22/24 06:40 13:35 WBC 9.51 RBC 3.93 L Hgb 9.8 L D 10.1 L Hct 31.2 L 32.5 L MCV 79 L MCH 24.9 L MCHC 31.4 L RDW 16.2 H Plt Count 371 MPV 10.5 Immature Gran % Neutrophils % Lymphocytes % Monocytes % Eosinophils % Basophils % Nucleated RBC % Absolute Neutrophils Absolute Lymphocytes Absolute Monocytes Absolute Eosinophils Absolute Basophils PT 10.5 INR 1.0 VBG pH VBG pCO2 VBG pO2 VBG HCO3 VBG Total CO2 VBG O2 Saturation VBG Base Excess VBG Lactate Sodium 145 Potassium 4.1 Chloride 107 Carbon Dioxide 30.7 Anion Gap 7.3 BUN 20 H Creatinine 1.4 H Est GFR (CKD-EPI 2020) 51.13 Glucose 155 H Calcium 8.6 Magnesium 2.0 Total Bilirubin 0.29 AST 40 H ALT 42 Alkaline Phosphatase 113 Ammonia Troponin I NT-Pro-B Natriuret Pep Total Protein 5.9 L Albumin 1.9 L Lipase TSH Free T4 Urine Color Urine Clarity Urine pH Ur Specific [place] Urine Protein Urine Ketones Urine Blood Urine Nitrite Urine Bilirubin Urine Urobilinogen Ur Leukocyte Esterase Urine RBC Urine WBC Ur Epithelial Cells Urine Crystals Urine Bacteria Urine Mucus Urine Other Ur Culture Indicated? Urine Glucose Urine Opiates Screen Urine Methadone Screen Ur Barbiturates Screen Ur Tricyclics Screen Ur Amphetamines Screen U Benzodiazepines Scrn Urine Cocaine Screen Ur THC Screen Ethyl Alcohol COVID-19 Source SARS-CoV-2 (PCR) Influenza Type A (PCR) Influenza Type B (PCR) RSV (PCR) Time Spent Time Spent with Patient Time Spent(min): 90
[2024-08-22] MEDS: Acetaminophen 325 MG TAB PO (15:11)
--- NOTE | 2024-08-22 15:40 | CHAPLAIN ---
Domingo was in the recliner when I visited. His exwife was with him. She checks on him frequently at home. Domingo asked from some soda to drink and said he is waiting to hear from his nurse, and then the hospitalist what the plan is. He said he has no idea what's happening. He has some dementia but was clear in his brief conversation with me.
--- NOTE | 2024-08-22 16:58 | INITIAL_ITS ---
Date of service: 08/22/24 Time of Service: 16:59 Care Management Initial Assmt Initial Assessment Reason for Hospitalization: Pneumonia Functional Status/Living Situation Patient Presentation: Reji was sitting up in bed visiting with his Kathryn. He appeared to be hard of hearing and was not always able to provide accurate information. Kathryn was helpful in filling in the gaps and did share that Reji has memory issues. Reji lives alone in a single family home in [place]. Kathryn moved out about 10 years ago but they are still legally . They have 2 children; their daughter lives in [place] and their son lives in [place]. They also have 3 grandsons. Reji is retired from a successful career with [employer] in [facility]. He is independent at baseline and does not receive any community services. He does have a walker but Kathryn shared that he rarely, if ever, uses it. While Reji is fairly independent, Kathryn comes every day and brings him his medication. She also cooks a meal for him every day and generally sees that things are taken care of. Kathryn indicated that when it is time for discharge, Reji will return home. Town of Residence: [place] Resides with: Alone Significant Other/Family: Out of area Caregiver/Guardian: Kathryn Natural Supports: daughter lives in [place] Employment Status: Retired Instrumental Activities of Daily Living (ADLs): Independent and Requires support with Dishes/food prep Medications Medication Management: Issues/Barriers with Instructions/Directions ( citlali lopez) Physical Functioning/Mobility Assistive Device: has a walker but does not use Advance Directives Advance Directives: Do you have an Advance Directive: N 03/20/13 09:55 AD On File at [facility]: N 08/05/15 12:24 Date Asked 08/21/24 08/21/24 18:21 AD Date Reviewed COLST On File at [facility] COLST Date Scanned Code Status Resuscitation Status DNR/DNI Portal Pt does not currently have a portal and education provided: No Insurance Coverage/Financial Issues Insurance: [employer] Medicare replacement Care Team Visit Care Team Role Provider Type Lily Soares Primary Care Provider ADV PRACTICE REGISTERED NURSE Fidel Gallardo MD Other Providers [facility] STAFF PHYSICIAN Megan Franklin MD Emergency Provider [facility] STAFF PHYSICIAN Luis Manuel Kelly Admit Provider NON-[facility] STAFF PHYSICIAN Attending Provider Discharge Potential Discharge Needs: PCP F/U Appt Anticipated Barriers to Discharge: None Identified Patient/Family Education Needs: Review discharge instructions, discuss Ask Me Three Transportation: Private vehicle Plan: Anticipate Reji will be discharged home, possibly with new home health services, when medically stable. He will follow up with his PCP and plan of care and transport with family. CM will follow and continue to assess for discharge planning concerns. PFSH All Active Problems (Updated 08/22/24 @ 15:58 by Lizet Morris MD) DNR (do not resuscitate) (Acute) 2023 COLST: Completed with PCP Manuela Soares, TREAD TUBER MACHINE OPERATOR: /DNI, +Comfort Focused treatment, No IV fluids, No hydration, no artificial nutrition. Advanced care planning/counseling discussion (Acute) Palliative care encounter (Acute) Community acquired pneumonia (Acute) Acute kidney injury (Acute) Tongue lesion (Acute) Acute on chronic respiratory failure with hypoxia and hypercapnia (Acute) Renal cyst, left (Chronic) HTN (hypertension) (Chronic) Dementia (Chronic) Hematuria (Acute) Hypoxic respiratory failure (Acute) Multiple closed fractures of ribs of right side (Acute) Malaise and fatigue (Acute) Cavitary lesion of lung (Acute) Hematuria (Acute) Alzheimer disease (Chronic) Elevated liver function tests (Acute) Transaminitis (Acute) Hyperbilirubinemia (Acute) Confusion (Acute) Generalized weakness (Acute) Bladder mass (Acute) Upper gastrointestinal bleed (Acute 07/31/13) With melena and drop in hemoglobin Anxiety (Acute 07/31/13) Agitation (Acute 07/31/13) Anxiety and depression (Chronic) Hypothyroidism (Chronic) On satins. Hyperlipidemia (Chronic) Periodic limb movement disorder (Chronic) On benzodiazepines. 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 Right shoulder pain Palliative care patient Colon polyp Perforated duodenal ulcer History of alcohol abuse Tobacco abuse Osteoarthritis Hypothyroidism Hyperlipidemia Diverticulitis Depression Anxiety Neurocardiogenic syncope Surgical History Laparotomy (09/10/16) with duodenal ulcer repair Kidney EGD - MAC (05/03/17) Colonoscopy - MAC (03/11/18) Colonoscopy - MAC (05/03/17) Family History Mother Dementia Father Heart disease Social History Smoking/Tobacco Use Status: Current every day Tobacco Type: cigarettes Smoking risk assessment performed?: Yes Alcohol Intake: former Drug use: Never Substance use type: does not use Housing: house Do you feel safe at home: Yes Do you feel safe in your relationship?: Yes SDOH(Care Management) Screening Will the Patient Participate in the Screening?: Unable to obtain Social Determinants of Health Comments(SDOH Details): It does not appear pt is very safe living at home independently Health Related Social Needs Health related social needs: problem related to primary support group(Z63.9)
[2024-08-22 17:55] LABS: Ferritin 121 ng/mL (26-388); Vitamin B12 1921 pg/mL (193-986)
[2024-08-22 18:00] LABS: Iron 12 ug/dL (65-175); Total Iron Binding Capacity 231 ug/dL (250-450); Transferrin Sat 5 % (20-55)
[2024-08-22 18:44] LABS: Folate > 20.0 ng/mL (8.6-20.0)
--- NOTE | 2024-08-22 20:00 | PAPNONF_PTH ---
PATIENT: Domingo Macdonald LOC: U#:[id number] AGE/SX: 79/M ROOM: RE08/21/[address]: Luis Manuel Kelly : 1945 BED: A DIS: 08/24/2024 SPEC #: [id number] RECD: 08/23/24 12:51 STATUS: YOANA REQ #: [id number] GINETTE: 08/22/24 20:[address]: Luis Manuel Kelly DEPT: [facility] Cytology RECD BY: Lola Shelby ENTERED: 08/23/24 12:58 SP TYPE: WANG SEGAL DR: Lily Soares MD Tissues: 1 - BODY FLUID CYTO(SPUTUM/URINE)[facility] Procedures: BODY FLUID CYTO(URINE/SPUTUM) Comments: [id number] (TV = 80 cc, 30 cc CYTOLYT ADDED) (REFRIGERATED)
[2024-08-22] MEDS: cefTRIAXone 1 GM/50 ML BAG IVPB (21:09)
[2024-08-22] MEDS: Melatonin 3 MG TAB PO (21:10)
[2024-08-22] MEDS: Magnesium Chloride 64 MG TABCR PO (21:10)
[2024-08-22] MEDS: traZODone 50 MG TAB 100 MG PO (21:10)
[2024-08-22] MEDS: Mirtazapine 15 MG TAB 45 MG PO (21:11)
[2024-08-22] MEDS: Lidocaine Patch Removal 1 EACH TP (21:21)
[2024-08-23] VITALS (15 sets, daily range): BP systolic 110–124; BP diastolic 60–81; PULSE 60–99; RESP 3–18; TEMP 36.7–37.1; O2SAT 90–99
[2024-08-23] MEDS: Lidocaine 2% Viscous 15 ML CUP 5 ML PO ×4 (01:23→17:50)
[2024-08-23] MEDS: DOXYCYCLINE 100 MG in Normal Saline 100 ML IVPB ×2 (03:43→14:18)
[2024-08-23] MEDS: Normal Saline Flush 10 ML SYR IVP ×6 (03:44→23:07)
[2024-08-23] MEDS: Albuterol/Ipratropium 3 ML UPD VIAL UPD ×4 (05:00→23:43)
[2024-08-23] MEDS: Levothyroxine 100 MCG TAB PO (05:16)
[2024-08-23] MEDS: QUEtiapine 25 MG TAB PO ×2 (05:16→19:53)
--- NOTE | 2024-08-23 05:41 | NUR.NOTE ---
Nursing Note: Pt had a sudden change in mood @ around 0515. Pt had been pleasantly confuse and cooperative from start of shift up until 0515. Pt was telling all nurses and LNAs that interacted with him that they are so nice and he loves them, and thanking them for taking care of him. He was AAO to self and place but after midnight only to self but easily reoriented. @ around 0455 pt's chair alarm went off, pt was already over at the toilet with RN Domenic when this RN went in to assist. This RN noticed that pt's IV was dislodged. After getting the pt back to chair pt was still pleasant and agree to start another IV line to complete IV ABX. During the process of placing the IV pt got agitated and started asking this RN to leave him alone. Attempted once but was unsuccessful (hit a valve). Pt refused second attempt and became belligerent. Attempted to give prn seroquel along with synthroid but pt refused, requesting coffee. Other nurses attempted to assist pt but still refused and became even more aggressive. Meds crushed and placed in coffee at bedside per pt's request. Pt is currently in chair, making occassional yelling out for Kathryn threatening that Ijeoma has to find another place to live.
--- NOTE | 2024-08-23 08:48 | CMPROGNOTE_ITS ---
Date of service: 08/23/24 Time of Service: 08:48 Care Management Progress Note Progress Note Text Progress Note Text: Reji was sitting up in a chair when CM met with him. He slept most of the morning but was more awake in the afternoon. Reji is alert but confused. His son Blaze visited this afternoon and they were able to have a conversation. Clinically Reji is improved and will likely be discharged tomorrow. CM met with his this afternoon and a tentative time for discharge was established. Kathryn felt that 1- 1:30 pm would work best if, in fact, Reji does get discharged tomorrow. Discharge Potential Discharge Needs: PCP F/U Appt Anticipated Barriers to Discharge: None Identified Patient/Family Education Needs: Review discharge instructions, discuss Ask Me Three Transportation: Private vehicle Plan: Anticipate Reji will be discharged home, possibly with new home health services, when medically stable. He will follow up with his PCP and plan of care and transport with family. CM will follow and continue to assess for discharge planning concerns. SDOH(Care Management) Screening Will the Patient Participate in the Screening?: Unable to obtain Social Determinants of Health Comments(SDOH Details): It does not appear pt is very safe living at home independently
[2024-08-23] MEDS: Lidocaine 5% Patch 1 PATCH TP (09:25)
[2024-08-23] MEDS: Nicotine 14 MG/24 HR PATCH TD (09:25)
[2024-08-23] MEDS: Thiamine 100 MG TAB PO (09:26)
[2024-08-23] MEDS: Multivitamin TAB 1 TAB PO (09:26)
[2024-08-23] MEDS: Citalopram 20 MG TAB 40 MG PO (09:26)
[2024-08-23] MEDS: Atenolol 25 MG TAB 12.5 MG PO (09:26)
[2024-08-23] MEDS: Pantoprazole 40 MG TABCR PO (09:26)
[2024-08-23] MEDS: Ferrous Sulfate 325 MG TAB PO (09:26)
[2024-08-23 10:54] LABS: HCT 31.3 % (40.0-50.0); HGB 9.5 g/dL (13.5-17.5); MCH 24.7 pg (27.0-33.0); MCHC 30.4 % (32.0-36.0); MCV 81 fL (80-95); RBC 3.85 10^6/uL (4.36-5.78); RDW 16.4 % (11.8-14.1); RDW-SD 48.4 fL; WBC 21.58 10^3/uL (4.4-10.8)
[2024-08-23 10:57] LABS: Syphilis Serology (RPR) Negative (Negative)
[2024-08-23 11:07] LABS: Anion Gap 8.1 mmol/L (3-11); BUN 34 mg/dL (7-18); CO2 30.9 mmol/L (21.0-32.0); CREATININE 1.8 mg/dL (0.70-1.30); Chloride 104 mmol/L (98-107); Estimated GFR 37.82 (mL/min/1.73m2); Glucose 176 mg/dL (74-106); Sodium 143 mmol/L (136-145)
[2024-08-23 11:26] LABS: Absolute Lymphocyte Count 1.08 10^3/uL (1.2-3.4); Absolute Monocyte Count 0.43 10^3/uL (0.1-0.8); Absolute Neutrophil Count 20.07 10^3/uL (1.2-6.7); Diff Comment Manual Differential; RBC Morphology Normal
[2024-08-23] MEDS: predniSONE 20 MG TAB 40 MG PO (11:31)
--- NOTE | 2024-08-23 12:59 | PHA.REVIEW2 ---
Pharmacy Admission Review Admission Clinical Review Admission Pharmacy Review: Microcytic anemia (Acute) Acute hypernatremia (Acute) DNR (do not resuscitate) (Acute) Advanced care planning/counseling discussion (Acute) Palliative care encounter (Acute) Community acquired pneumonia (Acute) Acute kidney injury (Acute) Tongue lesion (Acute) Acute on chronic respiratory failure with hypoxia and hypercapnia (Acute) Hematuria (Acute) Bladder mass (Acute) Anemia (Acute) Pneumonia (Acute) ibuprofen Allergy (Severe, Unverified 08/21/24 17:45) Other (See Comment) varenicline tartrate (From Chantix) Adverse Reaction (Severe, Unverified 08/21/24 17:45) Psychosis Resuscitation Status DNR/DNI Height 5 ft 8 in Weight 60.7 kg Pharmacy Admission Review Renal Dosing Renal Dosing: BUN 34 mg/dL (7-18) H 08/23/24 10:45 Creatinine 1.8 mg/dL (0.70-1.30) H 08/23/24 10:45 Medications needing adjustments: Reviewed (CrCl 28 mL/min, BUN increased from 20 and SCr increased from 1.4) List of meds needing interventions: Current medications are okay Anticoagulation Anticoagulation: Hgb 9.5 g/dL (13.5-17.5) L 08/23/24 10:45 Hct 31.3 % (40.0-50.0) L 08/23/24 10:45 Plt Count 10^3/uL (130-400) 08/23/24 10:45 INR 1.0 (0.9-1.1) 08/22/24 06:40 Creatinine 1.8 mg/dL (0.70-1.30) H 08/23/24 10:45 DVT Prophylaxis: Reviewed (SCDs, Hgb decreased from 10.1, stool occult blood test pending) Relevant Labs Relevant Labs: Sodium 143 mmol/L (136-145) 08/23/24 10:45 Potassium 4.0 mmol/L (3.5-5.1) 08/23/24 10:45 Chloride 104 mmol/L (98-107) 08/23/24 10:45 Magnesium 2.0 mg/dL (1.8-2.4) 08/22/24 06:40 Electrolytes, C-Reactive P, ESR: Reviewed Cardiac Review Cardiac Review: Troponin I 30 ng/L (<or=76) 08/21/24 20:57 NT-Pro-B Natriuret Pep 5391 pg/mL (<300) H 08/21/24 18:05 BP, HR, EF%: Reviewed (BP and HR WNL) List meds needing interventions: Has order for atenolol 12.5mg daily QTc Review QTc: Reviewed (568 from 08/21/24) IV to PO Switch IV Medications: Reviewed (ceftriaxone and doxycycline) Home Meds Home Med List reviewed: Reviewed Relevent Home Meds Not ordered & why?: aspirin Current Meds Current Medication Order Review: Intervened Comments: Discontinued duplicate mirtazapine order Changed timing of pantoprazole from 0830 to 0730 per pharmacy protocol Pharmacy Antibiotic Review Relevant Labs: WBC 21.58 10^3/uL (4.4-10.8) H 08/23/24 10:45 Temperature 36.9 C Temperature 36.8 C Temperature 36.7 C Microbiology 08/21/24 18:20 Urine Culture - Final Urine - Reflex from Ua Gram Positive Aurelio,Mixed Pharmacy Antibiotic Activity: C/S review and Reviewed, no change Comments: Patient is on ceftriaxone and doxycycline, day 2, for possible UTI and respiratory failure. Per nurse this morning patient pulled IV out and did not receive full dose of ceftriaxone last night. Provider looking into potential PO alternatives. WBC increased from 9.51 and urine culture growing gram positive aurelio.
[2024-08-23] MEDS: Acetaminophen 325 MG TAB PO ×2 (13:04→19:53)
--- NOTE | 2024-08-23 17:13 | PGE_ITS ---
Date of Service Date of service: 08/23/24 Time of Service: 13:00 Assessment and Plan Assessment and plan (1) Pneumonia: Start date: 08/21/24 Status: Acute Assessment and plan: Patient is being treated for community-acquired pneumonia with ceftriaxone and doxycycline, as well as steroids given concern for an element of COPD. Improvi ng clinically, continue. Qualifiers: Pneumonia type: due to unspecified organism Laterality: bilateral Lung location: unspecified part of lung Qualified Code(s): J18.9 - Pneumonia, unspecified organism (2) Acute on chronic respiratory failure with hypoxia and hypercapnia: Start date: 08/21/24 Status: Acute Assessment and plan: Now comfortable on room air. (3) Anemia: Status: Acute Assessment and plan: Big drop in hemoglobin/hct overnight. However vital signs stable, no symptoms. Only clear blood loss is in urine, which shouldn't explain such a big drop. H/h has stabilized. Iron is low, start oral iron. Follow. (4) Hematuria: Start date: 08/21/24 Status: Acute Assessment and plan: In setting of known bladder mass, seen again on u/s today, concerning for transitional cell carcinoma. He has declined evaluation for this in the past. Urology consulted, PSA pending, but after talking with who is DPOA I don't think it would be right to go against his previously expressed wishes and do a procedure.. Qualifiers: Hematuria type: gross Qualified Code(s): R31.0 - Gross hematuria (5) Bladder mass: Status: Acute Assessment and plan: as above (6) Hypothyroidism: Status: Chronic Assessment and plan: TSH high on admission, suspect poor adherence with dementia. Continue le vothyroxine. says he takes some of the time, could increase dose on discharge so that net dose is closer to goal. Qualifiers: Hypothyroidism type: acquired Qualified Code(s): E03.9 - Hypothyroidism, unspecified (7) Anxiety and depression: Status: Chronic Assessment and plan: Continue outpatient therapy. Pleasant so far since admission. (8) Tobacco abuse: Assessment and plan: NRT prn, but not asking for this now. (9) Dementia: Status: Chronic Assessment and plan: I am concerned about his skilled nursing safety living along and his capacity to make decisions. Default DPOA is who is but checks on him daily, but he lives alone. I appreciate palliative consult. Qualifiers: Dementia type: Alzheimer's Alzheimer's disease onset: other onset Dementia severity: moderate Dementia behavioral or psychological symptom: with anxiety Qualified Code(s): G30.8 - Other Alzheimer's disease; F02.B4 - Dementia in other diseases classified elsewhere, moderate, with anxiety (10) Tongue lesion: Start date: 08/22/24 Status: Acute Assessment and plan: Patient has a ~1+cm lesion over his left lateral tongue with circular appearance and raised borders and indented white lesion centrally. Given acuity and tenderness I think this is an aphthous ulcer rather than a mass. RPR negative. Treat with lidocaine (we don't have oral steroid paste available). (11) Acute kidney injury: Status: Acute Assessment and plan: I am concerned this is obstructive due to bladder mass, but not hydronephrosis on ultrasound. I think it is pre-renal due to tongue ulcer and poor po. Will hydrate gently with IV overnight and monitor. Subjective Subjective Patient reports: no new complaints and tolerating a regular diet; denies nausea, vomiting or fever Interval history since last seen: 24hr: off oxygen seen by palliative care Dr. Morris tongue still hurts, makes his whole face ache. Not eating much still. Breathing is better. incontinent of urine so difficult to assess urine output. No further bleeding in urine. Exam Narrative Exam Narrative: General: Alert, oriented to self, knows hospital but thinks he is in [place], chronically ill appearing, in no acute distress. ENT: ?MMM, 1cm tender ulceration left tongue, no other masses/LAD in mass/neck Cardiac: ?RRR, no murmurs appreciated Resp: CTAB, some grunting on expiration Abd: ?+BS, soft, non-distended, nontender Extremities: ?No deformities.? No peripheral edema. Objective Last Vital Signs Temp 36.9 C 08/23/24 15:33 Pulse 60 08/23/24 17:02 Resp 18 08/23/24 17:02 BP 120/81 08/23/24 15:33 Pulse Ox 94 08/23/24 17:02 Laboratory Results - last 24 hr 08/22/24 08/22/24 08/23/24 06:40 17:00 10:45 WBC 21.58 H RBC 3.85 L Hgb 9.5 L Hct 31.3 L MCV 81 MCH 24.7 L MCHC 30.4 L RDW 16.4 H Plt Count MPV Immature Gran % See Differential Neutrophils % 93.0 Lymphocytes % 5.0 Monocytes % 2.0 Eosinophils % 0.0 Basophils % 0.0 Nucleated RBC % 0.0 Absolute Neutrophils 20.07 H Absolute Lymphocytes 1.08 L Absolute Monocytes 0.43 Absolute Eosinophils 0.00 Absolute Basophils 0.00 RBC Morphology Normal Sodium 143 Potassium 4.0 Chloride 104 Carbon Dioxide 30.9 Anion Gap 8.1 BUN 34 H Creatinine 1.8 H Est GFR (CKD-EPI 2020) 37.82 Glucose 176 H Calcium 9.0 Iron 12 L TIBC 231 L Transferrin % Sat 5 L Ferritin 121 Vitamin B12 1921 H Folate > 20.0 H Syphilis Serology Negative Time Spent with Patient Time Spent with Patient: 35-49 minutes Time was spent: preparing to see the patient(eg.review tests), obtaining and/or reviewing separately otained hiistory, ordering medications,tests, procedures, referring, communicating with other health ambulatory care, indepentently interpreting results, counseling the patient and care coordination
[2024-08-23 17:59] LABS: PSA, Diagnostic 0.8 ng/mL (<=6.5)
[2024-08-23] MEDS: Normal Saline 500 ML IV (18:05)
[2024-08-23] MEDS: Magnesium Chloride 64 MG TABCR PO (19:52)
[2024-08-23] MEDS: Melatonin 3 MG TAB PO (19:52)
[2024-08-23] MEDS: traZODone 50 MG TAB 100 MG PO (19:53)
[2024-08-23] MEDS: Mirtazapine 15 MG TAB 45 MG PO (19:53)
[2024-08-23] MEDS: cefTRIAXone 1 GM/50 ML BAG IVPB (19:54)
[2024-08-23] MEDS: POTASSIUM CHLORIDE/0.45% NACL 1,000 ML 80 MEQ IV (23:07)
[2024-08-24] VITALS (8 sets, daily range): BP systolic 131–144; BP diastolic 69–82; PULSE 71–90; RESP 6–18; TEMP 36.1–36.4; O2SAT 90–97
[2024-08-24] MEDS: Lidocaine Patch Removal 1 EACH TP (00:08)
[2024-08-24] MEDS: DOXYCYCLINE 100 MG in Normal Saline 100 ML IVPB ×2 (01:58→13:25)
[2024-08-24] MEDS: Normal Saline Flush 10 ML SYR IVP ×2 (01:59→09:39)
[2024-08-24] MEDS: Albuterol/Ipratropium 3 ML UPD VIAL UPD (05:00)
[2024-08-24] MEDS: Levothyroxine 100 MCG TAB PO (06:30)
[2024-08-24] MEDS: Pantoprazole 40 MG TABCR PO (07:35)
[2024-08-24 08:43] LABS: Anion Gap 7.7 mmol/L (3-11); BUN 35 mg/dL (7-18); CO2 29.3 mmol/L (21.0-32.0); CREATININE 1.6 mg/dL (0.70-1.30); Calcium 8.9 mg/dL (8.5-10.1); Chloride 107 mmol/L (98-107); Estimated GFR 43.56 (mL/min/1.73m2); Glucose 104 mg/dL (74-106); Potassium 4.3 mmol/L (3.5-5.1); Sodium 144 mmol/L (136-145)
[2024-08-24 09:20] LABS: Abs Immature Grans 0.13 10^3/uL (0.0-0.06); Absolute Eosinophil Count 0.02 10^3/uL (0.0-0.7); Absolute Lymphocyte Count 0.91 10^3/uL (1.2-3.4); Basophils % 0.1 %; Eosinophils % 0.1 %; HCT 30.3 % (40.0-50.0); HGB 9.3 g/dL (13.5-17.5); Immature Grans % 0.8 %; Lymphocytes % 5.8 %; MCH 24.7 pg (27.0-33.0); MCHC 30.7 % (32.0-36.0); MCV 81 fL (80-95); MPV 10.3 fL (8.0-11.0); Monocytes % 5.3 %; Neutrophils % 87.9 %; Platelet Count 323 10^3/uL (130-400); RBC 3.76 10^6/uL (4.36-5.78); RDW 16.6 % (11.8-14.1); RDW-SD 48.2 fL; WBC 15.74 10^3/uL (4.4-10.8)
[2024-08-24] MEDS: Atenolol 25 MG TAB 12.5 MG PO (09:21)
[2024-08-24] MEDS: Thiamine 100 MG TAB PO (09:21)
[2024-08-24] MEDS: predniSONE 20 MG TAB 40 MG PO (09:22)
[2024-08-24] MEDS: Citalopram 20 MG TAB 40 MG PO (09:23)
[2024-08-24] MEDS: Multivitamin TAB 1 TAB PO (09:23)
--- NOTE | 2024-08-24 09:26 | PDOC.CMDIS ---
Date of service: 08/24/24 Time of Service: 09:27 LACE Index Scoring Tool Questions: Length of Stay (in days): 3 Was the patient admitted via the E.D.?: Yes Comorbidities: Chronic Pulmonary Disease, Dementia and Liver or Renal Disease E.D. Visits: 1 Answers: Total Score: 12 Risk of Readmission: High Risk Care Management Discharge Plan Reason for Hospitalization: Pneumonia Discharge Plan: Reji will be discharged home with no new services. He will follow up with his community providers and plan of care and transport with family. Patient/Family Education Needs: Review discharge instructions, limitations, follow up plan and discuss Ask Me Three SDOH Health Related Social Needs: Health related social needs problem related to primary support group(Z63.9) Health related social needs: problem related to primary support group(Z63.9)
[2024-08-24] MEDS: Ferrous Sulfate 325 MG TAB PO (09:34)
[2024-08-24] MEDS: Nicotine 14 MG/24 HR PATCH TD (09:37)
[2024-08-24 10:47] LABS: Absolute Basophil Count 0.02 10^3/uL (0.0-0.2); Absolute Monocyte Count 0.83 10^3/uL (0.1-0.8); Absolute Neutrophil Count 13.84 10^3/uL (1.2-6.7)
--- NOTE | 2024-08-24 11:47 | W.UROLOGYCON ---
Date of service: 08/22/24 Time of Service: 16:30 Assessment and Plan Assessment and plan (1) Bladder mass: Status: Acute (2) Hematuria: Status: Acute Assessment and plan: While cystoscopy and transurethral resection would provide the most direct means of diagnosis, I have suggested a few less invasive studies first. I have asked for a PSA level wondering if the mass seen on ultrasound could potentially be a manifestation of a prostate cancer. If the PSA is markedly elevated, we might be able to treat him with androgen deprivation even without a tissue diagnosis. The second test I have recommended is a urine cytology. If the urine cytology is positive for high-grade urothelial cells, we are almost certainly dealing with a primary bladder cancer. Our treatment is usually transurethral resection to obtain a tissue and staging diagnosis. Further treatments including intravesical chemotherapy or systemic chemotherapy with radiation or additional surgery can be recommended based on the staging. Finally, I will speak to our anesthesia providers about this gentleman. If he ultimately does agree to any type of surgical treatment, it might be more appropriate for the surgery to be performed at a tertiary care center. History of Present Illness History of Present Illness Chief Complaint: Hematuria Narrative: This is a 79-year-old gentleman who has a history of hematuria and imaging findings suspicious for a bladder mass. When I first saw him a few years ago, after discussing the situation with his power of criminal defense attorney, it was decided not to undertake any type of surgical treatment. The decision at that time was mostly based on the patient's pulmonary status. In fact, the patient's cataract surgery was canceled due to concerns about providing anesthesia for this gentleman. He is now back in the hospital with a possible pneumonia. He again has blood in his urine and a slight increase in his serum creatinine. I have been asked to see him and weigh in on whether there are any less invasive ways of treating or diagnosing this gentleman's hematuria issues. The patient himself is not able to provide any history for me. Review of Systems Narrative: Unable to obtain PFSH All Active Problems (Updated 08/24/24 @ 13:27 by Edward Shi MD) Iron deficiency (Acute) Microcytic anemia (Acute) Acute hypernatremia (Acute) DNR (do not resuscitate) (Acute) 2023 COLST: Completed with PCP Manuela Soares, WINDOW SYSTEMS ADMINISTRATOR: /DNI, +Comfort Focused treatment, No IV fluids, No hydration, no artificial nutrition. Advanced care planning/counseling discussion (Acute) Palliative care encounter (Acute) Community acquired pneumonia (Acute) Acute kidney injury (Acute) Tongue lesion (Acute) Acute on chronic respiratory failure with hypoxia and hypercapnia (Acute) Renal cyst, left (Chronic) HTN (hypertension) (Chronic) Dementia (Chronic) Hematuria (Acute) Hypoxic respiratory failure (Acute) Multiple closed fractures of ribs of right side (Acute) Malaise and fatigue (Acute) Cavitary lesion of lung (Acute) Hematuria (Acute) Alzheimer disease (Chronic) Elevated liver function tests (Acute) Transaminitis (Acute) Hyperbilirubinemia (Acute) Confusion (Acute) Generalized weakness (Acute) Bladder mass (Acute) Upper gastrointestinal bleed (Acute 07/31/13) With melena and drop in hemoglobin Anxiety (Acute 07/31/13) Agitation (Acute 07/31/13) Anxiety and depression (Chronic) Hypothyroidism (Chronic) On satins. Hyperlipidemia (Chronic) Periodic limb movement disorder (Chronic) On benzodiazepines. 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 Right shoulder pain Palliative care patient Colon polyp Perforated duodenal ulcer History of alcohol abuse Tobacco abuse Osteoarthritis Hypothyroidism Hyperlipidemia Diverticulitis Depression Anxiety Neurocardiogenic syncope Surgical History Laparotomy (09/10/16) with duodenal ulcer repair Kidney EGD - MAC (05/03/17) Colonoscopy - MAC (03/11/18) Colonoscopy - MAC (05/03/17) Family History Mother Dementia Father Heart disease Social History Smoking/Tobacco Use Status: Current every day Tobacco Type: cigarettes Smoking risk assessment performed?: Yes Alcohol Intake: former Drug use: Never Substance use type: does not use Housing: house Do you feel safe at home: Yes Do you feel safe in your relationship?: Yes Exam Narrative Exam Narrative: He appears chronically ill His vital signs are documented elsewhere in the chart His abdomen is soft with no peritoneal signs He is awake and alert I reviewed his renal ultrasound from this hospitalization. There is an irregular, solid, vascular mass in the bladder. It is unclear whether the mass is prostatic in origin or from the bladder itself Results Last Vital Signs Temp 36.3 C L 08/24/24 11:00 Pulse 75 08/24/24 11:00 Resp 18 08/24/24 11:00 BP 131/75 08/24/24 11:00 Pulse Ox 92 08/24/24 11:00 Labs 08/24/24 06:25 08/24/24 06:25 Labs: Laboratory Results - last 24 hr 08/22/24 08/22/24 08/24/24 06:40 17:00 06:25 WBC 15.74 H RBC 3.76 L Hgb 9.3 L Hct 30.3 L MCV 81 MCH 24.7 L MCHC 30.7 L RDW 16.6 H Plt Count 323 MPV 10.3 Immature Gran % 0.8 Neutrophils % 87.9 Lymphocytes % 5.8 Monocytes % 5.3 Eosinophils % 0.1 Basophils % 0.1 Nucleated RBC % 0.0 Absolute Neutrophils 13.84 H Absolute Lymphocytes 0.91 L Absolute Monocytes 0.83 H Absolute Eosinophils 0.02 Absolute Basophils 0.02 Sodium 144 Potassium 4.3 Chloride 107 Carbon Dioxide 29.3 Anion Gap 7.7 BUN 35 H Creatinine 1.6 H Est GFR (CKD-EPI 2020) 43.56 Glucose 104 Calcium 8.9 Prostate Specific Ag 0.8 Syphilis Serology Negative
[2024-08-24] MEDS: Lidocaine 5% Patch 1 PATCH TP (12:35)
[2024-08-24] MEDS: Albuterol 2.5 MG/3 ML INH SOLN VIAL UPD (13:07)
--- NOTE | 2024-08-24 13:25 | W.PM.DS.N ---
Date of service: 08/24/24 Time of Service: 13:25 DS: Diagnosis Discharge Diagnosis (1) Bladder mass: Status: Acute (2) Hematuria: Status: Acute (3) Bradycardia: Status: Acute (4) Depression: (5) Anxiety: (6) Shortness of breath: (7) Iron deficiency: Status: Acute (8) Dementia: Status: Chronic Discharge Plan Disposition Patient Disposition: Home Condition: Stable Discharge Details Reason For Visit: Acute respiratory failure, Acute dehydration, Cesar Admit Date/Time: 08/21/24 23:58 Admit Provider: Luis Manuel Kelly Attending Provider: Luis Manuel Kelly Primary Care Provider: Lily Soares [facility] Course Hospital Course: This is a 79-year-old gentleman who was admitted on 21 August for acute on chronic respiratory failure, pneumonia, hematuria, left renal cyst, dementia, hypertension, peptic ulcer disease, hypothyroidism, generalized anxiety disorder, aphtous ulcer, known history of bladder mass. While using the hospital he was also diagnosed with severe iron deficiency. At the time of admission he was started on antibiotics as well as steroids and as needed inhalers as well as scheduled inhalers. Per my discussion with the patient today he is very insistent about being discharged. Patient's vital signs show hypoxia and bradycardia on admission. At the time of discharge he was satting 92% on room air. Patient's heart rate has normalized as well. The patient was very anxious to be discharged and provide discussion with case management he does have significant support at home. His son lives with him and his comes by daily to give him his medications and monitor his health. At the time of discharge from sending him home on azithromycin as well as prednisone and I sent prescriptions for Combivent and albuterol as needed. As mentioned above the patient does have significant iron deficiency and he was also sent as prescription for iron supplementation. Patient was also noted to have leukocytosis and this is most likely due to steroid use. On the th his white count was 15.74 and on the it was 21.58. Patient was also noted to have anemia with a hemoglobin of 9.3. Patient was also noted to have a BUN and creatinine 35.6 at the time of discharge. Estimated GFR is 43. Of note his iron level was 12 with a TIBC of 231 and the transferrin of 5. Home Meds and New Rx's Prescriptions: New prednisone 20 mg Tablet 40 mg PO DAILY Qty: 10 0RF ferrous sulfate 325 mg (65 mg iron) Tablet 325 mg PO DAILY 30 Days Qty: 30 1RF azithromycin 250 mg tablet 250 mg PO DAILY 6 Days Qty: 6 0RF Rx Instructions: start on day 2 of therapy albuterol sulfate 90 mcg/actuation aerosol powdr breath activated 2 inh inhalation Q6H PRN (Reason: shortness of breath) Qty: 1 0RF Combivent Respimat 20-100 mcg/actuation mist 1 puff inhalation Q6H Qty: 4 0RF Continued trazodone 50 mg tablet 100 mg PO HS melatonin 3 mg tablet 3 mg PO HS Patient Comments: Per will increase to 6 mg qd next week. mirtazapine 45 mg tablet 45 mg PO QHS aspirin 81 MG tablet,chewable 81 mg PO DAILY nicotine 1 EACH patch 24 hour 14 mg Transdermal DAILY Slow-Mag 71.5 mg tablet,delayed release (DR/EC) 71.5 mg PO QHS acetaminophen [Tylenol 8 Hour] 650 mg tablet extended release 650 mg PO Q12H levothyroxine 125 MCG tablet 100 mcg PO DAILY@0730 Patient Comments: 02/08/18 PER SON 100 MCG DAILY. Centrum Silver 1 EACH tablet 1 ea PO DAILY citalopram 40 MG tablet 40 mg PO DAILY pantoprazole 40 MG tablet,delayed release (DR/EC) 40 mg PO DAILY Qty: 30 5RF lidocaine [Lidoderm] 5 % adhesive patch,medicated 1 patch topical DAILY Qty: 15 0RF Rx Instructions: leave on most painful area for up to 12 hrs atenolol 25 mg tablet 12.5 mg PO DAILY Patient Comments: Take 1/2 tablet by mouth every day thiamine mononitrate (vit B1) [Vitamin B-1 (mononitrate)] 100 mg Tablet 100 mg PO DAILY Qty: 14 0RF quetiapine 25 mg Tablet 25 mg PO BID PRN PRNQty: 28 0RF Discharge Instructions Stand Alone Forms: Nursing Discharge Form Referrals: Lily Soares [Primary Care Provider] - 09/01/24 12:30 pm () Activity:: Activity as Tolerated Equipment/Supplies:: No Equipment Needed Diet:: As Tolerated Discharge Orders Discharge Orders: Discharge Order (Routine); Ordered 08/24/24 Ordered By: Edward Shi DS: Summary Summary Time spent discussing smoking cessation with patient: 3 to 10 minutes Time Spent with Patient providing and/or coordinating discharge services: Greater than 30 minutes Status at Discharge Functional status at discharge: independent ambulation Overall status at discharge: patient is back to baseline Mental Status: mental status grossly normal Speech and Movement: agitated and restless Mood: irritable mood Affect: anxious affect Quality:SDOH Health Related Social Needs: Health related social needs problem related to primary support group(Z63.9) Exam Narrative Exam Narrative: . HEENT: Normocephalic atraumatic mucous membranes are moist. He does have an aphthous ulcer. Patient also has bitemporal wasting Neck: No lymphadenopathy no JVD no thyromegaly Cardiovascular: Regular rate and rhythm murmur rubs gallops Lungs: Bilateral wheezes speaking in complete sentences with no accessory muscle use Abdomen: Scaphoid Extremities: No sinus clubbing or edema Neurologic: Cranial nerves II through XII intact as tested reflexes in upper EXTR were normal as tested Psych: Patient response to verbal stimuli appropriately but is quite anxious to be discharged and states that he cannot stand another day in the hospital Psych Mental Status: mental status grossly normal Speech and Movement: agitated and restless Mood: irritable mood Affect: anxious affect DS: Data Vitals/I&O Vitals and I&O: Vital Signs Temperature 36.3 C L 08/24/24 11:00 Temperature Source Tympanic 08/24/24 11:00 Pulse 90 08/24/24 13:07 Pulse Rhythm Regular 08/22/24 02:10 Pulse 84 08/21/24 23:10 Respiratory Rate 16 08/24/24 13:07 Respiratory Effort Normal, Short of Breath 08/22/24 02:10 Respiratory Depth Normal 08/22/24 02:10 Respiratory Pattern Normal 08/22/24 02:10 Blood Pressure 131/75 08/24/24 11:00 Blood Pressure Mean 91 08/21/24 22:31 Blood Pressure Position Supine 08/21/24 19:11 Pulse Oximetry 92 08/24/24 13:07 Oxygen Delivery Method Room Air 08/24/24 11:00 Oxygen Flow Rate 0 08/24/24 11:00 Pain Level 10 08/23/24 23:52 Comment Patient refused vitals 08/24/24 03:12 Intake & Output 08/23/24 08/24/24 08/24/24 23:59 11:59 23:59 Intake Total 830 / 1170 100 / 1100 1000 / 1100 Output Total 100 / 100 Balance 730 / 1070 100 / 1100 1000 / 1100 Weight 67.1 kg Intake: IV 650 / 750 100 / 1100 1000 / 1100 Oral 180 / 420 Output: Urine 100 / 100 Other: Urine Color Yellow Yellow Light Reba Data Completed and Pending Completed studies during hospitalization [Text1]: tPatient Name: Domingo Macdonald Unit #: [id number] Loc: [place] Ordering Provider: Luis Manuel Kelly Status: ADM IN Primary Care Provider: Lily Soares Date of Exam: 08/22/24 Sex: M Admission Date: 08/21/24 : 1945 Age: 79 Exam(s) US RENAL EXAM: US RENAL CLINICAL HISTORY: Gross hematuria, left renal cyst. TECHNIQUE: Armas scale, color and spectral Doppler were used. COMPARISON: CT CT CHEST/ABD/PEL W from 02/04/[address] THORACIC LUMBAR SPINE REC from 02/04/[address] CHEST PE CTA from 08/21/2024 FINDINGS: Exam limited due to limited patient cooperation. Right kidney: 11.7cm Echogenicity: Normal Hydronephrosis: No Cyst or mass: No Nephrolithiasis: No Left kidney: 11.1cm. Somewhat limited visualization. Echogenicity: Normal Hydronephrosis: No Cyst or mass: 2 parapelvic cysts measuring up to 3 cm Nephrolithiasis: No Bladder: Difficult to evaluate. Large mass measuring roughly 6.3 x 5.6 x 6.5 cm. Prostate not well seen. IMPRESSION: No evidence of hydronephrosis. Left parapelvic cysts. Large irregular bladder mass, suspicious for TCC.. DATA REPOSITORY: Ordered By: Luis Manuel Kelly CC: Patient Name: Domingo Macdonald Unit #: [id number] Loc: ER Ordering Provider: Status: REG ER Primary Care Provider: Lily Soares Date of Exam: 08/21/24 Sex: M : 1945 Age: 79 Exam(s) PROCEDURE INFORMATION: Exam: CTA Chest With Contrast Exam date and time: 08/21/2024 8:26 PM Age: 79 years old Clinical indication: Other: Hypoxia TECHNIQUE: Imaging protocol: Computed tomographic angiography of the chest with contrast. Exam focused on the arteries. 3D rendering (Not supervised by radiologist): MIP and/or 3D reconstructed images were created by the technologist. Radiation optimization: All CT scans at this facility use at least one of these dose optimization techniques: automated exposure control; mA and/or kV adjustment per patient size (includes targeted exams where dose is matched to clinical indication); or iterative reconstruction. Contrast material: [id number]; Contrast volume: 60 ml; Contrast route: INTRAVENOUS (IV); COMPARISON: CT CHEST/ABD/PEL W 02/04/2023 1:56 PM FINDINGS: Pulmonary arteries: No acute pulmonary emboli. Aorta: Atherosclerotic disease of the thoracic aorta, without aneurysm. Lungs: Moderate bilateral upper and lower lobes centrilobular emphysema, with chronic obstructive pulmonary physiologic changes. Bilateral upper and lower lobe bronchial wall thickening, compatible with reactive airway disease or bronchitis. Irregular, patchy ground-glass opacities within the anterior left upper lobe, lingula, right middle lobe, and left lower lobe, likely areas of atelectasis and/or pneumonitis. Pleural spaces: Small bilateral pleural effusions. Heart: Unremarkable. No cardiomegaly. No pericardial effusion. Coronary arteries: Extensive three-vessel coronary artery atherosclerotic disease. Lymph nodes: Unremarkable. No enlarged lymph nodes. Kidneys: Simple left renal cysts, for which no further evaluation necessary. Partially visualized left hydronephrosis or left parapelvic cysts. Bones/joints: Multilevel thoracic spine degenerative disc space narrowing and osteophyte formation. Soft tissues: Unremarkable. IMPRESSION: 1. No acute pulmonary emboli. 2. Bilateral upper and lower lobe bronchial wall thickening, compatible with reactive airway disease or bronchitis. 3. Small bilateral pleural effusions. 4. Irregular, patchy ground-glass opacities within the anterior left upper lobe, lingula, right middle lobe, and left lower lobe, likely areas of atelectasis and/or pneumonitis. Recommend follow-up. 5. Partially visualized left hydronephrosis or left parapelvic cysts. Dictated and Authenticated by: Elder Morillo MD. Ordering:CRISTI Guzman MD Ordered By: CC: ---- Patient Name: Domingo Macdonald Unit #: [id number] Loc: ER Ordering Provider: Megan Franklin M.D. Status: PRE ER Primary Care Provider: Lily Soares Date of Exam: 08/21/24 Sex: M Admission Date: 08/21/24 : 1945 Age: 79 Exam(s) XR PORTABLE CHEST AP EXAM: XR PORTABLE CHEST AP CLINICAL HISTORY: hypoxia TECHNIQUE: 2D digital imaging was performed of the chest. One image was obtained. An AP view was obtained. COMPARISON: CR PORTABLE CHEST ONE VIEW from 09/12/2016 CR ABD FLAT UPRIGHT PA CHEST from 09/28/[address] THORACIC LUMBAR SPINE REC from 02/04/2023 FINDINGS: MEDIASTINUM: Normal. HEART: Normal. PULMONARY VASCULATURE: Normal. LUNGS: No focal consolidating infiltrates are present. PLEURAL SPACE: No pleural effusion or pneumothorax. BONE:Within normal limits for the patient's age. Old healed left rib fractures. OTHER FINDINGS:Normal. IMPRESSION: No acute pulmonary findings. DATA REPOSITORY: RADIATION DOSE DELIVERED: - Labs on day of discharge: Labs from last 24 hours 08/24/24 08/22/24 06:25 17:00 WBC 15.74 H RBC 3.76 L Hgb 9.3 L Hct 30.3 L MCV 81 MCH 24.7 L MCHC 30.7 L RDW 16.6 H Plt Count 323 MPV 10.3 Immature Gran % 0.8 Neutrophils % 87.9 Lymphocytes % 5.8 Monocytes % 5.3 Eosinophils % 0.1 Basophils % 0.1 Nucleated RBC % 0.0 Absolute Neutrophils 13.84 H Absolute Lymphocytes 0.91 L Absolute Monocytes 0.83 H Absolute Eosinophils 0.02 Absolute Basophils 0.02 Sodium 144 Potassium 4.3 Chloride 107 Carbon Dioxide 29.3 Anion Gap 7.7 BUN 35 H Creatinine 1.6 H Est GFR (CKD-EPI 2020) 43.56 Glucose 104 Calcium 8.9 Prostate Specific Ag 0.8 08/23/24 03:40 Stool Stool Occult Blood (TAMIE) - Pending Preliminary micro results at discharge 08/23/24 03:40 Stool Occult Blood (TAMIE) - Pending Stool PFSH All Active Problems (Updated 08/24/24 @ 13:27 by Edward Shi MD) Iron deficiency (Acute) Microcytic anemia (Acute) Acute hypernatremia (Acute) DNR (do not resuscitate) (Acute) 2023 COLST: Completed with PCP Manuela Soares, PROJECT SURVEYOR: /DNI, +Comfort Focused treatment, No IV fluids, No hydration, no artificial nutrition. Advanced care planning/counseling discussion (Acute) Palliative care encounter (Acute) Community acquired pneumonia (Acute) Acute kidney injury (Acute) Tongue lesion (Acute) Acute on chronic respiratory failure with hypoxia and hypercapnia (Acute) Renal cyst, left (Chronic) HTN (hypertension) (Chronic) Dementia (Chronic) Hematuria (Acute) Hypoxic respiratory failure (Acute) Multiple closed fractures of ribs of right side (Acute) Malaise and fatigue (Acute) Cavitary lesion of lung (Acute) Hematuria (Acute) Alzheimer disease (Chronic) Elevated liver function tests (Acute) Transaminitis (Acute) Hyperbilirubinemia (Acute) Confusion (Acute) Generalized weakness (Acute) Bladder mass (Acute) Upper gastrointestinal bleed (Acute 07/31/13) With melena and drop in hemoglobin Anxiety (Acute 07/31/13) Agitation (Acute 07/31/13) Anxiety and depression (Chronic) Hypothyroidism (Chronic) On satins. Hyperlipidemia (Chronic) Periodic limb movement disorder (Chronic) On benzodiazepines. 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 Right shoulder pain Palliative care patient Colon polyp Perforated duodenal ulcer History of alcohol abuse Tobacco abuse Osteoarthritis Hypothyroidism Hyperlipidemia Diverticulitis Depression Anxiety Neurocardiogenic syncope Surgical History Laparotomy (09/10/16) with duodenal ulcer repair Kidney EGD - MAC (05/03/17) Colonoscopy - MAC (03/11/18) Colonoscopy - MAC (05/03/17) Family History Mother Dementia Father Heart disease Social History Smoking/Tobacco Use Status: Current every day Tobacco Type: cigarettes Smoking risk assessment performed?: Yes Alcohol Intake: former Drug use: Never Substance use type: does not use Housing: house Do you feel safe at home: Yes Do you feel safe in your relationship?: Yes Time Spent with Patient Time Spent with Patient: 45-69 minutes Time was spent: preparing to see the patient(eg.review tests), obtaining and/or reviewing separately otained hiistory, ordering medications,tests, procedures, referring, communicating with other health before and after school daycare worker, indepentently interpreting results, counseling the patient and care coordination
== END 2024-08-24 14:29 | disposition home or self-care (01) | DRG 193 ==
LOC: ER 08-22 00:14 → MS 08-22 01:04
PROVIDERS: Family Medicine; Urology; Admitting Provider Family Medicine; Emergency Provider Student in an Organized Health Care Education/Training Program; PCP Nurse Practitioner Family; Visit Provider Family Medicine
DX: J18.9 Pneumonia, unspecified organism (principal); J96.21 Acute and chronic respiratory failure with hypoxia; J96.22 Acute and chronic respiratory failure with hypercapnia; N17.9 Acute kidney failure, unspecified; E87.0 Hyperosmolality and hypernatremia; D62 Acute posthemorrhagic anemia; F02.C18 Dementia in other diseases classified elsewhere, severe, with other behavioral disturbance; R31.0 Gross hematuria; N32.89 Other specified disorders of bladder; E03.9 Hypothyroidism, unspecified; K27.9 Peptic ulcer, site unspecified, unspecified as acute or chronic, without hemorrhage or perforation; F41.8 Other specified anxiety disorders; N28.1 Cyst of kidney, acquired; Z66 Do not resuscitate; I10 Essential (primary) hypertension; R91.8 Other nonspecific abnormal finding of lung field; R74.01 Elevation of levels of liver transaminase levels; R53.1 Weakness; E78.5 Hyperlipidemia, unspecified; E87.6 Hypokalemia; F17.210 Nicotine dependence, cigarettes, uncomplicated; F10.90 Alcohol use, unspecified, uncomplicated; G30.9 Alzheimer's disease, unspecified; R00.1 Bradycardia, unspecified; D72.829 Elevated white blood cell count, unspecified; K12.0 Recurrent oral aphthae
CPT/HCPCS: 00123; 36415; 36416; 71275; 76770; 80048; 80053; 80307; 82805; 82962; 83690; 85027; 87637; 93005; 94640; 96365; 96375; 99223; 99285; 71045; 80320; 81003; 81015; 82140; 82272; 82607; 82728; 82746; 83540; 83550; 83605; 83735; 83880; 84153; 84439; 84443; 84484; 85014; 85018; 85025; 85610; 86592; 87086; 88104; 93010; 94667; 94760; 99232; 99233; 99239; J0696; J2919; J3490; J7512; J7613; J7620

== ENCOUNTER → 2024-08-22 14:10 | Outpatient (BNVA) | payer MEDICARE, SELFPAY | PROVIDERS: PCP Nurse Practitioner Family; Referring Provider Nurse Practitioner Family; Visit Provider Urology ==

== ENCOUNTER 2024-08-26 18:10 | Emergency (ER) | payer MEDICARE, SELFPAY ==
[2024-08-26] VITALS (23 sets, daily range): BP systolic 118–151; BP diastolic 65–113; PULSE 68–92; RESP 15–44; TEMP 37; O2SAT 87–100
--- NOTE | 2024-08-26 18:29 | ED.GENADUL_ITS ---
Discharge Plan Discharge Details Chief Complaint: GI Bleed Primary Care Provider: Lily Soares ED Provider: Beronica Schmid Home Meds and New Rx's Prescriptions: No Action trazodone 50 mg tablet 100 mg PO HS melatonin 3 mg tablet 3 mg PO HS Patient Comments: Per will increase to 6 mg qd next week. mirtazapine 45 mg tablet 45 mg PO QHS aspirin 81 MG tablet,chewable 81 mg PO DAILY nicotine 1 EACH patch 24 hour 14 mg Transdermal DAILY Slow-Mag 71.5 mg tablet,delayed release (DR/EC) 71.5 mg PO QHS acetaminophen [Tylenol 8 Hour] 650 mg tablet extended release 650 mg PO Q12H levothyroxine 125 MCG tablet 100 mcg PO DAILY@0730 Patient Comments: 02/08/18 PER SON 100 MCG DAILY. Centrum Silver 1 EACH tablet 1 ea PO DAILY citalopram 40 MG tablet 40 mg PO DAILY pantoprazole 40 MG tablet,delayed release (DR/EC) 40 mg PO DAILY Qty: 30 5RF lidocaine [Lidoderm] 5 % adhesive patch,medicated 1 patch topical DAILY Qty: 15 0RF Rx Instructions: leave on most painful area for up to 12 hrs atenolol 25 mg tablet 12.5 mg PO DAILY Patient Comments: Take 1/2 tablet by mouth every day thiamine mononitrate (vit B1) [Vitamin B-1 (mononitrate)] 100 mg Tablet 100 mg PO DAILY Qty: 14 0RF quetiapine 25 mg Tablet 25 mg PO BID PRN PRNQty: 28 0RF prednisone 20 mg Tablet 40 mg PO DAILY Qty: 10 0RF ferrous sulfate 325 mg (65 mg iron) Tablet 325 mg PO DAILY 30 Days Qty: 30 1RF azithromycin 250 mg tablet 250 mg PO DAILY 6 Days Qty: 6 0RF Rx Instructions: start on day 2 of therapy albuterol sulfate 90 mcg/actuation aerosol powdr breath activated 2 inh inhalation Q6H PRN (Reason: shortness of breath) Qty: 1 0RF Combivent Respimat 20-100 mcg/actuation mist 1 puff inhalation Q6H Qty: 4 0RF HPI General Date/Time Provider Initiated Documentation: 08/26/24 18:13 . HPI Narrative: The patient is a 79-year-old male with a history of hypertension, dementia, recent hospitalization for hematuria with diagnosis of a bladder mass who comes to the emergency department for concern for bloody diarrhea. History is obtain ed from the patient and EMS. The patient reports that he frequently has diarrhea and this is a chronic issue. Patient is unaware of any blood in his stool. Patient's reported that she saw bright red blood in his diaper with the diarrhea and subsequently called 911. Patient denies taking any blood thinning medication. Reports that he does take aspirin but only occasionally. Denies taking any other NSAIDs. Denies any lightheadedness or dizziness. Denies new or worsening chest pain or shortness of breath. Reports he has a chronic cough from smoking history and does admit to still smoke occasionally. Denies abdominal pain with this. Denies flank pain. Denies any burning sensation with urination, urinary urgency or urinary frequency. Related Data Home Medications ?Medication ?Instructions ?Recorded ?Confirmed levothyroxine 125 mcg tablet 100 mcg PO DAILY@0730 04/07/13 08/26/24 ogdubbdn-ndr-luxys acid 0.4 1 ea PO DAILY 04/07/13 08/26/24 mg-lycopene 300 mcg-lutein 250 mcg tablet (Centrum Silver) citalopram 40 mg tablet 40 mg PO DAILY 11/10/15 08/26/24 aspirin 81 mg chewable tablet 81 mg PO DAILY 01/04/17 08/26/24 pantoprazole 40 mg tablet,delayed 40 mg PO DAILY ##30 05/03/17 08/26/24 release nicotine 14 mg/24 hr daily 14 mg transdermal DAILY 02/07/18 08/21/24 transdermal patch melatonin 3 mg tablet 3 mg PO HS 09/25/19 08/26/24 mirtazapine 45 mg tablet 45 mg PO QHS 09/25/19 08/26/24 trazodone 50 mg tablet 100 mg PO HS 09/25/19 08/26/24 atenolol 25 mg tablet 12.5 mg PO DAILY 03/31/22 08/24/24 quetiapine 25 mg tablet 25 mg PO BID PRN PRN #28 tabs 04/04/22 08/24/24 thiamine mononitrate (vit B1) 100 100 mg PO DAILY #14 tabs 04/04/22 08/21/24 mg tablet (Vitamin B-1 (mononitrate)) acetaminophen 650 mg 650 mg PO Q12H 10/29/22 08/26/24 tablet,extended release (Tylenol 8 Hour) magnesium chloride 71.5 mg 71.5 mg PO QHS 10/29/22 08/21/24 (magnesium chloride) tablet,delayed release (Slow-Mag) lidocaine 5 % topical patch 1 patch topical DAILY #15 ea 02/04/23 08/21/24 (Lidoderm) albuterol sulfate 90 mcg/actuation 2 inh inhalation Q6H PRN shortness 08/24/24 08/26/24 breath activated powder inhaler of breath #1 ea azithromycin 250 mg tablet 250 mg PO DAILY 6 days #6 tabs 08/24/24 08/26/24 ferrous sulfate 325 mg (65 mg 325 mg PO DAILY 30 days #30 tabs 08/24/24 08/26/24 iron) tablet ipratropium 20 mcg-albuterol 100 1 puff inhalation Q6H #4 grams 08/24/24 mcg/actuation mist for inhalation (Combivent Respimat) prednisone 20 mg tablet 40 mg (2 x 20 mg) PO DAILY #10 tabs 08/24/24 08/26/24 Previous Rx's ?Medication ?Instructions ?Recorded pantoprazole 40 mg tablet,delayed 40 mg PO DAILY ##30 05/03/ release quetiapine 25 mg tablet 25 mg PO BID PRN PRN #28 tabs 04/04/22 thiamine mononitrate (vit B1) 100 100 mg PO DAILY #14 tabs 04/04/22 mg tablet (Vitamin B-1 (mononitrate)) lidocaine 5 % topical patch 1 patch topical DAILY #15 ea 02/04/23 (Lidoderm) albuterol sulfate 90 mcg/actuation 2 inh inhalation Q6H PRN shortness 08/24/24 breath activated powder inhaler of breath #1 ea azithromycin 250 mg tablet 250 mg PO DAILY 6 days #6 tabs 08/24/24 ferrous sulfate 325 mg (65 mg 325 mg PO DAILY 30 days #30 tabs 08/24/24 iron) tablet ipratropium 20 mcg-albuterol 100 1 puff inhalation Q6H #4 grams 08/24/24 mcg/actuation mist for inhalation (Combivent Respimat) prednisone 20 mg tablet 40 mg (2 x 20 mg) PO DAILY #10 tabs 08/24/24 Allergies Allergy/AdvReac Type Severity Reaction Status Date / Time ibuprofen Allergy Severe Other (See Unverified 08/26/24 18:23 Comment) varenicline tartrate (From AdvReac Severe Psychosis Unverified 08/26/24 18:23 Chantix) General Stated Complaint: GI Bleed WINSTON: 3 Review of Systems Narrative: Review of systems are negative except as mentioned. Exam Narrative Exam Narrative: The patient is in no acute distress. He is speaking in full sentences and has no particular complaint except states that he needs to urinate quite badly. His heart is regular in rate and rhythm. Patient has occasional cough in the emergency department but I did not appreciate any coarse lung sounds but he does have some wheezes scattered bilaterally. The abdomen is soft with normal bowel sounds and nontender to palpation throughout. No CVA tenderness is noted to palpation bilaterally. The patient has equal radial pulses. As I was doing physical exam I gave him a urinal and the patient urinated in the urinal and it appeared grossly hematuric. He did not have any penile lesion. Course Vital Signs Vital signs: Vital Signs Temperature 37.0 C 08/26/24 18:11 Pulse 78 08/26/24 18:11 Respiratory Rate 28 H 08/26/24 18:11 Blood Pressure 149/90 H 08/26/24 18:11 Pulse Oximetry 100 08/26/24 18:11 Temperature 37.0 C 08/26/24 18:11 Temperature Source Oral 08/26/24 18:11 Pulse 78 08/26/24 18:11 Respiratory Rate 28 H 08/26/24 18:11 Blood Pressure 149/90 H 08/26/24 18:11 Blood Pressure Position Supine 08/26/24 18:11 Pulse Oximetry 100 08/26/24 18:11 Oxygen Delivery Method Nasal Cannula 08/26/24 18:11 Oxygen Flow Rate 3 08/26/24 18:11 Pain Level 0 08/26/24 18:11 Comment O2 dc'd upon arrival 08/26/24 18:11 Medical Decision Making I reviewed the patient's recent hospitalization note through [facility]. The patient was hospitalized on August 21 for hematuria. He eventually was found to have a bladder mass and was seen by urology who recommended cytology versus checking PSA level versus surgery. Patient was ultimately discharged home. As the patient was urinating during my evaluation he did also report that he soiled himself. It was brown and I checked it for fecal occult blood which came back negative. I suspect that the patient's mistook hematuria for bloody stool nevertheless I am checking his blood work once more. He did have a hemorrhoid. On palpation of his hemorrhoid the patient reports it did not hurt. The patient's blood counts are back. He has white count elevation but this is not newly elevated. His H&H is unremarkable. Bladder scan was done he had about 20 cc of urine in his bladder. While waiting for the rest of his workup result the patient is demanding that we give him something to help him sleep. We are going to contact his to verify his medication first before proceeding. I was able to speak with his Kathryn. She verifies that the patient does take melatonin, mirtazapine and trazodone at night and had not taken this just yet. I have ordered melatonin and mirtazapine for now since the patient is demanding to take something to help him sleep. The patient's had some concern also about having the patient go back home. Reports that when she walked into his home there was stool everywhere. Reports that patient had stepped on his stool and there was stool all over the kitchen also. She voiced concern about the patient's continued ability living on his own. Again reports that they are and they are not living together for the past 10 years and she does come to help him out and give him his medication daily. Added a stool study to his workup. She also had some concerns about diarrhea from recent antibiotics. Reports he was started on prednisone, ferrous sulfate and Zithromax. Reports he had not taken his dose of antibiotic today just yet but had taken everything else. Reports that the patient smokes all the time but does not think the patient smoked at all today. He is found low O2 sat read. The patient is known to have this but does not qualify for home O2 because he is an active smoker. Chest x-ray today is non- diagnostic. I spoke with the patient's regarding the issue of the bladder mass and hematuria. Reports that she is aware that her has refusing intervention. Reports that she and her family are still waiting on the test results with a urologist but would not wish to pursue surgical intervention either if the patient is refusing it. For this reason it would be inappropriate for me to transfer the patient to a tertiary care facility at this point. Ultimately the patient's workup is nondiagnostic. His C. difficile study came back negative. His troponin and lactic acid are unremarkable. He has low oxygen saturation readings but not persistent. Chest x-ray is nondiagnostic. EKG is likewise nondiagnostic. Nevertheless it would be inappropriate for me to discharge the patient home at this point. The patient's does not live with him and have not lived with him in 10 years and would not feel comfortable being his fulltime caregiver. I subsequently attempted to hospitalize the patient and spoke with the hospitalist but did not feel that the patient is appropriate for hospitalization at this point either. For now, the patient is in a holding pattern. He does have white count elevation so we will continue to closely monitor. He had been able to get up in the emergency department on his own without any issues. Patient is agreeable to stay here and wait. Imaging Data Radiologic Study: Imaging: X-Ray Radiologist's impression: No acute cardiopulmonary disease ECG Data Attestation: I personally reviewed and interpreted this ECG (s) as follows: Interpretation: Sinus rhythm at a rate of 81 with PACs, left bundle branch block with appropriate ST discordance without acute ischemic change. Quality:SDOH Health Related Social Needs: Health related social needs problem related to primary support group(Z63.9) [facility] All Active Problems (Updated 08/25/24 @ 00:05 by [facility] ARMSTRONG) Iron deficiency (Acute) Microcytic anemia (Acute) DNR (do not resuscitate) (Acute) 2023 COLST: Completed with PCP Manuela Soares, NURSE QUALITY: /DNI, +Comfort Focused treatment, No IV fluids, No hydration, no artificial nutrition. Community acquired pneumonia (Acute) Acute kidney injury (Acute) Tongue lesion (Acute) HTN (hypertension) (Chronic) Dementia (Chronic) Hematuria (Acute) Hypoxic respiratory failure (Acute) Multiple closed fractures of ribs of right side (Acute) Malaise and fatigue (Acute) Cavitary lesion of lung (Acute) Alzheimer disease (Chronic) Elevated liver function tests (Acute) Transaminitis (Acute) Hyperbilirubinemia (Acute) Confusion (Acute) Generalized weakness (Acute) Bladder mass (Acute) Upper gastrointestinal bleed (Acute 07/31/13) With melena and drop in hemoglobin Anxiety (Acute 07/31/13) Agitation (Acute 07/31/13) Anxiety and depression (Chronic) Hypothyroidism (Chronic) On satins. Hyperlipidemia (Chronic) Periodic limb movement disorder (Chronic) On benzodiazepines. 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 Right shoulder pain Palliative care patient Colon polyp Perforated duodenal ulcer History of alcohol abuse Tobacco abuse Osteoarthritis Hypothyroidism Hyperlipidemia Diverticulitis Depression Anxiety Neurocardiogenic syncope Surgical History Laparotomy (09/10/16) with duodenal ulcer repair Kidney EGD - MAC (05/03/17) Colonoscopy - MAC (03/11/18) Colonoscopy - MAC (05/03/17) Family History Mother Dementia Father Heart disease Social History Smoking/Tobacco Use Status: Current every day Tobacco Type: cigarettes Smoking risk assessment performed?: Yes Alcohol Intake: former Drug use: Never Substance use type: does not use Housing: house Do you feel safe at home: Yes Do you feel safe in your relationship?: Yes
[2024-08-26 18:44] LABS: Abs Immature Grans 0.21 10^3/uL (0.0-0.06); Absolute Basophil Count 0.03 10^3/uL (0.0-0.2); Absolute Lymphocyte Count 1.37 10^3/uL (1.2-3.4); Absolute Monocyte Count 1.29 10^3/uL (0.1-0.8); Absolute Neutrophil Count 13.28 10^3/uL (1.2-6.7); Basophils % 0.2 %; Eosinophils % 0.6 %; HCT 38.5 % (40.0-50.0); HGB 11.7 g/dL (13.5-17.5); Immature Grans % 1.3 %; Lymphocytes % 8.4 %; MCH 24.9 pg (27.0-33.0); MCHC 30.4 % (32.0-36.0); MCV 82 fL (80-95); MPV 10.2 fL (8.0-11.0); Monocytes % 7.9 %; Neutrophils % 81.6 %; Platelet Count 416 10^3/uL (130-400); RDW 16.4 % (11.8-14.1); WBC 16.27 10^3/uL (4.4-10.8)
[2024-08-26 19:05] LABS: ALT 37 U/L (16-63); AST 27 U/L (15-37); Albumin 2.3 g/dL (3.4-5.0); Alkaline Phosphatase 124 U/L (46-116); Anion Gap 3.4 mmol/L (3-11); BUN 34 mg/dL (7-18); Bilirubin, Total 0.31 mg/dL (0.2-1.0); CO2 32.6 mmol/L (21.0-32.0); CREATININE 1.5 mg/dL (0.70-1.30); Calcium 8.8 mg/dL (8.5-10.1); Chloride 106 mmol/L (98-107); Estimated GFR 47.06 (mL/min/1.73m2); Glucose 90 mg/dL (74-106); Magnesium 1.8 mg/dL (1.8-2.4); Potassium 4.4 mmol/L (3.5-5.1); Sodium 142 mmol/L (136-145); Total Protein 6.2 g/dL (6.4-8.2)
[2024-08-26 19:11] LABS: Clarity Color Interference (Clear); Glucose Color Interference mg/dL (Negative); Ketones Color Interference mg/dL (Negative); Leukocyte Esterase Color Interference (Negative); Nitrite Color Interference (Negative); Specific Gravity 1.025 (1.005-1.025)
[2024-08-26 19:12] LABS: Bilirubin Color Interference (Negative); Blood Color Interference (Negative); Urobilinogen Color Interference mg/dL (Up to 0.2)
[2024-08-26 19:15] LABS: C & S Indicated? No; RBC >50 HPF (0-2)
--- NOTE | 2024-08-26 19:15 | DI.RAD_ITS ---
Exam(s) XR PORTABLE CHEST AP EXAM: XR PORTABLE CHEST AP CLINICAL HISTORY: WBC elev, tachypneic, AMS TECHNIQUE: 2D digital imaging was performed. COMPARISON: CR XR PORTABLE CHEST AP from 08/21/2024 FINDINGS: Leads overlie the chest. LUNGS: Fibrotic changes. No infiltrate or pulmonary edema. No pleural abnormality seen. HEART: Normal size. AORTA: Normal diameter. Calcification. BONES: Degenerative changes in the thoracic spine. Old left rib fractures. Soft tissues: Unremarkable. IMPRESSION: No acute findings. DATA REPOSITORY: RADIATION DOSE DELIVERED:
--- NOTE | 2024-08-26 20:00 | RT.EKG_ITS ---
APPROVED REPORT Exam: Resting ECG Reason for Exam: AMS Patient Location: E HR:81 bpm ECG Measurements Heart Rate 81 AXIS CA 154 P 88 QRSd 147 QRS -3 QT 453 T 103 QTc 510 Conclusion Sinus rhythm at a rate of 81 with PACs, LBBB with appropriate ST discordance without acute ischemic c demetrio
[2024-08-26] MEDS: Mirtazapine 15 MG TAB 45 MG PO (20:03)
[2024-08-26] MEDS: Melatonin 3 MG TAB 6 MG PO (20:03)
[2024-08-26 20:27] LABS: Lactate 1.1 mmol/L (0.6-1.4)
[2024-08-26 20:45] LABS: C Diff PCR Negative (Negative)
[2024-08-26 20:47] LABS: Troponin I 31 ng/L (<or=76)
--- NOTE | 2024-08-26 21:56 | DI.VRAD_ITS ---
PROCEDURE INFORMATION: Exam: XR Chest Exam date and time: 08/26/2024 8:08 PM Age: 79 years old Clinical indication: WBC elev, tachypneic, AMS TECHNIQUE: Imaging protocol: Radiologic exam of the chest. Views: 1 view. COMPARISON: CT CHEST PE CTA 08/21/2024 8:26 PM FINDINGS: Tubes, catheters and devices: Cardiac leads superimposed over the chest. Lungs: No alveolar infiltrate. Pleural spaces: No pneumothorax. No pleural fluid collection. Heart/Mediastinum: Normal heart size. Vasculature: Calcific thoracic aorta. Bones/joints: Spinal degenerative changes. Old left rib fractures. IMPRESSION: No active pulmonary disease. Dictated and Authenticated by: Pranav Villalpando MD. Ordering:STEVENSON Loco MD
[2024-08-26] MEDS: traZODone 50 MG TAB ×2 (23:12→23:14)
--- NOTE | 2024-08-26 23:21 | NUR.NOTE ---
patient ex-/neighbor cell phone # [phone].Nursing Note:
--- NOTE | 2024-08-26 23:23 | W.EDPROG ---
Date of service: 08/26/24 Time of Service: 23:23 Medical Decision Making This patient was signed out to me. Please see previous notes for H&P and initial eval. In brief, 79yo M with dementia presenting for possible GI bleed, found to have significant hematuria (chronic) and diarrhea (chronic). Multiple chronic medical conditions appear to be at baseline however pt is no longer able to care for himself at home (lives alone), house was reportedly covered in feces, and safe discharge plan unable to be identified. Signed out pending care management consultation in the morning. Med rec completed and home meds ordered. Overnight restless, little sleep. Two 50mg doses of seroquel with some improvement. Would not give any more than this as he does have mild QT prolongation. Will be signed out to oncoming physician, plan remains as above. Quality:SDOH Health Related Social Needs: Health related social needs problem related to primary support group(Z63.9) Discharge Plan Discharge Details Chief Complaint: Burn Primary Care Provider: Lily Soares ED Provider: Megan Franklin Home Meds and New Rx's Prescriptions: No Action trazodone 50 mg tablet 100 mg PO HS melatonin 3 mg tablet 3 mg PO HS Patient Comments: Per will increase to 6 mg qd next week. mirtazapine 45 mg tablet 45 mg PO QHS aspirin 81 MG tablet,chewable 81 mg PO DAILY nicotine 1 EACH patch 24 hour 14 mg Transdermal DAILY Slow-Mag 71.5 mg tablet,delayed release (DR/EC) 71.5 mg PO QHS acetaminophen [Tylenol 8 Hour] 650 mg tablet extended release 650 mg PO Q12H levothyroxine 125 MCG tablet 100 mcg PO DAILY@0730 Patient Comments: 02/08/18 PER SON 100 MCG DAILY. Centrum Silver 1 EACH tablet 1 ea PO DAILY citalopram 40 MG tablet 40 mg PO DAILY pantoprazole 40 MG tablet,delayed release (DR/EC) 40 mg PO DAILY Qty: 30 5RF lidocaine [Lidoderm] 5 % adhesive patch,medicated 1 patch topical DAILY Qty: 15 0RF Rx Instructions: leave on most painful area for up to 12 hrs albuterol sulfate 90 mcg/actuation HFA aerosol inhaler 2 puff INHALATION Q6H Patient Comments: INHALE TWO PUFFS EVERY 6 HOURS NEEDED FOR SHORTNESS OF BREATH atenolol 25 mg tablet 12.5 mg PO DAILY Patient Comments: Take 1/2 tablet by mouth every day thiamine mononitrate (vit B1) [Vitamin B-1 (mononitrate)] 100 mg Tablet 100 mg PO DAILY Qty: 14 0RF quetiapine 25 mg Tablet 25 mg PO BID PRN PRNQty: 28 0RF prednisone 20 mg Tablet 40 mg PO DAILY Qty: 10 0RF ferrous sulfate 325 mg (65 mg iron) Tablet 325 mg PO DAILY 30 Days Qty: 30 1RF azithromycin 250 mg tablet 250 mg PO DAILY 6 Days Qty: 6 0RF Rx Instructions: start on day 2 of therapy albuterol sulfate 90 mcg/actuation aerosol powdr breath activated 2 inh inhalation Q6H PRN (Reason: shortness of breath) Qty: 1 0RF Combivent Respimat 20-100 mcg/actuation mist 1 puff inhalation Q6H Qty: 4 0RF
[2024-08-26] MEDS: QUEtiapine 50 MG TAB PO (23:59)
--- NOTE | 2024-08-27 | NUR.NOTE ---
Nursing Note: Pt OOB and naked, the pt had urinated in the room on the floor and blood covering the bed and floor. the pt cleaned earlier from having a BM and being covered in dry feces. The pt was naked and asking for something to to help him sleep. this group underwriter assisted the pt into clean clothing with a brief on him. The pt asking for something to help him sleep then began to cough with congested and wheezing noted, provider updated and orders for duo neb tx. the pt was given po meds and tx. the pt then called out stating that he still was having trouble sleeping and new orders and po meds given to the pt, pt also placed on 2L nc O2
[2024-08-27] MEDS: Albuterol/Ipratropium 3 ML UPD VIAL UPD (00:11)
--- NOTE | 2024-08-27 02:16 | NUR.NOTE ---
Nursing Note: pt yelling out for help, pt has been getting OOB to urinate, in the garbage or yelling for staff. the pt has been incont of urine and stool, the pt has been passing large clots, at times appears in pain when trying to pass urine, then a large clot would pass and he would be able to pass urine. the pt is restless even after being medicated. aksing for something sweet pt given ice cream and popcicles
[2024-08-27] MEDS: QUEtiapine 50 MG TAB PO (04:36)
[2024-08-27 07:35] VITALS: BP 96/71; PULSE 68; RESP 26; O2SAT 90
[2024-08-27] MEDS: Nicotine 14 MG/24 HR PATCH TD (08:17)
[2024-08-27] MEDS: Acetaminophen 500 MG TAB 1000 MG PO (08:18)
[2024-08-27] MEDS: Multivitamin w/Minerals TAB 1 TAB PO (08:18)
[2024-08-27] MEDS: Pantoprazole 40 MG TABCR PO (08:18)
[2024-08-27] MEDS: Lidocaine 5% Patch 1 PATCH TP (08:18)
[2024-08-27] MEDS: Ferrous Sulfate 325 MG TAB PO (08:18)
[2024-08-27] MEDS: Levothyroxine 100 MCG TAB PO (08:19)
[2024-08-27] MEDS: Thiamine 100 MG TAB PO (08:19)
[2024-08-27] MEDS: Albuterol HFA 8 GM 60 PUFF INH IH (08:19)
[2024-08-27] MEDS: Ipratropium/Albuterol 4 GM 120 PUFF INH IH (08:20)
[2024-08-27] MEDS: Inhaler, Assist Device 1 EACH MC (08:21)
--- NOTE | 2024-08-27 09:58 | W.EDPROG ---
Date of service: 08/27/24 Time of Service: 09:58 Medical Decision Making Patient signed out to me pending care management evaluation. He has been ambulating here and eating in no distress and has no complaints acutely. Care management spoke with his who feels comfortable taking him home and patient is now receptive to having home health so referrals will be sent for that. Given his advanced dementia feel home health nursing, PT, speech therapy for his cognition and OT is indicated. He has been having diarrhea, C. difficile is negative I suspect this is from the recent antibiotics has been on. Advised to try [id number] remedies such as probiotics and Pepto-Bismol as needed. He will follow-up with his PCP and also palliative care, return precautions given Quality:SDOH Health Related Social Needs: Health related social needs problem related to primary support group(Z63.9) Sign Out Sign Out Data: Sign Out Comment: Dementia, unable to care for self at home (lives alone). Hypoxic at baseline (mid-high 80's) with no O2 at home as he is a smoker and risks outweigh benefit. Hospitalist declined to admit yesterday evening. Pending care management. Last updated by Megan Franklin MD at 08/27/24 07:05 Discharge Plan Disposition Patient Disposition: Home Condition: Stable Discharge Details Clinical Impression: Diarrhea Primary Care Provider: Lily Soares ED Provider: Corbin Naidu Home Meds and New Rx's Prescriptions: Continued trazodone 50 mg tablet 100 mg PO HS melatonin 3 mg tablet 3 mg PO HS Patient Comments: Per will increase to 6 mg qd next week. mirtazapine 45 mg tablet 45 mg PO QHS aspirin 81 MG tablet,chewable 81 mg PO DAILY nicotine 1 EACH patch 24 hour 14 mg Transdermal DAILY Slow-Mag 71.5 mg tablet,delayed release (DR/EC) 71.5 mg PO QHS acetaminophen [Tylenol 8 Hour] 650 mg tablet extended release 650 mg PO Q12H levothyroxine 125 MCG tablet 100 mcg PO DAILY@0730 Patient Comments: 02/08/18 PER SON 100 MCG DAILY. Centrum Silver 1 EACH tablet 1 ea PO DAILY citalopram 40 MG tablet 40 mg PO DAILY pantoprazole 40 MG tablet,delayed release (DR/EC) 40 mg PO DAILY Qty: 30 5RF lidocaine [Lidoderm] 5 % adhesive patch,medicated 1 patch topical DAILY Qty: 15 0RF Rx Instructions: leave on most painful area for up to 12 hrs albuterol sulfate 90 mcg/actuation HFA aerosol inhaler 2 puff INHALATION Q6H Patient Comments: INHALE TWO PUFFS EVERY 6 HOURS NEEDED FOR SHORTNESS OF BREATH atenolol 25 mg tablet 12.5 mg PO DAILY Patient Comments: Take 1/2 tablet by mouth every day thiamine mononitrate (vit B1) [Vitamin B-1 (mononitrate)] 100 mg Tablet 100 mg PO DAILY Qty: 14 0RF quetiapine 25 mg Tablet 25 mg PO BID PRN PRNQty: 28 0RF prednisone 20 mg Tablet 40 mg PO DAILY Qty: 10 0RF ferrous sulfate 325 mg (65 mg iron) Tablet 325 mg PO DAILY 30 Days Qty: 30 1RF azithromycin 250 mg tablet 250 mg PO DAILY 6 Days Qty: 6 0RF Rx Instructions: start on day 2 of therapy albuterol sulfate 90 mcg/actuation aerosol powdr breath activated 2 inh inhalation Q6H PRN (Reason: shortness of breath) Qty: 1 0RF Combivent Respimat 20-100 mcg/actuation mist 1 puff inhalation Q6H Qty: 4 0RF Discharge Instructions Additional Instructions: You are likely having diarrhea from your recent antibiotic use. You can try [id number] remedies such as probiotics and Pepto-Bismol, follow dosing instructions on packaging Follow-up with your primary care provider and I also placed a referral for home health as well as palliative care If you feel more ill or feel like you are suffering from emergent medical process or have difficulty breathing return to the emergency department for reevaluation
--- NOTE | 2024-08-27 10:05 | CMPROGNOTE_ITS ---
Date of service: 08/27/24 Time of Service: 10:05 Care Management Progress Note Progress Note Text Progress Note Text: Domingo returned to the ER yesterday evening via EMS following an episode of explosive diarrhea. Domingo was medically cleared for discharge and a CM consult was placed for complex discharge support. Pts primary support is Kathryn. The two are still but live separately. She visits him for 2 hours a day and assists him with whatever he needs, which is mostly help with his meds a meals. She has noticed a decline in the past few weeks and reports that Domingo has never been incontinent of stool until last night when he had explosive diarrhea. Per pt, she is able to help with incontinence moving forward, but last night was too much. She is planning to check on him more frequently during the day, but can't be with him 03/05. Domingo was sitting in a recliner when CM met with him. He appears comfortable and is watching TV. He is agreeable to discharge home with New [facility] services; which is definitely a step in the right direction considering that he's been reluctant to have 'home services and people in his home.' Kathryn is agreeable and is going to provide his transportation. Outpatient Palliative follow up is recommended for ongoing discussion surrounding goals of care and potential cancer DX. Per Kathryn, Domingo already has a PCP follow up on Wednesday and she will take him to his appointment and talk about next steps and getting a definitive diagnosis. SDOH(Care Management) Screening Will the Patient Participate in the Screening?: Declined to provide
[2024-08-27 12:13] VITALS: BP 129/73; PULSE 74; RESP 20; TEMP 36.8; O2SAT 92
== END 2024-08-27 12:14 | disposition home or self-care (01) ==
PROVIDERS: Emergency Medicine; Emergency Provider Emergency Medicine; PCP Nurse Practitioner Family
DX: R19.7 Diarrhea, unspecified (principal); F03.90 Unspecified dementia, unspecified severity, without behavioral disturbance, psychotic disturbance, mood disturbance, and anxiety; R31.0 Gross hematuria; N32.89 Other specified disorders of bladder; Z63.9 Problem related to primary support group, unspecified; F17.200 Nicotine dependence, unspecified, uncomplicated
CPT/HCPCS: 00123; 80053; 86850; 86900; 86901; 87077; 87493; 93005; 94640; 99284; 71045; 81003; 81015; 83605; 83735; 84484; 85025; 87086; 87186; 93010; J3490; J7620

== ENCOUNTER 2024-08-29 16:30 | Inpatient (IN) | payer MEDICARE, SELFPAY ==
[2024-08-29 16:25] VITALS: PULSE 85; RESP 18; TEMP 36.6; O2SAT 92
--- NOTE | 2024-08-29 16:30 | RT.EKG_ITS ---
APPROVED REPORT Exam: Resting ECG Reason for Exam: sob Patient Location: E HR:81 bpm ECG Measurements Heart Rate 81 AXIS UT 207 P 53 QRSd 147 QRS -35 QT 464 T 93 QTc 531 Conclusion Sinus rhythm...normal P axis, V-rate 60- 99 Ventricular premature complex...V complex w/ short R-R interval Left bundle branch block...QRSd>120, broad/notched R
--- NOTE | 2024-08-29 16:38 | ED.GENADUL_ITS ---
Discharge Plan Disposition Patient Disposition: Admit to [facility] Condition: Stable Discharge Details Chief Complaint: GenMedical Clinical Impression: Hospital-acquired pneumonia, Acute on chronic hypoxic respiratory failure Primary Care Provider: Lily Soares ED Provider: Yovanny Milan Home Meds and New Rx's Prescriptions: No Action trazodone 50 mg tablet 100 mg PO HS melatonin 3 mg tablet 3 mg PO HS Patient Comments: Per will increase to 6 mg qd next week. mirtazapine 45 mg tablet 45 mg PO QHS aspirin 81 MG tablet,chewable 81 mg PO DAILY nicotine 1 EACH patch 24 hour 14 mg Transdermal DAILY Slow-Mag 71.5 mg tablet,delayed release (DR/EC) 71.5 mg PO QHS acetaminophen [Tylenol 8 Hour] 650 mg tablet extended release 650 mg PO Q12H levothyroxine 125 MCG tablet 100 mcg PO DAILY@0730 Patient Comments: 02/08/18 PER SON 100 MCG DAILY. Centrum Silver 1 EACH tablet 1 ea PO DAILY citalopram 40 MG tablet 40 mg PO DAILY pantoprazole 40 MG tablet,delayed release (DR/EC) 40 mg PO DAILY Qty: 30 5RF lidocaine [Lidoderm] 5 % adhesive patch,medicated 1 patch topical DAILY Qty: 15 0RF Rx Instructions: leave on most painful area for up to 12 hrs albuterol sulfate 90 mcg/actuation HFA aerosol inhaler 2 puff INHALATION Q6H Patient Comments: INHALE TWO PUFFS EVERY 6 HOURS NEEDED FOR SHORTNESS OF BREATH atenolol 25 mg tablet 12.5 mg PO DAILY Patient Comments: Take 1/2 tablet by mouth every day thiamine mononitrate (vit B1) [Vitamin B-1 (mononitrate)] 100 mg Tablet 100 mg PO DAILY Qty: 14 0RF quetiapine 25 mg Tablet 25 mg PO BID PRN PRNQty: 28 0RF prednisone 20 mg Tablet 40 mg PO DAILY Qty: 10 0RF ferrous sulfate 325 mg (65 mg iron) Tablet 325 mg PO DAILY 30 Days Qty: 30 1RF azithromycin 250 mg tablet 250 mg PO DAILY 6 Days Qty: 6 0RF Rx Instructions: start on day 2 of therapy albuterol sulfate 90 mcg/actuation aerosol powdr breath activated 2 inh inhalation Q6H PRN (Reason: shortness of breath) Qty: 1 0RF Combivent Respimat 20-100 mcg/actuation mist 1 puff inhalation Q6H Qty: 4 0RF HPI General Date/Time Provider Initiated Documentation: 08/29/24 16:31 . HPI Narrative: 79 year-old male presents to ED today by POV/ambulating with a chief complaint of dizziness possible fall, confusion, history of severe dementia, 80% on room air per EMS with onset just prior to arrival. Quality described as no complaints but unreliable narrator, no radiation to fever, significant deformity or bruising, abdominal pain, nausea, vomiting, slurred speech. Severity is tonia cribed as unable to quantify/10. Palliating factors include nothing specific. Provoking factors include nothing specific. Events leading up to the incident/Associated Symptoms: Patient has been seen frequently recently and sent home from the ED, should be on home O2 but still smokes. Patient not anticoagulated. Related Data Home Medications ?Medication ?Instructions ?Recorded ?Confirmed levothyroxine 125 mcg tablet 100 mcg PO DAILY@0730 04/07/13 08/29/24 [id number] acid 0.4 1 ea PO DAILY 04/07/13 08/29/24 mg-lycopene 300 mcg-lutein 250 mcg tablet (Centrum Silver) citalopram 40 mg tablet 40 mg PO DAILY 11/10/15 08/29/24 aspirin 81 mg chewable tablet 81 mg PO DAILY 01/04/17 08/29/24 pantoprazole 40 mg tablet,delayed 40 mg PO DAILY ##30 05/03/17 08/26/24 release nicotine 14 mg/24 hr daily 14 mg transdermal DAILY 02/07/18 08/29/24 transdermal patch melatonin 3 mg tablet 3 mg PO HS 09/25/19 08/29/24 mirtazapine 45 mg tablet 45 mg PO QHS 09/25/19 08/29/24 trazodone 50 mg tablet 100 mg PO HS 09/25/19 08/29/24 atenolol 25 mg tablet 12.5 mg PO DAILY 03/31/22 08/29/24 quetiapine 25 mg tablet 25 mg PO BID PRN PRN #28 tabs 04/04/22 08/29/24 thiamine mononitrate (vit B1) 100 100 mg PO DAILY #14 tabs 04/04/22 08/29/24 mg tablet (Vitamin B-1 (mononitrate)) acetaminophen 650 mg 650 mg PO Q12H 10/29/22 08/29/24 tablet,extended release (Tylenol 8 Hour) magnesium chloride 71.5 mg 71.5 mg PO QHS 10/29/22 08/29/24 (magnesium chloride) tablet,delayed release (Slow-Mag) lidocaine 5 % topical patch 1 patch topical DAILY #15 ea 02/04/23 08/29/24 (Lidoderm) albuterol sulfate 90 mcg/actuation 2 inh inhalation Q6H PRN shortness 08/24/24 08/29/24 breath activated powder inhaler of breath #1 ea azithromycin 250 mg tablet 250 mg PO DAILY 6 days #6 tabs 08/24/24 08/29/24 ferrous sulfate 325 mg (65 mg 325 mg PO DAILY 30 days #30 tabs 08/24/24 08/29/24 iron) tablet ipratropium 20 mcg-albuterol 100 1 puff inhalation Q6H #4 grams 08/24/24 08/29/24 mcg/actuation mist for inhalation (Combivent Respimat) prednisone 20 mg tablet 40 mg (2 x 20 mg) PO DAILY #10 tabs 08/24/24 08/29/24 albuterol sulfate 90 mcg/actuation 2 puff inhalation Q6H 08/26/24 08/29/24 aerosol inhaler Previous Rx's ?Medication ?Instructions ?Recorded pantoprazole 40 mg tablet,delayed 40 mg PO DAILY ##30 05/03/ release quetiapine 25 mg tablet 25 mg PO BID PRN PRN #28 tabs 04/04/22 thiamine mononitrate (vit B1) 100 100 mg PO DAILY #14 tabs 04/04/22 mg tablet (Vitamin B-1 (mononitrate)) lidocaine 5 % topical patch 1 patch topical DAILY #15 ea 02/04/23 (Lidoderm) albuterol sulfate 90 mcg/actuation 2 inh inhalation Q6H PRN shortness 08/24/24 breath activated powder inhaler of breath #1 ea azithromycin 250 mg tablet 250 mg PO DAILY 6 days #6 tabs 08/24/24 ferrous sulfate 325 mg (65 mg 325 mg PO DAILY 30 days #30 tabs 08/24/24 iron) tablet ipratropium 20 mcg-albuterol 100 1 puff inhalation Q6H #4 grams 08/24/24 mcg/actuation mist for inhalation (Combivent Respimat) prednisone 20 mg tablet 40 mg (2 x 20 mg) PO DAILY #10 tabs 08/24/24 Allergies Allergy/AdvReac Type Severity Reaction Status Date / Time ibuprofen Allergy Severe Other (See Unverified 08/29/24 16:58 Comment) varenicline tartrate (From AdvReac Severe Psychosis Unverified 08/29/24 16:58 Chantix) General Stated Complaint: GenMedical WINST[place]: 3 Review of Systems All systems reviewed & are unremarkable except as noted in HPI and below Exam Narrative Exam Narrative: GENERAL APPEARANCE: Frail, non-toxic, awake and alert, atraumatic, no acute distress. SKIN: Warm, pale, dry, intact, without rashes/lesions/ulcerations. HEAD: Normocephalic, atraumatic, normal hair distribution for gender/age. EYES: Normal conjunctiva, no exudates on lids/lashes. ENT: Nares patent, no circumoral cyanosis, no facial swelling NECK: Supple, trachea midline, painless cervical ROM. LUNGS/CHEST: Diffuse inspiratory and expiratory wheezes with poor air movement, labored respirations, increased A/P diameter, symmetrical expansion, no chest wall deformity HEART (CV/PV): Regular rate and rhythm without murmur, no peripheral edema, no JVD. ABDOMEN: Soft, non-distended, no guarding, no tenderness. MSK: Normal ROM, no swelling/deformity to bilateral UEs or LEs, moving all extremities without weakness, no cyanosis, spine midline without tenderness, normal curvature. NEURO: Mental Status AAOx4 - alert to person, place No facial droop, no forehead involvement. Motor: No focal weakness - strength 5/5 in bilateral UEs and LEs, proximal and distal, symmetric. Sensory: sensation intact to light touch globally. Gait NT PSYCH: euthymic, cooperative, pleasant, appropriate speech Course Vital Signs Vital signs: Vital Signs Temperature 36.6 C 08/29/24 16:25 Pulse 85 08/29/24 16:25 Respiratory Rate 18 08/29/24 16:25 Pulse Oximetry 92 08/29/24 16:25 Temperature 36.6 C 08/29/24 16:25 Pulse 85 08/29/24 16:25 Respiratory Rate 18 08/29/24 16:25 Respiratory Effort Normal 08/29/24 16:35 Respiratory Depth Normal 08/29/24 16:35 Respiratory Pattern Normal 08/29/24 16:35 Pulse Oximetry 92 08/29/24 16:25 Oxygen Delivery Method Nasal Cannula 08/29/24 16:25 Oxygen Flow Rate 2 08/29/24 16:25 Pain Level 0 08/29/24 16:25 Medical Decision Making This dictation utilizes [id number] dictation software and may contain unedited grammatical errors. 79 year-old male presents to ED today by POV/ambulating with a chief complaint of dizziness possible fall, confusion, history of severe dementia, 80% on room air per EMS with onset just prior to arrival. Quality described as no complaints but unreliable narrator, no radiation to fever, significant deformity or bruising, abdominal pain, nausea, vomiting, slurred speech. Severity is described as unable to quantify/10. Palliating factors include nothing specific. Provoking factors include nothing specific. Events leading up to the incident/Associated Symptoms: Patient has been seen frequently recently and sent home from the ED, should be on home O2 but still smokes. Patients' medical history: Palliative care patient, acute on chronic respiratory failure, alcohol abuse, DNR status, known bladder cancer with left hydronephrosis, Alzheimer's, transaminitis, perforated duodenal ulcer. Family and social history: Lives at home, his ex- checks on him periodically, still smoking. Pertinent exam findings / vital signs include severe inspiratory and expiratory wheezes with poor air movement to lungs, benign abdomen, neuro baseline, able to move all extremities and has no visible signs of trauma. Differential / pathologies of concern include pneumonia, hypoxic respiratory failure, UTI, unlikely CVA/TIA, unlikely ACS, possible vertebral fracture or intracranial hemorrhage. Diagnostic studies of: -CBC, CMP, VBG, magnesium, troponin, BNP, lipase, UA, COVID/flu/RSV PCR, blood cultures, CT head and C-spine without, CT chest abdomen pelvis with, EKG. -CBC shows rising leukocytosis from 3 days ago is now a 19.02 WBCs with left shift -CMP shows no actionable abnormality, he has chronic elevated creatinine -Magnesium within normal limits -Troponin negative -BNP is stable at 4100 -Lipase negative -UA shows no UTI -Respiratory PCR swab negative -VBG shows chronic hypercapnia -CT head and C-spine are negative -CT chest abdomen pelvis shows chronic left hydronephrosis due to known bladder mass which I spoke to urology Dr. Gallardo on, there is nothing to do at this facility, the patient's pulmonary status is likely not amenable to anesthesia, he does question whether the patient could receive a nephrostomy tube at another facility, the bibasilar patchy infiltrates could represent pneumonia per discussion with Dr. Govea of radiology -EKG sinus rhythm at 81 bpm significant motion artifact, left bundle branch block without meeting Sgarbossa criteria, do not see any ST changes of ischemia Interventions of: -Initiated O2, consulted Dr. Aly well for admission and around 2029 which was excepted for hospital-acquired pneumonia, acute on chronic hypoxic respiratory failure-likely needs a better plan. -Viscous lidocaine for oral relief, 9mL duoneb, home meds ordered while in ED -Cefepime & Vanco, hasn't received atypical coverage, held azithro due to QT prolonging drugs already given this evening. ED Course/Assessment/Plan: 79-year-old male presents for the fourth time in a little over a week for various problems, he has chronic severe dementia and is unreliable, there is a reported fall today and he has been hypoxic per EMS, he should be on home O2 but does not because he still smokes. His CT chest has concerns for possible pneumonia and is white count has been rising compared to prior to visits, likely needs a longer course of antibiotics and better transition back into the outpatient community versus placement, Dr. Farooq accepted for admission. Disposition of hospital-acquired pneumonia, acute on chronic hypoxic respiratory failure. Patient verbalized understanding of the plan and return to ED criteria and engaged in shared decision making. Medical Records Medical records reviewed: Yes I reviewed the patient's medical records. Imaging Data Radiologic Study: Attestation: I personally reviewed and interpreted this imaging study as follows: Imaging: CT Scan Radiologist's impression: EXAM: CT HEAD CERVICAL SPINE WO CLINICAL HISTORY: unknown fall; dementia. TECHNIQUE: Imaging Protocol: Axial computed tomography images with coronal and sagittal reformatted images were created and reviewed COMPARISON: CT CT HEAD WO from 03/31/2022 FINDINGS: Head CT Ventricles and Extra axial spaces: Normal in size and morphology for the patient's age. Hemorrhage: None. Cerebral parenchyma: No evidence of mass or acute infarct. 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 Mild underlying atrophy. Midline shift: None. Brainstem/Cerebellum: Normal. Calvarium: Normal. Visualized Paranasal sinuses/Mastoids: Clear. Soft tissues: Unremarkable. Cervical Spine CT BONES: There is no evidence of acute fracture. Severe degenerative disc changes and facet degenerative changes are seen. Levoscoliosis as well as kyphosis. SOFT TISSUES: No paraspinal hematoma. The airway appears intact. No pneumothorax is seen at the lung apices. 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 C-spine CT: Severe degenerative changes. No acute abnormality. Radiologic Study #2: Attestation: I personally reviewed and interpreted this imaging study as follows: Imaging: CT Scan Radiologist's impression: EXAM: CT CHEST PE ABD PELVIS W CLINICAL HISTORY: shortness of breath; hypoxia, unknown fall, dementia, hemat. TECHNIQUE: Imaging Protocol: Axial CT angiography was performed with multi- slice acquisition and multi-planar and/or 3D reconstructions. Computer aided detection (CAD) was utilized. CONTRAST MATERIAL: Intravenous: Omnipaque 350 Contrast volume:100 ml COMPARISON: CT CT CHEST/ABD/PEL W from 02/04/[address] THORACIC LUMBAR SPINE REC from 02/04/[address] CHEST PE CTA from 08/21/2024 US US RENAL from 08/22/2024 FINDINGS: CHEST: Exam is limited by streak artifact related to arm positioning. Pulmonary Arteries: No evidence of filling defects to suggest pulmonary emboli. Tracheobronchial tree: No bronchiectasis or mucus plugging. Mediastinum and Olga: No dominant adenopathy or fluid collection. Pulmonary parenchyma: No significant change in patchy basilar densities. Lungs not well evaluated due to expiratory changes. Emphysematous changes also present. Pleura: No effusion. No pneumothorax. Heart: The heart is notdilated. Severe coronary artery calcifications are seen. Aorta: Thoracic aorta non-dilated. Atherosclerotic changes. Bones: Old bilateral rib fractures. No acute rib or spine fractures. Tubes, Catheters, and Lines: None. Soft tissues: Unremarkable. ABDOMEN and PELVIS: Exam limited by streak artifact related to patient arm positioning. Liver: Normal size. Normal density. No suspicious measurable mass. Portal, Superior Mesenteric, and Splenic Veins: Unremarkable. Gallbladder and Biliary Tract: No radiodense calculus. No biliary dilatation. Pancreas: Normal density, no abnormal calcifications or inflammatory process. Spleen: Normal. Adrenals: No masses seen. Kidneys: Normal size, contour and axis. No radiodense stones. Severe left hydronephrosis. No right hydronephrosis. Left renal cysts also seen. No suspicious masses seen. Vasculature: Abdominal aorta non-dilated. Severe atherosclerotic changes of the abdominal aorta. Stable dilatation to 3.2 cm in the infrarenal component. Severe bilateral common iliac artery stenosis. Bowel: No obstruction or bowel wall thickening. Sigmoid diverticulosis. No evidence of diverticulitis. Peritoneal Cavity: No ascites, collection or mesenteric inflammatory response. Lymph Nodes: Within normal limits. Soft Tissues: Upper midline fat containing abdominal wall hernia. Mesh in place. Some fat is seen herniating below the level of the mash. Additional hernia with a small portion of bowel noted at the level of the umbilicus. Additional fatty components to the hernia in the paraumbilical region. No significant change from prior. Left inguinal hernia containing a loop of sigmoid colon. No evidence of obstruction. The previous exam which showed a small defect and only slight amount of herniating fat. Bladder: 7 centimeter heterogeneous mass occupying the bladder. Reproductive Organs: Unremarkable as visualized. Bones: Degenerative changes and scoliosis. IMPRESSION: 1. No evidence of pulmonary embolism. Stable appearance of pulmonary densities at the lung bases. No acute posttraumatic abnormality. 2. Severe left hydronephrosis likely secondary to of obstruction at the ureterovesical junction by the large bladder mass. 3. Left inguinal hernia containing a small portion of sigmoid colon which does not appear obstructed. 4. No acute posttraumatic abnormality abdomen or pelvis. Lab Data Lab results reviewed: Yes I reviewed the patient's lab results. Labs: 08/29/24 19:00 Blood Blood Culture - Pending 08/29/24 18:50 Blood Blood Culture - Pending Laboratory Tests Range/Units 08/29/24 08/29/24 08/29/24 16:44 16:51 17:10 WBC (4.4-10.8) 10^3/uL 19.02 H RBC (4.36-5.78) 10^6/uL 4.33 L Hgb (13.5-17.5) g/dL 10.8 L Hct (40.0-50.0) % 35.3 L MCV (80-95) fL 82 MCH (27.0-33.0) pg 24.9 L MCHC (32.0-36.0) % 30.6 L RDW (11.8-14.1) % 16.6 H Plt Count (130-400) 10^3/uL 451 H MPV (8.0-11.0) fL 10.2 Immature Gran % % 1.3 Neutrophils % % 83.2 Lymphocytes % % 7.7 Monocytes % % 6.9 Eosinophils % % 0.7 Basophils % % 0.2 Nucleated RBC % (0.0-0.3) % 0.0 Absolute Neutrophils (1.2-6.7) 10^3/uL 15.82 H Absolute Lymphocytes (1.2-3.4) 10^3/uL 1.46 Absolute Monocytes (0.1-0.8) 10^3/uL 1.31 H Absolute Eosinophils (0.0-0.7) 10^3/uL 0.13 Absolute Basophils (0.0-0.2) 10^3/uL 0.04 VBG pH (7.31-7.41) 7.38 VBG pCO2 (41-51) mmHg 55 H VBG pO2 mmHg 32 VBG HCO3 (23-28) mmol/L 32 H VBG Total CO2 (24-29) mmol/L 30 H VBG O2 Saturation % 59 VBG Base Excess (-2-3) mmol/L 7 H Sodium (136-145) mmol/L 142 Potassium (3.5-5.1) mmol/L 4.4 Chloride (98-107) mmol/L 106 Carbon Dioxide (21.0-32.0) mmol/L 31.4 Anion Gap (3-11) mmol/L 4.6 BUN (7-18) mg/dL 28 H Creatinine (0.70-1.30) mg/dL 1.3 Est GFR (CKD-EPI 2020) (mL/min/1.73m2) 55.88 Glucose (74-106) mg/dL 87 Calcium (8.5-10.1) mg/dL 8.2 L Magnesium (1.8-2.4) mg/dL 1.9 Total Bilirubin (0.2-1.0) mg/dL 0.25 AST (15-37) U/L 32 ALT (16-63) U/L 29 Alkaline Phosphatase (46-116) U/L 117 H Troponin I (<or=76) ng/L 29 22 NT-Pro-B Natriuret Pep (<300) pg/mL 4122 H Total Protein (6.4-8.2) g/dL 6.3 L Albumin (3.4-5.0) g/dL 2.2 L Lipase (16-77) U/L 33 Urine Color (Yellow) Red Urine Clarity (Clear) Cloudy Urine pH (5-8) 6.0 Ur Specific [place] (1.005-1.025) >= 1.030 H Urine Protein (Neg-Trace) mg/dL >=300 H Urine Ketones (Negative) mg/dL Negative Urine Blood (Negative) Large H Urine Nitrite (Negative) Negative Urine Bilirubin (Negative) Small H Urine Urobilinogen (Up to 0.2) mg/dL 0.2 Ur Leukocyte Esterase (Negative) Negative Urine RBC (0-2) HPF >50 H Urine WBC Not Applicable Ur Epithelial Cells Not Applicable Urine Crystals Not Applicable Urine Bacteria Not Applicable Urine Mucus Not Applicable Ur Culture Indicated? No Urine Glucose (Negative) mg/dL Negative COVID-19 Source NASOPHARYNX SARS-CoV-2 (PCR) (Negative) Negative Influenza Type A (PCR) (Negative) Negative Influenza Type B (PCR) (Negative) Negative RSV (PCR) (Negative) Negative Quality:SDOH Health Related Social Needs: Health related social needs problem related to primary support group(Z63.9) PFSH All Active Problems (Updated 08/29/24 @ 20:36 by Luis Manuel Kelly) Frequent falls (Chronic) Hydronephrosis, left (Chronic) Anemia of chronic disease (Chronic) Hospital-acquired bacterial pneumonia (Acute) Acute on chronic respiratory failure (Acute) Diarrhea (Acute) Iron deficiency (Acute) Microcytic anemia (Acute) DNR (do not resuscitate) (Acute) 2023 COLST: Completed with PCP Manuela Soares [employer]: /DNI, +Comfort Focused treatment, No IV fluids, No hydration, no artificial nutrition. Community acquired pneumonia (Acute) Acute kidney injury (Acute) Tongue lesion (Acute) HTN (hypertension) (Chronic) Dementia (Chronic) Hematuria (Acute) Hypoxic respiratory failure (Acute) Multiple closed fractures of ribs of right side (Acute) Malaise and fatigue (Acute) Cavitary lesion of lung (Acute) Alzheimer disease (Chronic) Elevated liver function tests (Acute) Transaminitis (Acute) Hyperbilirubinemia (Acute) Confusion (Acute) Generalized weakness (Acute) Bladder mass (Chronic) Upper gastrointestinal bleed (Acute 07/31/13) With melena and drop in hemoglobin Anxiety (Acute 07/31/13) Agitation (Acute 07/31/13) Anxiety and depression (Chronic) Hypothyroidism (Chronic) On satins. Hyperlipidemia (Chronic) Periodic limb movement disorder (Chronic) On benzodiazepines. 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 Right shoulder pain Palliative care patient Colon polyp Perforated duodenal ulcer History of alcohol abuse Tobacco abuse Osteoarthritis Hypothyroidism Hyperlipidemia Diverticulitis Depression Anxiety Neurocardiogenic syncope Surgical History Laparotomy (09/10/16) with duodenal ulcer repair Kidney EGD - MAC (05/03/17) Colonoscopy - MAC (03/11/18) Colonoscopy - MAC (05/03/17) Family History Mother Dementia Father Heart disease Social History Smoking/Tobacco Use Status: Current every day Tobacco Type: cigarettes Smoking risk assessment performed?: Yes Alcohol Intake: former Drug use: Never Substance use type: does not use Housing: house Do you feel safe at home: Yes Do you feel safe in your relationship?: Yes
[2024-08-29 16:48] LABS: BE (Venous) 7 mmol/L (-2-3); HCO3 (Venous) 32 mmol/L (23-28); O2 Sat (Venous) 59 %; TCO2 (Venous) 30 mmol/L (24-29); pCO2 (Venous) 55 mmHg (41-51); pH (Venous) 7.38 (7.31-7.41); pO2 (Venous) 32 mmHg
[2024-08-29 16:57] LABS: Abs Immature Grans 0.24 10^3/uL (0.0-0.06); Absolute Neutrophil Count 15.82 10^3/uL (1.2-6.7); Basophils % 0.2 %; Eosinophils % 0.7 %; HCT 35.3 % (40.0-50.0); HGB 10.8 g/dL (13.5-17.5); Immature Grans % 1.3 %; Lymphocytes % 7.7 %; MCH 24.9 pg (27.0-33.0); MCHC 30.6 % (32.0-36.0); MCV 82 fL (80-95); MPV 10.2 fL (8.0-11.0); Monocytes % 6.9 %; Neutrophils % 83.2 %; Platelet Count 451 10^3/uL (130-400); RBC 4.33 10^6/uL (4.36-5.78); RDW 16.6 % (11.8-14.1); WBC 19.02 10^3/uL (4.4-10.8)
[2024-08-29 17:00] LABS: Absolute Basophil Count 0.04 10^3/uL (0.0-0.2); Absolute Eosinophil Count 0.13 10^3/uL (0.0-0.7); Absolute Lymphocyte Count 1.46 10^3/uL (1.2-3.4); Absolute Monocyte Count 1.31 10^3/uL (0.1-0.8)
[2024-08-29 17:13] LABS: ALT 29 U/L (16-63); AST 32 U/L (15-37); Albumin 2.2 g/dL (3.4-5.0); Alkaline Phosphatase 117 U/L (46-116); Anion Gap 4.6 mmol/L (3-11); BUN 28 mg/dL (7-18); Bilirubin, Total 0.25 mg/dL (0.2-1.0); CO2 31.4 mmol/L (21.0-32.0); CREATININE 1.3 mg/dL (0.70-1.30); Calcium 8.2 mg/dL (8.5-10.1); Chloride 106 mmol/L (98-107); Estimated GFR 55.88 (mL/min/1.73m2); Glucose 87 mg/dL (74-106); Lipase 33 U/L (16-77); Magnesium 1.9 mg/dL (1.8-2.4); NT-proBNP 4122 pg/mL (<300); Potassium 4.4 mmol/L (3.5-5.1); Sodium 142 mmol/L (136-145); Total Protein 6.3 g/dL (6.4-8.2); Troponin I 29 ng/L (<or=76)
[2024-08-29 17:40] LABS: Bilirubin Small (Negative); Blood Large (Negative); Clarity Cloudy (Clear); Glucose Negative (Negative); Ketones Negative (Negative); Leukocyte Esterase Negative (Negative); Nitrite Negative (Negative); Specific Gravity >= 1.030 (1.005-1.025); Urobilinogen 0.2 mg/dL (Up to 0.2)
[2024-08-29 17:42] LABS: C & S Indicated? No; RBC >50 HPF (0-2)
[2024-08-29 17:49] LABS: Troponin I 22 ng/L (<or=76)
[2024-08-29 18:09] LABS: COVID-19 PCR Negative (Negative); Influenza A PCR Negative (Negative); Influenza B PCR Negative (Negative); RSV PCR Negative (Negative)
[2024-08-29 18:10] LABS: Source NASOPHARYNX
[2024-08-29] MEDS: Omnipaque 350 MG/ML 100 ML BTL IJ (18:30)
[2024-08-29] MEDS: Normal Saline - Diluent 50 ML VIAL IJ (18:31)
--- NOTE | 2024-08-29 18:35 | DI.CT_ITS ---
Exam(s) CT HEAD CERVICAL SPINE WO EXAM: CT HEAD CERVICAL SPINE WO CLINICAL HISTORY: unknown fall; dementia. TECHNIQUE: Imaging Protocol: Axial computed tomography images with coronal and sagittal reformatted images were created and reviewed COMPARISON: CT CT HEAD WO from 03/31/2022 FINDINGS: Head CT Ventricles and Extra axial spaces: Normal in size and morphology for the patient's age. Hemorrhage: None. Cerebral parenchyma: No evidence of mass or acute infarct. 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 Mild underlying atrophy. Midline shift: None. Brainstem/Cerebellum: Normal. Calvarium: Normal. Visualized Paranasal sinuses/Mastoids: Clear. Soft tissues: Unremarkable. Cervical Spine CT BONES: There is no evidence of acute fracture. Severe degenerative disc changes and facet degenerative changes are seen. Levoscoliosis as well as k yphosis. SOFT TISSUES: No paraspinal hematoma. The airway appears intact. No pneumothorax is seen at the lung apices. 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 C-spine CT: Severe degenerative changes. No acute abnormality. RADIATION DOSE DELIVERED: Total DLP DATA REPOSITORY: All CT scans at this facility are submitted to the National Radiology Data Registry (NRDR) Dose Index Registry (DIR) with the [employer] ([employer]). RADIATION OPTIMIZATION: All CT scans at this facility use at least one of these dose optimization te chniques: automated exposure control; mA and/or kV adjustment per patient size (includes targeted exa ms where dose is matched to clinical indication); or iterative reconstruction.
--- NOTE | 2024-08-29 18:36 | DI.CT_ITS ---
Exam(s) CT CHEST PE ABD PELVIS W EXAM: CT CHEST PE ABD PELVIS W CLINICAL HISTORY: shortness of breath; hypoxia, unknown fall, dementia, hemat. TECHNIQUE: Imaging Protocol: Axial CT angiography was performed with multi-slice acquisition and mu lti-planar and/or 3D reconstructions. Computer aided detection (CAD) was utilized. CONTRAST MATERIAL: Intravenous: Omnipaque 350 Contrast volume:100 ml COMPARISON: CT CT CHEST/ABD/PEL W from 02/04/[address] THORACIC LUMBAR SPINE REC from 02/04/[address] CHEST PE CTA from 08/21/2024 US US RENAL from 08/22/2024 FINDINGS: CHEST: Exam is limited by streak artifact related to arm positioning. Pulmonary Arteries: No evidence of filling defects to suggest pulmonary emboli. Tracheobronchial tree: No bronchiectasis or mucus plugging. Mediastinum and Olga: No dominant adenopathy or fluid collection. Pulmonary parenchyma: No significant change in patchy basilar densities. Lungs not well evaluated du e to expiratory changes. Emphysematous changes also present. Pleura: No effusion. No pneumothorax. Heart: The heart is notdilated. Severe coronary artery calcifications are seen. Aorta: Thoracic aorta non-dilated. Atherosclerotic changes. Bones: Old bilateral rib fractures. No acute rib or spine fractures. Tubes, Catheters, and Lines: None. Soft tissues: Unremarkable. ABDOMEN and PELVIS: Exam limited by streak artifact related to patient arm positioning. Liver: Normal size. Normal density. No suspicious measurable mass. Portal, Superior Mesenteric, and Splenic Veins: Unremarkable. Gallbladder and Biliary Tract: No radiodense calculus. No biliary dilatation. Pancreas: Normal density, no abnormal calcifications or inflammatory process. Spleen: Normal. Adrenals: No masses seen. Kidneys: Normal size, contour and axis. No radiodense stones. Severe left hydronephrosis. No right h ydronephrosis. Left renal cysts also seen. No suspicious masses seen. Vasculature: Abdominal aorta non-dilated. Severe atherosclerotic changes of the abdominal aorta. Stable dilatation to 3.2 cm in the infrarenal component. Severe bilateral common iliac artery stenos is. Bowel: No obstruction or bowel wall thickening. Sigmoid diverticulosis. No evidence of diverticulit is. Peritoneal Cavity: No ascites, collection or mesenteric inflammatory response. Lymph Nodes: Within normal limits. Soft Tissues: Upper midline fat containing abdominal wall hernia. Mesh in place. Some fat is seen h erniating below the level of the mash. Additional hernia with a small portion of bowel noted at the level of the umbilicus. Additional fatty components to the hernia in the paraumbilical region. No s ignificant change from prior. Left inguinal hernia containing a loop of sigmoid colon. No evidence of obstruction. The previous exam which showed a small defect and only slight amount of herniating f at. Bladder: 7 centimeter heterogeneous mass occupying the bladder. Reproductive Organs: Unremarkable as visualized. Bones: Degenerative changes and scoliosis. IMPRESSION: 1. No evidence of pulmonary embolism. Stable appearance of pulmonary densities at the lung bases. No acute posttraumatic abnormality. 2. Severe left hydronephrosis likely secondary to of obstruction at the ureterovesical junction by th e large bladder mass. 3. Left inguinal hernia containing a small portion of sigmoid colon which does not appear obstructed. 4. No acute posttraumatic abnormality abdomen or pelvis. 5. Findings called to Yovanny Milan, ER provider. RADIATION DOSE DELIVERED: Total DLP Total DLP DATA REPOSITORY: All CT scans at this facility are submitted to the National Radiology Data Registry (NRDR) Dose Index Registry (DIR) with the [employer] ([employer]). RADIATION OPTIMIZATION: All CT scans at this facility use at least one of these dose optimization te chniques: automated exposure control; mA and/or kV adjustment per patient size (includes targeted exa ms where dose is matched to clinical indication); or iterative reconstruction.
[2024-08-29] MEDS: Albuterol/Ipratropium 3 ML UPD VIAL 9 ML UPD (19:05)
[2024-08-29 19:35] VITALS: O2SAT 94
--- NOTE | 2024-08-29 20:23 | W.PM.HP.N ---
Date of service: 08/29/24 Time of Service: 20:23 Assessment and Plan Assessment and plan (1) Acute on chronic respiratory failure: Start date: 08/29/24 Status: Acute Assessment and plan: This is a 79-year-old gentleman repeatedly being hospitalized for falls now appearing to have persistent pneumonia and at this point has been hospitalized several times with his to be in a hospital-acquired pneumonia if the cause of his persistent and increasing leukocytosis. He also has severe COPD and emphysema and continues to smoke not having oxygen at home with chronic hypoxemia. He will be initiated on IV vancomycin and cefepime and follow-up clinically with lab trending. Continue O2 supplementation chronically and consider placement for patient to have attended care failing at home and living alone with his only intermittently seeing patient at home to check-in. He is a DNR/DNI. Qualifiers: Respiratory failure complication: hypoxia and hypercapnia Qualified Code(s): J96.21 - Acute and chronic respiratory failure with hypoxia; J96.22 - Acute and chronic respiratory failure with hypercapnia (2) Hospital-acquired bacterial pneumonia: Start date: 08/29/24 Status: Acute Assessment and plan: -Vancomycin and cefepime and trend lab with imaging if needed. Continue O2 supplementation. (3) Frequent falls: Status: Chronic Assessment and plan: Social situation is poor patient needs to be placed for level to care. (4) Dementia: Status: Chronic Assessment and plan: Not function well at home alone and should have supervised living and medical care at home or in a institution. Qualifiers: Alzheimer's disease onset: other onset Dementia behavioral or psychological symptom: with anxiety Dementia severity: moderate Dementia type: Alzheimer's Qualified Code(s): G30.8 - Other Alzheimer's disease; F02.B4 - Dementia in other diseases classified elsewhere, moderate, with anxiety (5) Hydronephrosis, left: Status: Chronic Assessment and plan: Progressive with large bladder tumor not resectable with patient not being a surgical candidate. Consider drainage with nephrostomy tube with a doctor visit and consulted by phone recommending this approach if patient's leukocytosis persists. Patient inflammatory markers are positive with CRP and sed rate elevated. He also has an elevated lactate which needs to be followed up with increased oral intake and IV hydration which is mostly through antibiotic administration. He is a DNR/DNI. (6) Bladder cancer: Status: Chronic Assessment and plan: High-grade urothelial carcinoma obstructing left ureter causing hydronephrosis nonpalpable with patient being DNR/DNI and not a candidate for surgical intervention. Qualifiers: Bladder location: ureteric orifice Qualified Code(s): C67.6 - Malignant neoplasm of ureteric orifice (7) Anemia of chronic disease: Status: Chronic Assessment and plan: This appears stable with patient having elevated WBC and platelet count being partially reactive with high RDW. He is on iron supplementation which will be continued. He has chronic blood loss with his urinary system with a bladder tumor. DVT prophylaxis will be started cautiously. (8) Ulcer (traumatic) of oral mucosa: Start date: 08/30/24 Status: Acute Assessment and plan: Patient had RPR which was negative with lesions appearing to be a possible condyloma dio. With his poor dentition and broken teeth this most likely is traumatic and persistent. Symptomatic care. History of Present Illness History of Present Illness Chief Complaint: Confusion with fall at home with recent hospitalization for pneumonia Narrative: This is a 79-year-old male patient who lives alone and has advanced dementia and does poorly with self-care medications at home. He has severe short-term memory loss. He becomes easily agitated while hospitalized and has been hospitalized multiple times recently. His last hospitalization the had leukocytosis with possible pneumonia and also has a progressive bladder tumor obstructing the left ureter with patient refusing surgical intervention. Dr. Gallardo has been following the patient for this problem which now is diagnosed as bladder cancer with high-grade urothelial carcinoma pathology. He had recurrent gross hematuria with iron deficiency anemia and some of his elevation in WBC and platelet count may be reactive with his cancer. He does not appear to be dehydrated at this point but has had continued gross hematuria. He has had a fever at home. He is cared for by his ex- and she seems frustrated with him being home alone. Patient is frequently seen by the medical system and should be on home oxygen but is not because of continued smoking. He is a DNR/DNI. Evaluation in the ED this visit did reveal continued patchy lower lobe infiltrates with hypoxemia having pulse oximeter readings in 80% range which recovered with O2 supplementation. As stated he does have chronic respiratory failure with COPD and emphysema and continues to smoke. VBG did reveal hypercapnia associated with his hypoxemia which appeared stable but persistent. He did appear to have progressive obstruction of his left urinary system with severe left hydronephrosis now and a large left bladder tumor. This hydronephrosis has progressed since last imaging. The patient not complained of flank pain. His WBC had elevated even further now near 20,000 and he did have lactic acidosis and will be watched with increased hydration and treating possible infection with a question of possible part of my at this time with multiple admissions. I did discuss case with Dr. Gallardo who also thought his hydronephrosis being aggressive could be harboring infection and for intervention he would have to agree with surgical drainage with nephrostomy tubes which would need to be done at a tertiary care center. The patient has been refusing care with surgery up to this point. He will be admitted for monitoring of intake avoiding aggressive IV hydration with patient having peripheral edema which appears stable. He was initiated on IV vancomycin and cefepime for possible hospital-acquired pneumonia but needs to be followed up on blood cultures and urine culture and as stated, consider drainage of his left hydronephrosis which will need to be a nephrostomy tube. Dr. Gallardo could be consulted formally but was consulted by phone and has little to offer locally with approach of his obstruction not possible from cystoscopy because of the size of the bladder tumor. Review of Systems Narrative: 13 point review of systems otherwise unrevealing or stable. Patient is a poor historian having dementia. PFSH All Active Problems (Updated 08/30/24 @ 06:23 by Luis Manuel Kelly) Ulcer (traumatic) of oral mucosa (Acute) Bladder cancer (Chronic) Frequent falls (Chronic) Hydronephrosis, left (Chronic) Anemia of chronic disease (Chronic) Hospital-acquired bacterial pneumonia (Acute) Acute on chronic respiratory failure (Acute) Diarrhea (Acute) Iron deficiency (Acute) Microcytic anemia (Acute) DNR (do not resuscitate) (Acute) 2023 COLST: Completed with PCP Manuela Soares, [employer]: /DNI, +Comfort Focused treatment, No IV fluids, No hydration, no artificial nutrition. Community acquired pneumonia (Acute) Acute kidney injury (Acute) Tongue lesion (Acute) HTN (hypertension) (Chronic) Dementia (Chronic) Hematuria (Acute) Hypoxic respiratory failure (Acute) Multiple closed fractures of ribs of right side (Acute) Malaise and fatigue (Acute) Cavitary lesion of lung (Acute) Alzheimer disease (Chronic) Elevated liver function tests (Acute) Transaminitis (Acute) Hyperbilirubinemia (Acute) Confusion (Acute) Generalized weakness (Acute) Bladder mass (Chronic) Upper gastrointestinal bleed (Acute 07/31/13) With melena and drop in hemoglobin Anxiety (Acute 07/31/13) Agitation (Acute 07/31/13) Anxiety and depression (Chronic) Hypothyroidism (Chronic) On satins. Hyperlipidemia (Chronic) Periodic limb movement disorder (Chronic) On benzodiazepines. 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 Right shoulder pain Palliative care patient Colon polyp Perforated duodenal ulcer History of alcohol abuse Tobacco abuse Osteoarthritis Hypothyroidism Hyperlipidemia Diverticulitis Depression Anxiety Neurocardiogenic syncope Surgical History Laparotomy (09/10/16) with duodenal ulcer repair Kidney EGD - MAC (05/03/17) Colonoscopy - MAC (03/11/18) Colonoscopy - MAC (05/03/17) Family History Mother Dementia Father Heart disease Social History Smoking/Tobacco Use Status: Current every day Tobacco Type: cigarettes Smoking risk assessment performed?: Yes Alcohol Intake: former Drug use: Never Substance use type: does not use Housing: house Do you feel safe at home: Yes Do you feel safe in your relationship?: Yes Meds Allergies and Home Medications Allergies Allergy/AdvReac Type Severity Reaction Status Date / Time ibuprofen Allergy Severe Other (See Unverified 08/29/24 16:58 Comment) varenicline tartrate (From AdvReac Severe Psychosis Unverified 08/29/24 16:58 Chantix) Home Medications ?Medication ?Instructions ?Recorded ?Confirmed ?Type levothyroxine 125 mcg tablet 100 mcg PO DAILY@0730 04/07/13 08/29/24 History khkxsakc-lhk-eyieo acid 0.4 1 ea PO DAILY 04/07/13 08/29/24 History mg-lycopene 300 mcg-lutein 250 mcg tablet (Centrum Silver) citalopram 40 mg tablet 40 mg PO DAILY 11/10/15 08/29/24 History aspirin 81 mg chewable tablet 81 mg PO DAILY 01/04/17 08/29/24 History pantoprazole 40 mg tablet,delayed 40 mg PO DAILY ##30 05/03/17 08/26/24 Rx release nicotine 14 mg/24 hr daily 14 mg transdermal DAILY 02/07/18 08/29/24 History transdermal patch melatonin 3 mg tablet 3 mg PO HS 09/25/19 08/29/24 History mirtazapine 45 mg tablet 45 mg PO QHS 09/25/19 08/29/24 History trazodone 50 mg tablet 100 mg PO HS 09/25/19 08/29/24 History atenolol 25 mg tablet 12.5 mg PO DAILY 03/31/22 08/29/24 History quetiapine 25 mg tablet 25 mg PO BID PRN PRN #28 tabs 04/04/22 08/29/24 Rx thiamine mononitrate (vit B1) 100 100 mg PO DAILY #14 tabs 04/04/22 08/29/24 Rx mg tablet (Vitamin B-1 (mononitrate)) acetaminophen 650 mg 650 mg PO Q12H 10/29/22 08/29/24 History tablet,extended release (Tylenol 8 Hour) magnesium chloride 71.5 mg 71.5 mg PO QHS 10/29/22 08/29/24 History (magnesium chloride) tablet,delayed release (Slow-Mag) lidocaine 5 % topical patch 1 patch topical DAILY #15 ea 02/04/23 08/29/24 Rx (Lidoderm) albuterol sulfate 90 mcg/actuation 2 inh inhalation Q6H PRN shortness 08/24/24 08/29/24 Rx breath activated powder inhaler of breath #1 ea azithromycin 250 mg tablet 250 mg PO DAILY 6 days #6 tabs 08/24/24 08/29/24 Rx ferrous sulfate 325 mg (65 mg 325 mg PO DAILY 30 days #30 tabs 08/24/24 08/29/24 Rx iron) tablet ipratropium 20 mcg-albuterol 100 1 puff inhalation Q6H #4 grams 08/24/24 08/29/24 Rx mcg/actuation mist for inhalation (Combivent Respimat) prednisone 20 mg tablet 40 mg (2 x 20 mg) PO DAILY #10 tabs 08/24/24 08/29/24 Rx albuterol sulfate 90 mcg/actuation 2 puff inhalation Q6H 08/26/24 08/29/24 History aerosol inhaler Exam Narrative Exam Narrative: General: Patient is very talkative, appears alert and oriented at least to person and place and in no acute distress. HEENT: Normocephalic, long unkempt morin hair with course and facial features. Eyes with pupils equal and reactive to light symmetrically, extraocular movement intact and sclera anicteric. Oropharynx with moist oral mucosa and poor dentition with broken carious teeth and indurated 2.5 cm, round slightly concave lesion left tongue with white coating and tender. No surrounding erythema or enlarged submandibular nodes. Neck: Supple without JVD. Back: Stooped posture without CVA tenderness. Lungs: Vesicular sounds diffusely with coarse crackles nonfocal no focalizing rales. No rhonchi. No expiratory wheeze with fair aeration. Slight increased expiratory phase. Heart: Regular rate and rhythm with no murmurs gallops appreciated. Abdomen: Scaphoid contour, soft nontender to palpation with no palpable hepatosplenomegaly. No guarding or rebound. Bowel sounds positive in all quadrants. Genitalia/rectal: Exam deferred. Skin: Pale, warm and dry. No bruising. Extremities: Without clubbing, cyanosis. 2+ pitting edema left and 1+ right ankles and feet. This appears chronic. Good cap refill. Neuro: Cranial Nerves II -XII grossly intact, no focalizing motor deficits for tremor. Psych: Normal affect almost euphoric, normal mood. No abnormal thought processes the patient has severe short-term memory loss. He confabulates during conversation. Remote memory intact. Results Imaging Imaging Studies: EXAM: CT CHEST PE ABD PELVIS W CLINICAL HISTORY: shortness of breath; hypoxia, unknown fall, dementia, hemat. TECHNIQUE: Imaging Protocol: Axial CT angiography was performed with multi-slice acquisition and multi-planar and/or 3D reconstructions. Computer aided detection (CAD) was utilized. CONTRAST MATERIAL: Intravenous: Omnipaque 350 Contrast volume:100 ml COMPARISON: CT CT CHEST/ABD/PEL W from 02/04/[address] THORACIC LUMBAR SPINE REC from 02/04/[address] CHEST PE CTA from 08/21/2024 US US RENAL from 08/22/2024 FINDINGS: CHEST: Exam is limited by streak artifact related to arm positioning. Pulmonary Arteries: No evidence of filling defects to suggest pulmonary emboli. Tracheobronchial tree: No bronchiectasis or mucus plugging. Mediastinum and Olga: No dominant adenopathy or fluid collection. Pulmonary parenchyma: No significant change in patchy basilar densities. Lungs not well evaluated due to expiratory changes. Emphysematous changes also present. Pleura: No effusion. No pneumothorax. Heart: The heart is notdilated. Severe coronary artery calcifications are seen. Aorta: Thoracic aorta non-dilated. Atherosclerotic changes. Bones: Old bilateral rib fractures. No acute rib or spine fractures. Tubes, Catheters, and Lines: None. Soft tissues: Unremarkable. ABDOMEN and PELVIS: Exam limited by streak artifact related to patient arm positioning. Liver: Normal size. Normal density. No suspicious measurable mass. Portal, Superior Mesenteric, and Splenic Veins: Unremarkable. Gallbladder and Biliary Tract: No radiodense calculus. No biliary dilatation. Pancreas: Normal density, no abnormal calcifications or inflammatory process. Spleen: Normal. Adrenals: No masses seen. Kidneys: Normal size, contour and axis. No radiodense stones. Severe left hydronephrosis. No right hydronephrosis. Left renal cysts also seen. No suspicious masses seen. Vasculature: Abdominal aorta non-dilated. Severe atherosclerotic changes of the abdominal aorta. Stable dilatation to 3.2 cm in the infrarenal component. Severe bilateral common iliac artery stenosis. Bowel: No obstruction or bowel wall thickening. Sigmoid diverticulosis. No evidence of diverticulitis. Peritoneal Cavity: No ascites, collection or mesenteric inflammatory response. Lymph Nodes: Within normal limits. Soft Tissues: Upper midline fat containing abdominal wall hernia. Mesh in place. Some fat is seen herniating below the level of the mash. Additional hernia with a small portion of bowel noted at the level of the umbilicus. Additional fatty components to the hernia in the paraumbilical region. No significant change from prior. Left inguinal hernia containing a loop of sigmoid colon. No evidence of obstruction. The previous exam which showed a small defect and only slight amount of herniating fat. Bladder: 7 centimeter heterogeneous mass occupying the bladder. Reproductive Organs: Unremarkable as visualized. Bones: Degenerative changes and scoliosis. IMPRESSION: 1. No evidence of pulmonary embolism. Stable appearance of pulmonary densities at the lung bases. No acute posttraumatic abnormality. 2. Severe left hydronephrosis likely secondary to of obstruction at the ureterovesical junction by the large bladder mass. 3. Left inguinal hernia containing a small portion of sigmoid colon which does not appear obstructed. 4. No acute posttraumatic abnormality abdomen or pelvis. EXAM: CT HEAD CERVICAL SPINE WO CLINICAL HISTORY: unknown fall; dementia. TECHNIQUE: Imaging Protocol: Axial computed tomography images with coronal and sagittal reformatted images were created and reviewed COMPARISON: CT CT HEAD WO from 03/31/2022 FINDINGS: Head CT Ventricles and Extra axial spaces: Normal in size and morphology for the patient's age. Hemorrhage: None. Cerebral parenchyma: No evidence of mass or acute infarct. 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 Mild underlying atrophy. Midline shift: None. Brainstem/Cerebellum: Normal. Calvarium: Normal. Visualized Paranasal sinuses/Mastoids: Clear. Soft tissues: Unremarkable. Cervical Spine CT BONES: There is no evidence of acute fracture. Severe degenerative disc changes and facet degenerative changes are seen. Levoscoliosis as well as kyphosis. SOFT TISSUES: No paraspinal hematoma. The airway appears intact. No pneumothorax is seen at the lung apices. 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 C-spine CT: Severe degenerative changes. No acute abnormality. . Labs 08/29/24 16:44 08/29/24 16:44 Labs: Laboratory Results - last 24 hr 08/29/24 08/29/24 08/29/24 16:44 16:51 17:10 WBC 19.02 H RBC 4.33 L Hgb 10.8 L Hct 35.3 L MCV 82 MCH 24.9 L MCHC 30.6 L RDW 16.6 H Plt Count 451 H MPV 10.2 Immature Gran % 1.3 Neutrophils % 83.2 Lymphocytes % 7.7 Monocytes % 6.9 Eosinophils % 0.7 Basophils % 0.2 Nucleated RBC % 0.0 Absolute Neutrophils 15.82 H Absolute Lymphocytes 1.46 Absolute Monocytes 1.31 H Absolute Eosinophils 0.13 Absolute Basophils 0.04 VBG pH 7.38 VBG pCO2 55 H VBG pO2 32 VBG HCO3 32 H VBG Total CO2 30 H VBG O2 Saturation 59 VBG Base Excess 7 H Sodium 142 Potassium 4.4 Chloride 106 Carbon Dioxide 31.4 Anion Gap 4.6 BUN 28 H Creatinine 1.3 Est GFR (CKD-EPI 2020) 55.88 Glucose 87 Calcium 8.2 L Magnesium 1.9 Total Bilirubin 0.25 AST 32 ALT 29 Alkaline Phosphatase 117 H Troponin I 29 22 NT-Pro-B Natriuret Pep 4122 H Total Protein 6.3 L Albumin 2.2 L Lipase 33 Urine Color Red Urine Clarity Cloudy Urine pH 6.0 Ur Specific [place] >= 1.030 H Urine Protein >=300 H Urine Ketones Negative Urine Blood Large H Urine Nitrite Negative Urine Bilirubin Small H Urine Urobilinogen 0.2 Ur Leukocyte Esterase Negative Urine RBC >50 H Urine WBC Not Applicable Ur Epithelial Cells Not Applicable Urine Crystals Not Applicable Urine Bacteria Not Applicable Urine Mucus Not Applicable Ur Culture Indicated? No Urine Glucose Negative COVID-19 Source NASOPHARYNX SARS-CoV-2 (PCR) Negative Influenza Type A (PCR) Negative Influenza Type B (PCR) Negative RSV (PCR) Negative Last Vital Signs Temp 36.6 C 08/29/24 16:25 Pulse 85 08/29/24 16:25 Resp 18 08/29/24 16:25 Pulse Ox 92 08/29/24 16:25 Time Spent Time spent with Patient: >75 minutes Time was spent: preparing to see the patient(eg.review tests), obtaining and/or reviewing separately otained hiistory, ordering medications,tests, procedures, referring, communicating with other health nonfarm animal caretaker, indepentently interpreting results and care coordination
[2024-08-29] MEDS: Melatonin 3 MG TAB PO (20:25)
[2024-08-29] MEDS: traZODone 50 MG TAB 100 MG PO (20:25)
[2024-08-29] MEDS: Albuterol HFA 8 GM 60 PUFF INH IH (20:31)
[2024-08-29] MEDS: Lidocaine 2% Viscous 15 ML CUP PO (20:37)
[2024-08-29] MEDS: QUEtiapine 25 MG TAB PO (20:40)
[2024-08-29] MEDS: CEFEPIME 2 GM in Normal Saline 100 ML IVPB (21:31)
--- NOTE | 2024-08-29 22:07 | W.PC.ACHO ---
Registration Status: Primary Language: Preferred Language: ED Information & Data Chief Complaint GenMedical 08/29/24 16:38 Triage Note dizzy, fall, confusion, hx 08/29/24 16:25 of dementia, but increased confusion, 80% RA, 96 2 l/nc . axox1. pt reports he didnt fall but is confused, and wasnt home so unclear if he did fall. no injuries. no pain. hx copd,wheezing. Medical / Surgical History (Last Reviewed 08/29/24 @ 20:24 by Luis Manuel Kelly) Advanced care planning/counseling discussion Palliative care encounter Acute on chronic respiratory failure with hypoxia and hypercapnia Renal cyst, left Alcohol abuse Peptic ulcer Duodenal perforation Insomnia Cough Shortness of breath Cavitating mass in left lower lung lobe Right shoulder pain Palliative care patient Colon polyp Perforated duodenal ulcer History of alcohol abuse Tobacco abuse Osteoarthritis Hypothyroidism Hyperlipidemia Diverticulitis Depression Anxiety Neurocardiogenic syncope (Last Reviewed 08/29/24 @ 20:24 by Luis Manuel Kelly) Laparotomy (09/10/16) Kidney EGD - MAC (05/03/17) Colonoscopy - MAC (03/11/18) Colonoscopy - MAC (05/03/17) Most Recent Vital Signs Temperature 36.6 C 08/29/24 16:25 Pulse 85 08/29/24 16:25 Respiratory Rate 18 08/29/24 16:25 Respiratory Effort Normal 08/29/24 16:35 Respiratory Depth Normal 08/29/24 16:35 Respiratory Pattern Normal 08/29/24 16:35 Pulse Oximetry 94 08/29/24 19:35 Oxygen Delivery Method Nasal Cannula 08/29/24 16:25 Oxygen Flow Rate 2 08/29/24 16:25 Pain Level 0 08/29/24 16:25 Allergies ibuprofen Allergy (Severe, Unverified 08/29/24 16:58) Other (See Comment) bleeding varenicline tartrate (From Chantix) Adverse Reaction (Severe, Unverified 08/29/24 16:58) Psychosis Active Medications Generic Name Dose Route Start Last Admin Trade Name Freq PRN Reason Stop Dose Admin Albuterol Sulfate 2 puff 08/29/24 18:15 08/29/24 20:31 Albuterol Hfa 8 Gm 60 Puff Inh IH 2 puff Q6H NITISH Administration Iohexol 100 ml 08/29/24 18:30 11/19/24 18:30 Omnipaque 350 Mg/Ml 100 Ml Btl IJ 09/28/24 23:59 100 ml DIRECTED NITISH Administration Melatonin 3 mg 08/29/24 20:00 08/29/24 20:25 Melatonin 3 Mg Tab PO 3 mg HS NITISH Administration Sodium Chloride 50 ml 08/29/24 18:45 08/29/24 18:31 Normal Saline - Diluent 50 Ml Vial IJ 50 ml .FOR DI USE NITISH Administration Trazodone HCl 100 mg 08/29/24 20:00 08/29/24 20:25 Trazodone 50 Mg Tab PO 100 mg HS NITISH Administration IV IV Catheter Type [Left Saline Lock Antecubital] IV Catheter Gauge [Left 20 Antecubital] Diagnostics 08/29/24 08/29/24 08/29/24 Range/Units 17:10 16:51 16:44 WBC 19.02 H (4.4-10.8) 10^3/uL RBC 4.33 L (4.36-5.78) 10^6/uL Hgb 10.8 L (13.5-17.5) g/dL Hct 35.3 L (40.0-50.0) % MCV 82 (80-95) fL MCH 24.9 L (27.0-33.0) pg MCHC 30.6 L (32.0-36.0) % RDW 16.6 H (11.8-14.1) % Plt Count 451 H (130-400) 10^3/uL MPV 10.2 (8.0-11.0) fL Immature Gran % 1.3 % Neutrophils % 83.2 % Lymphocytes % 7.7 % Monocytes % 6.9 % Eosinophils % 0.7 % Basophils % 0.2 % Nucleated RBC % 0.0 (0.0-0.3) % Absolute Neutrophils 15.82 H (1.2-6.7) 10^3/uL Absolute Lymphocytes 1.46 (1.2-3.4) 10^3/uL Absolute Monocytes 1.31 H (0.1-0.8) 10^3/uL Absolute Eosinophils 0.13 (0.0-0.7) 10^3/uL Absolute Basophils 0.04 (0.0-0.2) 10^3/uL VBG pH 7.38 (7.31-7.41) VBG pCO2 55 H (41-51) mmHg VBG pO2 32 mmHg VBG HCO3 32 H (23-28) mmol/L VBG Total CO2 30 H (24-29) mmol/L VBG O2 Saturation 59 % VBG Base Excess 7 H (-2-3) mmol/L Sodium 142 (136-145) mmol/L Potassium 4.4 (3.5-5.1) mmol/L Chloride 106 (98-107) mmol/L Carbon Dioxide 31.4 (21.0-32.0) mmol/L Anion Gap 4.6 (3-11) mmol/L BUN 28 H (7-18) mg/dL Creatinine 1.3 (0.70-1.30) mg/dL Est GFR (CKD-EPI 2020) 55.88 (mL/min/1.73m2) Glucose 87 (74-106) mg/dL Calcium 8.2 L (8.5-10.1) mg/dL Magnesium 1.9 (1.8-2.4) mg/dL Total Bilirubin 0.25 (0.2-1.0) mg/dL AST 32 (15-37) U/L ALT 29 (16-63) U/L Alkaline Phosphatase 117 H (46-116) U/L Troponin I 22 29 (<or=76) ng/L NT-Pro-B Natriuret Pep 4122 H (<300) pg/mL Total Protein 6.3 L (6.4-8.2) g/dL Albumin 2.2 L (3.4-5.0) g/dL Lipase 33 (16-77) U/L Urine Color Red (Yellow) Urine Clarity Cloudy (Clear) Urine pH 6.0 (5-8) Ur Specific [place] >= 1.030 H (1.005-1.025) Urine Protein >=300 H (Neg-Trace) mg/dL Urine Ketones Negative (Negative) mg/dL Urine Blood Large H (Negative) Urine Nitrite Negative (Negative) Urine Bilirubin Small H (Negative) Urine Urobilinogen 0.2 (Up to 0.2) mg/dL Ur Leukocyte Esterase Negative (Negative) Urine RBC >50 H (0-2) HPF Urine WBC Not Applicable Ur Epithelial Cells Not Applicable Urine Crystals Not Applicable Urine Bacteria Not Applicable Urine Mucus Not Applicable Ur Culture Indicated? No Urine Glucose Negative (Negative) mg/dL COVID-19 Source NASOPHARYNX SARS-CoV-2 (PCR) Negative (Negative) Influenza Type A (PCR) Negative (Negative) Influenza Type B (PCR) Negative (Negative) RSV (PCR) Negative (Negative) 08/29/24 19:00 Blood Culture - Pending Blood 08/29/24 18:50 Blood Culture - Pending Blood Intake and Output - 24 Hour Total 08/29/24 16:20 thru 08/29/24 16:25 Weight 67 kg Falls Risk Assessment History of Falls Admit Due to Fall 08/29/24 16:35 Contributing Factors Confusion 08/29/24 16:35 Ambulatory Aids Independent 08/29/24 16:35 Tubes/Lines None 08/29/24 16:35 Gait Evaluation W/any additional score 08/29/24 16:35 Fall Total Score 48 08/29/24 16:35 Level of Risk Moderate Risk 08/29/24 16:35 Problems (Last Reviewed 08/29/24 @ 20:24 by Luis Manuel Kelly) Bladder cancer (Chronic) Frequent falls (Chronic) Hydronephrosis, left (Chronic) Anemia of chronic disease (Chronic) Hospital-acquired bacterial pneumonia (Acute) Acute on chronic respiratory failure (Acute) Dementia (Chronic) v v v v v v v v v Sending and/or Receiving Nurses: Please use comment section below to note any information pertinent to the patient hand-off not included above. Information / Comments: Alert and oriented to self, confused, scattered bruising, Was given IV antibiotic, melatonin, trazodone, albuterol updraft, and inhaler. Report received from: RASHMI DOWD
[2024-08-29 22:50] VITALS: BP 92/64; PULSE 76; RESP 15; TEMP 36.5; O2SAT 98
[2024-08-30] VITALS (13 sets, daily range): BP systolic 101–113; BP diastolic 59–70; PULSE 67–95; RESP 3–20; TEMP 36.4–36.9; O2SAT 2–98
[2024-08-30] MEDS: Mirtazapine 15 MG TAB 45 MG PO ×2 (00:05→20:00)
[2024-08-30] MEDS: Acetaminophen 325 MG TAB 650 MG PO ×3 (00:06→19:31)
[2024-08-30 00:21] LABS: Lactate 2.2 mmol/L (0.6-1.4)
[2024-08-30 00:27] LABS: ESR 25 mm/hr (0-20)
[2024-08-30 00:36] LABS: C-Reactive Protein 4.97 mg/dL (<or=0.5)
[2024-08-30] MEDS: Water,Injection,Sterile 10 ML VIAL (00:44)
[2024-08-30] MEDS: VANCOMYCIN 1,500 MG in Normal Saline 500 ML 333.3333 MG IVPB (00:44)
[2024-08-30] MEDS: Albuterol/Ipratropium 3 ML UPD VIAL UPD ×5 (00:45→23:53)
[2024-08-30 00:50] LABS: TSH (W/Ref FT4) 14.32 uIU/mL (0.36-3.74)
[2024-08-30 00:53] LABS: Procalcitonin < 0.10 ng/mL
[2024-08-30 01:06] LABS: FREE T4 0.72 ng/dL (0.76-1.46)
[2024-08-30] MEDS: Enoxaparin 40 MG/0.4 ML SYR SC ×2 (01:37→23:15)
[2024-08-30] MEDS: Lidocaine 2% Viscous 15 ML CUP 3 ML PO ×5 (02:43→18:34)
[2024-08-30] MEDS: Levothyroxine 100 MCG TAB PO (06:07)
[2024-08-30 07:01] LABS: HGB 9.3 g/dL (13.5-17.5); MCH 24.8 pg (27.0-33.0); MCV 80 fL (80-95); MPV 10.5 fL (8.0-11.0); Platelet Count 437 10^3/uL (130-400); RBC 3.75 10^6/uL (4.36-5.78); RDW 16.8 % (11.8-14.1); WBC 12.81 10^3/uL (4.4-10.8)
[2024-08-30 07:13] LABS: ALT 25 U/L (16-63); AST 23 U/L (15-37); Alkaline Phosphatase 102 U/L (46-116); Anion Gap 3.6 mmol/L (3-11); BUN 26 mg/dL (7-18); Bilirubin, Total 0.37 mg/dL (0.2-1.0); CO2 33.4 mmol/L (21.0-32.0); CREATININE 1.5 mg/dL (0.70-1.30); Calcium 8.3 mg/dL (8.5-10.1); Chloride 106 mmol/L (98-107); Estimated GFR 47.06 (mL/min/1.73m2); Glucose 73 mg/dL (74-106); Magnesium 1.9 mg/dL (1.8-2.4); Potassium 3.9 mmol/L (3.5-5.1); Sodium 143 mmol/L (136-145); Total Protein 5.5 g/dL (6.4-8.2)
[2024-08-30] MEDS: Citalopram 20 MG TAB 40 MG PO (08:30)
[2024-08-30] MEDS: Multivitamin w/Minerals TAB 1 TAB PO (08:30)
[2024-08-30] MEDS: Nicotine 14 MG/24 HR PATCH TD (08:30)
[2024-08-30] MEDS: Ferrous Sulfate 325 MG TAB PO (08:30)
[2024-08-30] MEDS: Atenolol 25 MG TAB 12.5 MG PO (08:40)
[2024-08-30] MEDS: Pantoprazole 40 MG TABCR PO (08:40)
[2024-08-30] MEDS: Aspirin 81 MG CHEW PO (08:41)
--- NOTE | 2024-08-30 09:14 | PDOC.CMIN ---
Date of service: 08/30/24 Time of Service: 09:14 Care Management Initial Assmt Initial Assessment Reason for Hospitalization: respiratory failure Functional Status/Living Situation Patient Presentation: Reji lives alone in a single family home in [place]. His Kathryn moved out about 10 years ago but they are still legally . While Reji is fairly independent, he does have dementia,so Kathryn comes every day and brings him his medication. She also cooks a meal for him every day and generally sees that things are taken care of. Reji is retired from a successful career with [employer] in [facility]. He is independent at baseline and does not receive any community services. He does have a walker but Kathryn shared that he rarely, if ever, uses it. n care of. Reji was sitting up in a chair visiting with Kathryn when CM met with him. He was complaining of pain in his neck, back and ankle. He did not have any prn pain medication ordered but the provider addressed the issue and ordered Oxycodone Q 6h as needed. Town of Residence: [place] Resides with: Alone Significant Other/Family: [facility] Employment Status: Retired Instrumental Activities of Daily Living (ADLs): Requires support Medications Medication Management: No Issues/Barriers identified Advance Directives Advance Directives: Do you have an Advance Directive: N 03/20/13 09:55 AD On File at [facility]: N 08/05/15 12:24 Date Asked 08/29/24 08/29/24 17:26 AD Date Reviewed COLST On File at [facility] COLST Date Scanned Code Status Resuscitation Status DNR/DNI Portal Pt does not currently have a portal and education provided: No Insurance Coverage/Financial Issues Insurance: [facility] Medicare replacement Care Team Visit Care Team Role Provider Type Lily Soares Primary Care Provider ADV PRACTICE REGISTERED NURSE [facility] Other Providers OTHER SHANE Negrete Emergency Provider [employer] Luis Manuel Kelly Admit Provider NON-[facility] STAFF PHYSICIAN Attending Provider Discharge Potential Discharge Needs: PCP F/U Appt Anticipated Barriers to Discharge: None Identified Patient/Family Education Needs: Review discharge instructions, discuss Ask Me Three Transportation: Private vehicle Plan: Anticipate Reji will be discharged home with new home health services, when medically cleared. It is possible he may go to a SNF for short term rehab if PT deems it appropriate. Reji will follow up with his PCP and plan of care and will transport with family. CM will follow and continue to support discharge planning efforts. PFSH All Active Problems (Updated 08/30/24 @ 06:23 by Luis Manuel Kelly) Ulcer (traumatic) of oral mucosa (Acute) Bladder cancer (Chronic) Frequent falls (Chronic) Hydronephrosis, left (Chronic) Anemia of chronic disease (Chronic) Hospital-acquired bacterial pneumonia (Acute) Acute on chronic respiratory failure (Acute) Diarrhea (Acute) Iron deficiency (Acute) Microcytic anemia (Acute) DNR (do not resuscitate) (Acute) 2023 COLST: Completed with PCP Manuela Soares, RECIPROCATING DRILL OPERATOR: /DNI, +Comfort Focused treatment, No IV fluids, No hydration, no artificial nutrition. Community acquired pneumonia (Acute) Acute kidney injury (Acute) Tongue lesion (Acute) HTN (hypertension) (Chronic) Dementia (Chronic) Hematuria (Acute) Hypoxic respiratory failure (Acute) Multiple closed fractures of ribs of right side (Acute) Malaise and fatigue (Acute) Cavitary lesion of lung (Acute) Alzheimer disease (Chronic) Elevated liver function tests (Acute) Transaminitis (Acute) Hyperbilirubinemia (Acute) Confusion (Acute) Generalized weakness (Acute) Bladder mass (Chronic) Upper gastrointestinal bleed (Acute 07/31/13) With melena and drop in hemoglobin Anxiety (Acute 07/31/13) Agitation (Acute 07/31/13) Anxiety and depression (Chronic) Hypothyroidism (Chronic) On satins. Hyperlipidemia (Chronic) Periodic limb movement disorder (Chronic) On benzodiazepines. 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 Right shoulder pain Palliative care patient Colon polyp Perforated duodenal ulcer History of alcohol abuse Tobacco abuse Osteoarthritis Hypothyroidism Hyperlipidemia Diverticulitis Depression Anxiety Neurocardiogenic syncope Surgical History Laparotomy (09/10/16) with duodenal ulcer repair Kidney EGD - MAC (05/03/17) Colonoscopy - MAC (03/11/18) Colonoscopy - MAC (05/03/17) Family History Mother Dementia Father Heart disease Social History Smoking/Tobacco Use Status: Current every day Tobacco Type: cigarettes Smoking risk assessment performed?: Yes Alcohol Intake: former Drug use: Never Substance use type: does not use Housing: house Do you feel safe at home: Yes Do you feel safe in your relationship?: Yes SDOH(Care Management) Screening Will the Patient Participate in the Screening?: Unable to obtain Social Determinants of Health Comments(SDOH Details): Patient is confused.
[2024-08-30] MEDS: Normal Saline Flush 10 ML SYR IVP ×3 (09:40→19:32)
[2024-08-30] MEDS: Thiamine 100 MG TAB PO (09:43)
[2024-08-30] MEDS: CEFEPIME 2 GM in Normal Saline 100 ML IVPB ×2 (10:00→22:54)
[2024-08-30] MEDS: Lidocaine 5% Patch 1 PATCH TP (10:28)
--- NOTE | 2024-08-30 10:38 | PT.INIE ---
PT Notes Visit Reasons: acute respira failure, hospital acquired pneumonia Physical Therapy Inpatient Initial Evaluation Date: 08/30/2024 Referring Doctor: Luis Manuel Kelly MD PT Orders: PT CONSULT: DC none PT dependent Precautions: Fall. Standard. Activity as tolerated. Hearing impaired. Patient Profile/Admitting Diagnosis: Domingo is a 79-year-old male admitted to the ED on 08/29/2024 with chief presentation of dizziness, repeated falls, confusion, and history of severe dementia. Patient is admitted to [facility] of care for management of acute on chronic respiratory failure, hospital-acquired pneumonia, frequent falls, dementia, worsening hydronephrosis, high-grade urothelial cancer, anemia, and oral mucosal ulcer. PMHX: All Active Problems (Updated 08/30/24 @ 06:23 by Luis Manuel Kelly) Ulcer (traumatic) of oral mucosa (Acute) Bladder cancer (Chronic) Frequent falls (Chronic) Hydronephrosis, left (Chronic) Anemia of chronic disease (Chronic) Hospital-acquired bacterial pneumonia (Acute) Acute on chronic respiratory failure (Acute) Diarrhea (Acute) Iron deficiency (Acute) Microcytic anemia (Acute) DNR (do not resuscitate) (Acute) 2023 COLST: Completed with PCP Manuela Soares, WAX POURER: /DNI, +Comfort Focused treatment, No IV fluids, No hydration, no artificial nutrition. Community acquired pneumonia (Acute) Acute kidney injury (Acute) Tongue lesion (Acute) HTN (hypertension) (Chronic) Dementia (Chronic) Hematuria (Acute) Hypoxic respiratory failure (Acute) Multiple closed fractures of ribs of right side (Acute) Malaise and fatigue (Acute) Cavitary lesion of lung (Acute) Alzheimer disease (Chronic) Elevated liver function tests (Acute) Transaminitis (Acute) Hyperbilirubinemia (Acute) Confusion (Acute) Generalized weakness (Acute) Bladder mass (Chronic) Upper gastrointestinal bleed (Acute 07/31/13) With melena and drop in hemoglobin Anxiety (Acute 07/31/13) Agitation (Acute 07/31/13) Anxiety and depression (Chronic) Hypothyroidism (Chronic) On statins. Hyperlipidemia (Chronic) Periodic limb movement disorder (Chronic) On benzodiazepines. 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 Right shoulder pain Palliative care patient Colon polyp Perforated duodenal ulcer History of alcohol abuse Tobacco abuse Osteoarthritis Hypothyroidism Hyperlipidemia Diverticulitis Depression Anxiety Neurocardiogenic syncope Surgical History Laparotomy (09/10/16) with duodenal ulcer repairKidney EGD - MAC (05/03/17) Colonoscopy - MAC (03/11/18) Colonoscopy - MAC (05/03/17) Social History/Home Situation: Lives alone. Caregiver is his ex-. Continues to smoke. Independent with all mobility ADLs without assistive devices although patient has been reportedly falling frequently. still able to prepare meals. Equipment Owned/DME: F[employer] Subjective: I just want the pain to go away, my low back and the back of my neck hurts, my head too. I am so tired, I want to rest, I just want to rest. Nurse asked for a seat cushion for patient's sacral sore. Patient was given cushion for his bedside chair which he said felt comfortable. Objective: General Observation: IV through L UE. Anxious about pain. Redness on the R hand and wrist. Nursr Bernie in room reconnecting patient's IV and applied lidocaine patch over R upper trapezius area. Patient was sitting on bedside recliner, tryying to get comfortable. Mental Status: Alert. Knows that he is in [facility], that he lives in [place] in [place], and that his daughter lives with her family in [facility]. Pain: Multiple areas of pain in head, posterior neck, and low back Vital Signs: Closley monitored by nursing staff ROM: Right Upper Extremity: Shoulder Flexion allows up to about 110 degrees. Shoulder abduction allows up to about 90 degrees. Elbow flexion WFL. Wrist flexion WFL. Functional opening and closing of hand WFL. Left Upper Extremity: Shoulder Flexion allows up to about 110 degrees. Shoulder abduction allows up to about 90 degrees. Elbow flexion WFL. Wrist flexion WFL. Functional opening and closing of hand WFL. Right Lower Extremity: Hip flexion allows up to 100 degrees. Hip abduction WFL. Knee flexion 30 degrees to 100 degrees. Ankle dorsiflexion to neutral only. Ankle plantarflexion WFL. Left Lower Extremity: Hip flexion allows up to 100 degrees. Hip abduction WFL. Knee flexion 30 degrees to 100 degrees. Ankle dorsiflexion to neutral only. Ankle plantarflexion WFL. Strength: Right Upper Extremity: Shoulder flexors 3-/5. Shoulder abductors 3-/5. Elbow flexors 4-/5. Elbow extensors 4-/5. Replanting Machine Crewman strong. Left Upper Extremity: Shoulder flexors 3-/5. Shoulder abductors 3-/5. Elbow flexors 4-/5. Elbow extensors 4-/5. Replanting Machine Crewman strong. Right Lower Extremity: Hip flexors 3-/5. Hip abductors 3-/5. Knee flexors 4-/5. Knee extensors 3-/5. Ankle dorsiflexors 3-/5. Ankle plantarflexors 4-/5. Left Lower Extremity: Hip flexors 3-/5. Hip abductors 3-/5. Knee flexors 4-/5. Knee extensors 3-/5. Ankle dorsiflexors 3-/5. Ankle plantarflexors 4-/5. Bed Mobility/Transfers: Modearte cueing provided for use of B hands as needed for support, movement sequence, AD management, and posture to reduce fall risk and minimize pain report Sit to stand minimal assist with FWW Stand to sit minimal assist with FWW Bed to reclining chair minimal assist with FWW Reclining chair to bed minimal assist with FWW Gait: Facilitated safe performance of in room ambulation of about 20 feet using front wheeled walker with minimal assist and moderate verbal cueing for AD management, directional changes, obstacle negotiation, and posture to minimize fall risk and decrease pain report. Step height and length asymmetric and decreased. No loss of balance. Unable to safely negotiate obstacles due to pre-existing visual impairment. Balance: Static Sitting: Normal Dynamic Sitting: Fair Static Standing: Fair Dynamic Standing: Poor Special Tests: Mobility Limitations Standardized Measure [facility] AM-PAC 6 clicks Basic Mobility Inpatient Short Form: Raw Score: 18 CMS Score: 47% deficit Informed Consent/Education: Patient was instructed in purpose of PT consult and plan of care. Agreeable to proceed with established PT POC to achieve personal goals. Assessment: Patient presents with clinical signs and symptoms consistent with current/admitting diagnoses that have resulted to mobility limitations, gait instability, generalized weakness, and overall ADL decline as demonstrated by the following impairment level findings: 1. Decreased strength to B UE/LE major muscle groups 2. Impaired sitting/standing balance 3. Impaired activity tolerance 4. Limitation of joint range of motion in B shoulders, hips, knees, and ankles 5. Pain in multiple areas: head, neck, low back Impairments are contributing to the following functional limitations: 1. Decline in bed mobility skills 2. Decline in transfer skills 3. Difficulty with ambulation without assistive device and physical assistance 4. Increased completion time for mobility ADL performance 5. Increased risk for falls 6. Difficulty with managing steps alone safely Patient is assessed as a 84683 moderate complexity based on the following: History: 79-year-old male with past medical history as indicated above Examination: Demonstrable impairment in strength, balance, and mobility level with underlying impairments and functional limitations as exhibited above as well as deficit score of 47% utilizing the [facility] Mobility Inpatient Short Form Presentation: Evolving Decision Makin moderate complexity Goals: Goals X1 week 1. Supine-Sit independent 2. Sit-Supine independent 3. Sit-Stand independent 4. Stand-Sit independent with FWW 5. Bed-Chair independent with FWW 6. Chair-Bed independent with FWW 7. Independent gait on level surface with use of FWW for at least 300 feet without report of pain nor dyspnea 8. Independent stair negotiation while holding onto B rails for at least 5 steps without report of pain nor dyspnea 9. Independent with home exercise program 10. Good static and dynamic standing balance/tolerance Plan of Care/Treatment Plan: 1-2x/day, 7 days/week x 1 week. Plan of care has been reviewed with the BILL HIKER providing the service under Physical Therapy direction. Initiate Physical Therapy intervention for pain management as needed, strengthening, bed mobility, transfers, gait, stairs, balance training, and use of assistive device. DISCHARGE RECOMMENDATIONS: [] Home with no services [] [] Home with services [specify] [] Home with outpatient PT [] [] SNF for continued rehabilitation [] [] Detention Care [] [] SNF versus LTC based on ability to participate and progress [] [X] SNF vs PT based on progress towards goals and on capability/availability of caregivers(s) TREATMENT CODE/TIME: 13142 x 20 minutes for 1 unit, 12498 x 10 minutes for 1 unit (9:56?10:26). Thank you for the opportunity to participate in the care of this patient. Tess Irizarry PT, DPT, CLT [facility] [place], [place]
--- NOTE | 2024-08-30 12:06 | PGE_ITS ---
Date of Service Date of service: 08/30/24 Time of Service: 12:13 Assessment and Plan Assessment and plan (1) Hospital-acquired bacterial pneumonia: Start date: 08/29/24 Status: Acute Assessment and plan: -questionable infiltrate on imaging, but with recent hospitalizations and leukocytosis should be treated as possible Hospitali acquired PNA -continue Vancomycin and cefepime (2) Acute on chronic respiratory failure: Start date: 08/29/24 Status: Acute Assessment and plan: -patient recommended to have ehome O2 but he continues to smoke -likely acute on chronic due to PNA as noted above -had required up to 3L NC, but has since been transitioned to RA Qualifiers: Respiratory failure complication: hypoxia and hypercapnia Qualified Code(s): J96.21 - Acute and chronic respiratory failure with hypoxia; J96.22 - Acute and chronic respiratory failure with hypercapnia (3) Frequent falls: Status: Chronic Assessment and plan: -Social situation is poor patient needs to be placed for level to care. (4) Dementia: Status: Chronic Assessment and plan: -Not function well at home alone and should have supervised living and medical care at home or in a institution. Qualifiers: Dementia type: Alzheimer's Alzheimer's disease onset: other onset Dementia severity: moderate Dementia behavioral or psychological symptom: with anxiety Qualified Code(s): G30.8 - Other Alzheimer's disease; F02.B4 - Dementia in other diseases classified elsewhere, moderate, with anxiety (5) Hydronephrosis, left: Status: Chronic Assessment and plan: -Progressive with large bladder tumor not resectable with patient not being a surgical candidate. -Consider drainage with nephrostomy tube with a doctor visit and consulted by phone recommending this approach if patient's leukocytosis persists. (6) Bladder cancer: Status: Chronic Assessment and plan: -High-grade urothelial carcinoma obstructing left ureter causing hydronephrosis nonpalpable with patient being DNR/DNI and not a candidate for surgical intervention. 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 With his poor dentition and broken teeth this most likely is traumatic and persistent. Symptomatic care. Subjective Subjective Interval history since last seen: Patient is able to state that he has no complaints or concerns at this time. Exam Narrative Exam Narrative: Chronically ill-appearing older gentleman laying in bed in no acute distress, awake, alert, oriented to person and place, heart regular rhythm, lungs clear to auscultation bilaterally, abdomen soft, nontender, nondistended Objective Last Vital Signs Temp 97.5 F L 08/30/24 07:39 Pulse 91 H 08/30/24 11:16 Resp 18 08/30/24 11:16 BP 107/69 08/30/24 07:39 Pulse Ox 94 08/30/24 11:16 Laboratory Results - last 24 hr 08/29/24 08/29/24 08/29/24 16:44 16:51 17:10 WBC 19.02 H RBC 4.33 L Hgb 10.8 L Hct 35.3 L MCV 82 MCH 24.9 L MCHC 30.6 L RDW 16.6 H Plt Count 451 H MPV 10.2 Immature Gran % 1.3 Neutrophils % 83.2 Lymphocytes % 7.7 Monocytes % 6.9 Eosinophils % 0.7 Basophils % 0.2 Nucleated RBC % 0.0 Absolute Neutrophils 15.82 H Absolute Lymphocytes 1.46 Absolute Monocytes 1.31 H Absolute Eosinophils 0.13 Absolute Basophils 0.04 ESR VBG pH 7.38 VBG pCO2 55 H VBG pO2 32 VBG HCO3 32 H VBG Total CO2 30 H VBG O2 Saturation 59 VBG Base Excess 7 H VBG Lactate Sodium 142 Potassium 4.4 Chloride 106 Carbon Dioxide 31.4 Anion Gap 4.6 BUN 28 H Creatinine 1.3 Est GFR (CKD-EPI 2020) 55.88 Glucose 87 Calcium 8.2 L Magnesium 1.9 Total Bilirubin 0.25 AST 32 ALT 29 Alkaline Phosphatase 117 H Troponin I 29 22 C-Reactive Protein NT-Pro-B Natriuret Pep 4122 H Total Protein 6.3 L Albumin 2.2 L Lipase 33 Procalcitonin TSH Free T4 Urine Color Red Urine Clarity Cloudy Urine pH 6.0 Ur Specific [place] >= 1.030 H Urine Protein >=300 H Urine Ketones Negative Urine Blood Large H Urine Nitrite Negative Urine Bilirubin Small H Urine Urobilinogen 0.2 Ur Leukocyte Esterase Negative Urine RBC >50 H Urine WBC Not Applicable Ur Epithelial Cells Not Applicable Urine Crystals Not Applicable Urine Bacteria Not Applicable Urine Mucus Not Applicable Ur Culture Indicated? No Urine Glucose Negative COVID-19 Source NASOPHARYNX SARS-CoV-2 (PCR) Negative Influenza Type A (PCR) Negative Influenza Type B (PCR) Negative RSV (PCR) Negative 08/30/24 08/30/24 00:11 06:34 WBC 12.81 H RBC 3.75 L Hgb 9.3 L Hct 30.0 L MCV 80 MCH 24.8 L MCHC 31.0 L RDW 16.8 H Plt Count 437 H MPV 10.5 Immature Gran % Neutrophils % Lymphocytes % Monocytes % Eosinophils % Basophils % Nucleated RBC % Absolute Neutrophils Absolute Lymphocytes Absolute Monocytes Absolute Eosinophils Absolute Basophils ESR 25 H VBG pH VBG pCO2 VBG pO2 VBG HCO3 VBG Total CO2 VBG O2 Saturation VBG Base Excess VBG Lactate 2.2 H* Sodium 143 Potassium 3.9 Chloride 106 Carbon Dioxide 33.4 H Anion Gap 3.6 BUN 26 H Creatinine 1.5 H Est GFR (CKD-EPI 2020) 47.06 Glucose 73 L Calcium 8.3 L Magnesium 1.9 Total Bilirubin 0.37 AST 23 ALT 25 Alkaline Phosphatase 102 Troponin I C-Reactive Protein 4.97 H NT-Pro-B Natriuret Pep Total Protein 5.5 L Albumin 2.0 L Lipase Procalcitonin < 0.10 TSH 14.32 H Free T4 0.72 L Urine Color Urine Clarity Urine pH Ur Specific [place] Urine Protein Urine Ketones Urine Blood Urine Nitrite Urine Bilirubin Urine Urobilinogen Ur Leukocyte Esterase Urine RBC Urine WBC Ur Epithelial Cells Urine Crystals Urine Bacteria Urine Mucus Ur Culture Indicated? Urine Glucose COVID-19 Source SARS-CoV-2 (PCR) Influenza Type A (PCR) Influenza Type B (PCR) RSV (PCR) Time Spent with Patient Time Spent with Patient: >50 minutes Time was spent: preparing to see the patient(eg.review tests), obtaining and/or reviewing separately otained hiistory, ordering medications,tests, procedures, referring, communicating with other health student career development specialist, indepentently interpreting results, counseling the patient and care coordination
--- NOTE | 2024-08-30 13:03 | PT.INTREAT ---
PT Notes Visit Reasons: acute respira failure, hospital acquired pneumonia Physical Therapy Inpatient Treatment Note Date: 08/31/2024 Referring Doctor: Luis Manuel Kelly MD PT Orders: PT CONSULT: DC none PT dependent Precautions: Fall. Standard. Activity as tolerated. Hearing impaired. Patient Profile/Admitting Diagnosis: Domingo is a 79-year-old male admitted to the ED on 08/29/2024 with chief presentation of dizziness, repeated falls, confusion, and history of severe dementia. Patient is admitted to [facility] of care for management of acute on chronic respiratory failure, hospital-acquired pneumonia, frequent falls, dementia, worsening hydronephrosis, high-grade urothelial cancer, anemia, and oral mucosal ulcer. Subjective: My mouth hurts, oh how it hurts!! Nurse Radha came in to give patient another dose of pain medication to help ease pain from sore mouth. Agreeable to working with PT for this session with encouragement. Objective: General Observation: IV through L UE. Anxious about pain. Redness on the R hand and wrist. Nursr Bernie in room reconnecting patient's IV and applied lidocaine patch over R upper trapezius area. Patient was sitting on bedside recliner, tryying to get comfortable. Mental Status: Alert. Knows that he is in [facility], that he lives in [place] in [place], and that his daughter lives with her family in [facility]. Pain: Multiple areas of pain in head, posterior neck, and low back Vital Signs: Closley monitored by nursing staff Bed Mobility/Transfers: Modearte cueing provided for use of B hands as needed for support, movement sequence, AD management, and posture to reduce fall risk and minimize pain report Sit to stand minimal assist with FWW Stand to sit minimal assist with FWW Bed to reclining chair minimal assist with FWW Reclining chair to bed minimal assist with FWW Gait: Facilitated safe performance of in room ambulation of about 20 feet using front wheeled walker with minimal assist and moderate verbal cueing for AD management, directional changes, obstacle negotiation, and posture to minimize fall risk and decrease pain report. Step height and length asymmetric and decreased. No loss of balance. Unable to safely negotiate obstacles due to pre-existing visual impairment. Balance: Static Sitting: Normal Dynamic Sitting: Fair Static Standing: Fair Dynamic Standing: Poor Special Tests: Mobility Limitations Standardized Measure [facility] AM-PAC 6 clicks Basic Mobility Inpatient Short Form: Raw Score: 18 CMS Score: 47% deficit Informed Consent/Education: Patient was instructed in purpose of PT consult and plan of care. Agreeable to proceed with established PT POC to achieve personal goals. Assessment: Demonstrates functional mobility decline increasing client's risk for falls and inability to thrive safely at home. Pain variability and impaired perception of pain along with decreasing cognitive level all present as barriers to achieving goals below. Goals: Goals X1 week 1. Supine-Sit independent 2. Sit-Supine independent 3. Sit-Stand independent 4. Stand-Sit independent with FWW 5. Bed-Chair independent with FWW 6. Chair-Bed independent with FWW 7. Independent gait on level surface with use of FWW for at least 300 feet without report of pain nor dyspnea 8. Independent stair negotiation while holding onto B rails for at least 5 steps without report of pain nor dyspnea 9. Independent with home exercise program 10. Good static and dynamic standing balance/tolerance Plan of Care/Treatment Plan: 1-2x/day, 7 days/week x 1 week. Plan of care has been reviewed with the CMM INSPECTOR providing the service under Physical Therapy direction. Initiate Physical Therapy intervention for pain management as needed, strengthening, bed mobility, transfers, gait, stairs, balance training, and use of assistive device. DISCHARGE RECOMMENDATIONS: [] Home with no services [] [] Home with services [specify] [] Home with outpatient PT [] [] SNF for continued rehabilitation [] [] Shelter Care [] [] SNF versus LTC based on ability to participate and progress [] [X] SNF vs HH PT based on progress towards goals and on capability/availability of caregivers(s) TREATMENT CODE/TIME: 43105 x 27 minutes for 2 unit (13:03?13:30).
[2024-08-30 16:40] LABS: Vancomycin, Random 1.6 ug/mL
[2024-08-30] MEDS: QUEtiapine 25 MG TAB PO (19:16)
[2024-08-30] MEDS: traZODone 50 MG TAB 100 MG PO (19:16)
[2024-08-30] MEDS: Melatonin 3 MG TAB PO (19:31)
[2024-08-30] MEDS: Magnesium Chloride 64 MG TABCR PO (19:31)
[2024-08-30] MEDS: oxyCODONE 5 MG TAB PO (19:59)
[2024-08-30] MEDS: VANCOMYCIN/WATER (PEG) 1 GM/200 ML BAG IV (23:47)
[2024-08-31] VITALS (8 sets, daily range): BP systolic 94–108; BP diastolic 55–81; PULSE 47–72; RESP 6–18; TEMP 35.5–36.6; O2SAT 92–98
[2024-08-31] MEDS: Lidocaine 2% Viscous 15 ML CUP 3 ML PO ×2 (00:57→17:33)
[2024-08-31] MEDS: oxyCODONE 5 MG TAB PO ×3 (01:18→17:33)
[2024-08-31] MEDS: Levothyroxine 100 MCG TAB PO (05:27)
[2024-08-31] MEDS: Albuterol/Ipratropium 3 ML UPD VIAL UPD ×2 (05:32→18:20)
[2024-08-31 06:24] LABS: HCT 28.9 % (40.0-50.0); MCH 24.8 pg (27.0-33.0); MCHC 31.1 % (32.0-36.0); MCV 80 fL (80-95); MPV 10.3 fL (8.0-11.0); Platelet Count 401 10^3/uL (130-400); RBC 3.63 10^6/uL (4.36-5.78); RDW 16.5 % (11.8-14.1); RDW-SD 47.2 fL; WBC 13.25 10^3/uL (4.4-10.8)
[2024-08-31 06:42] LABS: ALT 25 U/L (16-63); AST 28 U/L (15-37); Albumin 1.9 g/dL (3.4-5.0); Alkaline Phosphatase 107 U/L (46-116); Anion Gap 5.5 mmol/L (3-11); BUN 28 mg/dL (7-18); Bilirubin, Total 0.49 mg/dL (0.2-1.0); CO2 30.5 mmol/L (21.0-32.0); CREATININE 1.8 mg/dL (0.70-1.30); Calcium 8.4 mg/dL (8.5-10.1); Chloride 107 mmol/L (98-107); Estimated GFR 37.82 (mL/min/1.73m2); Glucose 78 mg/dL (74-106); Magnesium 1.9 mg/dL (1.8-2.4); Potassium 4.3 mmol/L (3.5-5.1); Sodium 143 mmol/L (136-145); Total Protein 5.4 g/dL (6.4-8.2)
[2024-08-31 07:46] LABS: Vancomycin, Random 13.5 ug/mL
--- NOTE | 2024-08-31 08:55 | PTTR_ITS ---
PT Notes Visit Reasons: acute respira failure, hospital acquired pneumonia Physical Therapy Inpatient Treatment Note Date: 08/31/2024 Precautions: Fall. Standard. Activity as tolerated. Hearing impaired. Subjective: I do not feel too good today. Patient sounded significantly gurgly and out of breath this morning. Has not touched his breakfast and is agreeable with PT to sit up on chair for meals. Complained of fatigue and pain all over. Nurse Yumiko aware and anaging. Objective: General Observation: IV through L UE. Anxious about pain. Redness on the R hand and wrist. Nurse Calderon in room prepping for patients meds. Mental Status: Alert. Short-term memory loss. Pain: generlaized Vital Signs: Closeley monitored by nursing staff Bed Mobility/Transfers: Modearte cueing provided for use of B hands as needed for support, movement sequence, AD management, and posture to reduce fall risk and minimize pain report Sit to stand minimal assist with FWW Stand to sit minimal assist with FWW Bed to reclining chair minimal assist with FWW Reclining chair to bed minimal assist with FWW Gait: Facilitated safe performance of in room ambulation of about8 steps using front wheeled walker with minimal assist and moderate verbal cueing for AD management, directional changes, obstacle negotiation, and posture to minimize fall risk and decrease pain report. Step height and length asymmetric and decreased. No loss of balance. Directional change was unstable needing minimal assist from PT for safety. Balance: Static Sitting: Normal Dynamic Sitting: Fair Static Standing: Fair Dynamic Standing: Poor Assessment: Demonstrates functional mobility decline increasing client's risk for falls and inability to thrive safely at home. Pain variability and impaired perception of pain along with decreasing cognitive level all present as barriers to achieving goals below. Goals: Goals X1 week 1. Supine-Sit independent 2. Sit-Supine independent 3. Sit-Stand independent 4. Stand-Sit independent with FWW 5. Bed-Chair independent with FWW 6. Chair-Bed independent with FWW 7. Independent gait on level surface with use of FWW for at least 300 feet without report of pain nor dyspnea 8. Independent stair negotiation while holding onto B rails for at least 5 steps without report of pain nor dyspnea 9. Independent with home exercise program 10. Good static and dynamic standing balance/tolerance Plan of Care/Treatment Plan: 1-2x/day, 7 days/week x 1 week. Plan of care has been reviewed with the POWER HOUSE CONTROL ROOM OPERATOR providing the service under Physical Therapy direction. Initiate Physical Therapy intervention for pain management as needed, strengthening, bed mobility, transfers, gait, stairs, balance training, and use of assistive device. DISCHARGE RECOMMENDATIONS: [] Home with no services [] [] Home with services [specify] [] Home with outpatient PT [] [] SNF for continued rehabilitation [] [] [facility] [] [] SNF versus LTC based on ability to participate and progress [] [X] SNF vs PT based on progress towards goals and on capability/availability of caregivers(s) TREATMENT CODE/TIME: 86270 x 33 minutes for 2 units (08:55?09:28).
[2024-08-31] MEDS: Thiamine 100 MG TAB PO (09:04)
[2024-08-31] MEDS: Atenolol 25 MG TAB 12.5 MG PO (09:04)
[2024-08-31] MEDS: Aspirin 81 MG CHEW PO (09:04)
[2024-08-31] MEDS: Pantoprazole 40 MG TABCR PO (09:05)
[2024-08-31] MEDS: Multivitamin w/Minerals TAB 1 TAB PO (09:05)
[2024-08-31] MEDS: Acetaminophen 325 MG TAB 650 MG PO ×2 (09:05→20:31)
[2024-08-31] MEDS: Nicotine 14 MG/24 HR PATCH TD (09:06)
[2024-08-31] MEDS: Citalopram 20 MG TAB 40 MG PO (09:06)
[2024-08-31] MEDS: Ferrous Sulfate 325 MG TAB PO (09:06)
[2024-08-31] MEDS: QUEtiapine 25 MG TAB PO (09:26)
--- NOTE | 2024-08-31 10:03 | PDOC.CMPRO ---
Date of service: 08/31/24 Time of Service: 10:03 Care Management Progress Note Progress Note Text Progress Note Text: Reji was sitting up in a chair asleep for most of the day. CM met with him late in the day when his was visiting and he was finally awake. Reji continues to have pain and his pain medication has been changed to include a Fentanyl patch as well as prn Oxycodone. The Fentanyl patch was applied this morning a little after 11. He also received a dose of Oxycodone during the night and again at 9:25 am today, likely contributing to his sleepiness. Leyda had a phone conversation this morning with JUDITH and Dr. Kayleigh Estrada from Hospice/palliative care. The conversation occurred after Dr. Estrada met with Reji. He informed her that being comfortable was most important to him and that he was not seeking treatment for his bladder cancer which is consistent with his behavior and refusal to have a workup for the cancer. They are meeting in person tomorrow (Dr. Estrada and Leyda) to discuss the possibility of transitioning Reji to hospice when he is discharged. Discharge Potential Discharge Needs: Other (hospice) Anticipated Barriers to Discharge: None Identified Patient/Family Education Needs: Review discharge instructions, discuss Ask Me Three Transportation: Private vehicle Plan: Anticipate Reji will be discharged home with new home health services, possibly hospice, when medically cleared. Reji will follow up with his PCP and plan of care and will transport with family. CM will follow and continue to support discharge planning efforts. SDOH(Care Management) Screening Will the Patient Participate in the Screening?: Unable to obtain Social Determinants of Health Comments(SDOH Details): Patient is confused.
[2024-08-31] MEDS: fentaNYL 12 MCG PATCH TD (11:17)
--- NOTE | 2024-08-31 12:22 | PGE_ITS ---
Date of Service Date of service: 08/31/24 Time of Service: 12:22 Assessment and Plan Assessment and plan (1) Hospital-acquired bacterial pneumonia: Start date: 08/29/24 Status: Acute Assessment and plan: -Palliative Care discussed with Patients who has stated that she is interested in pursuing transition to outpatient Hospice Care -Palliative Care to again follow-up with Patients tomorrow, 09/01/2023 -recommended initiation of fentanyl pach 12.5mcg -questionable infiltrate on imaging, but with recent hospitalizations and leukocytosis -had been treating with vanc and cefepime which have since been discontinued (2) Acute on chronic respiratory failure: Start date: 08/29/24 Status: Acute Assessment and plan: -patient recommended to have ehome O2 but he continues to smoke -likely acute on chronic due metastatic diseases -had required up to 3L NC, but has since been transitioned to RA Qualifiers: Respiratory failure complication: hypoxia and hypercapnia Qualified Code(s): J96.21 - Acute and chronic respiratory failure with hypoxia; J96.22 - Acute and chronic respiratory failure with hypercapnia (3) Frequent falls: Status: Chronic Assessment and plan: -Social situation is poor patient needs to be placed for level to care; see Palliative note for further details, though likely to transition to Hospice (4) Dementia: Status: Chronic Assessment and plan: -Not function well at home alone Qualifiers: Dementia type: Alzheimer's Alzheimer's disease onset: other onset Dementia severity: moderate Dementia behavioral or psychological symptom: with anxiety Qualified Code(s): G30.8 - Other Alzheimer's disease; F02.B4 - Dementia in other diseases classified elsewhere, moderate, with anxiety (5) Hydronephrosis, left: Status: Chronic Assessment and plan: -Progressive with large bladder tumor not resectable with patient not being a surgical candidate. (6) Bladder cancer: Status: Chronic Assessment and plan: -High-grade urothelial carcinoma obstructing left ureter causing hydronephrosis nonpalpable with patient being DNR/DNI and not a candidate for surgical intervention. 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 With his poor dentition and broken teeth this most likely is traumatic and persistent. Symptomatic care. Subjective Subjective Interval history since last seen: Patient is able to state that he has no complaints or concerns at this time, though has voiced oral pain/discomfort with eating. Exam Narrative Exam Narrative: Chronically ill-appearing older gentleman laying in bed in no acute distress, awake, alert, oriented to person and place, heart regular rhythm, lungs clear to auscultation bilaterally, abdomen soft, nontender, nondistended Objective Last Vital Signs Temp 95.9 F L 08/31/24 11:29 Pulse 47 L 08/31/24 11:29 Resp 16 08/31/24 11:29 BP 94/55 L 08/31/24 11:29 Pulse Ox 92 08/31/24 11:29 Laboratory Results - last 24 hr 08/30/24 08/31/24 16:05 06:12 WBC 13.25 H RBC 3.63 L Hgb 9.0 L Hct 28.9 L MCV 80 MCH 24.8 L MCHC 31.1 L RDW 16.5 H Plt Count 401 H MPV 10.3 Sodium 143 Potassium 4.3 Chloride 107 Carbon Dioxide 30.5 Anion Gap 5.5 BUN 28 H Creatinine 1.8 H Est GFR (CKD-EPI 2020) 37.82 Glucose 78 Calcium 8.4 L Magnesium 1.9 Total Bilirubin 0.49 AST 28 ALT 25 Alkaline Phosphatase 107 Total Protein 5.4 L Albumin 1.9 L Random Vancomycin 1.6 13.5 Time Spent with Patient Time Spent with Patient: >50 minutes Time was spent: preparing to see the patient(eg.review tests), obtaining and/or reviewing separately otained hiistory, ordering medications,tests, procedures, referring, communicating with other health resident care assistant, indepentently interpreting results, counseling the patient and care coordination
--- NOTE | 2024-08-31 18:21 | W.PALLCONSUL ---
Date of service: 08/31/24 Time of Service: 08:30 History of Present Illness History of Present Illness Chief Complaint: metastatic high grade urothelial carcinoma, GOC/hospice discussion Narrative: I met with Reji this morning after being asked to see him by Palliative Care nurse Yumiko Holloway. I carefully reviewed notes from his recent and current admission, and reviewed the rest of his [facility] chart generally. During his first admission of August 2024, he had a urine sent for cytology on 08/[address] Gallardo, urologist, for hematuria. This cytology revealed high grade poorly differentiated urothelial carcinoma. Felicia, his , had not yet heard the results of this test until I spoke to her after meeting with Reji. She was upset to hear this definitive diagnosis, even though it had been suspected for more than a year. Reji had always put off testing. Reji is not a surgical candidate. His overall health is poor to the point where he likely would not tolerate chemo or immunotherpay. Most importantly, he has consistently made his desire for minimal interventions known to his long-time PCP, Megha Soares NP. On his first August admission, he was seen by Dr Lizet Morris from palliative care. I reviewed her note and shared it with Reji's , Kathryn. At the time of her visit, Dr Morris determined Reji did not have capacity for making medical decisions. Today, he was mostly clear, though he did confabulate throughout parts of our conversation, consistent with his alcohol-associated dementia. Despite his relative clarity, I think his needs are best served if his makes medical decisions for him. (His confirmed that his PCP has made it clear to Reji and her that Reji's memory issues stem primarily from his decades of overuse of alcohol. He is reportedly not drinking at all now.) In addition to reviewing his chart, I spoke to the charge nurse and the nurse and PHONE BANKER caring for Reji, as well as the residential child care counselor Felicia Perez RN, who has worked with him on both admissions. Felicia is pursuing [facility] for Reji as he will likely need a community care placement prior to his . His , a retired nurse, takes excellent of care of Reji but does not and will not live with him due to past traumas experienced in their marriage. They have been physically for about 10 years. His currently does all Reji's personal care, cooking, cleaning and medication management. I told her that she likely does more for Reji than most spouses living under the same roof. She understands that he is dying, as does he. He said more than once during my visit that he was dying. And he was in pain. Given his diagnosis and increased rate of decline, he has a < 6 month prognosis. His goals are to have his pain controlled and to go home. He said that if he had to live in someone else's house for someone to help his take care of him, he would do that, but he doesn't want to go to a half-way. He would prefer not to come back to the hospital. He is hospice eligible. Going on hospice would best let him meet his goals, as stated. Note that the conversation with both Reji and his about hospice today was not met with resistance. They are both open to the idea. Consults Consult date: 08/31/24 Requesting physician: Theron Plascencia Assessment and Plan Assessment and plan (1) Bladder cancer: Status: Chronic Assessment and plan: Cytology confirmed high grade urothelial carcinoma, suspected for more than a year. Reji doesn't want treatment; it likely would not extend his life and would worsen quality of life. Not a surgical candidate. Qualifiers: Bladder location: ureteric orifice Qualified Code(s): C67.6 - Malignant neoplasm of ureteric orifice (2) DNR (do not resuscitate): Status: Acute Assessment and plan: DNR/DNI very clearly. Doesn't want treatment. Doesn't want IV abx, either. These were stopped today. (3) Alcoholic dementia: Status: Acute Assessment and plan: Reji's Felicia reported that Megha Soares had diagnosed Reji with this several years ago. Primary cause of his dementia. (4) Anemia of chronic disease: Status: Chronic Assessment and plan: Very pale. Very tired. Likely would not be helped by any intervention. (5) Diarrhea: Status: Acute Assessment and plan: Due to his antibiotics, per his . Made it very hard for her to care for him prior to his second admission. Was having several explosive bouts of diarrhea daily and needed her to come over repeatedly to clean him up. (6) Impaired mobility and ADLs: Status: Acute Assessment and plan: Extremely weak. Very tired. Will likely become bed-bound within a month. (7) Cancer related pain: Status: Acute Assessment and plan: He was in pain, grimacing and calling out during my visit with him. He was started on fentanyl 12 mcg patch today. Needs long-acting pain med and struggling to swallow. Will likely need increase in dose over the next few days. (8) Encounter for hospice care discussion: Status: Acute Assessment and plan: Neither nor Reji showed any hesitancy about the possibility of him coming on hospice during our visit today, even when I read them the part of Dr Morris's note describing their opposition to hospice. Biggest obstacle to hospice currently is no clear plan for who will care for Reji once he is bedbound. Felicia Perez from Care Management is investigating [facility] for him. Hospice team discussing possible negotiated risk contract. Meeting with hospice admin to be help 09/01 am. (9) Goals of care, counseling/discussion: Status: Acute Assessment and plan: Reji has long relationship with Megha Soares NP who knows him well. He has always wanted minimal interventions, to be at home, to at home, and to be comfortable. (10) Frailty syndrome in geriatric patient: Status: Acute Assessment and plan: Poor health overall. (11) Tongue lesion: Status: Acute Assessment and plan: Could be cancer. No point in biopsy at this point given Reji's preferences. (12) Hematuria: Status: Acute Assessment and plan: DUe to his bladder cancer. Qualifiers: Hematuria type: gross Qualified Code(s): R31.0 - Gross hematuria (13) Generalized weakness: Status: Acute Assessment and plan: WOrsening all the time, per his . Struggled to feed himself this am. (14) Hypoalbuminemia due to protein-calorie malnutrition: Status: Acute Assessment and plan: ALso a marker for advancing cancer. Review of Systems Constitutional Constitutional: Reports fatigue, Reports lethargy, Reports poor appetite, Reports weakness and Reports weight loss Comments: He complained primarily of fatigue and pain. I hand fed him breakfast and swallowing was painful and difficult. He does have a tongue lesion, which looks like cancer. Eyes Eyes: Reports requires corrective lenses ENT Ears, Nose, Mouth, and Throat: Reports dysphagia, Reports dry mouth, Reports mouth lesions, Reports disequilibrium and Reports other (lesion left side of tongue causing severe pain) Cardiovascular Cardiovascular: Denies chest pain, Denies pedal edema, Reports dyspnea and Reports dyspnea on exertion Respiratory Respiratory: Reports chest congestion, Reports dyspnea and Reports dyspnea on exertion Gastrointestinal Gastrointestinal: Reports dysphagia, Reports fecal incontinence and Reports diarrhea Genitourinary Genitourinary: Reports hematuria and Reports urinary incontinence Musculoskeletal Musculoskeletal: Reports atrophy Integumentary/Breasts Skin/Breast: Reports skin ulcer Neurologic Neurologic: Reports memory loss, Reports disequilibrium and Reports weakness Psychiatric Psychiatric: Reports difficulty concentrating and Reports memory loss Comments: confabulation Endocrine Endocrine: Reports cold intolerance and Reports fatigue Hematologic/Lymphatic Hematologic/Lymphatic: Reports easy bruising PFSH All Active Problems (Updated 08/31/24 @ 19:45 by Kayleigh Estrada MD) Hypoalbuminemia due to protein-calorie malnutrition (Acute) and likely related to cancer Frailty syndrome in geriatric patient (Acute) Cancer related pain (Acute) Encounter for hospice care discussion (Acute) Goals of care, counseling/discussion (Acute) Impaired mobility and ADLs (Acute) Alcoholic dementia (Acute) Ulcer (traumatic) of oral mucosa (Acute) Bladder cancer (Chronic) high grade urothelial carcinoma; cytology 08/22/24 Frequent falls (Chronic) Hydronephrosis, left (Chronic) Anemia of chronic disease (Chronic) related to bladder cancer Acute on chronic respiratory failure (Acute) Diarrhea (Acute) Iron deficiency (Acute) Microcytic anemia (Acute) DNR (do not resuscitate) (Acute) 2023 COLST: Completed with PCP Manuela Soares, CURRICULUM AND INSTRUCTION DIRECTOR: /DNI, +Comfort Focused treatment, No IV fluids, No hydration, no artificial nutrition. Community acquired pneumonia (Acute) Acute kidney injury (Acute) Tongue lesion (Acute) HTN (hypertension) (Chronic) Dementia (Chronic) Hematuria (Acute) Hypoxic respiratory failure (Acute) Multiple closed fractures of ribs of right side (Acute) Malaise and fatigue (Acute) Cavitary lesion of lung (Acute) Alzheimer disease (Chronic) Elevated liver function tests (Acute) Transaminitis (Acute) Hyperbilirubinemia (Acute) Confusion (Acute) Generalized weakness (Acute) Bladder mass (Chronic) Upper gastrointestinal bleed (Acute 07/31/13) With melena and drop in hemoglobin Anxiety (Acute 07/31/13) Agitation (Acute 07/31/13) Anxiety and depression (Chronic) Hypothyroidism (Chronic) On satins. Hyperlipidemia (Chronic) Periodic limb movement disorder (Chronic) On benzodiazepines. Memory disturbance (Chronic) Pneumoperitoneum (Acute) Hypotension (Acute) Bradycardia (Acute) Perforated duodenal ulcer (Acute) Fluid volume excess (Acute) Hypokalemia (Acute) nutrition (Acute) Physical deconditioning (Acute) Short-term memory loss (Acute) Medical History (Updated 08/31/24 @ 19:45 by Kayleigh Estrada MD) Tubular adenoma of colon (05/03/17) high risk adenoma Duodenal ulcer perforation Advanced care planning/counseling discussion Palliative care encounter Acute on chronic respiratory failure with hypoxia and hypercapnia Renal cyst, left Alcohol abuse Peptic ulcer Duodenal perforation Insomnia Cough Shortness of breath Cavitating mass in left lower lung lobe Right shoulder pain Palliative care patient Colon polyp Perforated duodenal ulcer History of alcohol abuse Tobacco abuse Osteoarthritis Hypothyroidism Hyperlipidemia Diverticulitis Depression Anxiety Neurocardiogenic syncope Surgical History Laparotomy (09/10/16) with duodenal ulcer repair Kidney EGD - MAC (05/03/17) Colonoscopy - MAC (03/11/18) Colonoscopy - MAC (05/03/17) Family History Mother Dementia Father Heart disease Social History (Updated 08/31/24 @ 19:38 by Kayleigh Estrada MD) Smoking/Tobacco Use Status: Current every day Tobacco Type: cigarettes Quit status: not considering quitting Smoking risk assessment performed?: Yes Alcohol Intake: former Drug use: Never Substance use type: does not use Caregiver/Support person: Yes Household members: none and other Details: from who lives nearby and provides significant daily care Housing: house Number of Children: 2 Communication Needs: Hard of Hearing Do you need help understanding health information?: Always Current gender identity: male What is your relationship status?: How often do you talk on the phone with friends or family?: once per week How often do you get together with friends or relatives?: three or more times per week Panel score (0-1 are the most socially isolated patients): 1 What type of physical activity do you participate in: none and sedentary lifestyle Special juan needs: No Agree to transfusion: No Do you feel safe at home: Yes Do you feel safe in your relationship?: Yes Additional Social history: Lives alone in family home. Felicia moved out 10 years ago (2013) but still cares for Reji daily, providing personal care, meal prep, med management, housekeeping, shopping, etc. She is clear that she cannot move back in to care for him due to her own h/o trauma. He said he is willing to go to community retirement once he needs overnight help. Exam Narrative Exam Narrative: Very slender man, thick white hodgson, dirty fingernails but clean otherwise, speaks in full sentences. Sitting up in recliner, with tray of food in front of him. Asked me to feed him. Unable to feed self. Eyes anicteric HEENT tongue lesion left side of tongue, oval, white, painful, measures 2 cm x 1 cm, hearing grossly intact neck no lad or jvd lungs rhonchi throughout lung shi, no focal findings, no cough, no increased wob, no respiratory distress clinically, not wearing oxygen cv slow, about 50, regular, no obvious murmur abd slender, has incisional hernia mid abdomen, easily reducible, no masses noted, non tender to palpation of suprapubic region, no obvious bladder mass gu no moore in place, is wearing depends ext loss of muslce mass in all 4 extremities skin + bruising worst on extremities, dry neuro able to have a conversation, most of which makes sense, but then clearly confabulating (said he never was a heavy drinker, for instance) psych no evidence of anxiety or agitation, trying to get his head around this dying business Results Last Vital Signs Temp 95.9 F L 08/31/24 11:29 Pulse 47 L 08/31/24 11:29 Resp 16 08/31/24 11:29 BP 94/55 L 08/31/24 11:29 Pulse Ox 92 08/31/24 11:29 Labs 08/31/24 06:12 08/31/24 06:12 Labs: Laboratory Results - last 24 hr 08/31/24 06:12 WBC 13.25 H RBC 3.63 L Hgb 9.0 L Hct 28.9 L MCV 80 MCH 24.8 L MCHC 31.1 L RDW 16.5 H Plt Count 401 H MPV 10.3 Sodium 143 Potassium 4.3 Chloride 107 Carbon Dioxide 30.5 Anion Gap 5.5 BUN 28 H Creatinine 1.8 H Est GFR (CKD-EPI 2020) 37.82 Glucose 78 Calcium 8.4 L Magnesium 1.9 Total Bilirubin 0.49 AST 28 ALT 25 Alkaline Phosphatase 107 Total Protein 5.4 L Albumin 1.9 L Random Vancomycin 13.[address] scan report/results: report reviewed CT scan - chest: report reviewed CT scan - pelvis: report reviewed Time Spent Time Spent with Patient Time Spent(min): 150
[2024-08-31] MEDS: traZODone 50 MG TAB 100 MG PO (20:30)
[2024-08-31] MEDS: Magnesium Chloride 64 MG TABCR PO (20:30)
[2024-08-31] MEDS: Melatonin 3 MG TAB PO (20:31)
[2024-08-31] MEDS: Mirtazapine 15 MG TAB 45 MG PO (20:31)
[2024-08-31] MEDS: LIDOCAINE Patch Removal 1 EACH TP (21:07)
[2024-08-31] MEDS: Enoxaparin 30 MG/0.3 ML SYR SC (21:07)
[2024-09-01] VITALS (13 sets, daily range): BP systolic 100–108; BP diastolic 57–68; PULSE 60–72; RESP 2–26; TEMP 36.6–37.1; O2SAT 85–95
[2024-09-01] MEDS: oxyCODONE 5 MG TAB PO ×4 (02:53→20:30)
[2024-09-01] MEDS: Lidocaine 2% Viscous 15 ML CUP 3 ML PO ×3 (02:53→20:27)
[2024-09-01] MEDS: Albuterol/Ipratropium 3 ML UPD VIAL UPD ×3 (03:08→20:50)
[2024-09-01 06:19] LABS: HCT 29.5 % (40.0-50.0); HGB 9.1 g/dL (13.5-17.5); MCH 24.7 pg (27.0-33.0); MCHC 30.8 % (32.0-36.0); MCV 80 fL (80-95); MPV 10.6 fL (8.0-11.0); Platelet Count 405 10^3/uL (130-400); RBC 3.69 10^6/uL (4.36-5.78); RDW 16.7 % (11.8-14.1); RDW-SD 47.9 fL; WBC 11.61 10^3/uL (4.4-10.8)
[2024-09-01] MEDS: Levothyroxine 100 MCG TAB PO (06:34)
[2024-09-01 06:42] LABS: ALT 23 U/L (16-63); AST 25 U/L (15-37); Albumin 1.8 g/dL (3.4-5.0); Alkaline Phosphatase 121 U/L (46-116); Anion Gap 7.3 mmol/L (3-11); BUN 29 mg/dL (7-18); Bilirubin, Total 0.29 mg/dL (0.2-1.0); CO2 29.7 mmol/L (21.0-32.0); CREATININE 1.7 mg/dL (0.70-1.30); Calcium 8.4 mg/dL (8.5-10.1); Chloride 107 mmol/L (98-107); Glucose 85 mg/dL (74-106); Magnesium 2.1 mg/dL (1.8-2.4); Potassium 4.1 mmol/L (3.5-5.1); Sodium 144 mmol/L (136-145); Total Protein 5.5 g/dL (6.4-8.2)
[2024-09-01] MEDS: Normal Saline Flush 10 ML SYR IVP (08:45)
[2024-09-01] MEDS: Ferrous Sulfate 325 MG TAB PO (08:54)
[2024-09-01] MEDS: Aspirin 81 MG CHEW PO (08:54)
[2024-09-01] MEDS: Atenolol 25 MG TAB 12.5 MG PO (08:54)
[2024-09-01] MEDS: Thiamine 100 MG TAB PO (08:54)
[2024-09-01] MEDS: Multivitamin w/Minerals TAB 1 TAB PO (08:54)
[2024-09-01] MEDS: Nicotine 14 MG/24 HR PATCH TD (08:54)
[2024-09-01] MEDS: Lidocaine 5% Patch 1 PATCH TP (08:54)
[2024-09-01] MEDS: Citalopram 20 MG TAB 40 MG PO (08:55)
[2024-09-01] MEDS: Pantoprazole 40 MG TABCR PO (08:55)
[2024-09-01] MEDS: Acetaminophen 325 MG TAB 650 MG PO ×2 (08:55→20:28)
--- NOTE | 2024-09-01 09:11 | PDOC.CMPRO ---
Date of service: 09/01/24 Time of Service: 09:11 Care Management Progress Note Progress Note Text Progress Note Text: Reji was sitting up in bed when CM met with him. He appeared to be in good spirits and stated that he is doing OK, not great, but OK. He acknowledged that he still has pain but that it is much better than it was. His pain medication has been adjusted over the last couple of days and his pain does seem to be better managed. Reji informed CM that he would just like some company for a little while. He talked about Kathryn and how much he loves her. He stated that he has always loved her and always will. Reji's memory issues were very evident today. To almost every question, he answered, with a smile I don't remember. Kathryn is scheduled to meet with Dr. Estrada again this afternoon to discuss hospice. Kathryn is unable to be Reji's caregiver aircraft time clerk and there is no one else singh can fulfill the role. A special arrangement would heave to be made whereby Damon would go into a SNF or long term when his becomes imminent and/or he can no longer manage alone. The biggest barrier to that plan is having a payer source for end of life care. Kathryn stated they cannot afford private caregivers. She would likely need to complete a medical terminologist Medicaid application and she is not sure she is prepared to do that. JUDITH called her several times this morning, leaving messages, to discuss the issue and to offer assistance. Unfortunately, CM was unable to reach her. Discharge Potential Discharge Needs: PCP F/U Appt Anticipated Barriers to Discharge: None Identified Patient/Family Education Needs: Review discharge instructions, discuss Ask Me Three Transportation: Private vehicle Plan: Anticipate Reji will be discharged home with new home health services, and possibly hospice, when medically cleared. Reji will follow up with his PCP and plan of care and will transport with family. CM will follow and continue to support discharge planning efforts. SDOH(Care Management) Screening Will the Patient Participate in the Screening?: Unable to obtain Social Determinants of Health Comments(SDOH Details): Patient is confused.
[2024-09-01] MEDS: QUEtiapine 25 MG TAB PO ×2 (12:07→20:30)
--- NOTE | 2024-09-01 13:47 | CHAPLAIN ---
Domingo was sitting up in bed when I visited. He was very friendly in greeting me and said he likes to have people come in a talk with him. He asked for some chocolate ice cream that I was able to get for him after checking with the lead nurse. Domingo' , who does not live with him, is considering taking him home to his house and having hospice care.
--- NOTE | 2024-09-01 17:12 | W.PM.PROGNOT ---
Date of Service Date of service: 09/01/24 Time of Service: 17:13 Assessment and Plan Assessment and plan (1) Hospital-acquired bacterial pneumonia: Start date: 08/29/24 Status: Ruled-out Assessment and plan: -Palliative Care discussed with Patients who has stated that she is interested in pursuing transition to outpatient Hospice Care -however, on follow-up palliative visit on 09/01/2024, was determined that the patient is actually an improvement in his pain and is willing to work with physical therapy and consider subacute rehab placement -Will continue fentanyl pach 12.5mcg -questionable infiltrate on imaging, but with recent hospitalizations and leukocytosis -had been treating with vanc and cefepime which have since been discontinued (2) Acute on chronic respiratory failure: Start date: 08/29/24 Status: Acute Assessment and plan: -patient recommended to have ehome O2 but he continues to smoke -likely acute on chronic due metastatic diseases -had required up to 3L NC, but has since been transitioned to RA Qualifiers: Respiratory failure complication: hypoxia and hypercapnia Qualified Code(s): J96.21 - Acute and chronic respiratory failure with hypoxia; J96.22 - Acute and chronic respiratory failure with hypercapnia (3) Frequent falls: Status: Chronic Assessment and plan: -Social situation is poor patient needs to be placed for level to care; see Palliative note for further details, though likely to transition to Hospice (4) Dementia: Status: Chronic Assessment and plan: -Not function well at home alone Qualifiers: Dementia type: Alzheimer's Alzheimer's disease onset: other onset Dementia severity: moderate Dementia behavioral or psychological symptom: with anxiety Qualified Code(s): G30.8 - Other Alzheimer's disease; F02.B4 - Dementia in other diseases classified elsewhere, moderate, with anxiety (5) Hydronephrosis, left: Status: Chronic Assessment and plan: -Progressive with large bladder tumor not resectable with patient not being a surgical candidate. (6) Bladder cancer: Status: Chronic Assessment and plan: -High-grade urothelial carcinoma obstructing left ureter causing hydronephrosis nonpalpable with patient being DNR/DNI and not a candidate for surgical intervention. 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 With his poor dentition and broken teeth this most likely is traumatic and persistent. Symptomatic care. Subjective Subjective Interval history since last seen: Patient states that his pain is much more controlled and he has no other complaints or concerns at this time. Exam Narrative Exam Narrative: Chronically ill-appearing older gentleman laying in bed in no acute distress, awake, alert, oriented to person and place, heart regular rhythm, lungs clear to auscultation bilaterally, abdomen soft, nontender, nondistended Objective Last Vital Signs Temp 98.6 F 09/01/24 15:18 Pulse 61 09/01/24 15:18 Resp 14 09/01/24 15:18 BP 102/64 09/01/24 15:18 Pulse Ox 89 L 09/01/24 15:18 Laboratory Results - last 24 hr 09/01/24 05:51 WBC 11.61 H RBC 3.69 L Hgb 9.1 L Hct 29.5 L MCV 80 MCH 24.7 L MCHC 30.8 L RDW 16.7 H Plt Count 405 H MPV 10.6 Sodium 144 Potassium 4.1 Chloride 107 Carbon Dioxide 29.7 Anion Gap 7.3 BUN 29 H Creatinine 1.7 H Est GFR (CKD-EPI 2020) 40.50 Glucose 85 Calcium 8.4 L Magnesium 2.1 Total Bilirubin 0.29 AST 25 ALT 23 Alkaline Phosphatase 121 H Total Protein 5.5 L Albumin 1.8 L Time Spent with Patient Time Spent with Patient: >50 minutes Time was spent: preparing to see the patient(eg.review tests), obtaining and/or reviewing separately otained hiistory, ordering medications,tests, procedures, referring, communicating with other health patient care director, indepentently interpreting results, counseling the patient and care coordination
[2024-09-01] MEDS: Magnesium Chloride 64 MG TABCR PO (20:28)
[2024-09-01] MEDS: Melatonin 3 MG TAB PO (20:28)
[2024-09-01] MEDS: traZODone 50 MG TAB 100 MG PO (20:28)
[2024-09-01] MEDS: Mirtazapine 15 MG TAB 45 MG PO (20:28)
[2024-09-01] MEDS: LIDOCAINE Patch Removal 1 EACH TP (22:37)
[2024-09-01] MEDS: Enoxaparin 30 MG/0.3 ML SYR SC (22:38)
[2024-09-02] VITALS (11 sets, daily range): BP systolic 103–138; BP diastolic 58–89; PULSE 55–69; RESP 2–20; TEMP 36.5–37.1; O2SAT 87–97
[2024-09-02] MEDS: oxyCODONE 5 MG TAB PO ×3 (05:11→22:59)
[2024-09-02] MEDS: Levothyroxine 100 MCG TAB PO (05:11)
[2024-09-02] MEDS: Albuterol/Ipratropium 3 ML UPD VIAL UPD (05:35)
--- NOTE | 2024-09-02 08:19 | PCPN_ITS ---
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 This has been very effective. He is not grimacing or moaning. He says his pain is gone. Reji was talking quite a bit today, though his alcoholic dementia was more apparent. His short term memory is poor. He still lacks understanding of his diagnosis and recognition that he has a terminal illness. We had to remind him several times during the visit that he has bladder cancer and that there is no cancer-directed treatment for him given its advanced state and his overall poor health. He was pleasant despite the topic of our conversation. He told me he is now able to feed himself, though his amanda was dirty from him spilling on it. The primary point of today's meeting, other than pain management follow up, was to work with his Kathryn about future plans for his care. Ligia Kaye RN from [facility] and I both helped Kathryn identify what options were available. She is quite clear that she cannot provide more care for Reji than she is currently. She had recently been there more than once per day, as he had antibiotic-associated diarrhea, but generally, she is there about 2 hours per day. Their 2 children cannot help with hands-on care. Cynthia lives out of state and recently had abdominal surgery; son Blaze is without a vehicle and has a seriously disabled/paralyzed he cares for. (Note that Kathryn says that there are no issues with Blaze coming to their home, despite medical record stating otherwise.) Reji's bedroom and primary bathroom are up one flight of stairs. He was able to go up and down these stairs prior to his admission, though Kathryn thinks this very unsafe. He opted out of PT at [facility] yesterday due to his uncontrolled pain. Now that his pain is controlled, he said he was willing to do PT again. He is willing to go to Rehab to try to get stronger. His short-term memory will make independent/self-guided rehab impossible. He does qualify for hospice. He likely has less than 6 months to live. But now that his pain is controlled, he wants to try to get strong enough to return home. If/when he returns home, he would like home health. When he gets sicker, he and his want help from hospice. They both said they have no concerns about home health or hospice staff entering their home. Care Management at [facility] had started a choices for care application. I gave this application to Kathryn to finish. She had a good friend with her who recently went through this with her late partner, and she offered to help Kathryn with the paperwork. O Lying in bed, looking comfortable, no grimace or furrowed brow, unable to follow the details of the conversation VS reviewed Eyes anicteric HEENT full hodgson, hearing grossly intact, MMM, tongue lesion not as painful, not interfering with eating and drinking today Neck no lad lungs full of rhonchi throughout, occasional cough, but not wearing oxygen, no clinical respiratory distress cv regular no murmur noted abd soft, slender, + bs wnl gu no moore ext loss of muscle mass all 4 ext neuro poor short term memory, unable to register his terminal diagnosis psych some confabulation, but able to redirect, guide skin no jaundice, bruising of both hands, right > left notable a/p Reji Macdonald is a 79 yo man with a terminal bladder cancer with a less than 6 month prognosis. However, at this time, he would like to get stronger if he can. He wants to be able to return home, and his bedroom and BR is up a flight of stairs. He stated today that he wanted to do PT and he was willing to go to Rehab for acute rehab. supports this plan. Given his moderate dementia, he will need reminding and cueing during PT, of course. She is not sure that he will be able to safely climb a flight of stairs on a regular basis. If he cannot, she will rearrange their home so his bed is on the first floor. THey are willing to accept HH and/or hospice services, as needed. The location of his longer term care is yet to be determined. is filling out Choices for Care paperwork. His pain is very well controlled with just 12 mcg fentanyl patch. Likely will need increase in dose over time. Discussed with Dr Plascencia, care management, hospice and HH staff. Objective Last Vital Signs Temp 98.4 F 09/02/24 07:30 Pulse 63 09/02/24 07:30 Resp 15 09/02/24 07:30 BP 121/78 09/02/24 07:30 Pulse Ox 90 L 09/02/24 07:30
[2024-09-02] MEDS: Atenolol 25 MG TAB 12.5 MG PO (09:08)
[2024-09-02] MEDS: Lidocaine 5% Patch 1 PATCH TP (09:08)
[2024-09-02] MEDS: Nicotine 14 MG/24 HR PATCH TD (09:08)
[2024-09-02] MEDS: Thiamine 100 MG TAB PO (09:09)
[2024-09-02] MEDS: Ferrous Sulfate 325 MG TAB PO (09:09)
[2024-09-02] MEDS: Citalopram 20 MG TAB 40 MG PO (09:09)
[2024-09-02] MEDS: Aspirin 81 MG CHEW PO (09:09)
[2024-09-02] MEDS: Multivitamin w/Minerals TAB 1 TAB PO (09:09)
[2024-09-02] MEDS: Pantoprazole 40 MG TABCR PO (09:09)
[2024-09-02] MEDS: Acetaminophen 325 MG TAB 650 MG PO ×2 (09:09→20:50)
--- NOTE | 2024-09-02 11:29 | PGE_ITS ---
Date of Service Date of service: 09/02/24 Time of Service: 11:29 Assessment and Plan Assessment and plan (1) Hospital-acquired bacterial pneumonia: Start date: 08/29/24 Status: Ruled-out Assessment and plan: -Palliative Care discussed with Patients who has stated that she is interested in pursuing transition to outpatient Hospice Care -however, on follow-up palliative visit on 09/01/2024, was determined that the patient is actually an improvement in his pain and is willing to work with physical therapy and consider subacute rehab placement -Will continue fentanyl pach 12.5mcg -questionable infiltrate on imaging, but with recent hospitalizations and leukocytosis -had been treating with vanc and cefepime which have since been discontinued (2) VRE (vancomycin resistant enterococcus) culture positive: Status: Acute Assessment and plan: - Patient was noted to be culture positive for VRE with greater than 100,000 colony-forming units on 08/26/2024 in the emergency department when she was discharged on azithromycin -Despite his urine Alysis on readmission on 08/29/2024 showing significant RBCs, negative nitrite and leuk esterase, urine culture was sent and was again positive for VRE entero-, though with 50-100,000 colony-forming units -This is likely a sign that patient is colonized, as he has not had any urinary symptoms, fever or significant leukocytosis -Will not treat at this time, but will recommend ongoing contact precautions (3) Acute on chronic respiratory failure: Start date: 08/29/24 Status: Acute Assessment and plan: -patient recommended to have ehome O2 but he continues to smoke -likely acute on chronic due metastatic diseases -had required up to 3L NC, but has since been transitioned to RA Qualifiers: Respiratory failure complication: hypoxia and hypercapnia Qualified Code(s): J96.21 - Acute and chronic respiratory failure with hypoxia; J96.22 - Acute and chronic respiratory failure with hypercapnia (4) Frequent falls: Status: Chronic Assessment and plan: -Social situation is poor patient needs to be placed for level to care; see Palliative note for further details, though likely to transition to Hospice (5) Dementia: Status: Chronic Assessment and plan: -Not function well at home alone Qualifiers: Dementia type: Alzheimer's Alzheimer's disease onset: other onset Dementia severity: moderate Dementia behavioral or psychological symptom: with anxiety Qualified Code(s): G30.8 - Other Alzheimer's disease; F02.B4 - Dementia in other diseases classified elsewhere, moderate, with anxiety (6) Hydronephrosis, left: Status: Chronic Assessment and plan: -Progressive with large bladder tumor not resectable with patient not being a surgical candidate. (7) Bladder cancer: Status: Chronic Assessment and plan: -High-grade urothelial carcinoma obstructing left ureter causing hydronephrosis nonpalpable with patient being DNR/DNI and not a candidate for surgical intervention. Qualifiers: Bladder location: ureteric orifice Qualified Code(s): C67.6 - Malignant neoplasm of ureteric orifice (8) Anemia of chronic disease: Status: Chronic Assessment and plan: -This appears stable (9) Ulcer (traumatic) of oral mucosa: Start date: 08/30/24 Status: Acute Assessment and plan: Patient had RPR which was negative with lesions appearing to be a possible condyloma dio. With his poor dentition and broken teeth this most likely is traumatic and persistent. Symptomatic care. Subjective Subjective Interval history since last seen: Patient states that his pain is much more controlled and he has no other complaints or concerns at this time. Exam Narrative Exam Narrative: Chronically ill-appearing older gentleman laying in bed in no acute distress, awake, alert, oriented to person and place, heart regular rhythm, lungs clear to auscultation bilaterally, abdomen soft, nontender, nondistended Objective Last Vital Signs Temp 98.8 F 09/02/24 11:07 Pulse 55 L 09/02/24 11:07 Resp 14 09/02/24 11:07 BP 103/58 L 09/02/24 11:07 Pulse Ox 91 L 09/02/24 11:07 Time Spent with Patient Time Spent with Patient: >50 minutes Time was spent: preparing to see the patient(eg.review tests), obtaining and/or reviewing separately otained hiistory, ordering medications,tests, procedures, referring, communicating with other health health care liaison, indepentently interpreting results, counseling the patient and care coordination
--- NOTE | 2024-09-02 11:40 | PHA.REVIEW2 ---
Pharmacy Admission Review Admission Clinical Review Admission Pharmacy Review: VRE (vancomycin resistant enterococcus) culture positive (Acute) Hypoalbuminemia due to protein-calorie malnutrition (Acute) Frailty syndrome in geriatric patient (Acute) Cancer related pain (Acute) Encounter for hospice care discussion (Acute) Goals of care, counseling/discussion (Acute) Impaired mobility and ADLs (Acute) Alcoholic dementia (Acute) Ulcer (traumatic) of oral mucosa (Acute) Acute on chronic respiratory failure (Acute) Diarrhea (Acute) DNR (do not resuscitate) (Acute) Tongue lesion (Acute) Hematuria (Acute) Generalized weakness (Acute) ibuprofen Allergy (Severe, Unverified 08/29/24 16:58) Other (See Comment) varenicline tartrate (From Chantix) Adverse Reaction (Severe, Unverified 08/29/24 16:58) Psychosis Resuscitation Status DNR/DNI Height 5 ft 10 in Weight 58 kg Pharmacy Admission Review Renal Dosing Renal Dosing: BUN 29 mg/dL (7-18) H 09/01/24 05:51 Creatinine 1.7 mg/dL (0.70-1.30) H 09/01/24 05:51 Medications needing adjustments: Intervened (CrCl 28 mL/min) List of meds needing interventions: Pharmacist yesterday spoke with provider regarding oxycodone. Recommended to be given no less than q8h with his kidney function - provider aware and given patients potential transition in status will leave at q4h for now. Anticoagulation Anticoagulation: Hgb 9.1 g/dL (13.5-17.5) L 09/01/24 05:51 Hct 29.5 % (40.0-50.0) L 09/01/24 05:51 Plt Count 405 10^3/uL (130-400) H 09/01/24 05:51 Creatinine 1.7 mg/dL (0.70-1.30) H 09/01/24 05:51 DVT Prophylaxis: Reviewed Medications: Enoxaparin (30mg daily (CrCl < 30)) Opiate Usage Evaluate Pain Scale/Pains Meds: Reviewed (PO PRN oxycodone - 3 doses (15mg) given in past 24 hours) Scheduled Bowel Reg ordered if on Opiates?: No (PRN docusate/Miralax) Relevant Labs Relevant Labs: ESR 25 mm/hr (0-20) H 08/30/24 00:11 Sodium 144 mmol/L (136-145) 09/01/24 05:51 Potassium 4.1 mmol/L (3.5-5.1) 09/01/24 05:51 Chloride 107 mmol/L (98-107) 09/01/24 05:51 Magnesium 2.1 mg/dL (1.8-2.4) 09/01/24 05:51 C-Reactive Protein 4.97 mg/dL (<or=0.5) H 08/30/24 00:11 Electrolytes, C-Reactive P, ESR: Reviewed (No new labs for today) Cardiac Review Cardiac Review: Troponin I 22 ng/L (<or=76) 08/29/24 17:10 NT-Pro-B Natriuret Pep 4122 pg/mL (<300) H 08/29/24 16:44 BP, HR, EF%: Reviewed (BP 103/58 and HR 55, Ox 91) List meds needing interventions: Has order for atenolol 12.5mg daily QTc Review QTc: Intervened (531 from 08/29/24 - pharmacist yesterday spoke with provider regarding citalopram. Recommended dose of 20mg daily due to QTc risk (current dose is 40mg daily) - provider aware and wants to leave as is for now) IV to PO Switch IV Medications: Reviewed Home Meds Home Med List reviewed: Reviewed Current Meds Current Medication Order Review: Reviewed Pharmacy Antibiotic Review Relevant Labs: Microbiology 08/30/24 00:20 Urine Culture - Final Urine - Voided Enterococcus Faecium YEAST 08/29/24 18:50 Blood Culture - Preliminary Blood NO GROWTH 72 HOURS 08/29/24 19:00 Blood Culture - Preliminary Blood NO GROWTH 72 HOURS Pharmacy Antibiotic Activity: C/S review Comments: Patient is no currently on any antibiotics. Urine culture is growing VRE, provider aware. Per progress note this is likely a sign that patient is colonized, as he has not had any urinary symptoms, fever or significant leukocytosis. Will not treat at this time
--- NOTE | 2024-09-02 12:07 | INPN_ITS ---
PT Notes Visit Reasons: acute respira failure, hospital acquired pneumonia Physical Therapy Inpatient Progress Note Date: 09/02/2024 Dates of Service: 08/30/2024 through 09/02/2024 Referring Doctor: Luis Manuel Kelly MD PT Orders: PT CONSULT: DC Non PT dependent Precautions: Fall. Standard. Activity as tolerated. Hearing impaired. Patient Profile/Admitting Diagnosis: Domingo is a 79-year-old male admitted to the ED on 08/29/2024 with chief presentation of dizziness, repeated falls, confusion, and history of severe dementia. Patient is admitted to [facility] for management of acute on chronic respiratory failure, hospital-acquired pneumonia, frequent falls, dementia, worsening hydronephrosis, high-grade urothelial cancer, anemia, and oral mucosal ulcer. Subjective: Ate most of is breakfast today. Patient more peppy than he has been since a couple of days ago. Dizzy when he stood up to transfer to the chair. Objective: General Observation: IV through L UE. Redness on the R hand and wrist. Mental Status: Alert. Able to follow requests and faster to respond to questions. Short-term memory remains impaired. Pain: reported Vital Signs: Closely monitored by nursing staff ROM: Right Upper Extremity: Shoulder Flexion allows up to about 110 degrees. Sh oulder abduction allows up to about 90 degrees. Elbow flexion WFL. Wrist flexion WFL. Functional opening and closing of hand WFL. Left Upper Extremity: Shoulder Flexion allows up to about 110 degrees. Shoulder abduction allows up to about 90 degrees. Elbow flexion WFL. Wrist flexion WFL. Functional opening and closing of hand WFL. Right Lower Extremity: Hip flexion allows up to 100 degrees. Hip abduction WFL. Knee flexion 30 degrees to 100 degrees. Ankle dorsiflexion to neutral only. Ankle plantarflexion WFL. Left Lower Extremity: Hip flexion allows up to 100 degrees. Hip abduction WFL. Knee flexion 30 degrees to 100 degrees. Ankle dorsiflexion to neutral only. Ankle plantarflexion WFL. Strength: Right Upper Extremity: Shoulder flexors 3-/5. Shoulder abductors 3-/5. Elbow flexors 4-/5. Elbow extensors 4-/5. Economic Historian strong. Left Upper Extremity: Shoulder flexors 3-/5. Shoulder abductors 3-/5. Elbow flexors 4-/5. Elbow extensors 4-/5. Economic Historian strong. Right Lower Extremity: Hip flexors 3-/5. Hip abductors 3-/5. Knee flexors 4-/5. Knee extensors 3-/5. Ankle dorsiflexors 3-/5. Ankle plantarflexors 4-/5. Left Lower Extremity: Hip flexors 3-/5. Hip abductors 3-/5. Knee flexors 4-/5. Knee extensors 3-/5. Ankle dorsiflexors 3-/5. Ankle plantarflexors 4-/5. Bed Mobility/Transfers: Modearte cueing provided for use of B hands as needed for support, movement sequence, AD management, and posture to reduce fall risk and minimize pain report Sit to stand contact guard assist with FWW Stand to sit minimal assist with FWW Bed to reclining chair minimal assist with FWW Reclining chair to bed minimal assist with FWW Gait: Facilitated safe performance of in room ambulation of about 8 small steps using front wheeled walker with minimal assist and moderate verbal cueing for AD management, directional changes, obstacle negotiation, and posture to minimize fall risk and decrease pain report. Step height and length asymmetric and decreased. No loss of balance. Unable to safely negotiate obstacles due to pre-existing visual impairment. Complained of dizziness while upright, resolved with sitting back on the chair. Balance: Static Sitting: Normal Dynamic Sitting: Fair Static Standing: Fair Dynamic Standing: Poor Special Tests: Mobility Limitations Standardized Measure [facility] AM-PAC 6 clicks Basic Mobility Inpatient Short Form: Raw Score: 18 CMS Score: 47% deficit Informed Consent/Education: Patient was instructed in purpose of PT consult and plan of care. Agreeable to proceed with established PT POC to achieve personal goals. Assessment: Patient more alert and able to follow instructions during session. Fatigued easily after moving from bed to the bedside recliner. Patient was put on hold for PT as of 09/01/2024 due to discharge plan of going home on hospice however, patient and patient's have agreed to now go to a SNF and would like to continue with PT as patient is able to tolerate. Patient presents with clinical signs and symptoms consistent with current/admitting diagnoses that have resulted to mobility limitations, gait instability, generalized weakness, and overall ADL decline as demonstrated by the following impairment level findings: 1. Decreased strength to B UE/LE major muscle groups 2. Impaired sitting/standing balance 3. Impaired activity tolerance 4. Limitation of joint range of motion in B shoulders, hips, knees, and ankles 5. Pain in multiple areas: head, neck, low back Impairments are contributing to the following functional limitations: 1. Decline in bed mobility skills 2. Decline in transfer skills 3. Difficulty with ambulation without assistive device and physical assistance 4. Increased completion time for mobility ADL performance 5. Increased risk for falls 6. Difficulty with managing steps alone safely Patient is assessed as a [id number] moderate complexity based on the following: History: 79-year-old male with past medical history as indicated above Examination: Demonstrable impairment in strength, balance, and mobility level with underlying impairments and functional limitations as exhibited above as well as deficit score of 47% utilizing the [facility] Mobility Inpatient Short Form Presentation: Evolving Decision Makin moderate complexity Goals: Goals X1 week 1. Supine-Sit independent NOT MET, CONTINUE 2. Sit-Supine independent NOT MET, CONTINUE 3. Sit-Stand independent NOT MET, CONTINUE 4. Stand-Sit independent with FWW NOT MET, CONTINUE 5. Bed-Chair independent with FWW NOT MET, CONTINUE 6. Chair-Bed independent with FWW NOT MET, CONTINUE 7. Independent gait on level surface with use of FWW for at least 300 feet without report of pain nor dyspnea NOT MET, CONTINUE 8. Independent stair negotiation while holding onto B rails for at least 5 steps without report of pain nor dyspnea NOT MET, CONTINUE 9. Independent with home exercise program NOT MET, CONTINUE 10. Good static and dynamic standing balance/tolerance NOT MET, CONTINUE Plan of Care/Treatment Plan: 1-2x/day, 7 days/week x 1 week. Plan of care has been reviewed with the SCULPTURE INSTRUCTOR providing the service under Physical Therapy direction. Initiate Physical Therapy intervention for pain management as needed, strengthening, bed mobility, transfers, gait, stairs, balance training, and use of assistive device. DISCHARGE RECOMMENDATIONS: [] Home with no services [] [] Home with services [specify] [] Home with outpatient PT [] [] SNF for continued rehabilitation [] [] Shelter Care [] [] SNF versus LTC based on ability to participate and progress [] [X] SNF vs HH PT based on progress towards goals and on capability/availability of caregivers(s) TREATMENT CODE/TIME: 50983 x 15 minutes for 1 unit (12:07?12:22). Thank you for the opportunity to participate in the care of this patient. Tess Irizarry PT, DPT, CLT [facility] [place], [place]
[2024-09-02] MEDS: Ipratropium/Albuterol 4 GM 120 PUFF INH IH ×3 (12:10→20:23)
[2024-09-02] MEDS: Magnesium Chloride 64 MG TABCR PO (20:50)
[2024-09-02] MEDS: Melatonin 3 MG TAB PO (20:50)
[2024-09-02] MEDS: traZODone 50 MG TAB 100 MG PO (20:50)
[2024-09-02] MEDS: Mirtazapine 15 MG TAB 45 MG PO (20:50)
[2024-09-02] MEDS: LIDOCAINE Patch Removal 1 EACH TP (20:55)
[2024-09-02] MEDS: Enoxaparin 30 MG/0.3 ML SYR SC (22:59)
[2024-09-02] MEDS: QUEtiapine 25 MG TAB PO (22:59)
[2024-09-03] MEDS: oxyCODONE 5 MG TAB PO ×2 (01:50→16:07)
[2024-09-03 02:51] VITALS: BP 118/77; PULSE 68; RESP 16; TEMP 36.9; O2SAT 96
[2024-09-03 07:38] VITALS: BP 135/85; PULSE 64; RESP 22; TEMP 36.5; O2SAT 95
[2024-09-03] MEDS: Ipratropium/Albuterol 4 GM 120 PUFF INH IH ×4 (07:52→21:01)
[2024-09-03] MEDS: Aspirin 81 MG CHEW PO (08:34)
[2024-09-03] MEDS: Citalopram 20 MG TAB 40 MG PO (08:34)
[2024-09-03] MEDS: Thiamine 100 MG TAB PO (08:34)
[2024-09-03] MEDS: Multivitamin w/Minerals TAB 1 TAB PO (08:34)
[2024-09-03] MEDS: Ferrous Sulfate 325 MG TAB PO (08:35)
[2024-09-03] MEDS: Atenolol 25 MG TAB 12.5 MG PO (08:35)
[2024-09-03] MEDS: Acetaminophen 325 MG TAB 650 MG PO ×2 (08:35→20:45)
[2024-09-03] MEDS: Pantoprazole 40 MG TABCR PO (08:35)
[2024-09-03] MEDS: Nicotine 14 MG/24 HR PATCH TD (08:37)
[2024-09-03] MEDS: Lidocaine 5% Patch 1 PATCH TP (08:37)
--- NOTE | 2024-09-03 10:20 | PT.INTREAT ---
PT Notes Visit Reasons: acute respira failure, hospital acquired pneumonia Pt completed shoulder flexion x 5 Horz abd x 5 SLR x 5 Post 3 exercises pt reports is is all done and does not want to do anything else.
[2024-09-03] MEDS: fentaNYL 12 MCG PATCH TD (10:47)
[2024-09-03 11:08] VITALS: BP 112/68; PULSE 53; RESP 20; TEMP 36.3; O2SAT 88
--- NOTE | 2024-09-03 13:33 | PGE_ITS ---
Date of Service Date of service: 09/03/24 Time of Service: 13:33 Assessment and Plan Assessment and plan (1) Hospital-acquired bacterial pneumonia: Start date: 08/29/24 Status: Ruled-out Assessment and plan: - Readmitted 08/29 after discharge 08/24. Questionable infiltrate on imaging, but with recent hospitalizations and leukocytosis was treated with vancomycin and cefepime. - Acute on chronic respiratory failure with hypoxia normalized to baseline -had been treating with vanc and cefepime, stopped 08/31 after 2 days, clinica lly stable since then. May have been aspiration event. (2) VRE (vancomycin resistant enterococcus) culture positive: Status: Acute Assessment and plan: - Patient was noted to be culture positive for VRE with greater than 100,000 colony-forming units on 08/26/2024 in the emergency department when she was discharged on azithromycin -Despite his urinealysis on readmission on 08/29/2024 showing significant RBCs, negative nitrite and leuk esterase, urine culture was sent and was again posi tive for VRE entero-, though with 50-100,000 colony-forming units -This is likely a sign that patient is colonized, as he has not had any urinary symptoms, fever or significant leukocytosis -Will not treat at this time, but continue contact precautions (3) Acute on chronic respiratory failure: Start date: 08/29/24 Status: Acute Assessment and plan: -patient recommended to have ehome O2 but he continues to smoke -likely acute on chronic due metastatic diseases -had required up to 3L NC, but has since been transitioned to RA Qualifiers: Respiratory failure complication: hypoxia and hypercapnia Qualified Code(s): J96.21 - Acute and chronic respiratory failure with hypoxia; J96.22 - Acute and chronic respiratory failure with hypercapnia (4) Frequent falls: Status: Chronic Assessment and plan: -Social situation is poor patient needs to be placed for level to care; see Palliative note for further details, though likely to transition to Hospice (5) Dementia: Status: Chronic Assessment and plan: -Not function well at home alone, see palliative consult. Qualifiers: Dementia type: Alzheimer's Alzheimer's disease onset: other onset Dementia severity: moderate Dementia behavioral or psychological symptom: with anxiety Qualified Code(s): G30.8 - Other Alzheimer's disease; F02.B4 - Dementia in other diseases classified elsewhere, moderate, with anxiety (6) Hydronephrosis, left: Status: Chronic Assessment and plan: -Progressive with large bladder tumor not resectable with patient not being a surgical candidate. 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 He has declined surgical intervention. 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 Symptomatic care. (10) Cancer related pain: Status: Acute Assessment and plan: -Palliative Care discussed with Patients who has stated that she is interested in pursuing transition to outpatient Hospice Care -however, on follow-up palliative visit on 09/01/2024, was determined that the patient is actually an improvement in his pain and is willing to work with physical therapy and consider subacute rehab placement -Will continue fentanyl pach 12.5mcg Subjective Subjective Patient reports: no new complaints and tolerating a regular diet; denies diarrhea, vomiting, shortness of breath or fever Interval history since last seen: Feels okay. Get gets some neck pain at times, not now. He doesn't remember if he ate breakfast/lunch. Exam Narrative Exam Narrative: Chronically ill-appearing older gentleman sitting up in chair, no acute distress, awake, alert, oriented to person and place, heart regular rhythm, lungs clear to auscultation bilaterally, abdomen soft, nontender, nondistended, extremities without tenderness or edema. Objective Last Vital Signs Temp 36.3 C L 09/03/24 11:08 Pulse 53 L 09/03/24 11:08 Resp 20 09/03/24 11:08 BP 112/68 09/03/24 11:08 Pulse Ox 88 L 09/03/24 11:08 Time Spent with Patient Time Spent with Patient: 35-49 minutes Time was spent: preparing to see the patient(eg.review tests), obtaining and/or reviewing separately otained hiistory, ordering medications,tests, procedures, referring, communicating with other health career guidance counselor, indepentently interpreting results, counseling the patient and care coordination
[2024-09-03 15:16] VITALS: BP 95/68; PULSE 60; RESP 22; TEMP 36.4; O2SAT 92
[2024-09-03] MEDS: Docusate Sodium 100 MG CAP PO (16:08)
[2024-09-03] MEDS: QUEtiapine 25 MG TAB PO (16:30)
[2024-09-03 19:39] VITALS: BP 105/57; PULSE 57; RESP 22; TEMP 36.9; O2SAT 92
[2024-09-03] MEDS: Mirtazapine 15 MG TAB 45 MG PO (20:45)
[2024-09-03] MEDS: Magnesium Chloride 64 MG TABCR PO (20:45)
[2024-09-03] MEDS: traZODone 50 MG TAB 100 MG PO (20:45)
[2024-09-03] MEDS: Melatonin 3 MG TAB PO (20:46)
[2024-09-03] MEDS: LIDOCAINE Patch Removal 1 EACH TP (20:47)
[2024-09-03 22:02] VITALS: BP 120/64; PULSE 63; RESP 22; TEMP 36.7; O2SAT 90
[2024-09-03] MEDS: Enoxaparin 30 MG/0.3 ML SYR SC (23:15)
[2024-09-04] VITALS (10 sets, daily range): BP systolic 105–137; BP diastolic 53–84; PULSE 56–78; RESP 18–22; TEMP 36.2–37.3; O2SAT 88–97
[2024-09-04] MEDS: QUEtiapine 25 MG TAB PO ×3 (03:35→19:44)
[2024-09-04] MEDS: oxyCODONE 5 MG TAB PO ×3 (03:35→15:53)
[2024-09-04] MEDS: Levothyroxine 100 MCG TAB PO (05:43)
[2024-09-04] MEDS: Nicotine 14 MG/24 HR PATCH TD (08:22)
[2024-09-04] MEDS: Polyethylene Glycol 3350 17 GM PACKET PO (08:23)
[2024-09-04] MEDS: Milk of Magnesia 30 ML CUP PO (08:23)
[2024-09-04] MEDS: Citalopram 20 MG TAB 40 MG PO (08:24)
[2024-09-04] MEDS: Aspirin 81 MG CHEW PO (08:25)
[2024-09-04] MEDS: Docusate Sodium 100 MG CAP PO (08:25)
[2024-09-04] MEDS: Pantoprazole 40 MG TABCR PO (08:25)
[2024-09-04] MEDS: Acetaminophen 325 MG TAB 650 MG PO ×2 (08:25→19:44)
[2024-09-04] MEDS: Thiamine 100 MG TAB PO (08:25)
[2024-09-04] MEDS: Multivitamin w/Minerals TAB 1 TAB PO (08:25)
[2024-09-04] MEDS: Ferrous Sulfate 325 MG TAB PO (08:25)
[2024-09-04] MEDS: Atenolol 25 MG TAB 12.5 MG PO (08:26)
[2024-09-04] MEDS: Lidocaine 5% Patch 1 PATCH TP (08:26)
[2024-09-04] MEDS: Ipratropium/Albuterol 4 GM 120 PUFF INH IH ×3 (09:09→20:55)
--- NOTE | 2024-09-04 09:42 | PT.INTREAT ---
PT Notes Visit Reasons: acute respira failure, hospital acquired pneumonia Physical Therapy Inpatient Treatment Note Date: 09/04/2024 Precautions: Fall. Standard. Activity as tolerated. Hearing impaired. Subjective: Hungry, asked for scrambled eggs and toast again during this session. Needed to be convicned to work with PT this morning. Willing to walk inside room. Objective: General Observation: IV through L UE. Redness on the R hand and wrist. Mental Status: Alert. Able to follow requests and faster to respond to questions. Short-term memory remains impaired. Pain: None reported Vital Signs: Closely monitored by nursing staff Bed Mobility/Transfers: Modearte cueing provided for use of B hands as needed for support, movement sequence, AD management, and posture to reduce fall risk and minimize pain report Sit to stand contact guard assist with FWW Stand to sit minimal assist with FWW Bed to reclining chair minimal assist with FWW Reclining chair to bed minimal assist with FWW Gait: Facilitated safe performance of in room ambulation of about 20 feet using front wheeled walker with minimal assist and moderate verbal cueing for AD management, directional changes, obstacle negotiation, and posture to minimize fall risk and decrease pain report. Step height and length asymmetric and decreased. No loss of balance. Unable to safely negotiate obstacles due to pre-existing visual impairment. Denied lightheadedness. Balance: Static Sitting: Normal Dynamic Sitting: Fair Static Standing: Fair Dynamic Standing: Fair THERA EX: Knee to chest x 10 Assessment: Patient more alert and able to follow instructions during session. Fatigued easily after moving from bed to the bedside recliner. Appeared more stable during the short ambulation activity. Tolerated seated exercise after short walk. Plan of Care/Treatment Plan: 1-2x/day, 7 days/week x 1 week. Plan of care has been reviewed with the STATISTICAL MACHINE MECHANIC providing the service under Physical Therapy direction. Initiate Physical Therapy intervention for pain management as needed, strengthening, bed mobility, transfers, gait, stairs, balance training, and use of assistive device. DISCHARGE RECOMMENDATIONS: [] Home with no services [] [] Home with services [specify] [] Home with outpatient PT [] [] SNF for continued rehabilitation [] [] Half-Way Care [] [] SNF versus LTC based on ability to participate and progress [] [X] SNF vs HH PT based on progress towards goals and on capability/availability of caregivers(s) TREATMENT CODE/TIME: 92745 x 31 minutes for 2 units (09:40?10:13).
[2024-09-04] MEDS: Tiotropium/Olodaterol 10 PUFF INHALER 2 PUFF IH (15:18)
--- NOTE | 2024-09-04 17:46 | PDOC.CMPRO ---
Date of service: 09/04/24 Time of Service: 17:46 Care Management Progress Note Progress Note Text Progress Note Text: Reji was sitting up in a chair visiting with Kathryn when CM met with him. He appeared to be in good spirits and reported that his pain is better controlled. Kathryn has been assisting Reji at home with meals,medications and housework for about 2 hours a day. The couple remains however they live apart and Kathryn is unable to devote any additional time to care for him. The decision has been made for Reji to go to short term rehab for strengthening, balance and safety with the goal of returning home. JUDITH sent referrals today to [facility] at Kathryn's request and with Reji's permission. Greta from [employer] contacted JUDITH and had a few questions. She informed JUDITH that she will begin the prior authorization process with his insurance company. If approved, he will have a bed offer. JUDITH met with Kathryn this afternoon to assist with the completion af a Erp Implementation Consultant Medicaid application for Reji. She had done almost all of the application over the weekend and just had a couple of questions. Kathryn plans to mail the document tomorrow with a return receipt request Discharge Potential Discharge Needs: Other (SNF) Anticipated Barriers to Discharge: Bed availability Patient/Family Education Needs: Review discharge instructions, discuss Ask Me Three Transportation: Facility Transport SDOH(Care Management) Screening Will the Patient Participate in the Screening?: Unable to obtain Social Determinants of Health Comments(SDOH Details): Patient is confused.
--- NOTE | 2024-09-04 18:16 | PGE_ITS ---
Date of Service Date of service: 09/04/24 Time of Service: 11:16 Assessment and Plan Assessment and plan (1) Hospital-acquired bacterial pneumonia: Start date: 08/29/24 Status: Ruled-out Assessment and plan: - Readmitted 08/29 after discharge 08/24. Questionable infiltrate on imaging, but with recent hospitalizations and leukocytosis was treated with vancomycin and cefepime. - Acute on chronic respiratory failure with hypoxia normalized to baseline -had been treating with vanc and cefepime, stopped 08/31 after 2 days, clinica lly stable since then. Most consistent with aspiration event. -reimage if respiratory status worsening again. (2) VRE (vancomycin resistant enterococcus) culture positive: Status: Acute Assessment and plan: - Patient was noted to be culture positive for VRE with greater than 100,000 col danuta-forming units on 08/26/2024 in the emergency department when she was discharged on azithromycin -Despite his urinealysis on readmission on 08/29/2024 showing significant RBCs, negative nitrite and leuk esterase, urine culture was sent and was again positive for VRE entero-, though with 50-100,000 colony-forming units -This is constisten with colonization, as he has not had any urinary symptoms, fever or significant leukocytosis -Continue without treatment but continue contact precautions (3) Acute on chronic respiratory failure: Start date: 08/29/24 Status: Acute Assessment and plan: -patient qualified for home O2 prior to admission but he was not using it because he continued to smoke -likely acute on chronic due metastatic diseases -had required up to 3L NC, but has been onto RA during day, follow Qualifiers: Respiratory failure complication: hypoxia and hypercapnia Qualified Code(s): J96.21 - Acute and chronic respiratory failure with hypoxia; J96.22 - Acute and chronic respiratory failure with hypercapnia (4) Frequent falls: Status: Chronic Assessment and plan: -Social situation is poor patient needs to be placed for level to care; see Palliative note for further details -He will need placement in SNF, is now willing. (5) Dementia: Status: Chronic Assessment and plan: -Not function well at home alone, see palliative consult. Qualifiers: Dementia type: Alzheimer's Alzheimer's disease onset: other onset Dementia severity: moderate Dementia behavioral or psychological symptom: with anxiety Qualified Code(s): G30.8 - Other Alzheimer's disease; F02.B4 - Dementia in other diseases classified elsewhere, moderate, with anxiety (6) Hydronephrosis, left: Status: Chronic Assessment and plan: -Progressive with large bladder tumor not resectable with patient not being a surgical candidate. 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 He has declined surgical intervention. Qualifiers: Bladder location: ureteric orifice Qualified Code(s): C67.6 - Malignant neoplasm of ureteric orifice (8) Anemia of chronic disease: Status: Chronic Assessment and plan: -A/w chronic disease and blood loss. This has been stable (9) Ulcer (traumatic) of oral mucosa: Start date: 08/30/24 Status: Acute Assessment and plan: [place] possible condyloma dio, but tender and negative RPR, more c/w aphthous ulcer, possible traumatic trigger with broken teeth. Symptomatic care. (10) Cancer related pain: Status: Acute Assessment and plan: -Palliative Care discussed with Patients who has stated that she is interested in pursuing transition to outpatient Hospice Care -however, on follow-up palliative visit on 09/01/2024, was determined that the patient is actually an improvement in his pain and is willing to work with physical therapy and consider subacute rehab placement -Will continue fentanyl pach 12.5mcg with prn oral opioid, wait to titrate patch Subjective Subjective Patient reports: no new complaints and tolerating a regular diet; denies vomiting, shortness of breath or fever Interval history since last seen: He denies complaints again this morning. He doesn't remember blood in urine or pain. Per nursing, he has been off/on O2. Blood in urine off/on Exam Narrative Exam Narrative: Chronically ill-appearing older gentleman sitting up in chair, no acute distress, awake, alert, oriented to person and place, heart regular rhythm, lungs clear to auscultation bilaterally, abdomen soft, nontender, nondistended, extremities without tenderness or edema. Poor memory, normal speech, normal affect. Objective Last Vital Signs Temp 37.3 C 09/04/24 15:42 Pulse 63 09/04/24 15:42 Resp 20 09/04/24 15:42 BP 116/58 L 09/04/24 15:42 Pulse Ox 92 09/04/24 15:42 Time Spent with Patient Time Spent with Patient: 35-49 minutes Time was spent: preparing to see the patient(eg.review tests), obtaining and/or reviewing separately otained hiistory, ordering medications,tests, procedures, referring, communicating with other health pharmacy customer care specialist, indepentently interpreting results, counseling the patient and care coordination
[2024-09-04] MEDS: Melatonin 3 MG TAB PO (19:44)
[2024-09-04] MEDS: Magnesium Chloride 64 MG TABCR PO (19:44)
[2024-09-04] MEDS: Mirtazapine 15 MG TAB 45 MG PO (19:44)
[2024-09-04] MEDS: traZODone 50 MG TAB 100 MG PO (19:44)
[2024-09-04] MEDS: Enoxaparin 30 MG/0.3 ML SYR SC (21:08)
[2024-09-04] MEDS: LIDOCAINE Patch Removal 1 EACH TP (21:30)
[2024-09-05] VITALS (11 sets, daily range): BP systolic 82–134; BP diastolic 55–79; PULSE 53–69; RESP 17–20; TEMP 36.6–37.3; O2SAT 87–99
[2024-09-05] MEDS: Tiotropium/Olodaterol 10 PUFF INHALER 2 PUFF IH (08:24)
[2024-09-05] MEDS: Ipratropium/Albuterol 4 GM 120 PUFF INH IH ×4 (08:24→20:07)
[2024-09-05 08:30] LABS: Abs Immature Grans 0.21 10^3/uL (0.0-0.06); Absolute Basophil Count 0.05 10^3/uL (0.0-0.2); Absolute Eosinophil Count 0.21 10^3/uL (0.0-0.7); Absolute Lymphocyte Count 1.34 10^3/uL (1.2-3.4); Basophils % 0.4 %; Eosinophils % 1.8 %; HCT 32.2 % (40.0-50.0); HGB 9.8 g/dL (13.5-17.5); Immature Grans % 1.8 %; Lymphocytes % 11.4 %; MCH 24.9 pg (27.0-33.0); MCHC 30.4 % (32.0-36.0); MCV 82 fL (80-95); MPV 9.8 fL (8.0-11.0); Monocytes % 8.5 %; Neutrophils % 76.1 %; Platelet Count 424 10^3/uL (130-400); RBC 3.93 10^6/uL (4.36-5.78); RDW 16.9 % (11.8-14.1); RDW-SD 49.8 fL; WBC 11.78 10^3/uL (4.4-10.8)
[2024-09-05] MEDS: Aspirin 81 MG CHEW PO (08:31)
[2024-09-05] MEDS: Pantoprazole 40 MG TABCR PO (08:31)
[2024-09-05] MEDS: Levothyroxine 100 MCG TAB PO (08:31)
[2024-09-05] MEDS: Citalopram 20 MG TAB 40 MG PO (08:31)
[2024-09-05] MEDS: Ferrous Sulfate 325 MG TAB PO (08:31)
[2024-09-05] MEDS: Multivitamin w/Minerals TAB 1 TAB PO (08:31)
[2024-09-05] MEDS: Thiamine 100 MG TAB PO (08:31)
[2024-09-05] MEDS: Acetaminophen 325 MG TAB 650 MG PO ×2 (08:31→20:09)
[2024-09-05 08:33] LABS: Absolute Neutrophil Count 8.96 10^3/uL (1.2-6.7)
[2024-09-05 08:35] LABS: Anion Gap 4.7 mmol/L (3-11); BUN 31 mg/dL (7-18); CO2 33.3 mmol/L (21.0-32.0); CREATININE 1.6 mg/dL (0.70-1.30); Calcium 8.3 mg/dL (8.5-10.1); Chloride 107 mmol/L (98-107); Estimated GFR 43.56 (mL/min/1.73m2); Glucose 89 mg/dL (74-106); Potassium 4.5 mmol/L (3.5-5.1); Sodium 145 mmol/L (136-145)
--- NOTE | 2024-09-05 09:12 | PDOC.CMPRO ---
Date of service: 09/05/24 Time of Service: 09:13 Care Management Progress Note Progress Note Text Progress Note Text: Reji had a very active night last night and did not go to sleep until 4 am. He slept most of the morning into early afternoon. When CM met with him about 2 pm he wasa awake and anxious. He stated to CM I'm scared. When asked what he was afraid of he stated that he did not know. His Kathryn had not been in to visit yet and he was anxious about that. CM explained that there was inclement weather and maybe she was delayed. Reji received a bed offer from [facility] today and the offer was accepted by Kathryn. He will transport tomorrow either via [facility] w/c van or [facility]. Discharge Potential Discharge Needs: Other (SNF) Anticipated Barriers to Discharge: Bed availability Patient/Family Education Needs: Review discharge instructions, discuss Ask Me Three Transportation: Other (to be determined by disposition) Plan: Anticipate Reji will be transferred to [facility] tomorrow. He received and accepted (through Kathryn) a bed offer today. He will follow up with facility providers and plan of care and transport via facility van or [facility]. CM will follow and continue to support discharge planning., SDOH(Care Management) Screening Will the Patient Participate in the Screening?: Unable to obtain Social Determinants of Health Comments(SDOH Details): Patient is confused.
--- NOTE | 2024-09-05 09:16 | PTTR_ITS ---
PT Notes Visit Reasons: acute respira failure, hospital acquired pneumonia Physical Therapy Inpatient Treatment Note Date: 09/05/2024 Precautions: Fall. Standard. Activity as tolerated. Hearing impaired. Subjective: Hungry again, asked for a second breakfast. Again needed to be convinced to work with PT this morning. Finally agreed to walk inside room with rationale for session given. Objective: General Observation: IV through L UE. Redness on the R hand and wrist. Mental Status: Alert. Able to follow requests and faster to respond to questions. Short-term memory remains impaired. Pain: None reported Vital Signs: Closely monitored by nursing staff Bed Mobility/Transfers: Modearte cueing provided for use of B hands as needed for support, movement sequence, AD management, and posture to reduce fall risk and minimize pain report Sit to stand contact guard assist with FWW Stand to sit contact guard assist with FWW Bed to reclining chair contact guard assist with FWW Reclining chair to bed contact guard assist with FWW Gait: Facilitated safe performance of in room ambulation of about 30 feet using front wheeled walker with minimal assist and moderate verbal cueing for AD management, directional changes, obstacle negotiation, and posture to minimize fall risk and decrease pain report. Step height and length asymmetric and decreased. No loss of balance. Unable to safely negotiate obstacles due to pre-existing visual impairment. Denied lightheadedness. Complained fo fatigue after activity. Balance: Static Sitting: Normal Dynamic Sitting: Fair Static Standing: Fair Dynamic Standing: Fair THERA EX: Seated marches x 10 Assessment: Patient more alert and able to follow instructions during session. Fatigued easily after moving from bed to the bedside recliner. Appeared more stable during the short ambulation activity. Tolerated seated exercise after short walk. Plan of Care/Treatment Plan: 1-2x/day, 7 days/week x 1 week. Plan of care has been reviewed with the COMPUTER NETWORK AND SYSTEMS ENGINEER providing the service under Physical Therapy direction. Initiate Physical Therapy intervention for pain management as needed, strengthening, bed mobility, transfers, gait, stairs, balance training, and use of assistive device. DISCHARGE RECOMMENDATIONS: [] Home with no services [] [] Home with services [specify] [] Home with outpatient PT [] [] SNF for continued rehabilitation [] [] Management Analyst Care [] [] SNF versus LTC based on ability to participate and progress [] [X] SNF vs HH PT based on progress towards goals and on capability/availability of caregivers(s) TREATMENT CODE/TIME: 48908 x 23 minutes for 2 units (09:16?09:39).
--- NOTE | 2024-09-05 15:28 | W.PALPGNOTE ---
Date of service: 09/05/24 Time of Service: 15:37 Assessment and Plan Assessment and plan (1) Urothelial cancer: Status: Acute (2) Hydronephrosis, left: Status: Chronic (3) Anemia of chronic disease: Status: Chronic (4) DNR (do not resuscitate): Status: Acute (5) Dementia: Status: Chronic Qualifiers: Alzheimer's disease onset: other onset Dementia behavioral or psychological symptom: with anxiety Dementia severity: moderate Dementia type: Alzheimer's Qualified Code(s): G30.8 - Other Alzheimer's disease; F02.B4 - Dementia in other diseases classified elsewhere, moderate, with anxiety (6) Renal insufficiency: Status: Chronic (7) Palliative care encounter: Status: Acute (8) Cancer related pain: Status: Acute Assessment and plan: Mr. Macdonald is a 79-year-old gentleman with history of untreated urothelial cancer, dementia, COPD who is had significant decline in the last 6 months. Of note his bladder cancer is causing hydronephrosis and now a decline in overall renal function. This along with progressive weakness. He had been living alone with his (who no longer lives with him) coming in for several hours daily to help him with ADLs and IADLs. As per palliative care visit with Dr. Estrada last week, she is finally agreed to short-term subacute rehab stay with hope that he will get strong enough to return home. Pain: He has had periods of agitation. Suspect delirium. One of the factors in his delirium could be pain. Patient started on fentanyl patch 12 mcg recently.. Reportedly quite agitated started last evening. Looks like he received dose of both quetiapine and oxycodone 5 mg between 3 and 4 PM. Apparently needed a second dose of quetiapine later in the evening. However, did not receive any subsequent short acting pain medications. - Patient initially denied having pain when I spoke with him. But then reported having pain. There is no evidence of bone mets on CT scan reports but he does have a large tumor which is obstructing the left hydroureter. - Recommend the following: -Please consider pain as cause of agitation or delirium when exhibited by patient. - -Consider scheduling acetaminophen 650 mg or 1 g 3 times daily or similar dose every 6 hours as needed for mild to moderate pain - -Please use oxycodone 5 mg every 4-6 hours if he reports that he is having pain or if you are suspicious that pain is causing agitation. - If he is using oxycodone more than several times a day, fentanyl patch can be increased. - We plan to follow-up with him at subacute rehab to help with pain management. Goals of care and caregiver support: As previously reported by (and confirmed by PCP office), patient and have been consistently opposed to having in any additional help in the home. Additionally has mentioned to PCP on occasion that he will never be on hospice , related to a bad experience that had with a family member who was on hospice. Sounds like there has been a change in 's thoughts and she is agreeing to subacute rehab stay and even willing to accept home health after discharge from [facility]. Unfortunately, unable to reach her day of visit her following day by phone. Hopefully she will eventually return my phone calls. Palliative care team can offer additional support and engage in ongoing goals of care discussion with after discharge. Subjective Subjective Interval history since last seen: Domingo Macdonald is a 79 yo man with a history of untreated urothelial CA ( with L hydronephrosis and worsening kidney function), AD/EtOH-related dementia, anxiety, depression, hyperlipidemia, hypothyroidism. hx EtOH (mostly sober x a few years), smoker, COPD, recent adm community aquired multilobular PNA. Patient was admitted to [facility] earlier this month for treatment of community-acquired pneumonia. He and his insisted that he be discharged back to his home with home health support, although subacute rehab was strongly recommended due to his frailty. After 36 hours he was brought back to the emergency room because of increasing weakness and unable to manage on his own. He was readmitted with worsening hematuria, noted to have large hydronephrosis on the left. Met with Dr. Mojica of palliative care last week and decision was made to have him go to subacute rehab for strengthening and hopefully return home to resume living alone with several hours a day of support from his estranged with additional services from home health. Of note, during his earlier August 2024 admission, confirmation was made of a urothelial carcinoma using cytology. Although he was first identified as having a bladder mass 2 years ago, he had adamantly refused any further workup at that time. Please see previous palliative care notes, especially my earlier August note, regarding goals of care discussions and additional history. Multiple attempts to call and speak with by phone day of visit and following day with no response or return of messages. I will add an addendum if and when she calls me back. Exam Narrative Exam Narrative: Elderly gentleman sitting in recliner chair with feet elevated. He is alert. He is cooperative and interactive. Pale. He tells me he is in the hospital and [facility] but does not know what month or season it is. He cannot tell me why he is in the hospital. He does not know where he is going after he leaves the hospital. Initially denies pain. But then admits to having shoulder And neck pain and agrees that he would like some pain medicine for this. He is not agitated at this time Objective Last Vital Signs Temp 36.7 C 09/05/24 11:30 Pulse 57 L 09/05/24 11:30 Resp 20 09/05/24 11:30 BP 109/62 09/05/24 11:30 Pulse Ox 99 09/05/24 13:12 Laboratory Results - last 24 hr 09/05/24 08:20 WBC 11.78 H RBC 3.93 L Hgb 9.8 L Hct 32.2 L MCV 82 MCH 24.9 L MCHC 30.4 L RDW 16.9 H Plt Count 424 H MPV 9.8 Immature Gran % 1.8 Neutrophils % 76.1 Lymphocytes % 11.4 Monocytes % 8.5 Eosinophils % 1.8 Basophils % 0.4 Nucleated RBC % 0.0 Absolute Neutrophils 8.96 H Absolute Lymphocytes 1.34 Absolute Monocytes 1.00 H Absolute Eosinophils 0.21 Absolute Basophils 0.05 Sodium 145 Potassium 4.5 Chloride 107 Carbon Dioxide 33.3 H Anion Gap 4.7 BUN 31 H Creatinine 1.6 H Est GFR (CKD-EPI 2020) 43.56 Glucose 89 Calcium 8.3 L
[2024-09-05] MEDS: oxyCODONE 5 MG TAB PO ×2 (15:30→20:10)
[2024-09-05] MEDS: Milk of Magnesia 30 ML CUP PO (15:30)
[2024-09-05] MEDS: Polyethylene Glycol 3350 17 GM PACKET PO (15:30)
[2024-09-05] MEDS: Docusate Sodium 100 MG CAP PO ×2 (15:30→20:10)
--- NOTE | 2024-09-05 17:26 | PGE_ITS ---
Date of Service Date of service: 09/05/24 Time of Service: 17:26 Assessment and Plan Assessment and plan (1) Hypotension: Status: Acute Assessment and plan: With reports of dizziness but not found to be orthostatic. His atenolol has been discontinued apparently he has not been on atenolol for some time secondary to complaints of dizziness. Citalopram discontinued and started on escitalopram Consider decreasing dose of mirtazapine (2) Hospital-acquired bacterial pneumonia: Status: Ruled-out Assessment and plan: - Readmitted 08/29 after discharge 08/24. Questionable infiltrate on imaging, but with recent hospitalizations and leukocytosis was treated with vancomycin and cefepime. - Acute on chronic respiratory failure with hypoxia normalized to baseline -had been treating with vanc and cefepime, stopped 08/31 after 2 days, clinically stable since then. Most consistent with aspiration event. -reimage if respiratory status worsening again. (3) VRE (vancomycin resistant enterococcus) culture positive: Status: Acute Assessment and plan: - Patient was noted to be culture positive for VRE with greater than 100,000 colony-forming units on 08/26/2024 in the emergency department when she was discharged on azithromycin -Despite his urinealysis on readmission on 08/29/2024 showing significant RBCs, negative nitrite and leuk esterase, urine culture was sent and was again positive for VRE entero-, though with 50-100,000 colony-forming units -This is constisten with colonization, as he has not had any urinary symptoms, fever or significant leukocytosis -Continue without treatment but continue contact precautions (4) Acute on chronic respiratory failure: Status: Acute Assessment and plan: -patient qualified for home O2 prior to admission but he was not using it because he continued to smoke -likely acute on chronic due metastatic diseases -had required up to 3L NC, but has been onto RA during day, follow Qualifiers: Respiratory failure complication: hypoxia and hypercapnia Qualified Code(s): J96.21 - Acute and chronic respiratory failure with hypoxia; J96.22 - Acute and chronic respiratory failure with hypercapnia (5) Frequent falls: Status: Chronic Assessment and plan: -Social situation is poor patient needs to be placed for level to care; see Palliative note for further details -He will need placement in SNF, is now willing. (6) Dementia: Status: Chronic Assessment and plan: -Not function well at home alone, see palliative consult. Qualifiers: Dementia type: Alzheimer's Alzheimer's disease onset: other onset Dementia severity: moderate Dementia behavioral or psychological symptom: with anxiety Qualified Code(s): G30.8 - Other Alzheimer's disease; F02.B4 - Dementia in other diseases classified elsewhere, moderate, with anxiety (7) Hydronephrosis, left: Status: Chronic Assessment and plan: -Progressive with large bladder tumor not resectable with patient not being a surgical candidate. -Follow renal function with labs tomorrow Continue indwelling Lomeli catheter (8) Bladder cancer: Status: Chronic Assessment and plan: -High-grade urothelial carcinoma obstructing left ureter causing hydronephrosis. He has declined surgical intervention. 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 This has been stable (10) Ulcer (traumatic) of oral mucosa: Status: Acute Assessment and plan: [place] possible condyloma dio, but tender and negative RPR, more c/w aphthous ulcer, possible traumatic trigger with broken teeth. Symptomatic care. (11) Cancer related pain: Status: Acute Assessment and plan: -Palliative Care discussed with Patients who has stated that she is interested in pursuing transition to outpatient Hospice Care -however, on follow-up palliative visit on 09/01/2024, was determined that the patient is actually an improvement in his pain and is willing to work with physical therapy and consider subacute rehab placement -Will continue fentanyl pach 12.5mcg with prn oral opioid, wait to titrate patch (12) Discharge planning issues: Status: Acute Assessment and plan: Anticipated discharge to rehabilitation tomorrow if he remains medically stable Case discussed with Dr. Day Subjective Subjective Interval history since last seen: Reported dizziness this morning and found to be hypotensive with a systolic blood pressure in the 90s and then when rechecked by manual it was 82. His atenolol was placed on hold and blood pressure improved now with a systolic in the 1 teens. He has been eating and drinking Lomeli maintained to gravity drainage. Voicing no new complaints. Exam Narrative Exam Narrative: Frail elderly male of stated age in no acute distress head is atraumatic eyes nonicteric noninjected oral mucosas slightly dry neck supple full range of motion respirations even and unlabored skin is pink warm dry well-perfused. Neurologic he is awake alert unable to provide much history. Moves all extremities no focal deficits no peripheral edema appropriate mood and affect Objective Last Vital Signs Temp 37.3 C 09/05/24 15:30 Pulse 60 09/05/24 15:30 Resp 20 09/05/24 11:30 BP 118/58 L 09/05/24 15:37 Pulse Ox 95 09/05/24 15:30 Laboratory Results - last 24 hr 09/05/24 08:20 WBC 11.78 H RBC 3.93 L Hgb 9.8 L Hct 32.2 L MCV 82 MCH 24.9 L MCHC 30.4 L RDW 16.9 H Plt Count 424 H MPV 9.8 Immature Gran % 1.8 Neutrophils % 76.1 Lymphocytes % 11.4 Monocytes % 8.5 Eosinophils % 1.8 Basophils % 0.4 Nucleated RBC % 0.0 Absolute Neutrophils 8.96 H Absolute Lymphocytes 1.34 Absolute Monocytes 1.00 H Absolute Eosinophils 0.21 Absolute Basophils 0.05 Sodium 145 Potassium 4.5 Chloride 107 Carbon Dioxide 33.3 H Anion Gap 4.7 BUN 31 H Creatinine 1.6 H Est GFR (CKD-EPI 2020) 43.56 Glucose 89 Calcium 8.3 L Time Spent with Patient Time Spent with Patient: 25-34 minutes Time was spent: preparing to see the patient(eg.review tests), obtaining and/or reviewing separately otained hiistory, ordering medications,tests, procedures, indepentently interpreting results and counseling the patient
[2024-09-05] MEDS: Bisacodyl 10 MG SUPP PR (18:06)
[2024-09-05] MEDS: traZODone 50 MG TAB 100 MG PO (20:09)
[2024-09-05] MEDS: Magnesium Chloride 64 MG TABCR PO (20:09)
[2024-09-05] MEDS: Lidocaine 2% Viscous 15 ML CUP 3 ML PO (20:09)
[2024-09-05] MEDS: QUEtiapine 25 MG TAB PO (20:09)
[2024-09-05] MEDS: Melatonin 3 MG TAB PO (20:10)
[2024-09-05] MEDS: Mirtazapine 15 MG TAB 45 MG PO (20:10)
[2024-09-05] MEDS: Enoxaparin 30 MG/0.3 ML SYR SC (21:30)
[2024-09-06 03:56] VITALS: BP 112/64; PULSE 64; RESP 18; TEMP 37.1; O2SAT 95
[2024-09-06] MEDS: Levothyroxine 100 MCG TAB PO (05:59)
[2024-09-06] MEDS: Tiotropium/Olodaterol 10 PUFF INHALER 2 PUFF IH (07:52)
[2024-09-06] MEDS: Ipratropium/Albuterol 4 GM 120 PUFF INH IH ×2 (07:52→11:01)
[2024-09-06 07:57] VITALS: O2SAT 92
[2024-09-06 08:20] VITALS: BP 116/62; PULSE 82; RESP 24; TEMP 37.2; O2SAT 96
[2024-09-06] MEDS: Aspirin 81 MG CHEW PO (08:42)
[2024-09-06] MEDS: Escitalopram 10 MG TAB PO (08:42)
[2024-09-06] MEDS: Pantoprazole 40 MG TABCR PO (08:42)
[2024-09-06] MEDS: Multivitamin w/Minerals TAB 1 TAB PO (08:42)
[2024-09-06] MEDS: Acetaminophen 325 MG TAB 650 MG PO (08:42)
[2024-09-06] MEDS: Ferrous Sulfate 325 MG TAB PO (08:43)
[2024-09-06] MEDS: Thiamine 100 MG TAB PO (08:43)
[2024-09-06] MEDS: fentaNYL 12 MCG PATCH TD (09:12)
[2024-09-06] MEDS: Nicotine 14 MG/24 HR PATCH TD (09:13)
[2024-09-06 09:30] VITALS: RESP 18
--- NOTE | 2024-09-06 10:17 | PT.INTREAT ---
PT Notes Visit Reasons: acute respira failure, hospital acquired pneumonia Physical Therapy Inpatient Treatment Note Date: 09/06/2024 Precautions: Fall. Standard. Activity as tolerated. Hearing impaired. Subjective: Agreeable to walking with PT with encouragement by Pt Constanza Lane. Objective: General Observation: IV through L UE. Redness on the R hand and wrist. Mental Status: Alert. Able to follow requests and faster to respond to questions. Short-term memory remains impaired. Pain: None reported Vital Signs: Closely monitored by nursing staff Bed Mobility/Transfers: Modearte cueing provided for use of B hands as needed for support, movement sequence, AD management, and posture to reduce fall risk and minimize pain report Sit to stand contact guard assist with FWW Stand to sit contact guard assist with FWW Bed to reclining chair contact guard assist with FWW Reclining chair to bed contact guard assist with FWW Gait: Facilitated safe performance of in room ambulation of about 60 feet using front wheeled walker with minimal assist and moderate verbal cueing for AD management, directional changes, obstacle negotiation, and posture to minimize fall risk and decrease pain report. Step height and length asymmetric and decreased. No loss of balance. Unable to safely negotiate obstacles due to pre-existing visual impairment. Denied lightheadedness. Complained of fatigue after activity. Balance: Static Sitting: Normal Dynamic Sitting: Fair Static Standing: Fair Dynamic Standing: Fair Assessment: Patient more alert and able to follow instructions during session. Fatigued easily after moving from bed to the bedside recliner. Appeared more stable during the short ambulation activity. Tolerated seated exercise after short walk. DISCHARGE RECOMMENDATIONS: [] Home with no services [] [] Home with services [specify] [] Home with outpatient PT [] [] SNF for continued rehabilitation [] [] Intermediate Care [] [] SNF versus LTC based on ability to participate and progress [] [X] SNF vs HH PT based on progress towards goals and on capability/availability of caregivers(s) TREATMENT CODE/TIME: 51593 x 20 minutes for 1 unit (10:17?10:37).
--- NOTE | 2024-09-06 10:24 | DSE_ITS ---
Date of service: 09/06/24 Time of Service: 10:25 DS: Diagnosis Discharge Diagnosis (1) Urothelial cancer: Status: Acute (2) Hydronephrosis, left: Status: Chronic (3) Anemia of chronic disease: Status: Chronic (4) DNR (do not resuscitate): Status: Acute (5) Dementia: Status: Chronic (6) Renal insufficiency: Status: Chronic (7) Palliative care encounter: Status: Acute (8) Cancer related pain: Status: Acute Discharge Plan Disposition [facility] Disposition[facility] Condition: Fair Discharge Details Reason For Visit: acute respira failure, hospital acquired pneumonia Admit Date/Time: 08/29/24 20:37 Admit Provider: Luis Manuel Kelly Attending Provider: Luis Manuel Kelly Primary Care Provider: Lily Soares [facility] Course Hospital Course: 79 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 He presented with increased confusion after falling at home and found to have a new pulmonary infiltrate and worse hypoxia. He had a history of chronic hypoxia and qualified for home oxygen but was not using it due to continued smoking. He was admitted and treated with vancomycin and cefepime for hospital acquired pneumonia. This was stopped after two days as he had returned to his baseline respiratory status. He likely had an aspiration event rather than pneumonia. He also may have lung metastases contributing to his hypoxia. His respiratory status remained stable during his admission, off/on oxygen and some wheezing. He was started on stiolto as a controller inhaler He has a bladder tumor that is not resectable and he has declined treatment. Hydronephrosis was noted on the left on this admission. He has an indwelling moore catheter. He does have a previous urine culture 08/26 positive for VRE, which was still present on 08/29 culture. However he denied any urinary sympto ms and WBC trending down off antibiotics, so this was felt to be colonization. Contact precautions were maintained. He has known ulcer on the left side of his tongue, but this was not bothering hi m this admission, which is an improvement. It is likely a traumatic or aphthous ulcer. He had some blood pressures in the lower range of normal with some orthostasis. Atenolol was stopped. His ex-, who is his medical caregiver though they don't live together, informed the team he was not actually taking the atenolol at home. His citalopram 40mg was too high for his GFR. It was changed to escitalopram 10mg as there is some risk of orthostasis at higher doses. His mood was good, though if his mood declines this could be increased to 20mg. His dementia was stable, though he did have some increased confusion in the evening hours that was managed behaviorally. He did report some pain, and was seen by palliative care who recommended fentanyl patch and PRN oxycodone along with acetaminophen if the pain seems to be causing agitation. This did help his behavior significantly. Palliative will follow the patient after discharge. His anemia was stable with hemoglobins around 9s-10s. His renal function was stable with GFR around 45, stage 3 a-b CKD. He was given nicotene patch for nicotene withdrawal. He was evaluated and worked regularly with physical therapy with some improvement in mobility. Ongoing physical therapy at alf facility is recommended. Home Meds and New Rx's Prescriptions: New ipratropium-albuterol 0.5 mg-3 mg(2.5 mg base)/3 mL Solution For Nebulization 3 ml UPD Q6H PRN PRNQty: 30 0RF polyethylene glycol 3350 17 gram Powder In Packet 17 g PO DAILY PRN PRN (Reason: Constipation) Qty: 1 0RF docusate sodium [Colace] 100 mg Capsule 100 mg PO TID PRN PRNQty: 90 0RF lidocaine HCl 2 % Solution 3 ml PO Q1H PRN PRN (Reason: tongue pain) Qty: 100 0RF oxycodone 5 mg Tablet 5 mg PO Q4H PRN PRNQty: 30 0RF escitalopram oxalate 10 mg Tablet 10 mg PO DAILY Qty: 90 0RF fentanyl 12 mcg/hr Patch 72 Hour 12 mcg transdermal Q72H Qty: 10 0RF Stiolto Respimat 2.5-2.5 mcg/actuation Mist 2 puff inhalation DAILY Qty: 1 2RF Continued trazodone 50 mg tablet 100 mg PO HS melatonin 3 mg tablet 3 mg PO HS Patient Comments: Per will increase to 6 mg qd next week. mirtazapine 45 mg tablet 45 mg PO QHS aspirin 81 MG tablet,chewable 81 mg PO DAILY nicotine 1 EACH patch 24 hour 14 mg Transdermal DAILY Slow-Mag 71.5 mg tablet,delayed release (DR/EC) 71.5 mg PO QHS levothyroxine 125 MCG tablet 100 mcg PO DAILY@0730 Patient Comments: 02/08/18 PER SON 100 MCG DAILY. Centrum Silver 1 EACH tablet 1 ea PO DAILY pantoprazole 40 MG tablet,delayed release (DR/EC) 40 mg PO DAILY Qty: 30 5RF lidocaine [Lidoderm] 5 % adhesive patch,medicated 1 patch topical DAILY Qty: 15 0RF Rx Instructions: leave on most painful area for up to 12 hrs thiamine mononitrate (vit B1) [Vitamin B-1 (mononitrate)] 100 mg Tablet 100 mg PO DAILY Qty: 14 0RF quetiapine 25 mg Tablet 25 mg PO BID PRN PRNQty: 28 0RF ferrous sulfate 325 mg (65 mg iron) Tablet 325 mg PO DAILY 30 Days Qty: 30 1RF albuterol sulfate 90 mcg/actuation aerosol powdr breath activated 2 inh inhalation Q6H PRN (Reason: shortness of breath) Qty: 1 0RF Combivent Respimat 20-100 mcg/actuation mist 1 puff inhalation Q6H Qty: 4 0RF Discontinued citalopram 40 MG tablet 40 mg PO DAILY albuterol sulfate 90 mcg/actuation HFA aerosol inhaler 2 puff INHALATION Q6H Patient Comments: INHALE TWO PUFFS EVERY 6 HOURS NEEDED FOR SHORTNESS OF BREATH atenolol 25 mg tablet 12.5 mg PO DAILY Patient Comments: Take 1/2 tablet by mouth every day azithromycin 250 mg tablet 250 mg PO DAILY 6 Days Qty: 6 0RF Rx Instructions: start on day 2 of therapy No Action acetaminophen [Tylenol 8 Hour] 650 mg tablet extended release 650 mg PO Q12H prednisone 20 mg Tablet 40 mg PO DAILY Qty: 10 0RF Discharge Instructions Referrals: Lizet Morris MD [ [facility] STAFF PHYSICIAN] - (follow up from [facility]) Activity:: Activity as Tolerated Equipment/Supplies:: Walker Diet:: As Tolerated DS: Summary Time Spent with Patient providing and/or coordinating discharge services: Greater than 30 minutes Status at Discharge Functional status at discharge: uses cane/walker Overall status at discharge: patient is back to baseline Mental Status: mental status grossly normal and other (chronic dementia) Speech and Movement: speech and movement normal Mood: congruent mood and other (chronic dementia) Affect: normal affect Quality:SDOH Health Related Social Needs: Health related social needs problem related to primary support group(Z63.9) Exam Narrative Exam Narrative: Older gentleman sitting up eating with feeding/prompting, no acute distress, awake, alert, oriented to person and place, heart regular rhythm, lungs clear with good air movement but diffuse rhonchi, abdomen soft, nontender, nondistended, extremities without tenderness or edema. Poor memory, normal speech, normal affect. Psych Mental Status: mental status grossly normal and other (chronic dementia) Speech and Movement: speech and movement normal Mood: congruent mood and other (chronic dementia) Affect: normal affect DS: Data Vitals/I&O Vitals and I&O: Vital Signs Temperature 37.2 C 09/06/24 08:20 Temperature Source Temporal Artery Scan 09/06/24 08:20 Pulse 82 09/06/24 08:20 Pulse Rhythm Regular 08/29/24 22:50 Respiratory Rate 18 09/06/24 09:30 Respiratory Effort Non-Labored 08/29/24 22:50 Respiratory Depth Normal 08/29/24 16:35 Respiratory Pattern Normal 08/29/24 16:35 Blood Pressure 116/62 09/06/24 08:20 Pulse Oximetry 96 09/06/24 08:20 Oxygen Delivery Method Nasal Cannula 09/06/24 08:20 Oxygen Flow Rate 1 09/06/24 08:20 Pain Level 0 09/05/24 22:58 Comment Noted tachypnea when interacting with others, associated with anxiety 09/06/24 09:30 Intake & Output 09/05/24 09/05/24 09/06/24 11:59 23:59 11:59 Intake Total 100 / 100 Balance 100 / 100 Weight 59.194 kg 58.513 kg Intake: Oral 100 / 100 Other: Urine Color Yellow Yellow Urine Odor Normal None Comment Minimal amount in brief. patient is incontinent, he was changed at this time. Stool Size Large Stool Characteristics Formed Green PFSH All Active Problems (Updated 09/05/24 @ 17:31 by Tequila Flores NP) Discharge planning issues (Acute) Renal insufficiency (Chronic) Urothelial cancer (Acute) Palliative care encounter (Acute) VRE (vancomycin resistant enterococcus) culture positive (Acute) Hypoalbuminemia due to protein-calorie malnutrition (Acute) and likely related to cancer Frailty syndrome in geriatric patient (Acute) Cancer related pain (Acute) Encounter for hospice care discussion (Acute) Goals of care, counseling/discussion (Acute) Impaired mobility and ADLs (Acute) Alcoholic dementia (Acute) Ulcer (traumatic) of oral mucosa (Acute) Bladder cancer (Chronic) high grade urothelial carcinoma; cytology 08/22/24 Frequent falls (Chronic) Hydronephrosis, left (Chronic) Anemia of chronic disease (Chronic) related to bladder cancer Acute on chronic respiratory failure (Acute) Diarrhea (Acute) Iron deficiency (Acute) Microcytic anemia (Acute) DNR (do not resuscitate) (Acute) 2023 COLST: Completed with PCP Manuela Soares NP: /DNI, +Comfort Focused treatment, No IV fluids, No hydration, no artificial nutrition. Community acquired pneumonia (Acute) Acute kidney injury (Acute) Tongue lesion (Acute) HTN (hypertension) (Chronic) Dementia (Chronic) Hematuria (Acute) Hypoxic respiratory failure (Acute) Multiple closed fractures of ribs of right side (Acute) Malaise and fatigue (Acute) Cavitary lesion of lung (Acute) Alzheimer disease (Chronic) Elevated liver function tests (Acute) Bladder mass (Chronic) Generalized weakness (Acute) Confusion (Acute) Hyperbilirubinemia (Acute) Transaminitis (Acute) Short-term memory loss (Acute) Physical deconditioning (Acute) nutrition (Acute) Hypokalemia (Acute) Fluid volume excess (Acute) Perforated duodenal ulcer (Acute) Bradycardia (Acute) Hypotension (Acute) Pneumoperitoneum (Acute) Memory disturbance (Chronic) Periodic limb movement disorder (Chronic) On benzodiazepines. Hyperlipidemia (Chronic) Hypothyroidism (Chronic) On satins. Anxiety and depression (Chronic) Agitation (Acute 07/31/13) Anxiety (Acute 07/31/13) Upper gastrointestinal bleed (Acute 07/31/13) With melena and drop in hemoglobin Medical History (Updated 09/05/24 @ 17:31 by Tequila Flores NP) Tubular adenoma of colon (05/03/17) high risk adenoma Duodenal ulcer perforation Advanced care planning/counseling discussion Acute on chronic respiratory failure with hypoxia and hypercapnia Renal cyst, left Alcohol abuse Peptic ulcer Duodenal perforation Insomnia Cough Shortness of breath Cavitating mass in left lower lung lobe Right shoulder pain Palliative care patient Colon polyp Perforated duodenal ulcer History of alcohol abuse Tobacco abuse Osteoarthritis Hypothyroidism Hyperlipidemia Diverticulitis Depression Anxiety Neurocardiogenic syncope Surgical History Laparotomy (09/10/16) with duodenal ulcer repair Kidney EGD - MAC (05/03/17) Colonoscopy - MAC (03/11/18) Colonoscopy - MAC (05/03/17) Family History Mother Dementia Father Heart disease Social History (Updated 08/31/24 @ 19:38 by Kayleigh Estrada MD) Smoking/Tobacco Use Status: Current every day Tobacco Type: cigarettes Quit status: not considering quitting Smoking risk assessment performed?: Yes Alcohol Intake: former Drug use: Never Substance use type: does not use Caregiver/Support person: Yes Household members: none and other Details: from who lives nearby and provides significant daily care Housing: house Number of Children: 2 Communication Needs: Hard of Hearing Do you need help understanding health information?: Always Current gender identity: male What is your relationship status?: How often do you talk on the phone with friends or family?: once per week How often do you get together with friends or relatives?: three or more times per week Panel score (0-1 are the most socially isolated patients): 1 What type of physical activity do you participate in: none and sedentary lifestyle Special juan needs: No Agree to transfusion: No Do you feel safe at home: Yes Do you feel safe in your relationship?: Yes Additional Social history: Lives alone in family home. Felicia moved out 10 years ago (2013) but still cares for Reji daily, providing personal care, meal prep, med management, housekeeping, shopping, etc. She is clear that she cannot move back in to care for him due to her own h/o trauma. He said he is willing to go to community longterm once he needs overnight help. Time Spent with Patient Time Spent with Patient: 45-69 minutes Time was spent: preparing to see the patient(eg.review tests), obtaining and/or reviewing separately otained hiistory, ordering medications,tests, procedures, referring, communicating with other health before and after school daycare worker, indepentently interpreting results, counseling the patient and care coordination
[2024-09-06 11:20] VITALS: BP 103/60; PULSE 55; RESP 20; TEMP 37.1; O2SAT 95
--- NOTE | 2024-09-06 11:49 | PDOC.CMDIS ---
Date of service: 09/06/24 Time of Service: 11:49 LACE Index Scoring Tool Questions: Length of Stay (in days): 7 - 13 Was the patient admitted via the E.D.?: Yes Comorbidities: Dementia and Metastatic Solid Tumor E.D. Visits: 2 Answers: Total Score: 15 Risk of Readmission: High Risk Care Management Discharge Plan Reason for Hospitalization: Acute on chronic respiratory failure Discharge Plan: Domingo was transferred to [facility] today for short term rehab. CM called and informed his , Kathryn, who will meet him at the facility after admission today. He transported via facility w/c van, coordinated by CM. He will follow up with his PCP and discharge plan of care. Patient/Family Education Needs: Review discharge instructions and limitations, discussion of self care needs including ask me three and goals of care. Services Needed at Discharge: Assisted Facility ([facility]) and Transportation (facility w/c van) SDOH Health Related Social Needs: Health related social needs problem related to primary support group(Z63.9)
--- NOTE | 2024-09-06 12:10 | NUR.NOTE ---
Nursing Note: Report was given to [facility] nurse for pending transfer. All questions answered. Invited the nurse to call this RN back if needed.
== END 2024-09-06 13:27 | disposition skilled nursing facility (03) | DRG 189 ==
LOC: ER 20:50 → MS 23:02
PROVIDERS: Family Medicine; Admitting Provider Family Medicine; Emergency Provider Physician Assistant; PCP Nurse Practitioner Family; Visit Provider Family Medicine
DX: J96.21 Acute and chronic respiratory failure with hypoxia (principal); F02.B4 Dementia in other diseases classified elsewhere, moderate, with anxiety; N13.30 Unspecified hydronephrosis; E46 Unspecified protein-calorie malnutrition; Z68.1 Body mass index [BMI] 19.9 or less, adult; C78.00 Secondary malignant neoplasm of unspecified lung; Z16.22 Resistance to vancomycin related antibiotics; T17.908A Unspecified foreign body in respiratory tract, part unspecified causing other injury, initial encounter; W44.9XXA Unspecified foreign body entering into or through a natural orifice, initial encounter; J96.22 Acute and chronic respiratory failure with hypercapnia; R29.6 Repeated falls; Y95 Nosocomial condition; G30.9 Alzheimer's disease, unspecified; C67.6 Malignant neoplasm of ureteric orifice; Z66 Do not resuscitate; R19.7 Diarrhea, unspecified; Z74.09 Other reduced mobility; G89.3 Neoplasm related pain (acute) (chronic); R54 Age-related physical debility; K14.8 Other diseases of tongue; R31.0 Gross hematuria; I95.9 Hypotension, unspecified; N28.89 Other specified disorders of kidney and ureter; Z51.5 Encounter for palliative care; Z79.51 Long term (current) use of inhaled steroids; Z79.52 Long term (current) use of systemic steroids; F17.210 Nicotine dependence, cigarettes, uncomplicated; W19.XXXA Unspecified fall, initial encounter; R41.0 Disorientation, unspecified; D50.9 Iron deficiency anemia, unspecified; N28.1 Cyst of kidney, acquired; I10 Essential (primary) hypertension; R91.8 Other nonspecific abnormal finding of lung field; R74.01 Elevation of levels of liver transaminase levels; F41.8 Other specified anxiety disorders; E03.9 Hypothyroidism, unspecified; E78.5 Hyperlipidemia, unspecified; G47.61 Periodic limb movement disorder; R41.3 Other amnesia; K12.0 Recurrent oral aphthae; R42 Dizziness and giddiness; F10.97 Alcohol use, unspecified with alcohol-induced persisting dementia; J44.9 Chronic obstructive pulmonary disease, unspecified
CPT/HCPCS: 00123; 36415; 71275; 74177; 80048; 80053; 82805; 83690; 84145; 85027; 85652; 87040; 87077; 87637; 93005; 94640; 96365; 97162; 97530; 99285; J1650; 70450; 72125; 80202; 81003; 81015; 83605; 83735; 83880; 84439; 84443; 84484; 85025; 86140; 87086; 87186; 93010; 94664; 94667; 94668; 94760; 99223; 99231; 99232; 99233; 99239; J0692; J3370; J3372; J3490; J7620

== ENCOUNTER 2024-09-09 15:15 | Emergency (ER) | payer MEDICARE, SELFPAY ==
[2024-09-09] VITALS (12 sets, daily range): BP systolic 132–137; BP diastolic 59–77; PULSE 59–87; RESP 16–19; TEMP 36.2; O2SAT 85–97
--- NOTE | 2024-09-09 15:15 | DI.CT_ITS ---
Exam(s) CT HEAD WO EXAM: CT HEAD WO CLINICAL HISTORY: History of fall. TECHNIQUE: Imaging Protocol: Axial computed tomography images with coronal and sagittal reformatted images were created and reviewed COMPARISON: CT CT HEAD CERVICAL SPINE WO from 08/29/2024 FINDINGS: The examination is limited due to patient motion artifact. Ventricles and Extra axial spaces: Normal in size and morphology for the patient's age. Hemorrhage: None. Cerebral parenchyma: There again seen areas of encephalomalacia involving the left parietal lobe in t he left temporal lobe. No evidence of an acute territorial infarct. No acute mass effect. Midline shift: None. Brainstem/Cerebellum: Normal. Calvarium: Normal. Visualized Paranasal sinuses/Mastoids: Clear. Soft Tissues: Unremarkable. IMPRESSION: No acute intracranial process. RADIATION DOSE DELIVERED: 793.09mGy.cm Total DLP DATA REPOSITORY: All CT scans at this facility are submitted to the National Radiology Data Registry (NRDR) Dose Index Registry (DIR) with the [employer] (A[employer]). RADIATION OPTIMIZATION: All CT scans at this facility use at least one of these dose optimization te chniques: automated exposure control; mA and/or kV adjustment per patient size (includes targeted exa ms where dose is matched to clinical indication); or iterative reconstruction.
--- NOTE | 2024-09-09 15:15 | DI.RAD_ITS ---
Exam(s) XR SHOULDER RT COMPLETE 2+V XR HUMERUS RT EXAM: XR SHOULDER RT COMPLETE 2+V and XR humerus RT CLINICAL HISTORY: Right shoulder pain. TECHNIQUE: 2D digital imaging was performed of the right humerus and shoulder. Six images were obta ined. AP, Grashey, lateral and Y views were obtained. COMPARISON: CR XR PORTABLE CHEST AP from 08/21/2024 FINDINGS: BONES: No acute fracture is present. No bony destructive lesion is seen. JOINTS: No dislocation present. The acromioclavicular and glenohumeral joints are intact. SOFT TISSUE: Normal. IMPRESSION: No acute fracture or dislocation. DATA REPOSITORY: RADIATION DOSE DELIVERED:
--- NOTE | 2024-09-09 15:30 | DI.RAD_ITS ---
Exam(s) XR CHEST 1V IN DI DEPT EXAM: XR CHEST 1V IN DI DEPT CLINICAL HISTORY: Fall TECHNIQUE: 2D digital imaging was performed of the chest. One image was obtained. An AP view was ob tained. COMPARISON: CR,XR XR PORTABLE CHEST AP from 08/26/[address] CHEST PE ABD PELVIS W from 08/29/2024 FINDINGS: MEDIASTINUM: Normal. HEART: Normal. PULMONARY VASCULATURE: Normal. LUNGS: No focal consolidating infiltrates. PLEURAL SPACE: No pleural effusion or pneumothorax. BONE:Within normal limits for the patient's age. There are old healed left rib fracture deformities. OTHER FINDINGS:Normal. IMPRESSION: No acute pulmonary findings. DATA REPOSITORY: RADIATION DOSE DELIVERED:
--- NOTE | 2024-09-09 15:30 | W.ED.GENAD ---
Discharge Plan Disposition Patient Disposition: Home Discharge Details Clinical Impression: Pain of right humerus, Hx of falling Primary Care Provider: Lily Soares ED Provider: Chris Arredondo [place] Meds and New Rx's Prescriptions: Continued trazodone 50 mg tablet 100 mg PO HS melatonin 3 mg tablet 3 mg PO HS Patient Comments: Per will increase to 6 mg qd next week. mirtazapine 45 mg tablet 45 mg PO QHS aspirin 81 MG tablet,chewable 81 mg PO DAILY nicotine 1 EACH patch 24 hour 14 mg Transdermal DAILY Slow-Mag 71.5 mg tablet,delayed release (DR/EC) 71.5 mg PO QHS acetaminophen [Tylenol 8 Hour] 650 mg tablet extended release 650 mg PO Q12H levothyroxine 125 MCG tablet 100 mcg PO DAILY@0730 Patient Comments: 02/08/18 PER SON 100 MCG DAILY. Centrum Silver 1 EACH tablet 1 ea PO DAILY pantoprazole 40 MG tablet,delayed release (DR/EC) 40 mg PO DAILY Qty: 30 5RF lidocaine [Lidoderm] 5 % adhesive patch,medicated 1 patch topical DAILY Qty: 15 0RF Rx Instructions: leave on most painful area for up to 12 hrs ipratropium-albuterol 0.5 mg-3 mg(2.5 mg base)/3 mL Solution For Nebulization 3 ml UPD Q6H PRN PRNQty: 30 0RF polyethylene glycol 3350 17 gram Powder In Packet 17 g PO DAILY PRN PRN (Reason: Constipation) Qty: 1 0RF docusate sodium [Colace] 100 mg Capsule 100 mg PO TID PRN PRNQty: 90 0RF lidocaine HCl 2 % Solution 3 ml PO Q1H PRN PRN (Reason: tongue pain) Qty: 100 0RF oxycodone 5 mg Tablet 5 mg PO Q4H PRN PRNQty: 30 0RF escitalopram oxalate 10 mg Tablet 10 mg PO DAILY Qty: 90 0RF fentanyl 12 mcg/hr Patch 72 Hour 12 mcg transdermal Q72H Qty: 10 0RF Stiolto Respimat 2.5-2.5 mcg/actuation Mist 2 puff inhalation DAILY Qty: 1 2RF thiamine mononitrate (vit B1) [Vitamin B-1 (mononitrate)] 100 mg Tablet 100 mg PO DAILY Qty: 14 0RF quetiapine 25 mg Tablet 25 mg PO BID PRN PRNQty: 28 0RF prednisone 20 mg Tablet 40 mg PO DAILY Qty: 10 0RF ferrous sulfate 325 mg (65 mg iron) Tablet 325 mg PO DAILY 30 Days Qty: 30 1RF albuterol sulfate 90 mcg/actuation aerosol powdr breath activated 2 inh inhalation Q6H PRN (Reason: shortness of breath) Qty: 1 0RF Combivent Respimat 20-100 mcg/actuation mist 1 puff inhalation Q6H Qty: 4 0RF Discharge Instructions Additional Instructions: You are seen in the emergency department for your fall. Your x-ray showed no sign of any fractures. There is no sign of any bleeding in your head. Please continue taking your regular medications as previously prescribed. If you pass out or if you strike your head and lose consciousness please return to the emergency department. Discharge Data Discharge Date/Time-TO BE ENTERED AT DEPARTURE: 09/09/24 17:15 HPI General Date/Time Provider Initiated Documentation: 09/09/24 15:22. HPI Narrative: MDM This is a thuaz-oepn-bdslwziq afebrile and not tachycardic 79-year-old male with baseline reported confusion with right proximal humerus tenderness concerning for the possibility of fracture versus contusion for which patient will undergo x-rays. Will also obtain CT head given reported fall. Given clear lungs bilaterally my suspicion is low for pneumothorax however will obtain chest x-ray given fall. No pain or proportion to suggest necrotizing soft tissue infection. No preceding syncope to suggest benefit from ECG nor lab work. No reported change in mental status to suggest acute UTI and no fevers so I did not order a urinalysis. Given no vomiting my suspicion was low for any acute electrolyte abnormality so I did not feel that the patient required assessment of his electrolytes. He had no tenderness to his back and no tenderness to bilateral lower extremities nor his left arm so I did not feel he required additional imaging. Will reassess following x-rays and CT. 4:[address] head with no acute intracranial process. CT chest with no active disease in chest. Right humerus with no acute fracture. Right shoulder without fracture. I updated the patient on his reassuring imaging. He is already has. Acetaminophen ordered. I advised ED return for syncope and worsening pain. He was discharged [facility] via EMS. HPI This is a 79-year-old DNI DNR male coming from local rehab facility with history of confusion with reported fall. Unable to obtain history from patient's secondary to confusion. He reportedly slipped out of bed did not lose consciousness had no preceding syncope. He reportedly complained of right shoulder pain. He reports that he has had this pain for the past several weeks. Exam General: Elderly-appearing in no acute distress speaking in complete sentences. Head: Normocephalic, atraumatic. Eye:[Pupils equal, round reactive to light.] Extraocular eye movements intact. No conjunctival injection. No scleral icterus. Ear, nose, mouth, throat: Grossly normal inspection. Normal voice, handling secretions normally. Neck: Trachea midline. No cervical spinal tenderness. Cardiovascular: Well-perfused distal extremities. Regular rate and rhythm Respiratory: Nonlabored respiration. Clear lungs bilaterally Gastrointestinal: Nondistended abdomen. Back: No midline thoracic spinal tenderness. No lumbar spinal tenderness. No step-offs. No deformities. Stage I sacral decubitus ulcer. Musculoskeletal: Right upper extremity with tenderness right proximal humerus. No lacerations. No ecchymoses. No distal humeral tenderness on right. Full range of motion in right elbow. No wrist tenderness. No hand tenderness. Left upper extremity nontender full range of motion. On the lateral aspect of the left upper extremity at the elbow there is a healing skin tear under a Mepilex dressing. Skin tear measures approximately 1 cm in length. Bilateral lower extremities nontender full range of motion. Pelvis stable. Skin: Normal for age and race, grossly normal temperature and turgor. No acute rash. Neurologic: Alert to person but neither place nor time. Related Data Home Medications ?Medication ?Instructions ?Recorded ?Confirmed levothyroxine 125 mcg tablet 100 mcg PO DAILY@0730 04/07/13 09/09/24 qmsnwsbs-srq-ejfgg acid 0.4 1 ea PO DAILY 04/07/13 09/09/24 mg-lycopene 300 mcg-lutein 250 mcg tablet (Centrum Silver) aspirin 81 mg chewable tablet 81 mg PO DAILY 01/04/17 09/09/24 pantoprazole 40 mg tablet,delayed 40 mg PO DAILY ##30 05/03/17 09/09/24 release nicotine 14 mg/24 hr daily 14 mg transdermal DAILY 02/07/18 09/09/24 transdermal patch melatonin 3 mg tablet 3 mg PO HS 09/25/19 09/09/24 mirtazapine 45 mg tablet 45 mg PO QHS 09/25/19 09/09/24 trazodone 50 mg tablet 100 mg PO HS 09/25/19 09/09/24 quetiapine 25 mg tablet 25 mg PO BID PRN PRN #28 tabs 04/04/22 09/09/24 thiamine mononitrate (vit B1) 100 100 mg PO DAILY #14 tabs 04/04/22 09/09/24 mg tablet (Vitamin B-1 (mononitrate)) acetaminophen 650 mg 650 mg PO Q12H 10/29/22 09/09/24 tablet,extended release (Tylenol 8 Hour) magnesium chloride 71.5 mg 71.5 mg PO QHS 10/29/22 09/09/24 (magnesium chloride) tablet,delayed release (Slow-Mag) lidocaine 5 % topical patch 1 patch topical DAILY #15 ea 02/04/23 09/09/24 (Lidoderm) albuterol sulfate 90 mcg/actuation 2 inh inhalation Q6H PRN shortness 08/24/24 09/09/24 breath activated powder inhaler of breath #1 ea ferrous sulfate 325 mg (65 mg 325 mg PO DAILY 30 days #30 tabs 08/24/24 09/09/24 iron) tablet ipratropium 20 mcg-albuterol 100 1 puff inhalation Q6H #4 grams 08/24/24 09/09/24 mcg/actuation mist for inhalation (Combivent Respimat) prednisone 20 mg tablet 40 mg (2 x 20 mg) PO DAILY #10 tabs 08/24/24 09/09/24 docusate sodium 100 mg capsule 100 mg PO TID PRN PRN #90 caps 09/06/24 09/09/24 (Colace) escitalopram oxalate 10 mg tablet 10 mg PO DAILY #90 tabs 09/06/24 09/09/24 fentanyl 12 mcg/hr transdermal 12 mcg transdermal Q72H #10 ea 09/06/24 09/09/24 patch ipratropium 0.5 mg-albuterol 3 mg 3 ml UPD Q6H PRN PRN #30 mL 09/06/24 09/09/24 (2.5 mg base)/3 mL nebulization soln lidocaine HCl 2 % mucosal solution 3 ml PO Q1H PRN PRN tongue pain 09/06/24 09/09/24 #100 mL oxycodone 5 mg tablet 5 mg PO Q4H PRN PRN #30 tabs 09/06/24 09/09/24 polyethylene glycol 3350 17 gram 17 g PO DAILY PRN PRN Constipation 09/06/24 09/09/24 oral powder packet #1 ea tiotropium 2.5 mcg-olodaterol 2.5 2 puff inhalation DAILY #1 inh 09/06/24 09/09/24 mcg/actuation mist for inhalation (Stiolto Respimat) Previous Rx's ?Medication ?Instructions ?Recorded pantoprazole 40 mg tablet,delayed 40 mg PO DAILY ##30 05/03/17 release quetiapine 25 mg tablet 25 mg PO BID PRN PRN #28 tabs 04/04/22 thiamine mononitrate (vit B1) 100 100 mg PO DAILY #14 tabs 04/04/22 mg tablet (Vitamin B-1 (mononitrate)) lidocaine 5 % topical patch 1 patch topical DAILY #15 ea 02/04/23 (Lidoderm) albuterol sulfate 90 mcg/actuation 2 inh inhalation Q6H PRN shortness 08/24/24 breath activated powder inhaler of breath #1 ea ferrous sulfate 325 mg (65 mg 325 mg PO DAILY 30 days #30 tabs 08/24/24 iron) tablet ipratropium 20 mcg-albuterol 100 1 puff inhalation Q6H #4 grams 08/24/24 mcg/actuation mist for inhalation (Combivent Respimat) prednisone 20 mg tablet 40 mg (2 x 20 mg) PO DAILY #10 tabs 08/24/24 docusate sodium 100 mg capsule 100 mg PO TID PRN PRN #90 caps 09/06/24 (Colace) escitalopram oxalate 10 mg tablet 10 mg PO DAILY #90 tabs 09/06/24 fentanyl 12 mcg/hr transdermal 12 mcg transdermal Q72H #10 ea 09/06/24 patch ipratropium 0.5 mg-albuterol 3 mg 3 ml UPD Q6H PRN PRN #30 mL 09/06/24 (2.5 mg base)/3 mL nebulization soln lidocaine HCl 2 % mucosal solution 3 ml PO Q1H PRN PRN tongue pain 09/06/24 #100 mL oxycodone 5 mg tablet 5 mg PO Q4H PRN PRN #30 tabs 09/06/24 polyethylene glycol 3350 17 gram 17 g PO DAILY PRN PRN Constipation 09/06/24 oral powder packet #1 ea tiotropium 2.5 mcg-olodaterol 2.5 2 puff inhalation DAILY #1 inh 09/06/24 mcg/actuation mist for inhalation (Stiolto Respimat) Allergies Allergy/AdvReac Type Severity Reaction Status Date / Time ibuprofen Allergy Severe Other (See Unverified 08/29/24 16:58 Comment) varenicline tartrate (From AdvReac Severe Psychosis Unverified 08/29/24 16:58 Chantix) General Stated Complaint: Orthopedic WINSTON: 4 Course Vital Signs Vital signs: Vital Signs Temperature 36.2 C L 09/09/24 15:18 Pulse 65 09/09/24 15:18 Respiratory Rate 19 09/09/24 15:18 Blood Pressure 133/69 09/09/24 15:18 Pulse Oximetry 94 09/09/24 15:18 Temperature 36.2 C L 09/09/24 15:18 Temperature Source Temporal Artery Scan 09/09/24 15:18 Pulse 65 09/09/24 15:18 Respiratory Rate 19 09/09/24 15:18 Respiratory Effort Normal, Non-Labored 09/09/24 15:20 Blood Pressure 133/69 09/09/24 15:18 Blood Pressure Position Supine 09/09/24 15:18 Pulse Oximetry 94 09/09/24 15:18 Oxygen Delivery Method Room Air 09/09/24 15:18 Oxygen Flow Rate 0 09/09/24 15:18 Pain Level 0 09/09/24 15:18 Medical Decision Making Quality:SDOH Health Related Social Needs: Health related social needs problem related to primary support group(Z63.9) PFSH All Active Problems (Updated 09/09/24 @ 16:32 by Chris Arredondo MD) Hx of falling (Acute) Pain of right humerus (Acute) Palliative care encounter (Acute) Renal insufficiency (Chronic) Urothelial cancer (Acute) VRE (vancomycin resistant enterococcus) culture positive (Acute) Hypoalbuminemia due to protein-calorie malnutrition (Acute) and likely related to cancer Frailty syndrome in geriatric patient (Acute) Cancer related pain (Acute) Impaired mobility and ADLs (Acute) 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 Community acquired pneumonia (Acute) Acute kidney injury (Acute) HTN (hypertension) (Chronic) Hypoxic respiratory failure (Acute) Multiple closed fractures of ribs of right side (Acute) Malaise and fatigue (Acute) Cavitary lesion of lung (Acute) Alzheimer disease (Chronic) Elevated liver function tests (Acute) Transaminitis (Acute) Hyperbilirubinemia (Acute) Confusion (Acute) Generalized weakness (Acute) Bladder mass (Chronic) Upper gastrointestinal bleed (Acute 07/31/13) With melena and drop in hemoglobin Anxiety (Acute 07/31/13) Agitation (Acute 07/31/13) Anxiety and depression (Chronic) Hypothyroidism (Chronic) On satins. Hyperlipidemia (Chronic) Periodic limb movement disorder (Chronic) On benzodiazepines. Memory disturbance (Chronic) Pneumoperitoneum (Acute) Bradycardia (Acute) Perforated duodenal ulcer (Acute) Fluid volume excess (Acute) Hypokalemia (Acute) nutrition (Acute) Physical deconditioning (Acute) Short-term memory loss (Acute) Medical History (Updated 09/09/24 @ 16:32 by Chris Arredondo MD) Tubular adenoma of colon (05/03/17) high risk adenoma Duodenal ulcer perforation Advanced care planning/counseling discussion Acute on chronic respiratory failure with hypoxia and hypercapnia Renal cyst, left Alcohol abuse Peptic ulcer Duodenal perforation Insomnia Cough Shortness of breath Cavitating mass in left lower lung lobe Right shoulder pain Palliative care patient Colon polyp Perforated duodenal ulcer History of alcohol abuse Tobacco abuse Osteoarthritis Hypothyroidism Hyperlipidemia Diverticulitis Depression Anxiety Neurocardiogenic syncope Surgical History Laparotomy (09/10/16) with duodenal ulcer repair Kidney EGD - MAC (05/03/17) Colonoscopy - MAC (03/11/18) Colonoscopy - MAC (05/03/17) Family History Mother Dementia Father Heart disease Social History (Updated 08/31/24 @ 19:38 by Kayleigh Estrada MD) Smoking/Tobacco Use Status: Current every day Tobacco Type: cigarettes Quit status: not considering quitting Smoking risk assessment performed?: Yes Alcohol Intake: former Drug use: Never Substance use type: does not use Caregiver/Support person: Yes Household members: none and other Details: from who lives nearby and provides significant daily care Housing: house Number of Children: 2 Communication Needs: Hard of Hearing Do you need help understanding health information?: Always Current gender identity: male What is your relationship status?: How often do you talk on the phone with friends or family?: once per week How often do you get together with friends or relatives?: three or more times per week Panel score (0-1 are the most socially isolated patients): 1 What type of physical activity do you participate in: none and sedentary lifestyle Special juan needs: No Agree to transfusion: No Do you feel safe at home: Yes Do you feel safe in your relationship?: Yes Additional Social history: [facility]
--- NOTE | 2024-09-09 16:18 | DI.VRAD_ITS ---
PROCEDURE INFORMATION: Exam: CT Head Without Contrast Exam date and time: 09/09/2024 3:38 PM Age: 79 years old Clinical indication: Injury or trauma; Blunt trauma (contusions or hematomas); Patient HX: History of fall TECHNIQUE: Imaging protocol: Computed tomography of the head without contrast. COMPARISON: CT HEAD CERVICAL SPINE WO 08/29/2024 6:12 PM FINDINGS: Brain: No acute intracranial hemorrhage, mass-effect, midline shift, or extra-axial collection is seen. 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 Otherwise, the morin-white matter differentiation appears preserved. There is symmetric parenchymal volume loss. Cerebral ventricles: There is ex vacuo dilatation of the occipital horn of the left lateral ventricle. There is no hydrocephalus. Paranasal sinuses: The visualized paranasal sinuses appear well-aerated. Mastoid air cells: The visualized mastoid air cells appear well aerated. Auditory system: The middle ear cavities appear clear. Bones: The bony calvarium appears intact. No depressed skull fracture is seen. Soft tissues: No gross focal scalp hematoma is seen. IMPRESSION: 1. No acute intracranial hemorrhage or depressed skull fracture. 2. 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 Dictated and Authenticated by: Sigifredo Wells MD. Ordering:JUNAID Perez MD
--- NOTE | 2024-09-09 16:29 | DI.VRAD_ITS ---
PROCEDURE INFORMATION: Exam: XR Chest Exam date and time: 09/09/2024 3:49 PM Age: 79 years old Clinical indication: Injury or trauma; Blunt trauma (contusions or hematomas); Patient HX: R shoulder pain, history of fall TECHNIQUE: Imaging protocol: Radiologic exam of the chest. Views: 1 view. COMPARISON: CT CHEST PE ABD PELVIS W 08/29/2024 6:18 PM, x-ray chest August 21, 2024 at 6:12 p.m., x-ray chest August 26, 2024 at 8:18 p.m.. FINDINGS: Limitations: Patient positioning is lordotic. Lungs: No gross focal pulmonary consolidation is seen. Clustered reticular opacities are redemonstrated at the lateral left base. Pleural spaces: No pleural effusion or pneumothorax is demonstrated. Heart/Mediastinum: The heart appears normal in size. Bones/joints: Old rib fractures are redemonstrated on the left. Focal cortical step-off along the inferior margin of the right glenoid margin appears stable compared with prior exams. IMPRESSION: No active disease is seen in the chest. Dictated and Authenticated by: Sigifredo Wells MD. Ordering:JUNAID Perez MD
--- NOTE | 2024-09-09 16:31 | DI.VRAD_ITS ---
PROCEDURE INFORMATION: Exam: XR Right Humerus Exam date and time: 09/09/2024 3:54 PM Age: 79 years old Clinical indication: Pain; Upper arm and shoulder; Right; Patient HX: History of fall TECHNIQUE: Imaging protocol: Radiologic exam of the right humerus. Views: 2 or more views. COMPARISON: CR XR SHOULDER RT COMPLETE 2+V 09/09/2024 3:51 PM FINDINGS: Bones/joints: Two views of the right humerus reveal no acute fracture or dislocation. Soft tissues: No gross focal soft tissue abnormality is seen. IMPRESSION: No acute fracture seen in the right humerus. Dictated and Authenticated by: Sigifredo Wells MD. Ordering:JUNAID Perez MD
--- NOTE | 2024-09-09 16:34 | DI.VRAD_ITS ---
PROCEDURE INFORMATION: Exam: XR Right Shoulder Exam date and time: 09/09/2024 3:51 PM Age: 79 years old Clinical indication: Pain; Shoulder; Right; Patient HX: History of fall TECHNIQUE: Imaging protocol: Radiologic exam of the right shoulder. Views: 2 or more views. COMPARISON: CR XR CHEST 1V IN DI DEPT 09/09/2024 3:49 PM FINDINGS: Bones/joints: Four views of the right shoulder reveal no acute fracture or dislocation. No acute fracture or dislocation seen at the right shoulder. Apparent cortical step-off along the inferior right glenoid margin appears stable compared with prior chest radiographs from August 21 and August 26 2024. Soft tissues: No gross focal soft tissue abnormality is seen. IMPRESSION: No acute fracture or dislocation seen at the right shoulder. Dictated and Authenticated by: Sigifredo Wells MD. Ordering:JUNAID Perez MD
== END 2024-09-09 17:15 | disposition home or self-care (01) ==
PROVIDERS: Emergency Provider Emergency Medicine; PCP Nurse Practitioner Family
DX: M89.8X2 Other specified disorders of bone, upper arm (principal); Z91.81 History of falling; W06.XXXA Fall from bed, initial encounter; R41.0 Disorientation, unspecified
CPT/HCPCS: 99284; 70450; 71045; 73030; 73060; 99283

== ENCOUNTER → 2024-09-14 08:13 | Outpatient (BNVA) | payer MEDICARE, SELFPAY | PROVIDERS: PCP Nurse Practitioner Family; Referring Provider Nurse Practitioner Family; Visit Provider Urology | DX: N32.89 Other specified disorders of bladder (principal); N13.30 Unspecified hydronephrosis | CPT/HCPCS: 99443 ==

== ENCOUNTER 2024-09-15 22:11 | Outpatient (REF) | payer SELFPAY ==
[2024-09-15 19:53] LABS: MCH 24.8 pg (27.0-33.0); MCHC 30.3 % (32.0-36.0); MCV 82 fL (80-95); MPV 10.9 fL (8.0-11.0); Platelet Count 576 10^3/uL (130-400); RBC 4.03 10^6/uL (4.36-5.78); RDW 16.6 % (11.8-14.1); RDW-SD 49.3 fL; WBC 9.24 10^3/uL (4.4-10.8)
[2024-09-15 20:12] LABS: Anion Gap 8.7 mmol/L (3-11); BUN 28 mg/dL (7-18); CO2 28.3 mmol/L (21.0-32.0); CREATININE 1.5 mg/dL (0.70-1.30); Calcium 9.1 mg/dL (8.5-10.1); Chloride 107 mmol/L (98-107); Estimated GFR 47.06 (mL/min/1.73m2); Glucose 113 mg/dL (74-106); Potassium 4.5 mmol/L (3.5-5.1); Sodium 144 mmol/L (136-145); TSH 1.67 uIU/mL (0.36-3.74)
== END 2024-09-15 22:12 | disposition home or self-care (01) ==
LOC: LBN 22:11
PROVIDERS: PCP Nurse Practitioner Family; Visit Provider Family Medicine
DX: E03.9 Hypothyroidism, unspecified (principal)
CPT/HCPCS: 80048; 85027; 83735; 84443

== ENCOUNTER 2024-10-12 21:22 | Emergency (ER) | payer MEDICARE, SELFPAY ==
[2024-10-12] VITALS (16 sets, daily range): BP systolic 100–125; BP diastolic 65–82; PULSE 75–82; RESP 16; TEMP 36.6; O2SAT 94–96
[2024-10-12] MEDS: Lidocaine/Epinephri/Tetracaine Topical Gel 3 ML (22:03)
--- NOTE | 2024-10-12 22:17 | DI.CT_ITS ---
Exam(s) CT HEAD CERVICAL SPINE WO EXAM: CT HEAD CERVICAL SPINE WO CLINICAL HISTORY: fall, [place]. TECHNIQUE: Imaging Protocol: Axial computed tomography images with coronal and sagittal reformatted images were created and reviewed COMPARISON: CT CT HEAD WO from 09/09/2024 FINDINGS: BRAIN: There are no skull fractures nor fluid in the visualized paranasal sinuses. There is no evidence of intracranial hemorrhage, mass effect, or shift of midline structures. There are no extra-axial fluid collections. The ventricles are not enlarged or shifted and there is no blo od within the ventricular system nor within the basal cisterns. Again noted are areas of encephalomalacia in the left parietal lobe and left temporal lobe, unchanged . No evidence of obvious new infarct. CERVICAL SPINE: Is no evidence of acute fracture. However, there is bursal of the normal curvature of the cervical s pine evident. There is also advanced chronic multilevel disc space narrowing involving see 3-4, C4-5 , C5-6, and C6-7 levels. There is also some degenerative anterolisthesis of C3 upon C4 related to fa cet arthropathy. There is multilevel advanced facet arthropathy without facet joint malalignment anni dent. No significant osseous lesions evident. IMPRESSION: No acute intracranial findings on this noninfused CT scan of the brain.There is evidence of previous left-sided temporoparietal infarcts again noted, as was evident on CT scan of 09/09/2024. No evidence of cervical spine fracture, malalignment, nor acute compromise of the cervical spinal can al. Multilevel chronic degenerative disc disease and multilevel facet arthropathy as described above . RADIATION DOSE DELIVERED: 1,196.28mGy.cm Total DLP DATA REPOSITORY: All CT scans at this facility are submitted to the National Radiology Data Registry (NRDR) Dose Index Registry (DIR) with the [employer] ([employer]). RADIATION OPTIMIZATION: All CT scans at this facility use at least one of these dose optimization te chniques: automated exposure control; mA and/or kV adjustment per patient size (includes targeted exa ms where dose is matched to clinical indication); or iterative reconstruction.
--- NOTE | 2024-10-12 23:12 | W.ED.GENAD ---
Discharge Plan Disposition Patient Disposition: Home Condition: Good Discharge Details Clinical Impression: Laceration of forehead, Head injury Primary Care Provider: Lily Soares ED Provider: Megan Franklin Home Meds and New Rx's Prescriptions: Continued trazodone 50 mg tablet 50 mg PO HS melatonin 3 mg tablet 3 mg PO HS Patient Comments: Per will increase to 6 mg qd next week. mirtazapine 45 mg tablet 45 mg PO QHS aspirin 81 MG tablet,chewable 81 mg PO DAILY nicotine 1 EACH patch 24 hour 14 mg Transdermal DAILY Slow-Mag 71.5 mg tablet,delayed release (DR/EC) 71.5 mg PO QHS levothyroxine 125 MCG tablet 100 mcg PO DAILY@0730 Patient Comments: 02/08/18 PER SON 100 MCG DAILY. Centrum Silver 1 EACH tablet 1 ea PO DAILY pantoprazole 40 MG tablet,delayed release (DR/EC) 40 mg PO DAILY Qty: 30 5RF lidocaine [Lidoderm] 5 % adhesive patch,medicated 1 patch topical DAILY Qty: 15 0RF Rx Instructions: leave on most painful area for up to 12 hrs ipratropium-albuterol 0.5 mg-3 mg(2.5 mg base)/3 mL Solution For Nebulization 3 ml UPD Q6H PRN PRNQty: 30 0RF docusate sodium [Colace] 100 mg Capsule 100 mg PO TID PRN PRNQty: 90 0RF lidocaine HCl 2 % Solution 3 ml PO Q1H PRN PRN (Reason: tongue pain) Qty: 100 0RF oxycodone 5 mg Tablet 5 mg PO Q4H PRN PRNQty: 30 0RF escitalopram oxalate 10 mg Tablet 10 mg PO DAILY Qty: 90 0RF fentanyl 12 mcg/hr Patch 72 Hour 12 mcg transdermal Q72H Qty: 10 0RF Stiolto Respimat 2.5-2.5 mcg/actuation Mist 2 puff inhalation DAILY Qty: 1 2RF bisacodyl [Dulcolax (bisacodyl)] 10 mg suppository 10 mg UT DAILY PRN magnesium hydroxide [Milk of Magnesia] 400 mg/5 mL suspension 30 ml PO DAILY PRN polyethylene glycol 3350 17 gram/dose powder 17 g PO DAILY ferrous sulfate 325 mg (65 mg iron) Tablet 325 mg PO DAILY 30 Days Qty: 30 1RF Combivent Respimat 20-100 mcg/actuation mist 1 puff inhalation Q6H Qty: 4 0RF Discharge Instructions Instructions: Acute Pain, Adult, Laceration Repair With Glue ED Additional Instructions: You have glue on your wounds, you do not need to wash with soap and water its already been cleaned, this will come off on its own Tylenol as needed for pain Monitor for worsening headache, vomiting, or personality changes Please be reevaluated should you have new or worsening complaints Referrals: Lily Soares [Primary Care Provider] - 2 days Discharge Data Discharge Date/Time-TO BE ENTERED AT DEPARTURE: 10/13/24 00:33 HPI General Date/Time Provider Initiated Documentation: 10/12/24 21:54. HPI Narrative: 79-year-old male presents with report of fall into corner wall. Patient was about and did not fall to the floor. Frequently loses balance and has a history of dementia and is reportedly at his baseline. Tetanus is reportedly up-to-date. Patient denies any headache states he has pain overlying the laceration site. There was no report of loss of consciousness or any additional injuries aside from a laceration to patient's elbow. Patient denies any additional specific pain complaints. Related Data Home Medications ?Medication ?Instructions ?Recorded ?Confirmed levothyroxine 125 mcg tablet 100 mcg PO DAILY@0730 04/07/13 10/12/24 [id number]-[id number] acid 0.4 1 ea PO DAILY 04/07/13 10/12/24 mg-lycopene 300 mcg-lutein 250 mcg tablet (Centrum Silver) aspirin 81 mg chewable tablet 81 mg PO DAILY 01/04/17 10/12/24 pantoprazole 40 mg tablet,delayed 40 mg PO DAILY ##30 05/03/17 10/12/24 release nicotine 14 mg/24 hr daily 14 mg transdermal DAILY 02/07/18 10/12/24 transdermal patch melatonin 3 mg tablet 3 mg PO HS 09/25/19 10/12/24 mirtazapine 45 mg tablet 45 mg PO QHS 09/25/19 10/12/24 trazodone 50 mg tablet 50 mg PO HS 09/25/19 10/12/24 magnesium chloride 71.5 mg 71.5 mg PO QHS 10/29/22 10/12/24 (magnesium chloride) tablet,delayed release (Slow-Mag) lidocaine 5 % topical patch 1 patch topical DAILY #15 ea 02/04/23 10/12/24 (Lidoderm) ferrous sulfate 325 mg (65 mg 325 mg PO DAILY 30 days #30 tabs 08/24/24 10/12/24 iron) tablet ipratropium 20 mcg-albuterol 100 1 puff inhalation Q6H #4 grams 08/24/24 10/12/24 mcg/actuation mist for inhalation (Combivent Respimat) docusate sodium 100 mg capsule 100 mg PO TID PRN PRN #90 caps 09/06/24 10/12/24 (Colace) escitalopram oxalate 10 mg tablet 10 mg PO DAILY #90 tabs 09/06/24 10/12/24 fentanyl 12 mcg/hr transdermal 12 mcg transdermal Q72H #10 ea 09/06/24 10/12/24 patch ipratropium 0.5 mg-albuterol 3 mg 3 ml UPD Q6H PRN PRN #30 mL 09/06/24 10/12/24 (2.5 mg base)/3 mL nebulization soln lidocaine HCl 2 % mucosal solution 3 ml PO Q1H PRN PRN tongue pain 09/06/24 10/12/24 #100 mL oxycodone 5 mg tablet 5 mg PO Q4H PRN PRN #30 tabs 09/06/24 10/12/24 tiotropium 2.5 mcg-olodaterol 2.5 2 puff inhalation DAILY #1 inh 09/06/24 10/12/24 mcg/actuation mist for inhalation (Stiolto Respimat) bisacodyl 10 mg rectal suppository 10 mg UT DAILY PRN 10/12/24 10/12/24 (Dulcolax (bisacodyl)) magnesium hydroxide 400 mg/5 mL 30 ml PO DAILY PRN 10/12/24 10/12/24 oral suspension (Milk of Magnesia) polyethylene glycol 3350 17 17 g PO DAILY 10/12/24 10/12/24 gram/dose oral powder Previous Rx's ?Medication ?Instructions ?Recorded pantoprazole 40 mg tablet,delayed 40 mg PO DAILY ##30 05/03/17 release lidocaine 5 % topical patch 1 patch topical DAILY #15 ea 02/04/23 (Lidoderm) ferrous sulfate 325 mg (65 mg 325 mg PO DAILY 30 days #30 tabs 08/24/24 iron) tablet ipratropium 20 mcg-albuterol 100 1 puff inhalation Q6H #4 grams 08/24/24 mcg/actuation mist for inhalation (Combivent Respimat) docusate sodium 100 mg capsule 100 mg PO TID PRN PRN #90 caps 09/06/24 (Colace) escitalopram oxalate 10 mg tablet 10 mg PO DAILY #90 tabs 09/06/24 fentanyl 12 mcg/hr transdermal 12 mcg transdermal Q72H #10 ea 09/06/24 patch ipratropium 0.5 mg-albuterol 3 mg 3 ml UPD Q6H PRN PRN #30 mL 09/06/24 (2.5 mg base)/3 mL nebulization soln lidocaine HCl 2 % mucosal solution 3 ml PO Q1H PRN PRN tongue pain 09/06/24 #100 mL oxycodone 5 mg tablet 5 mg PO Q4H PRN PRN #30 tabs 09/06/24 tiotropium 2.5 mcg-olodaterol 2.5 2 puff inhalation DAILY #1 inh 09/06/24 mcg/actuation mist for inhalation (Stiolto Respimat) Allergies Allergy/AdvReac Type Severity Reaction Status Date / Time ibuprofen Allergy Severe Other (See Unverified 08/29/24 16:58 Comment) varenicline tartrate (From AdvReac Severe Psychosis Unverified 08/29/24 16:58 Chantix) General Stated Complaint: Laceration WINSTON: 4 Exam Narrative Exam Narrative: 79-year-old male in no acute distress, alert and at his baseline, 1 inch laceration to frontal region of forehead, no tenderness to cervical spine, small laceration to left elbow, able to range elbow without difficulty, following all basic commands, pupils equal round reactive to light and accommodation Course Vital Signs Vital signs: Vital Signs Temperature 36.6 C 10/12/24 21:12 Pulse 76 10/12/24 21:12 Respiratory Rate 16 10/12/24 21:12 Blood Pressure 124/79 10/12/24 21:12 Pulse Oximetry 96 10/12/24 21:12 Temperature 36.6 C 10/12/24 21:12 Temperature Source Oral 10/12/24 21:12 Pulse 77 10/12/24 22:00 Respiratory Rate 16 10/12/24 21:12 Blood Pressure 125/65 10/12/24 22:00 Blood Pressure Mean 84 10/12/24 22:00 Blood Pressure Position Supine 10/12/24 21:12 Pulse Oximetry 95 10/12/24 22:01 Oxygen Delivery Method Room Air 10/12/24 21:12 Oxygen Flow Rate 0 10/12/24 21:12 Pain Level 3 10/12/24 21:29 Medical Decision Making 79-year-old male at baseline mentation per [facility]. Case discussed with Kathryn, patient's and she would like CT scan and closure of the wound. Patient is agreeable to skin affix closure. Wound was cleansed and skin affix applied. Patient was sent for CT head and cervical spine. Pending results of CT head and cervical spine at this time. Care transitioned to Dr. Valencia pending formal radiological interpretation. patient will be discharged to the rehabilitation center for continued monitoring. Quality:SDOH Health Related Social Needs: No Data to Display PFSH All Active Problems (Updated 10/12/24 @ 23:16 by SHANE Sandoval) Head injury (Acute) Laceration of forehead (Acute) Encounter for hospice care discussion (Acute) Mixed dementia (Acute) Palliative care encounter (Acute) Renal insufficiency (Chronic) Urothelial cancer (Acute) VRE (vancomycin resistant enterococcus) culture positive (Acute) Hypoalbuminemia due to protein-calorie malnutrition (Acute) and likely related to cancer Frailty syndrome in geriatric patient (Acute) Cancer related pain (Acute) Impaired mobility and ADLs (Acute) 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 Community acquired pneumonia (Acute) Acute kidney injury (Acute) HTN (hypertension) (Chronic) Hypoxic respiratory failure (Acute) Multiple closed fractures of ribs of right side (Acute) Malaise and fatigue (Acute) Cavitary lesion of lung (Acute) Alzheimer disease (Chronic) Elevated liver function tests (Acute) Transaminitis (Acute) Hyperbilirubinemia (Acute) Confusion (Acute) Generalized weakness (Acute) Bladder mass (Chronic) Upper gastrointestinal bleed (Acute 07/31/13) With melena and drop in hemoglobin Anxiety (Acute 07/31/13) Agitation (Acute 07/31/13) Anxiety and depression (Chronic) Hypothyroidism (Chronic) On satins. Hyperlipidemia (Chronic) Periodic limb movement disorder (Chronic) On benzodiazepines. Memory disturbance (Chronic) Pneumoperitoneum (Acute) Bradycardia (Acute) Perforated duodenal ulcer (Acute) Fluid volume excess (Acute) Hypokalemia (Acute) nutrition (Acute) Physical deconditioning (Acute) Short-term memory loss (Acute) Medical History Tubular adenoma of colon (05/03/17) high risk adenoma Duodenal ulcer perforation Advanced care planning/counseling discussion Acute on chronic respiratory failure with hypoxia and hypercapnia Renal cyst, left Alcohol abuse Peptic ulcer Duodenal perforation Insomnia Cough Shortness of breath Cavitating mass in left lower lung lobe Right shoulder pain Palliative care patient Colon polyp Perforated duodenal ulcer History of alcohol abuse Tobacco abuse Osteoarthritis Hypothyroidism Hyperlipidemia Diverticulitis Depression Anxiety Neurocardiogenic syncope Surgical History Laparotomy (09/10/16) with duodenal ulcer repair Kidney EGD - MAC (05/03/17) Colonoscopy - MAC (03/11/18) Colonoscopy - MAC (05/03/17) Family History Mother Dementia Father Heart disease Social History Smoking/Tobacco Use Status: Current every day Tobacco Type: cigarettes Quit status: not considering quitting Smoking risk assessment performed?: Yes Alcohol Intake: former Drug use: Never Substance use type: does not use Caregiver/Support person: Yes Household members: none and other Details: from who lives nearby and provides significant daily care Housing: house Number of Children: 2 Communication Needs: Hard of Hearing Do you need help understanding health information?: Always Current gender identity: male What is your relationship status?: How often do you talk on the phone with friends or family?: once per week How often do you get together with friends or relatives?: three or more times per week Panel score (0-1 are the most socially isolated patients): 1 What type of physical activity do you participate in: none and sedentary lifestyle Special juan needs: No Agree to transfusion: No Do you feel safe at home: Yes Do you feel safe in your relationship?: Yes Additional Social history: [facility]
--- NOTE | 2024-10-12 23:47 | DI.VRAD_ITS ---
PROCEDURE INFORMATION: Exam: CT Head Without Contrast Exam date and time: 10/12/2024 10:34 PM Age: 79 years old Clinical indication: Injury or trauma; Blunt trauma (contusions or hematomas); Consciousness not specified; Injury details: Fall, hi TECHNIQUE: Imaging protocol: Computed tomography of the head without contrast. COMPARISON: CT HEAD WO 09/09/2024 3:38 PM FINDINGS: Brain: Prominence of cerebral sulci reflects diffuse cerebral atrophy. Poorly marginated hypodensities seen throughout the deep and periventricular white matter of both cerebral hemispheres are consistent with underlying microvascular ischemic changes with a superimposed chronic ischemic insult again seen involving cortex and deep and subcortical white matter in the left parietal lobe and a smaller chronic ischemic focus again seen involving the posterolateral left temporal lobe. Brainstem and cerebellum are stable in appearance and there is no evidence of acute transcortical infarction or recent intracranial hemorrhage. Cerebral ventricles: Dilatation of the 3rd and lateral ventricles is commensurate with the degree of cerebral atrophy. Paranasal sinuses: Grossly clear throughout. Mastoid air cells: Grossly clear bilaterally. Probable cerumen seen in the external auditory canals bilaterally. Bones: Bony calvarium and skull base are intact and no acute fractures are detected. Soft tissues: Unremarkable. IMPRESSION: Cerebral atrophy and multifocal chronic ischemic changes with no evidence of acute transcortical infarction, recent intracranial hemorrhage or hydrocephalus. No acute intracranial process is detected. PROCEDURE INFORMATION: Exam: CT Cervical Spine Without Contrast Exam date and time: 10/12/2024 10:34 PM Age: 79 years old Clinical indication: Injury or trauma; Blunt trauma (contusions or hematomas); Consciousness not specified; Injury details: Fall, hi TECHNIQUE: Imaging protocol: Computed tomography of the cervical spine without contrast. COMPARISON: CT HEAD CERVICAL SPINE WO 08/29/2024 6:12 PM FINDINGS: Bones: There is arthrosis involving the anterior atlantodental interval with loss of joint space and the odontoid process is grossly intact. There are grade 1 anterolistheses of C2 upon C3, C3 upon C4 and C7 upon T1 with superimposed S shaped scoliotic curvature seen at cervical and upper thoracic levels. There is gross preservation of vertebral body height throughout cervical levels with no vertebral body fractures or other significant subluxations detected. Changes of facet arthropathy are most advanced on the left at C2-C3 and C3-C4 with no acute fractures detected involving the posterior elements of the cervical spine. Discs/Spinal canal/Neural foramina: No severe central canal stenosis or severe cord compression is suspected at cervical levels. Uncovertebral and facet changes produce multilevel foraminal distortions/narrowings. Lungs: No pneumothorax or consolidation detected at the lung apices. Soft tissues: Unremarkable. IMPRESSION: Chronic cervical spondylosis with foraminal narrowing as above. No acute cervical fractures are detected. Dictated and Authenticated by: Carlos Alberto José MD. Ordering:TU Davila MD
--- NOTE | 2024-10-13 | ED.PROG_ITS ---
Date of service: 10/12/24 Time of Service: 23:30 Medical Decision Making This patient was signed out to me. Please see previous notes for H&P and initial eval. In brief, 79yo M presenting with forehead laceration after a fall. Laceration repaired, signed out pending CT head & cspine reads. Radiology reads as below, no acute findings. On my assessment he is alert, well appearing, in no distress. No c-spine tenderness, full pain free ROM at c- spine, no focal neurologic deficit or AMS or intoxication or distracting injuries. No indication for MRI. Discharged; discharge instructions and return precautions reviewed with patient and sent with him to facility. All questions were answered and he is in full agreement with the plan. Imaging Data Radiologic Study: Imaging: CT Scan Radiologist's impression: Head: IMPRESSION Cerebral atrophy and multifocal chronic ischemic changes with no evidence of acute transcortical infarction, recent intracranial hemorrhage or hydrocephalus. No acute intracranial process is detected. C spine: IMPRESSION: Chronic cervical spondylosis with foraminal narrowing as above. No acute cervical fractures are detected Quality:[facility] Health Related Social Needs: No Data to Display Discharge Plan Disposition Patient Disposition: Home Condition: Good Discharge Details Clinical Impression: Laceration of forehead, Head injury Primary Care Provider: Lily Soares ED Provider: Megan Franklin Home Meds and New Rx's Prescriptions: Continued trazodone 50 mg tablet 50 mg PO HS melatonin 3 mg tablet 3 mg PO HS Patient Comments: Per will increase to 6 mg qd next week. mirtazapine 45 mg tablet 45 mg PO QHS aspirin 81 MG tablet,chewable 81 mg PO DAILY nicotine 1 EACH patch 24 hour 14 mg Transdermal DAILY Slow-Mag 71.5 mg tablet,delayed release (DR/EC) 71.5 mg PO QHS levothyroxine 125 MCG tablet 100 mcg PO DAILY@0730 Patient Comments: 02/08/18 PER SON 100 MCG DAILY. Centrum Silver 1 EACH tablet 1 ea PO DAILY pantoprazole 40 MG tablet,delayed release (DR/EC) 40 mg PO DAILY Qty: 30 5RF lidocaine [Lidoderm] 5 % adhesive patch,medicated 1 patch topical DAILY Qty: 15 0RF Rx Instructions: leave on most painful area for up to 12 hrs ipratropium-albuterol 0.5 mg-3 mg(2.5 mg base)/3 mL Solution For Nebulization 3 ml UPD Q6H PRN PRNQty: 30 0RF docusate sodium [Colace] 100 mg Capsule 100 mg PO TID PRN PRNQty: 90 0RF lidocaine HCl 2 % Solution 3 ml PO Q1H PRN PRN (Reason: tongue pain) Qty: 100 0RF oxycodone 5 mg Tablet 5 mg PO Q4H PRN PRNQty: 30 0RF escitalopram oxalate 10 mg Tablet 10 mg PO DAILY Qty: 90 0RF fentanyl 12 mcg/hr Patch 72 Hour 12 mcg transdermal Q72H Qty: 10 0RF Stiolto Respimat 2.5-2.5 mcg/actuation Mist 2 puff inhalation DAILY Qty: 1 2RF bisacodyl [Dulcolax (bisacodyl)] 10 mg suppository 10 mg PA DAILY PRN magnesium hydroxide [Milk of Magnesia] 400 mg/5 mL suspension 30 ml PO DAILY PRN polyethylene glycol 3350 17 gram/dose powder 17 g PO DAILY ferrous sulfate 325 mg (65 mg iron) Tablet 325 mg PO DAILY 30 Days Qty: 30 1RF Combivent Respimat 20-100 mcg/actuation mist 1 puff inhalation Q6H Qty: 4 0RF Discharge Instructions Instructions: Acute Pain, Adult, Laceration Repair With Glue ED Additional Instructions: You have glue on your wounds, you do not need to wash with soap and water its already been cleaned, this will come off on its own Tylenol as needed for pain Monitor for worsening headache, vomiting, or personality changes Please be reevaluated should you have new or worsening complaints Referrals: Lily Soares [Primary Care Provider] - 2 days
== END 2024-10-13 00:33 | disposition home or self-care (01) ==
PROVIDERS: Emergency Provider Student in an Organized Health Care Education/Training Program; PCP Nurse Practitioner Family
DX: S01.81XA Laceration without foreign body of other part of head, initial encounter (principal); F03.90 Unspecified dementia, unspecified severity, without behavioral disturbance, psychotic disturbance, mood disturbance, and anxiety; F17.210 Nicotine dependence, cigarettes, uncomplicated; Z79.82 Long term (current) use of aspirin; W22.01XA Walked into wall, initial encounter; Y93.01 Activity, walking, marching and hiking; Y92.098 Other place in other non-institutional residence as the place of occurrence of the external cause
CPT/HCPCS: 00123; 12014; 99284; 70450; 72125

== ENCOUNTER 2024-10-23 17:58 | Outpatient (REF) | payer MEDICARE, SELFPAY ==
[2024-10-23 16:39] LABS: TSH 2.57 uIU/mL (0.36-3.74)
== END 2024-10-23 17:59 | disposition home or self-care (01) ==
LOC: LBN 17:58
PROVIDERS: PCP Nurse Practitioner Family; Visit Provider Family Medicine Geriatric Medicine
DX: E03.9 Hypothyroidism, unspecified (principal)
CPT/HCPCS: 84443